=== PATIENT | female | born 1955 | race Caucasian/White ===

== ENCOUNTER 2017-06-12 12:08 | Observation (INO) | payer MEDICARE ==
[2017-06-12] VITALS (11 sets, daily range): BP systolic 138–200; BP diastolic 78–105; PULSE 52–79; RESP 16–20; TEMP 98–99.6; O2SAT 95–98
[~2017-06-12] VITALS: Ht 162.6 cm; Wt 69.5 kg
[~2017-06-12 12:08] MED LIST: ASPI81 PO; CIPR250T52 PO; DUONI NEB; IPRAAER IN; METF500 PO; METH10TA PO; NEBUMIS6 INH; NIFE1TAB86 PO; NIFE60TA58 PO; POTA20TA5 PO
[2017-06-12] MEDS ORDERED: IPRAAER INH (12:58)
[2017-06-12] MEDS ORDERED: ASPI81TA11 PO (12:58)
[2017-06-12] MEDS ORDERED: METF500T PO (12:58)
[2017-06-12] MEDS ORDERED: METH10TA PO (12:58)
[2017-06-12] MEDS ORDERED: ALBU.5I NEB (12:58)
[2017-06-12] MEDS ORDERED: SODIUM CHLORIDE 0.9% FLUSH 10 ML FLUSH IVF PRN (13:00)
[2017-06-12 13:08] LABS: BLOOD, URINE TRACE (NEG); GLUCOSE,URINE NEG (NEG); KETONE, URINE NEG (NEG); NITRITE,URINE POS (NEG)
--- NOTE | 2017-06-12 13:12 | RADRPT ---
EXAM DATE/TIME: 06/12/2017 12:56 [place] COMPARISON: No previous studies available for comparison. INDICATIONS : Short of breath. MEDICAL HISTORY : Chronic obstructive pulmonary disease. SURGICAL HISTORY : None. ENCOUNTER: Initial ACUITY: 2 days PAIN SCORE: 7/10 LOCATION: Bilateral chest FINDINGS: A single view of the chest demonstrates the lungs to be symmetrically aerated without evidence of mas s, infiltrate or effusion. Moderate sized hiatal hernia. The cardiomediastinal contours are unremarka ble. Osseous structures are intact. CONCLUSION: No acute disease. Rasheed Bledsoe MD on June 12, 2017 at 13:07 Board Certified Radiologist. This report was verified electronically.
[2017-06-12 13:14] LABS: METHOD OF COLLECTION CLEAN CATCH; URINE COLOR YELLOW (YELLW/STRAW); WBC, URINE 100-200 /hpf (0-5)
[2017-06-12 13:15] LABS: BACTERIA, URINE MANY /hpf; COMMENT (UR) CULTURE INDICATED; CULTURE IF INDICATED CULTURE INDICATED; SQUAMOUS EPITHELIAL CELL URINE > 8 /hpf (0-5)
--- NOTE | 2017-06-12 13:19 | PD ---
HPI Chief Complaint: GI Complaint Time Seen by Provider: 12:28 Travel History International Travel<30 days: No Contact w/Intl Traveler<30days: No Traveled to known affect area: No History of Present Illness HPI Patient is a 61-year-old female presents emergency department for evaluation of 2 complaints. Patient states she's been having some suprapubic pain as well as some chest tightness. Patient states she has a history of COPD he is a smoker, she states the pain in her chest is been ongoing for the past day and a half, she does not have a primary care physician is known to follow up with. States the pain is not radiating, is associated with some shortness of breath and some mild nausea. Secondary complaint of suprapubic pain which is milder, associated with mild nausea no vomiting. Started about the same time as her chest pain. 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) Musculoskeletal: No Neurologic: Yes (MEMORY ISSUES/BALANCE ISSUES SINCE TIA, ) Psychiatric: No Reproductive: Yes (hx endometriosis) Respiratory: Yes Thyroid Disease: No Past Surgical History Abdominal Surgery: Yes (appendectomy) Appendectomy: Yes Body Medical Devices: TMJ implant Cardiac Surgery: No Ear Surgery: No Endocrine Surgery: No Eye Surgery: Yes (Cataract surgery R eye) Genitourinary Surgery: Yes (Bladder enlargement ) Gynecologic Surgery: Yes (hysterectomy) Hysterectomy: Yes Oral Surgery: Yes (tmj joint replacement) Thoracic Surgery: No Tonsillectomy: Yes (AND ADENOIDS) Other Surgery: Yes (Hemorrhoidectomy, Breast augmentation, Stricturoplasty) Social History Alcohol Use: No Tobacco Use: No (QUIT 10/2016) Substance Use: No Allergies-Medications (Allergen,Severity, Reaction): Coded Allergies: cefaclor (Unverified Allergy, Severe, HIVES, THROAT CLOSES, 06/12/17) prochlorperazine (Unverified Allergy, Severe, THROAT CLOSES, 06/12/17) orphenadrine (Unverified Allergy, Intermediate, PALPITATIONS, 06/12/17) Reported Meds & Prescriptions Reported Meds & Active Scripts Active Nifedipine ER 24 HR (Nifedipine) 60 Mg Tab 60 Mg PO Q12HR Potassium Chloride Microencaps 20 Meq Tab 20 Meq PO DAILY Start on 07/11/16. Reported Albuterol Neb (Albuterol Sulfate) 2.5 Mg/0.5 Ml Neb 2.5 Mg NEB Q4HR NEB PRN Note: The Albuterol Sulfate Inhalation Solution is concentrated and must be diluted. Read complete instructions carefully before using. Methadone (Methadone HCl) 10 Mg Tab 100 Mg PO DAILY Metformin (Metformin HCl) 500 Mg Tab 500 Mg PO DAILY With a meal Combivent Respimat Inh (Ipratropium-Albuterol Inh) 20-100 Long Term/Act Aero 1 Puff INH QID Aspirin EC (Aspirin) 81 Mg Tabdr 81 Mg PO DAILY Review of Systems Except as stated in HPI: all other systems reviewed are Neg Physical Exam Narrative GENERAL: Well-developed, overweight patient in no obvious distress. SKIN: Focused skin assessment warm/dry. HEAD: Atraumatic. Normocephalic. EYES: Pupils equal and round. No scleral icterus. No injection or drainage. ENT: No nasal bleeding or discharge. Mucous membranes pink and moist. NECK: Trachea midline. No JVD. CARDIOVASCULAR: Regular rate and rhythm. No murmur appreciated. RESPIRATORY: No accessory muscle use. Clear to auscultation. Breath sounds equal bilaterally. GASTROINTESTINAL: Abdomen soft, nondistended. Hepatic and splenic margins not palpable. No CVA tenderness, minimal suprapubic tenderness. MUSCULOSKELETAL: No obvious deformities. No clubbing. No cyanosis. No edema. NEUROLOGICAL: Awake and alert. No obvious cranial nerve deficits. Motor grossly within normal limits. Normal speech. PSYCHIATRIC: Appropriate mood and affect; insight and judgment normal. Data Data Last Documented VS Vital Signs Date Time Temp Pulse Resp B/P (MAP) Pulse Ox O2 Delivery O2 Flow Rate FiO2 06/12/17 14:35 52 16 138/78 (98) 95 Room Air 06/12/17 12:24 99.6 Orders Orders Electrocardiogram (06/12/17 12:49) Basic Metabolic Panel (Bmp) (06/12/17 12:49) Ckmb (Isoenzyme) Profile (06/12/17 12:49) Complete Blood Count With Diff (06/12/17 12:49) Troponin I (06/12/17 12:49) Chest, Single Ap (06/12/17 12:49) Ecg Monitoring (06/12/17 12:49) Iv Access Insert/Monitor (06/12/17 12:49) Oximetry (06/12/17 12:49) Oxygen Administration (06/12/17 12:49) Sodium Chloride 0.9% Flush (Ns Flush) (06/12/17 13:00) Urinalysis - C+S If Indicated (06/12/17 12:52) Urine Culture (06/12/17 12:45) Nitroglycerin Sl (Nitrostat Sl) (06/12/17 13:45) Ondansetron Inj (Zofran Inj) (06/12/17 14:30) Ciprofloxacin 400 Mg Premix (Cipro 400 M (06/12/17 14:30) Admit Order (Ed Use Only) (06/12/17 ) Labs Laboratory Tests Test 06/12/17 12:45 06/12/17 13:15 06/12/17 13:22 Urine Collection Type CLEAN CATCH Urine Color YELLOW Urine Turbidity MOD Urine pH 6.0 Urine Specific [place] 1.014 Urine Protein 100 mg/dL Urine Glucose (UA) NEG mg/dL Urine Ketones NEG mg/dL Urine Occult Blood TRACE Urine Nitrite POS Urine Bilirubin NEG Urine Leukocyte Esterase SMALL Urine RBC 10-14 /hpf Urine WBC 100-200 /hpf Urine WBC Clumps MANY Urine Squamous Epithelial Cells > 8 /hpf Urine Bacteria MANY /hpf Microscopic Urinalysis Comment CULTURE INDICATED Urine Collection Time 12:45 White Blood Count 7.0 TH/MM3 Red Blood Count 4.65 MIL/MM3 Hemoglobin 10.3 GM/DL Hematocrit 33.9 % Mean Corpuscular Volume 73.0 FL Mean Corpuscular Hemoglobin 22.2 PG Mean Corpuscular Hemoglobin Concent 30.5 % Red Cell Distribution Width 15.5 % Platelet Count 229 TH/MM3 Mean Platelet Volume 9.3 FL Neutrophils (%) (Auto) 59.8 % Lymphocytes (%) (Auto) 24.5 % Monocytes (%) (Auto) 13.7 % Eosinophils (%) (Auto) 1.4 % Basophils (%) (Auto) 0.6 % Neutrophils # (Auto) 4.2 TH/MM3 Lymphocytes # (Auto) 1.7 TH/MM3 Monocytes # (Auto) 1.0 TH/MM3 Eosinophils # (Auto) 0.1 TH/MM3 Basophils # (Auto) 0.0 TH/MM3 CBC Comment AUTO DIFF Differential Comment AUTO DIFF CONFIRMED Blood Urea Nitrogen 8 MG/DL Creatinine 0.92 MG/DL Random Glucose 91 MG/DL Calcium Level 8.4 MG/DL Sodium Level 136 MEQ/L Potassium Level 3.4 MEQ/L Chloride Level 101 MEQ/L Carbon Dioxide Level 26.2 MEQ/L Anion Gap 9 MEQ/L Estimat Glomerular Filtration Rate 62 ML/MIN Total Creatine Kinase 71 U/L Troponin I LESS THAN 0.02 NG/ML Thyroid Stimulating Hormone 3rd Gen 0.326 uIU/ML MDM Medical Decision Making Medical Screen Exam Complete: Yes Emergency Medical Condition: Yes Differential Diagnosis ACS, AMI, UTI. Narrative Course Patient is a 61-year-old female presents emergency department for evaluation of 2 complaints. Suprapubic pain was explained by urinary tract infection. The patient secondary complaint is chest tightness, she is found to be significantly hypertensive in the emergency department, given nitroglycerin and her pain had subsided as well as her blood pressure. Patient does not have outpatient follow-up, she is a smoker, she has history of diabetes high blood pressure. Discussed with her that her pain is fairly atypical but cannot completely exclude, she has no follow-up and doesn't think she be able to do so and timely fashion. I had recommended that she stay in this chest pain center for consideration of stress test and she is agreeable. Diagnosis Primary Impression: Chest pain Qualified Codes: R07.9 - Chest pain, unspecified Additional Impression: Urinary tract infection Qualified Codes: N30.00 - Acute cystitis without hematuria Admitting Information Admitting Physician Requests: Observation Condition: Stable Wagner Thomas MD Jun 12, 2017 13:19
[2017-06-12 13:27] LABS: AUTOMATED NEUTROPHIL # 4.2 TH/MM3 (1.8-7.7); BASOPHIL % 0.6 % (0.0-2.0); EOSINOPHIL # 0.1 TH/MM3 (0-0.4); EOSINOPHIL % 1.4 % (0.0-4.0); HEMATOCRIT 33.9 % (35.0-46.0); LYMPH % 24.5 % (9.0-44.0); LYMPHOCYTE # 1.7 TH/MM3 (1.0-4.8); MEAN CORPUSCULAR HEMOGLOBIN 22.2 PG (27.0-34.0); MEAN CORPUSCULAR HGB CONC 30.5 % (32.0-36.0); MONO % 13.7 % (0.0-8.0); NEUT % 59.8 % (16.0-70.0); PLATELET COUNT 229 TH/MM3 (150-450); RED BLOOD COUNT 4.65 MIL/MM3 (4.00-5.30); RED CELL DISTRIBUTION WIDTH 15.5 % (11.6-17.2)
[2017-06-12 13:28] LABS: HEMO FLAGS AUTO DIFF
[2017-06-12 13:36] LABS: CHLORIDE 101 MEQ/L (98-107); POTASSIUM 3.4 MEQ/L (3.5-5.1); SODIUM (NA) 136 MEQ/L (136-145)
[2017-06-12 13:39] LABS: ANION GAP 9 MEQ/L (5-15); BICARBONATE 26.2 MEQ/L (21.0-32.0); BLOOD UREA NITROGEN 8 MG/DL (7-18)
[2017-06-12 13:42] LABS: GLOMERULAR FILTRATION RATE 62 ML/MIN (>89)
[2017-06-12] MEDS ORDERED: NITROGLYCERIN 0.4 MG SL 25 TABS/BTL SL ONE (13:45)
[2017-06-12 13:47] LABS: SCAN/DIFF AUTO DIFF CONFIRMED
[2017-06-12 13:57] LABS: CREATINE KINASE 71 U/L (26-192)
[2017-06-12] MEDS ORDERED: ONDANSETRON HCL 4 MG/2 ML VIAL IV PUSH ONE (14:30)
[2017-06-12] MEDS ORDERED: CIPROFLOXACIN 400 MG PREMIX 200 ML IV ONE (14:30)
[2017-06-12] MEDS ORDERED: SODIUM CHLORIDE 0.9% FLUSH 10 ML FLUSH IV FLUSH PRN (15:30)
[2017-06-12] MEDS ORDERED: DEXTROSE 50% IN WATER 50 ML VIAL(D50) IV PUSH PRN (16:45)
[2017-06-12] MEDS ORDERED: GLUCAGON 1 MG/ML VIAL OTHER PRN (16:45)
[2017-06-12] MEDS ORDERED: POTASSIUM CHLORIDE 10 MEQ CONTROLLED RELEASE TAB PO ONE (16:45)
[2017-06-12] MEDS ORDERED: LOSARTAN 50 MG TAB PO ONE (16:45)
[2017-06-12] MEDS ORDERED: RESP: ALBUTEROL CONC 2.5 MG/0.5 ML NEB NEB PRN (16:45)
--- NOTE | 2017-06-12 16:55 | HHI.HP ---
[facility] Primary Care Physician No Primary Care Physician Admission Diagnosis Chest pain Diagnoses: Chief Complaint: Chest pain Travel History International Travel<30 Days: No Contact w/Intl Traveler <30 Da: No Traveled to Known Affected Are: No History of Present Illness This patient is a 61-year-old female with diabetes and hypertension. She comes in with 10 out of 10 substernal chest pain and with elevated blood pressures for a week. Her blood pressure here is 197/97. Patient states she ran out of her medications several months ago. She moved from [place] did not obtain primary care follow-up. She also takes methadone but did find the methadone clinic. She has reflex sympathetic dystrophy. She has come to the emergency room for further evaluation. As her blood pressure improved her cardiac complaint resolved. However blood pressure juan again and she began having severe substernal chest discomfort. Patient says the chest pains 1 over the last 24 hours. Is it not radiating and not associated with diaphoresis or nausea. She also reports increased dyspnea on exertion over the last several weeks with minimal effort. She is not very active but notice getting around the house was more difficult due to increased shortness of breath. She does take nebulizers for her COPD and has been out of those as well. She has had some dysuria but notes no fevers or chills. She is come to the hospital for further evaluation of the above symptoms and has been recommended for further observation Review of Systems Constitutional: DENIES: Diaphoretic episodes, Fatigue, Fever, Weight gain, Weight loss, Chills, Dizziness, Change in appetite, Night Sweats Endocrine: DENIES: Abnorml menstrual pattern, Heat/cold intolerance, Polydipsia , Polyuria, Polyphagia Eyes: DENIES: Blurred vision, Diplopia, Eye inflammation, Eye pain, Vision loss , Photosensitivity, Double Vision Ears, nose, mouth, throat: DENIES: Tinnitus, Hearing loss, Vertigo, Nasal discharge, Oral lesions, Throat pain, Hoarseness, Ear Pain, Running Nose, Epistaxis, Sinus Pain, Toothache, Odynophagia Respiratory: COMPLAINS OF: Shortness of breath, DENIES: Apneas, Cough, Snoring , Wheezing, Hemoptysis, Sputum production Cardiovascular: COMPLAINS OF: Chest pain Gastrointestinal: DENIES: Abdominal pain, Black stools, Bloody stools, Constipation, Diarrhea, Nausea, Vomiting, Difficulty Swallowing, Anorexia Genitourinary: DENIES: Abnormal vaginal bleeding, Dysmenorrhea, Dyspareunia, Sexual dysfunction, Urinary frequency, Urinary incontinence, Urgency, Hematuria , Dysuria, Nocturia, Vaginal discharge Musculoskeletal: DENIES: Joint pain, Muscle aches, Stiffness, Joint Swelling, Back pain, Neck pain Integumentary: DENIES: Abnormal pigmentation, Pruritus, Rash, Nail changes, Breast masses, Breast skin changes, Nipple discharge Immunologic/allergic: DENIES: Eczema, Urticaria Neurologic: DENIES: Abnormal gait, Headache, Localized weakness, Paresthesias, Seizures, Speech Problems, Tremor, Poor Balance Psychiatric: DENIES: Anxiety, Confusion, Mood changes, Depression, Hallucinations, Agitation, Suicidal Ideation, Homicidal Ideation, Delusions Except as stated in HPI: all other systems reviewed are Neg Past Family Social History Past Medical History Diabetes mellitus Hypertension Poor adherence Reflex sympathetic dystrophy on chronic methadone Past Surgical History Total hysterectomy, hemorrhoid surgery TMJ Sinus surgery Breast augmentation Bladder surgery Tonsils and appendectomy Reported Medications Reviewed in the EMR, ran out of her medications several months ago (except methadone) Allergies: Coded Allergies: cefaclor (Unverified Allergy, Severe, HIVES, THROAT CLOSES, 06/12/17) prochlorperazine (Unverified Allergy, Severe, THROAT CLOSES, 06/12/17) orphenadrine (Unverified Allergy, Intermediate, PALPITATIONS, 06/12/17) Active Ordered Medications Reviewed in the EMR Family History Mother from liver cancer at 52, father from a stroke and had diabetes and coronary disease Social History Quit smoking over a year ago, does not drink alcohol lives with her son Physical Exam Vital Signs Vital Signs Date Time Temp Pulse Resp B/P (MAP) Pulse Ox O2 Delivery O2 Flow Rate FiO2 06/12/17 13:52 52 16 186/89 (121) 06/12/17 13:33 52 16 197/97 (130) 97 Room Air 06/12/17 13:05 18 97 Room Air 06/12/17 13:05 97 Room Air 06/12/17 12:44 18 06/12/17 12:25 62 18 174/85 (114) 97 06/12/17 12:24 99.6 71 18 Physical Exam GENERAL: This is a well-nourished, well-developed patient, in no apparent distress. SKIN: No rashes, ecchymoses or lesions. Cool and dry. HEAD: Edentulous, Atraumatic. Normocephalic. No temporal or scalp tenderness. EYES: Pupils equal round and reactive. Extraocular motions intact. No scleral icterus. No injection or drainage. ENT: Nose without bleeding, purulent drainage or septal hematoma. Throat without erythema, tonsillar hypertrophy or exudate. Uvula midline. Airway patent. NECK: Trachea midline. No JVD or lymphadenopathy. Supple, nontender, no meningeal signs. CARDIOVASCULAR: Regular rate and rhythm without murmurs, gallops, or rubs. RESPIRATORY: Clear to auscultation. Breath sounds equal bilaterally. No wheezes , rales, or rhonchi. GASTROINTESTINAL: Abdomen soft, non-tender, nondistended. No hepato-splenomegaly , or palpable masses. No guarding. MUSCULOSKELETAL: Extremities without clubbing, cyanosis, or edema. No joint tenderness, effusion, or edema noted. No calf tenderness. Negative Homans sign bilaterally. NEUROLOGICAL: Awake and alert. Cranial nerves II through XII intact. Motor and sensory grossly within normal limits. Five out of 5 muscle strength in all muscle groups. Normal speech. Laboratory Laboratory Tests Test 06/12/17 12:45 06/12/17 13:15 Urine Collection Type CLEAN CATCH Urine Color YELLOW Urine Turbidity MOD Urine pH 6.0 Urine Specific [place] 1.014 Urine Protein 100 Urine Glucose (UA) NEG Urine Ketones NEG Urine Occult Blood TRACE Urine Nitrite POS Urine Bilirubin NEG Urine Leukocyte Esterase SMALL Urine RBC 10-14 Urine WBC 100-200 Urine WBC Clumps MANY Urine Squamous Epithelial Cells > 8 Urine Bacteria MANY Microscopic Urinalysis Comment CULTURE INDICATED Urine Collection Time 12:45 White Blood Count 7.0 Red Blood Count 4.65 Hemoglobin 10.3 Hematocrit 33.9 Mean Corpuscular Volume 73.0 Mean Corpuscular Hemoglobin 22.2 Mean Corpuscular Hemoglobin Concent 30.5 Red Cell Distribution Width 15.5 Platelet Count 229 Mean Platelet Volume 9.3 Neutrophils (%) (Auto) 59.8 Lymphocytes (%) (Auto) 24.5 Monocytes (%) (Auto) 13.7 Eosinophils (%) (Auto) 1.4 Basophils (%) (Auto) 0.6 Neutrophils # (Auto) 4.2 Lymphocytes # (Auto) 1.7 Monocytes # (Auto) 1.0 Eosinophils # (Auto) 0.1 Basophils # (Auto) 0.0 CBC Comment AUTO DIFF Differential Comment AUTO DIFF CONFIRMED Blood Urea Nitrogen 8 Creatinine 0.92 Random Glucose 91 Calcium Level 8.4 Sodium Level 136 Potassium Level 3.4 Chloride Level 101 Carbon Dioxide Level 26.2 Anion Gap 9 Estimat Glomerular Filtration Rate 62 Total Creatine Kinase 71 Troponin I LESS THAN 0.02 Date/Time Source Procedure Growth Status 06/12/17 12:45 Urine Clean Catch Urine Culture Pending Received Result Diagram: 06/12/17 1315 06/12/17 1315 Imaging Last Impressions Chest X-Ray 06/12/17 1249 Signed Impressions: Service Date/Time: Monday, June 12, 2017 12:56 - CONCLUSION: No acute disease. MD Jennifer Clement VTE Risk Assessment Caprini VTE Risk Assessment: Mod/High Risk (score >= 2) Caprini Risk Assessment Model Point Value = 1 Point Value = 2 Point Value = 3 Point Value = 5 Age 41-60 Minor surgery BMI > 25 kg/m2 Swollen legs Varicose veins or History of unexplained or recurrent spontaneous Oral contraceptives or hormone replacement Sepsis (< 1 month) Serious lung disease, including pneumonia (< 1 month) Abnormal pulmonary function Acute myocardial infarction Congestive heart failure (< 1 month) History of inflammatory bowel disease Medical patient at bed rest Age 61-74 Arthroscopic surgery Major open surgery (> 45 min) Laparoscopic surgery (> 45 min) Malignancy Confined to bed (> 72 hours) Immobilizing plaster cast Central venous access Age >= 75 History of VTE Family history of VTE Factor V Leiden Prothrombin [id number] Lupus anticoagulant Anticardiolipin antibodies Elevated serum homocysteine Heparin-induced thrombocytopenia Other congenital or acquired thrombophilia Stroke (< 1 month) Elective arthroplasty Hip, pelvis, or leg fracture Acute spinal cord injury (< 1 month) Prophylaxis Regimen Total Risk Factor Score Risk Level Prophylaxis Regimen 0-1 Low Early ambulation 2 Moderate Order ONE of the following: *Sequential Compression Device (SCD) *Heparin 5000 units SQ BID 3-4 Higher Order ONE of the following medications: *Heparin 5000 units SQ TID *Enoxaparin/Lovenox 40 mg SQ daily (WT < 150 kg, CrCl > 30 mL/min) *Enoxaparin/Lovenox 30 mg SQ daily (WT < 150 kg, CrCl > 10-29 mL/min) *Enoxaparin/Lovenox 30 mg SQ BID (WT < 150 kg, CrCl > 30 mL/min) AND/OR *Sequential Compression Device (SCD) 5 or more Highest Order ONE of the following medications: *Heparin 5000 units SQ TID (Preferred with Epidurals) *Enoxaparin/Lovenox 40 mg SQ daily (WT < 150 kg, CrCl > 30 mL/min) *Enoxaparin/Lovenox 30 mg SQ daily (WT < 150 kg, CrCl > 10-29 mL/min) *Enoxaparin/Lovenox 30 mg SQ BID (WT < 150 kg, CrCl > 30 mL/min) AND *Sequential Compression Device (SCD) Assessment and Plan Problem List: (1) Chest pain ICD Code: R07.9 - Chest pain, unspecified Status: Acute Plan: Atypical and likely due to elevated blood pressures Renee scan in a.m., patient education (2) Hypertension ICD Code: I10 - Essential (primary) hypertension Status: Acute Plan: Uncontrolled due to nonadherence, we'll continue patient's pain, add ARB , patient education provided (3) Diabetes ICD Code: E11.9 - Type 2 diabetes mellitus without complications Status: Acute Plan: Continue sliding scale insulin and diabetic diet, hold metformin for now (4) RSD (reflex sympathetic dystrophy) ICD Code: G90.50 - Complex regional pain syndrome I, unspecified Plan: Patient does take methadone daily which we will continue (5) Urinary tract infection ICD Code: N39.0 - Urinary tract infection, site not specified Status: Acute Plan: Empiric ciprofloxacin and follow cultures Code Status full code Discussed Condition With ER MD,patient Problem Qualifiers (1) Chest pain: Qualified Codes: R07.9 - Chest pain, unspecified (2) Urinary tract infection: Qualified Codes: N30.00 - Acute cystitis without hematuria Maria Teresa Starkey MD Jun 12, 2017 16:55
[2017-06-12] MEDS: INSULIN ASPART SUPPLEMENTAL SCALE SQ SCH ×2 (17:51→21:00)
[2017-06-12 19:27] LABS: HDL CHOLESTEROL 49.2 MG/DL (40.0-60.0); LDL CHOLESTEROL 34 MG/DL (0-99)
[2017-06-12] MEDS ORDERED: cloNIDine HCL 0.1 MG TAB PO PRN (20:45)
[2017-06-12] MEDS: CIPROFLOXACIN 500 MG TAB PO SCH (21:36)
[2017-06-12] MEDS: SODIUM CHLORIDE 0.9% FLUSH 10 ML FLUSH IV FLUSH SCH (21:36)
[2017-06-12] MEDS: NIFEdipine 60 MG SUSTAINED RELEASE TAB PO SCH (21:36)
[2017-06-12] MEDS: HEPARIN SODIUM - SQ 10,000 UNITS/ML VIAL SQ SCH (21:37)
[2017-06-13 00:02] VITALS: BP 94/52; PULSE 64; RESP 18; TEMP 98.1; O2SAT 97
[2017-06-13 04:53] VITALS: BP 106/60; PULSE 70; RESP 16; TEMP 98.2; O2SAT 96
--- NOTE | 2017-06-13 05:16 | EKG ---
Date Performed: 06/12/2017 Time Performed: 12:58:21 PTAGE: 61 years EKG: SINUS BRADYCARDIA POSSIBLE LEFT ATRIAL ENLARGEMENT PROLONGED QT INTERVAL ABNORMAL ECG PREVIOUS TRACING : 07/09/2016 05.58 DOCTOR: Eligio Solitario Interpretating Date/Time 06/13/2017 05:08:40
[2017-06-13] MEDS: HEPARIN SODIUM - SQ 10,000 UNITS/ML VIAL SQ SCH ×2 (05:35→14:48)
[2017-06-13 08:00] VITALS: BP 80/64; PULSE 63; RESP 16; TEMP 97.8; O2SAT 95
[2017-06-13] MEDS: INSULIN ASPART SUPPLEMENTAL SCALE SQ SCH ×2 (08:00→12:00)
[2017-06-13] MEDS: NIFEdipine 60 MG SUSTAINED RELEASE TAB PO SCH (08:30)
[2017-06-13 08:36] VITALS: PULSE 58
[2017-06-13] MEDS: CIPROFLOXACIN 500 MG TAB PO SCH (08:36)
[2017-06-13] MEDS: SODIUM CHLORIDE 0.9% FLUSH 10 ML FLUSH IV FLUSH SCH (08:36)
[2017-06-13] MEDS ORDERED: SODIUM CHLOR 0.9% 1000 ML INJ 1,000 ML IV SCH (08:45)
[2017-06-13] MEDS ORDERED: ASPIRIN EC 81 MG TABEC PO SCH (09:00)
[2017-06-13] MEDS ORDERED: POTASSIUM CHLORIDE 20 MEQ CONTROLLED RELEASE TAB PO SCH (09:00)
[2017-06-13] MEDS ORDERED: LOSARTAN 50 MG TAB PO SCH (09:00)
[2017-06-13] MEDS ORDERED: METHADONE HCL 10 MG TAB PO SCH (09:00)
[2017-06-13 09:18] LABS: BICARBONATE 28.7 MEQ/L (21.0-32.0); POTASSIUM 4.4 MEQ/L (3.5-5.1)
[2017-06-13] MEDS ORDERED: PNEUMOCOCCAL POLYVALENT INJ 25 MCG/0.5 ML SYR IM ONE (10:00)
[2017-06-13] MEDS ORDERED: INFLUENZA VIRUS VACCINE (QUADRIVALENT) 0.5 ML SYR IM ONE (10:00)
[2017-06-13 11:06] LABS: HEMOGLOBIN A1a 1.4 %; HEMOGLOBIN A1b 1.7 %; HEMOGLOBIN Ao 84.7 %; HEMOGLOBIN LA1C 1.7 %; HEMOGLOBIN P3 3.7 %
--- NOTE | 2017-06-13 11:17 | HHI.PR ---
Subjective Remarks Patient seen and evaluated today in follow-up for atypical chest pain with uncontrolled hypertension. Blood pressure has dropped after medications chest pain is basically resolved. Stress test pending. Patient had some dizziness associated with hypotension and blood pressure was 80 systolic. Plan of care discussed with patient Objective Vitals Vital Signs Date Time Temp Pulse Resp B/P (MAP) Pulse Ox O2 Delivery O2 Flow Rate FiO2 06/13/17 08:00 97.8 63 16 80/64 (69) 95 06/13/17 04:53 98.2 70 16 106/60 (75) 96 06/13/17 00:02 98.1 64 18 94/52 (66) 97 06/12/17 20:25 98.0 79 20 163/98 (119) 97 06/12/17 18:21 170/100 (123) 06/12/17 17:15 98.4 55 20 200/105 (136) 98 06/12/17 17:00 06/12/17 16:40 54 16 198/93 (128) 95 Room Air 06/12/17 15:35 53 16 188/93 (124) 96 Room Air 06/12/17 14:35 52 16 138/78 (98) 95 Room Air 06/12/17 13:52 52 16 186/89 (121) 06/12/17 13:33 52 16 197/97 (130) 97 Room Air 06/12/17 13:05 18 97 Room Air 06/12/17 13:05 97 Room Air 06/12/17 12:44 18 06/12/17 12:25 62 18 174/85 (114) 97 06/12/17 12:24 99.6 71 18 I/O 06/12/17 06/12/17 06/12/17 06/13/17 06/13/17 06/13/17 06:59 14:59 22:59 06:59 14:59 22:59 Intake Total 200 ml Balance 200 ml Intake IV Total 200 ml # Voids 2 # Bowel Movements 0 Result Diagram: 06/12/17 1315 06/13/17 0730 Imaging Last Impressions Chest X-Ray 06/12/17 1249 Signed Impressions: Service Date/Time: Monday, June 12, 2017 12:56 - CONCLUSION: No acute disease. Rasheed Bledsoe MD Objective Remarks GENERAL: This is a well-nourished, well-developed patient, in no apparent distress. CARDIOVASCULAR: Regular rate and rhythm without murmurs, gallops, or rubs. RESPIRATORY: Clear to auscultation. Breath sounds equal bilaterally. No wheezes , rales, or rhonchi. GASTROINTESTINAL: Abdomen soft, non-tender, nondistended. Normal active bowel sounds MUSCULOSKELETAL: Extremities without clubbing, cyanosis, or edema. NEURO: Alert & Oriented x4 to person, place, time, situation. Moves all ext x4 A/P Problem List: (1) Chest pain ICD Code: R07.9 - Chest pain, unspecified Status: Acute Plan: Atypical and likely due to elevated blood pressures Renee scan pending (2) Hypertension ICD Code: I10 - Essential (primary) hypertension Status: Acute Plan: Uncontrolled due to nonadherence, hypotension today after Meds given hold bp meds, IVF follow clinically for Medication Recommendations (3) Diabetes ICD Code: E11.9 - Type 2 diabetes mellitus without complications Status: Acute Plan: Continue sliding scale insulin and diabetic diet, hold metformin for now (4) RSD (reflex sympathetic dystrophy) ICD Code: G90.50 - Complex regional pain syndrome I, unspecified Plan: Patient does take methadone daily which we will continue (5) Urinary tract infection ICD Code: N39.0 - Urinary tract infection, site not specified Status: Acute Plan: Empiric ciprofloxacin and follow cultures (6) HTN (hypertension) ICD Code: I10 - Essential (primary) hypertension Discharge Planning home on po meds when stable Problem Qualifiers (1) Chest pain: Qualified Codes: R07.9 - Chest pain, unspecified (2) Urinary tract infection: Qualified Codes: N30.00 - Acute cystitis without hematuria Maria Teresa Starkey MD Jun 13, 2017 11:17
[2017-06-13 12:05] VITALS: BP 117/82; PULSE 57; RESP 19; TEMP 98; O2SAT 100
[2017-06-13] MEDS ORDERED: REGADENOSON INJ 0.4 MG/5 ML SYR IV ONE (12:09)
--- NOTE | 2017-06-13 13:11 | TR ---
Date Performed: 06/13/2017 Time Performed: 12:21:07 DOCTOR: Jered Ramos DRUG LIST: CLINICAL HISTORY: CHEST PAIN REASON FOR TEST: Chest pain REASON FOR ENDING: OBSERVATION: CONCLUSION: Lexiscan stress test was performed under standard four minute protocol. Radionuclid e was injected one minute prior to ending the test. No electrocardiographic abormalities were present to suggest ischemia. Nuclear imaging and interpretation are pending. COMMENTS:
--- NOTE | 2017-06-13 13:26 | RADRPT ---
EXAM DATE/TIME: 06/13/2017 11:58 [facility] COMPARISON: No previous studies available for comparison. INDICATIONS : Substernal chest pain with dyspnea. Angina. DOSE: 25.4 mCi Tc99m Myoview at stress. 8.5 mCi Tc99m Myoview at rest. 0.4 mg Lexiscan STRESS SYMPTOMS: Dyspnea. EJECTION FRACTION: 68% MEDICAL HISTORY : Hypertension. Diabetes mellitus type 2. Chronic obstructive pulmonary disease. SURGICAL HISTORY : Hysterectomy. Tonsillectomy. Hemorrhoidectomy. Breast augmentation, sinus surgery, bladder surgery an d TMJ. ENCOUNTER: Initial ACUITY: 1 day PAIN SCALE: 10/10 LOCATION: Substernal chest TECHNIQUE: The patient underwent pharmacologic stress with infusion of prescribed dose. Continuous ECG tracing was monitored during stress. Gated SPECT imaging was performed after stress and conventional SPECT i maging was performed at rest. The examination was performed on a SPECT/CT scanner, both attenuation and non-corrected datasets were reviewed. FINDINGS: DISTRIBUTION: The maximum perfused segment at stress is in the posterior wall. PERFUSION STUDY: The pattern of perfusion at stress is within normal limits. GATED STUDY: There is intact wall motion and thickening without hypokinetic or dyskinetic segments. CONCLUSION: Normal examination. RISK CATEGORY: Low (<1% Annual Mortality Rate) Kolton Escalante MD on June 13, 2017 at 13:17 Board Certified Radiologist. This report was verified electronically.
[2017-06-13] MEDS ORDERED: COZA25TA PO (14:05)
--- NOTE | 2017-06-13 14:06 | HHI.DCPOC ---
Discharge Care Plan Diagnosis: (1) HTN (hypertension) (2) RSD (reflex sympathetic dystrophy) (3) Diabetes (4) Chest pain Goals to Promote Your Health * To prevent worsening of your condition and complications * To maintain your health at the optimal level Directions to Meet Your Goals Take your medications as prescribed Follow your dietary instruction Follow activity as directed Keep your appointments as scheduled Take your immunizations and boosters as scheduled If your symptoms worsen call your PCP, if no PCP go to Urgent Care Center or Emergency Room Smoking is Dangerous to Your Health. Avoid second hand smoke Call the 24-hour hour crisis hotline for domestic abuse at Maria Teresa Satrkey MD Jun 13, 2017 14:06
[2017-06-13 15:22] VITALS: PULSE 78
[2017-06-13] MEDS ORDERED: CIPR-9 PO (15:55)
--- NOTE | 2017-06-14 06:03 | EKG ---
Date Performed: 06/13/2017 Time Performed: 14:28:29 PTAGE: 61 years EKG: SINUS BRADYCARDIA POSSIBLE LEFT ATRIAL ENLARGEMENT NONSPECIFIC T-WAVE ABNORMALITY BORDERLIN E ECG PREVIOUS TRACING : 06/12/2017 12.58 DOCTOR: Eligio Solitario Interpretating Date/Time 06/14/2017 05:58:21
== END 2017-06-13 16:50 | disposition home or self-care (01) ==
LOC: PHED 12:08 → PHEDA 15:06 → PH3B 17:15
PROVIDERS: ADMIT Hospitalist; ATTEND Hospitalist
DX: R07.89 Other chest pain (principal); I11.0 Hypertensive heart disease with heart failure; G90.50 Complex regional pain syndrome I, unspecified; N39.0 Urinary tract infection, site not specified; B96.20 Unspecified Escherichia coli [E. coli] as the cause of diseases classified elsewhere; I50.9 Heart failure, unspecified; E11.9 Type 2 diabetes mellitus without complications; R42 Dizziness and giddiness; I95.9 Hypotension, unspecified; Z79.4 Long term (current) use of insulin; Z23 Encounter for immunization
CPT/HCPCS: 71010; 78452; 80048; 80061; 81001; 82550; 82948; 83036; 84443; 84484; 85025; 87077; 87086; 87186; 90732; 93005; 93017; 96361; 96365; 96372; 96375; 99285; A9502; G0008; G0009; G0378; J0744; J1644; J2405; J2785; J7030; Q2038; 90471; 90472; 90686

== ENCOUNTER 2017-07-14 13:12 | Inpatient (IN) | payer MEDICARE ==
[2017-07-14] VITALS (25 sets, daily range): BP systolic 108–211; BP diastolic 57–111; PULSE 63–101; RESP 14–24; TEMP 99–99.5; O2SAT 97–100
[~2017-07-14] VITALS: Ht 165.1 cm; Wt 68.2 kg
[~2017-07-14 13:12] MED LIST changes: +ALBU.5I NEB; -ASPI81 PO; +ASPI81TA23 PO; +CIPR-9 PO; -CIPR250T52 PO; +COZA25TA PO; -DUONI NEB; -IPRAAER IN; +IPRAAER INH; -METF500 PO; +METF500T PO; -NEBUMIS6 INH; -NIFE1TAB86 PO; -NIFE60TA58 PO
[2017-07-14] MEDS ORDERED: PROPOFOL 1000 MG/100 ML INJ 100 ML IV PRN (13:45)
[2017-07-14] MEDS ORDERED: ETOMIDATE 20 MG/10 ML VIAL IV PUSH ONE (13:45)
[2017-07-14] MEDS ORDERED: SODIUM CHLORIDE 0.9% FLUSH 10 ML FLUSH IVF PRN (13:45)
[2017-07-14] MEDS ORDERED: SUCCINYLCHOLINE CHLORIDE 100 MG/5 ML SYRINGE IV PUSH ONE ×2 (13:45)
[2017-07-14] MEDS ORDERED: SODIUM PHOSPHATE INJ 30 MMOL in SODIUM CHLOR 0.9% 250 ML INJ 240 ML IV PRN (14:00)
[2017-07-14] MEDS ORDERED: MAGNESIUM SULFATE INJ 2 GM in SODIUM CHLORIDE 0.9% INJ 96 ML IV PRN (14:00)
[2017-07-14] MEDS ORDERED: DEXTROSE 50% IN WATER 50 ML VIAL(D50) IV PUSH PRN (14:00)
[2017-07-14] MEDS ORDERED: RESP: ALBUTEROL 2.5 MG/IPRATROPIUM 0.5 MG NEB (PRN) INH (14:00)
[2017-07-14] MEDS ORDERED: POTASSIUM CHLOR 40 MEQ PREMIX 100 ML IV PRN ×2 (14:00)
[2017-07-14] MEDS ORDERED: MAGNESIUM SULFATE INJ 4 GM in SODIUM CHLORIDE 0.9% INJ 92 ML IV PRN (14:00)
[2017-07-14] MEDS ORDERED: ONDANSETRON HCL 4 MG/2 ML VIAL IV PUSH PRN (14:00)
[2017-07-14] MEDS ORDERED: MAGNESIUM OXIDE 400 MG TAB PO PRN (14:00)
[2017-07-14] MEDS ORDERED: MISCELLANEOUS NURSING INFORMATION XX SCH (14:00)
[2017-07-14] MEDS ORDERED: POTASSIUM CHLOR 20 MEQ PREMIX 100 ML IV PRN (14:00)
[2017-07-14] MEDS ORDERED: POTASSIUM PHOSPHATE MONOBASIC 500 MG TAB PO/TUBE PRN (14:00)
[2017-07-14] MEDS ORDERED: POTASSIUM PHOSPHATE INJ 30 MMOL in SODIUM CHLOR 0.9% 250 ML INJ 250 ML IV PRN (14:00)
[2017-07-14] MEDS ORDERED: CHLORHEXIDINE GLUCONATE 2 % 1 PACK (2 CLOTHS) TOP PRN (14:00)
[2017-07-14] MEDS ORDERED: fentaNYL DRIP 250 ML IV PRN (14:00)
[2017-07-14] MEDS ORDERED: POTASSIUM PHOSPHATE MONOBASIC 500 MG TAB PO PRN (14:00)
--- NOTE | 2017-07-14 14:04 | PD ---
HPI . Cardiac arrest Chief Complaint: Cardiac Complaint Time Seen by Provider: 13:34 Travel History International Travel<30 days: No Contact w/Intl Traveler<30days: No Traveled to known affect area: No History of Present Illness HPI This patient presents to us via [facility] status post a VF cardiac arrest. She was in bed with her significant other when she had seizure-like activity. He found her to be pulseless and apneic and initiated CPR. 911 was called. [facility] reports that it was probably 5 minutes from the time that they were called until the time they arrived on the scene. She was in a V. fib rhythm on their arrival. The patient was defibrillated 1 with return of spontaneous circulation. The patient was initially transported to the hospital. We attempted to obtain a definitive airway in route without success. This patient was admitted to the chest pain center on June 12. She had a negative nuclear stress test and a negative myocardial perfusion scan. She does have a history of hypertension. PFSH Past Medical History Medical History: Unable to Obtain Hx Anticoagulant Therapy: Yes (81MG ASA) Anemia: Yes (Iron-deficiency anemia ) Anxiety: Yes Depression: No Heart Rhythm Problems: Yes Cancer: No Cardiovascular Problems: Yes High Cholesterol: No Chemotherapy: No Chest Pain: Yes Congestive Heart Failure: Yes COPD: Yes Cerebrovascular Accident: Yes (TIA ) Diabetes: Yes Patient Takes Glucophage: Yes (unknown) Diminished Hearing: No Endocrine: Yes Gastrointestinal Disorders: Yes Genitourinary: Yes Hypertension: Yes Immune Disorder: No Implanted Vascular Access Dvce: Yes Musculoskeletal: Yes (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 ) Neurologic: Yes Psychiatric: No Reproductive: No Respiratory: Yes Radiation Therapy: No Thyroid Disease: No Tetanus Vaccination: Unknown ?: Not Past Surgical History Surgical History: Unable to Obtain Abdominal Surgery: Yes (Appendectomy, ) Appendectomy: Yes Body Medical Devices: TMJ implant Cardiac Surgery: No Ear Surgery: No Endocrine Surgery: No Eye Surgery: Yes (right cataract) Genitourinary Surgery: Yes (enlargment of bladder) Gynecologic Surgery: Yes Hysterectomy: Yes Joint Replacement: Yes (TMJ ) Neurologic Surgery: No Oral Surgery: Yes (TMJ ) Thoracic Surgery: No Tonsillectomy: Yes (AND ADENOIDS) Other Surgery: Yes (Hemorrhoidectomy, Breast augmentation, Stricturoplasty) Social History Alcohol Use: No Tobacco Use: No (QUIT 10/2016) Substance Use: No Allergies-Medications (Allergen,Severity, Reaction): Coded Allergies: cefaclor (Unverified Allergy, Severe, HIVES, THROAT CLOSES, 07/14/17) prochlorperazine (Unverified Allergy, Severe, THROAT CLOSES, 07/14/17) orphenadrine (Unverified Allergy, Intermediate, PALPITATIONS, 07/14/17) Reported Meds & Prescriptions Reported Meds & Active Scripts Active Cipro (Ciprofloxacin HCl) 500 Mg Tab 500 Mg PO BID 12 Days Cozaar (Losartan Potassium) 25 Mg Tab 25 Mg PO DAILY Potassium Chloride Microencaps 20 Meq Tab 20 Meq PO DAILY Start on 07/11/16. Reported Albuterol Neb (Albuterol Sulfate) 2.5 Mg/0.5 Ml Neb 2.5 Mg NEB Q4HR NEB PRN Note: The Albuterol Sulfate Inhalation Solution is concentrated and must be diluted. Read complete instructions carefully before using. Methadone (Methadone HCl) 10 Mg Tab 100 Mg PO DAILY Metformin (Metformin HCl) 500 Mg Tab 500 Mg PO DAILY With a meal Combivent Respimat Inh (Ipratropium-Albuterol Inh) 20-100 Intermediate/Act Aero 1 Puff INH QID Aspirin EC (Aspirin) 81 Mg Tabdr 81 Mg PO DAILY Review of Systems ROS Limitations: Intubated Physical Exam Narrative GENERAL: Good color. SKIN: warm/dry. HEAD: Normocephalic. Atraumatic. EYES: Pupils equal and round. She has bilateral cataracts. No scleral icterus. No injection or drainage. ENT: No nasal bleeding or discharge. Mucous membranes pink and moist. NECK: Trachea midline. Full range of motion without pain.. CARDIOVASCULAR: Sinus tachycardia. Heart sounds were normal. RESPIRATORY: Patient was being bagged. She had rhonchi. GASTROINTESTINAL: Abdomen soft. Bowel sounds present. Nondistended. MUSCULOSKELETAL: No obvious deformities. NEUROLOGICAL: No verbal or eye response. She does have a gag reflex and is localizing to painful stimuli. PSYCHIATRIC: Unable to assess Data Data Last Documented VS Vital Signs Date Time Temp Pulse Resp B/P (MAP) Pulse Ox O2 Delivery O2 Flow Rate FiO2 07/14/17 13:28 83 211/89 (129) 07/14/17 13:12 18 99 Orders Orders Electrocardiogram (07/14/17 13:34) Ckmb (Isoenzyme) Profile (07/14/17 13:34) Complete Blood Count With Diff (07/14/17 13:34) Comprehensive Metabolic Panel (07/14/17 13:34) Magnesium (Mg) (07/14/17 13:34) Prothrombin Time / Inr (Pt) (07/14/17 13:34) Act Partial Throm Time (Ptt) (07/14/17 13:34) Troponin I (07/14/17 13:34) Chest, Single Ap (07/14/17 13:34) Ecg Monitoring (07/14/17 13:34) Iv Access Insert/Monitor (07/14/17 13:34) Oximetry (07/14/17 13:34) Sodium Chloride 0.9% Flush (Ns Flush) (07/14/17 13:45) Ct Brain W/O Iv Contrast(Rout) (07/14/17 13:36) Succinylcholine Inj (Quelicin Inj) (07/14/17 13:45) Succinylcholine Inj (Quelicin Inj) (07/14/17 13:45) Etomidate Inj (Amidate Inj) (07/14/17 13:45) Propofol 1000 Mg/100 Ml Inj (Diprivan 10 (07/14/17 13:45) ^ Infusion (07/14/17 13:37) Neurological Rass Scale Q30MX2,Q2HX4,Q4H (07/14/17 13:37) Lactic Acid (07/14/17 13:38) Blood Culture (07/14/17 13:38) ^ Orogastric Tube (07/14/17 13:42) Urinary Catheter Insert/Apply (07/14/17 13:42) Urinalysis - C+S If Indicated (07/14/17 13:42) Admit Order (Ed Use Only) (07/14/17 ) Prefabricated Houses Trimmer / Telemetry LUCIAN.Q8H (07/14/17 13:48) Vital Signs (Adult) Q4H (07/14/17 13:48) Diet Npo (07/14/17 Lunch) Activity Bed Rest (07/14/17 13:48) Notify Dr: Other (07/14/17 13:48) MDM Medical Decision Making Medical Screen Exam Complete: Yes Emergency Medical Condition: Yes Medical Record Reviewed: Yes (previous chest pain center admission) Differential Diagnosis Differential diagnosis includes primary cardiac arrest, respiratory arrest, head injury, drug intoxication, diabetic coma Narrative Course Patient presents status post a VF cardiac arrest. She was resuscitated with a single defibrillation. To the emergency department, she was placed on monitors and IV access was obtained. The patient was intubated. OG tube and Rogers catheter were placed. Labs were sent. We called to the ICU to inquire about cooling. The filament cutter was consult at and is now here seeing the patient. Critical Care Narrative Aggregate critical care time was 30 minutes. Time to perform other separately billable procedures was not included in the critical care time. My time did not include minutes spent treating any other patients simultaneously or on activities that did not directly contribute to the patient's treatment. The services I provided to this patient were to treat and/or prevent clinically significant deterioration due to cardiac arrest I provided critical care services requiring my management, as noted below: Chart data review, documentation time, medication orders and management, vital sign assessments/reviewing monitor data, ordering and reviewing lab tests, ordering and interpreting/reviewing x-rays and diagnostic studies, care of the patient and discussion of the patient with the admitting physicians Procedures Procedure Narrative INTUBATION: The patient was put in optimal position for the procedure. Rapid sequence intubation was initiated by me using 20 milligrams of etomidate IV and 100 milligrams of succinylcholine IV. The patient was intubated using Glidoscope with a 7.5 cuffed endotracheal tube. Tube placement was confirmed by visualization of the tube and balloon passing through the cords, capnometry and subsequent chest x-ray. Breath sounds were equal and well aerated bilaterally postintubation. No breath sounds over stomach. Patient tolerated procedure well. An initial attempt was made to intubate the patient using a Mac blade and laryngoscope. This was a difficult procedure due to the size of her mouth and tongue. The esophagus was intubated. Therefore we switched to the Glidoscope. Diagnosis Primary Impression: Cardiac arrest Admitting Information Admitting Physician Requests: Admit Condition: Stable Clover Arnold MD Jul 14, 2017 14:04
[2017-07-14 14:08] LABS: AUTOMATED NEUTROPHIL # 10.6 TH/MM3 (1.8-7.7); BASOPHIL # 0.1 TH/MM3 (0-0.2); BASOPHIL % 0.7 % (0.0-2.0); EOSINOPHIL # 0.2 TH/MM3 (0-0.4); EOSINOPHIL % 0.9 % (0.0-4.0); HEMATOCRIT 36.2 % (35.0-46.0); LYMPH % 32.1 % (9.0-44.0); LYMPHOCYTE # 6.3 TH/MM3 (1.0-4.8); MEAN CELL VOLUME 72.9 FL (80.0-100.0); MEAN CORPUSCULAR HEMOGLOBIN 22.7 PG (27.0-34.0); MEAN CORPUSCULAR HGB CONC 31.1 % (32.0-36.0); MONO % 12.1 % (0.0-8.0); NEUT % 54.2 % (16.0-70.0); PLATELET COUNT 255 TH/MM3 (150-450); RED BLOOD COUNT 4.96 MIL/MM3 (4.00-5.30); RED CELL DISTRIBUTION WIDTH 17.6 % (11.6-17.2); WHITE BLOOD COUNT 19.5 TH/MM3 (4.0-11.0)
[2017-07-14 14:11] LABS: HEMO FLAGS AUTO DIFF
[2017-07-14 14:16] LABS: BLOOD, URINE MOD (NEG); COMMENT (UR) CATH-CULT NOT IND; CULTURE IF INDICATED CATH CULTURE NOT IND; GLUCOSE,URINE NEG (NEG); KETONE, URINE NEG (NEG); MUCUS URINE FEW /lpf (OCC); NITRITE,URINE NEG (NEG); URINE COLOR COLORLESS (YELLW/STRAW)
[2017-07-14 14:21] LABS: APTT (PATIENT) 31.3 SEC (24.3-30.1); PROTHROMBIN TIME - PATIENT 10.7 SEC (9.8-11.6)
[2017-07-14 14:26] LABS: ALT (GPT) 60 U/L (10-53)
[2017-07-14 14:29] LABS: ALKALINE PHOSPHATASE 127 U/L (45-117); CREATINE KINASE 155 U/L (26-192); TOTAL BILIRUBIN ADULT 0.3 MG/DL (0.2-1.0)
--- NOTE | 2017-07-14 14:31 | RADRPT ---
EXAM DATE/TIME: 07/14/2017 14:02 [facility] COMPARISON: CHEST SINGLE AP, June 12, 2017, 12:56. INDICATIONS : Unresponsive, full code. MEDICAL HISTORY : None SURGICAL HISTORY : None. ENCOUNTER: Initial ACUITY: 1 day PAIN SCORE: Non-responsive. LOCATION: Bilateral chest FINDINGS: Portable AP view of the chest demonstrates a normal-sized cardiac silhouette. Endotracheal tube dista l tip measures 1.1 cm from the evan and NG tube distal tip extends into the stomach. Lungs are unde rinflated with left lower lobe airspace opacity. No pleural effusion or pneumothorax is identified. B ones and soft tissues demonstrate no acute finding. Bilateral breast implants are present and demonst rate calcified capsules. CONCLUSION: 1. Endotracheal tube distal tip measures 1.1 cm from the evan. Therefore, consider retraction. 2. Underinflation with left lower lobe opacity representing either atelectasis or consolidation. Kolton Rm MD on July 14, 2017 at 14:28 Board Certified Radiologist. This report was verified electronically.
[2017-07-14 14:33] LABS: ANION GAP 10 MEQ/L (5-15); AST (GOT) 95 U/L (15-37); BICARBONATE 25.7 MEQ/L (21.0-32.0); BLOOD UREA NITROGEN 14 MG/DL (7-18); CHLORIDE 99 MEQ/L (98-107); GLOMERULAR FILTRATION RATE 41 ML/MIN (>89); MAGNESIUM 1.8 MG/DL (1.5-2.5); SODIUM (NA) 135 MEQ/L (136-145)
[2017-07-14 14:36] LABS: BLOOD GAS BASE EXCESS 1.7 mmol/L (-2-2); BLOOD GAS CARBOXYHEMOGLOBIN 2.2 % (0-4); BLOOD GAS HCO3 27 mmol/L (22-26); BLOOD GAS O2 HGB SATURATION 96 % (90-100); BLOOD GAS OXYGEN CONTENT 14.6 Vol % (12.0-20.0); BLOOD GAS PCO2 52 mmHg (38-42); BLOOD GAS PO2 188 mmHg (61-120); BLOOD GAS TOTAL HGB 10.5 G/DL (12.0-16.0); TEMP CORR TO 98.6
[2017-07-14 14:37] LABS: CRITICAL VALUE YES; DRAW SITE RT RADIAL; FIO2 100 %; NUMBER OF ARTERIAL PUNCTURES 1; OXYGEN DEVICE VENTILATOR; STAT YES; ULNAR PULSE PRESENT; VENT SETTINGS PRVC/AC
[2017-07-14 14:42] LABS: CKMB 1.6 NG/ML (0.5-3.6)
[2017-07-14 14:43] LABS: BANDS 1 % (0-6); BASOPHILS 1 % (0-2); EOSINOPHILS 1 % (0-4); METAMYELOCYTES 1 % (0-1); MYELOCYTES 2 % (0-0); NEUTROPHIL # MANUAL DIFF 10.1 TH/MM3 (1.8-7.7); POLYS (SEG NEUTROPHILS) 48 % (16-70); WBC DIFF SAMPLE 100
[2017-07-14 14:44] LABS: OVALOCYTES 1+ (NORMAL); PLATELET ESTIMATE SMEAR NORMAL (NORMAL); PLATELET MORPHOLOGY ENLARGED (NORMAL); SCAN/DIFF FINAL DIFF MANUAL
[2017-07-14 14:49] LABS: ALCOHOL LESS THAN 3 MG/DL (0-5)
[2017-07-14 14:57] LABS: ACETAMINOPHEN LESS THAN 2.0 MCG/ML (10.0-30.0)
[2017-07-14] MEDS: PROPOFOL 1000 MG/100 ML INJ 100 ML IV PRN ×2 (15:15→18:30)
[2017-07-14] MEDS: SODIUM CHLOR 0.9% 1000 ML INJ 1,000 ML IV SCH (15:37)
[2017-07-14] MEDS ORDERED: niCARdipine INJ 25 MG in SODIUM CHLOR 0.9% 250 ML INJ 240 ML IV PRN (15:45)
--- NOTE | 2017-07-14 15:45 | HHI.HP ---
HPI Service Critical Care Medicine Primary Care Physician Unknown Admission Diagnosis s/p VF arrest Diagnosis: Chief Complaint: s/p out of hospital v. fib arrest Travel History International Travel<30 Days: No Contact w/Intl Traveler <30 Da: No Traveled to Known Affected Are: No History of Present Illness This is a 61-year-old female with a history of diabetes and hypertension who was recently admitted for rule out chest pain on June 12 with a negative myocardial perfusion scan, repeat presents today after a witnessed V. fib cardiac arrest. Per EMS report, her significant other saw her have shaking like activity followed by unresponsiveness. Bystander CPR. EMS arrived within 5 minutes of 911 phone call. Presenting rhythm was V. fib. Single DC cardioversion with return of spontaneous circulation. Intubated in the field and transferred to emergency room. Normal vitals in the ER. Troponins weakly positive likely secondary to cardioversion. EKG without significant ST-T wave changes. Preliminary echocardiogram report without regional wall motion abnormalities. Patient is briskly purposeful, localizing, questionable early following commands. I've consulted cardiology who will take the patient emergently to the heart catheterization lab to rule out ischemia. Review of Systems ROS Limitations: Clinical Condition, Intubated, Altered Mental Status Past Family Social History Allergies: Coded Allergies: cefaclor (Unverified Allergy, Severe, HIVES, THROAT CLOSES, 07/14/17) prochlorperazine (Unverified Allergy, Severe, THROAT CLOSES, 07/14/17) orphenadrine (Unverified Allergy, Intermediate, PALPITATIONS, 07/14/17) Past Medical History Unobtainable from the patient due to her clinical condition. Per chart review: Iron deficiency anemia Anxiety TIA Diabetes Hypertension RSD left hand (CRPS, unknown type) Past Surgical History unobtainable secondary to clinical condition. per chart review: Appendectomy TMJ implant right cataract surgery bladder enlargement Hysterectomy adenoidectomy hemorrhoidectomy Breast augmentation Reported Medications Cipro (Ciprofloxacin HCl) 500 Mg Tab 500 Mg PO BID 12 Days Cozaar (Losartan Potassium) 25 Mg Tab 25 Mg PO DAILY Potassium Chloride Microencaps 20 Meq Tab 20 Meq PO DAILY Albuterol Neb (Albuterol Sulfate) 2.5 Mg/0.5 Ml Neb 2.5 Mg NEB Q4HR NEB PRN Note: The Albuterol Sulfate Inhalation Solution is concentrated and must be diluted. Read complete instructions carefully before using. Methadone (Methadone HCl) 10 Mg Tab 100 Mg PO DAILY Metformin (Metformin HCl) 500 Mg Tab 500 Mg PO DAILY With a meal Combivent Respimat Inh (Ipratropium-Albuterol Inh) 20-100 Longterm/Act Aero 1 Puff INH QID Aspirin EC (Aspirin) 81 Mg Tabdr 81 Mg PO DAILY Active Ordered Medications See MAR Family History unobtainable secondary to clinical condition. Social History unobtainable secondary to clinical condition. per chart review: prior smoker, quit 10/2016. neg etoh. Physical Exam Vital Signs Vital Signs Date Time Temp Pulse Resp B/P (MAP) Pulse Ox O2 Delivery O2 Flow Rate FiO2 07/14/17 14:54 80 14 135/68 (90) 99 Ventilator 07/14/17 14:45 97 70 07/14/17 14:06 99.0 07/14/17 13:57 85 14 120/57 (78) 100 100 07/14/17 13:56 92 194/99 (130) 07/14/17 13:53 98 07/14/17 13:45 100 100 07/14/17 13:28 83 211/89 (129) 07/14/17 13:12 90 18 171/106 (127) 99 Physical Exam GENERAL: Middle-aged female, lying in bed, intubated, sedated, critically ill, in distress HEENT: Normocephalic. Atraumatic. Pupils equal, round, reactive, conjugate. Mucous membranes are moist NECK: Trachea is midline. There is no JVD. CHEST: Equal chest rise. Clear to auscultation. CARDIOVASCULAR: Normal rate, regular rhythm. Sinus by telemetry. Hypertensive with systolic in the 190s ABDOMEN: Soft, nontender, nondistended. No guarding. MUSCULOSKELETAL: Pulses 2+. No peripheral edema. NEUROLOGICAL: RASS -3. Grimaces to pain. Localizes. Briskly purposeful. Questionable following commands with weak squeeze of the bilateral upper extremities and questionable sticking out tongue to command. Pupils 4 mm, equal , reactive Laboratory Laboratory Tests Test 07/14/17 13:20 07/14/17 13:30 07/14/17 14:14 Lactic Acid Level 4.6 White Blood Count 19.5 Red Blood Count 4.96 Hemoglobin 11.3 Hematocrit 36.2 Mean Corpuscular Volume 72.9 Mean Corpuscular Hemoglobin 22.7 Mean Corpuscular Hemoglobin Concent 31.1 Red Cell Distribution Width 17.6 Platelet Count 255 Mean Platelet Volume 9.8 Neutrophils (%) (Auto) 54.2 Lymphocytes (%) (Auto) 32.1 Monocytes (%) (Auto) 12.1 Eosinophils (%) (Auto) 0.9 Basophils (%) (Auto) 0.7 Neutrophils # (Auto) 10.6 Lymphocytes # (Auto) 6.3 Monocytes # (Auto) 2.4 Eosinophils # (Auto) 0.2 Basophils # (Auto) 0.1 CBC Comment AUTO DIFF Differential Total Cells Counted 100 Neutrophils % (Manual) 48 Band Neutrophils % 1 Lymphocytes % 36 Monocytes % 10 Eosinophils % 1 Basophils % 1 Neutrophils # (Manual) 10.1 Metamyelocytes 1 Myelocytes 2 Differential Comment FINAL DIFF MANUAL Platelet Estimate NORMAL Platelet Morphology Comment ENLARGED Ovalocytes 1+ Prothrombin Time 10.7 Prothromb Time International Ratio 1.0 Activated Partial Thromboplast Time 31.3 Urine Color COLORLESS Urine Turbidity CLEAR Urine pH 7.0 Urine Specific [place] 1.007 Urine Protein 100 Urine Glucose (UA) NEG Urine Ketones NEG Urine Occult Blood MOD Urine Nitrite NEG Urine Bilirubin NEG Urine Urobilinogen LESS THAN 2.0 Urine Leukocyte Esterase NEG Urine RBC 3 Urine WBC 3 Urine Mucus FEW Microscopic Urinalysis Comment CATH-CULT NOT IND Blood Urea Nitrogen 14 Creatinine 1.31 Random Glucose 155 Total Protein 8.5 Albumin 3.4 Calcium Level 8.3 Magnesium Level 1.8 Alkaline Phosphatase 127 Aspartate Amino Transf (AST/SGOT) 95 Alanine Aminotransferase (ALT/SGPT) 60 Total Bilirubin 0.3 Sodium Level 135 Potassium Level 3.0 Chloride Level 99 Carbon Dioxide Level 25.7 Anion Gap 10 Estimat Glomerular Filtration Rate 41 Total Creatine Kinase 155 Creatine Kinase MB 1.6 Troponin I 0.06 Salicylates Level 2.7 Acetaminophen Level LESS THAN 2.0 Ethyl Alcohol Level LESS THAN 3 Blood Gas Puncture Site RT RADIAL Blood Gas Patient Temperature 98.6 Blood Gas HCO3 27 Blood Gas Base Excess 1.7 Blood Gas Oxygen Saturation 96 Arterial Blood pH 7.33 Arterial Blood Partial Pressure CO2 52 Arterial Blood Partial Pressure O2 188 Arterial Blood Oxygen Content 14.6 Arterial Blood Carboxyhemoglobin 2.2 Arterial Blood Methemoglobin 1.0 Blood Gas Hemoglobin 10.5 Oxygen Delivery Device VENTILATOR Blood Gas Ventilator Setting PRVC/AC Blood Gas Inspired Oxygen 100 Date/Time Source Procedure Growth Status 07/14/17 13:50 Blood Peripheral Aerobic Blood Culture Pending Received 07/14/17 13:50 Blood Peripheral Anaerobic Blood Culture Pending Received Result Diagram: 07/14/170 07/14/17 1330 Imaging Last Impressions Chest X-Ray 07/14/17 1334 Signed Impressions: Service Date/Time: Friday, July 14, 2017 14:02 - CONCLUSION: 1. Endotracheal tube distal tip measures 1.1 cm from the evan. Therefore, consider retraction. 2. Underinflation with left lower lobe opacity representing either atelectasis or consolidation. MD Jennifer Hernandez VTE Risk Assessment Jennifer VTE Risk Assessment: Mod/High Risk (score >= 2) Caprini Risk Assessment Model Point Value = 1 Point Value = 2 Point Value = 3 Point Value = 5 Age 41-60 Minor surgery BMI > 25 kg/m2 Swollen legs Varicose veins or History of unexplained or recurrent spontaneous Oral contraceptives or hormone replacement Sepsis (< 1 month) Serious lung disease, including pneumonia (< 1 month) Abnormal pulmonary function Acute myocardial infarction Congestive heart failure (< 1 month) History of inflammatory bowel disease Medical patient at bed rest Age 61-74 Arthroscopic surgery Major open surgery (> 45 min) Laparoscopic surgery (> 45 min) Malignancy Confined to bed (> 72 hours) Immobilizing plaster cast Central venous access Age >= 75 History of VTE Family history of VTE Factor V Leiden Prothrombin [id number] Lupus anticoagulant Anticardiolipin antibodies Elevated serum homocysteine Heparin-induced thrombocytopenia Other congenital or acquired thrombophilia Stroke (< 1 month) Elective arthroplasty Hip, pelvis, or leg fracture Acute spinal cord injury (< 1 month) Prophylaxis Regimen Total Risk Factor Score Risk Level Prophylaxis Regimen 0-1 Low Early ambulation 2 Moderate Order ONE of the following: *Sequential Compression Device (SCD) *Heparin 5000 units SQ BID 3-4 Higher Order ONE of the following medications: *Heparin 5000 units SQ TID *Enoxaparin/Lovenox 40 mg SQ daily (WT < 150 kg, CrCl > 30 mL/min) *Enoxaparin/Lovenox 30 mg SQ daily (WT < 150 kg, CrCl > 10-29 mL/min) *Enoxaparin/Lovenox 30 mg SQ BID (WT < 150 kg, CrCl > 30 mL/min) AND/OR *Sequential Compression Device (SCD) 5 or more Highest Order ONE of the following medications: *Heparin 5000 units SQ TID (Preferred with Epidurals) *Enoxaparin/Lovenox 40 mg SQ daily (WT < 150 kg, CrCl > 30 mL/min) *Enoxaparin/Lovenox 30 mg SQ daily (WT < 150 kg, CrCl > 10-29 mL/min) *Enoxaparin/Lovenox 30 mg SQ BID (WT < 150 kg, CrCl > 30 mL/min) AND *Sequential Compression Device (SCD) Assessment and Plan Assessment and Plan Assessment: 61-year-old female with recent evaluation for possible cardiac ischemia who presents with a single V. fib witnessed arrest. Due to her recovery of neurologic function, she is not a therapeutic hypothermia candidate. I do think this is either ischemia related versus primary electrophysiologic event. Agree with left heart catheter to rule out ischemia. Likely will need AICD implantation before discharge. Remain intubated until full cardiac workup can be completed. She is critically ill s/p Out of Hospital Ventricular Fibrillation Cardiac Arrest Possible ACS - to [facility] - Dr. Matias asked to hold on heparin given she has microcytic anemia, until after [facility] evaluation - ok for ASA - not hypothermia candidate - trend troponins - f/u formal read of TTE. Anoxic-Ischemic Encephalopathy - frequent neuro checks - avoid long-acting sedatives - ? early following commands. - ct head to r/o intracranial pathology Acute Kidney injury - likely secondary to cardiac arrest - trend bmp - mivf - eric with strict i/os Acute hypoxic and hypercarbic respiratory failure - vent bundle, hob at 30 degrees, nebs. - no weaning until after cardiac evaluation - wean fio2 for goal spo2 > 94% until ischemia ruled out. Lactic acidosis - trend. likely secondary to cardiac arrest. SCDs. Pepcid iv anticoagulation per Dr. Roldan once [facility] complete. This patient remains critically ill with one or more organ systems which are or may become a threat to life. I have spent in excess of 41 minutes discontinuously in the care and management of this patient. This time is exclusive of procedures, and includes, but is not limited to, evaluation of the patient, review of the medical record, discussions with family, consultants, nursing staff, or respiratory therapy, and documentation in the medical record. Blaise Meade MD Jul 14, 2017 15:45
[2017-07-14] MEDS: POTASSIUM CHLOR 20 MEQ PREMIX 100 ML IV PRN ×3 (15:47→22:17)
[2017-07-14] MEDS ORDERED: ASPIRIN 600 MG SUPP RECTAL STA (16:55)
[2017-07-14] MEDS ORDERED: ASPIRIN 81 MG CHEW TAB OG-TUBE STA (16:56)
--- NOTE | 2017-07-14 17:19 | MB ---
cc: CLIFFORD NEWBY MD DATE OF CONSULTATION 07/14/17 REASON FOR CONSULTATION Evaluation of V-fib arrest. HISTORY OF PRESENT ILLNESS Luli Akers is a 61-year-old woman who has been in this hospital before. She has cardiac risk factors including hypertension, diabetes, hyperlipidemia and longstanding smoking. This morning, she had some discomfort. It sounded more like it was in the epigastric region according to her son. She then had a witnessed arrest. Her son started CPR, paramedics arrived and she was in V-fib and one shock restored her to spontaneous circulation. The patient has been moving all four extremities when not sedated so has not received any hypothermia because of intact brain function. I am being asked to consult. She was worked up for chest pain recently and had a nuclear stress test June 13 that was normal. She has not undergone a cardiac catheterization. PAST MEDICAL HISTORY 1. Tobacco abuse 2. Diabetes, 3. Hypertension, 4. Hyperlipidemia, 5. 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 Iron deficiency anemia. 7. Past history of drug use PAST SURGICAL HISTORY 1. Appendectomy, 2. Cataract surgery, 3. Hysterectomy, 4. Hemorrhoid surgery, 5. TMJ surgery 6. Breast implants. SOCIAL HISTORY Notable for smoking and a remote history of drug use. FAMILY HISTORY Noncontributory. ALLERGIES CECLOR COMPAZINE ORPHENADRINE PHYSICAL EXAMINATION GENERAL: She is a well-developed, well-nourished female sedated on the ventilator. VITAL SIGNS: Charted. She has just recently started to become hypertensive. Head CT is pending. HEENT: Exam unremarkable. NECK: No JVD, no bruits. CHEST: Clear anteriorly. CARDIAC: S1-S2 regular rate and rhythm. No murmurs, gallops. ABDOMEN: Soft. EXTREMITIES: Intact radial, femoral and pedal pulses. CARDIOLOGY STUDIES EKG shows sinus rhythm. No acute ST-T wave changes. LABORATORY DATA She has a microcytic picture with an MCV of 72.9, hematocrit 36.2, creatinine is 1.31. Lactic acid earlier was elevated at 4.6. Troponin is 0.06. AST, ALT, alkaline phosphatase mildly elevated. Tox screen is currently pending. IMPRESSION Status post acute V-fib arrest most likely ischemic etiology, although could be other factors. RECOMMENDATIONS I think it would be best if we did emergency cardiac catheterization today to define her coronary anatomy and see if she needs revascularization. I have explained this to her son in detail. Informed consent has been obtained for cath, possible intervention. MD KIERAN Salazar/ /4:58 PM /5:13 PM
[2017-07-14] MEDS: INSULIN NovoLIN REGULAR SUPPLEMENTAL SCALE SQ SCH (18:00)
--- NOTE | 2017-07-14 18:06 | RADRPT ---
EXAM DATE/TIME: 07/14/2017 17:42 [place] COMPARISON: CT BRAIN W/O CONTRAST, July 08, 2016, 18:23. INDICATIONS : Altered mental status. RADIATION DOSE: 41.35 CTDIvol (mGy) MEDICAL HISTORY : Cerebrovascular disease. Chronic obstructive pulmonary disease. Cardiovascular diseaseHypertension. Deep venous thrombosis. SURGICAL HISTORY : None. ENCOUNTER: Subsequent ACUITY: 1 week PAIN SCALE: Non-responsive LOCATION: cranial TECHNIQUE: Multiple contiguous axial images were obtained of the head. Using automated exposure control and adj ustment of the mA and/or kV according to patient size, radiation dose was kept as low as reasonably a chievable to obtain optimal diagnostic quality images. DICOM format image data is available electro nically for review and comparison. FINDINGS: CEREBRUM: Ventricles are within normal limits. No evidence of midline shift, mass lesion, hemorrhage or acute infarction. No extra-axial fluid collections are seen. POSTERIOR FOSSA: The cerebellum and brainstem are intact. The 4th ventricle is midline. The cerebellopontine angle i s unremarkable. EXTRACRANIAL: There has been prior sinus surgery. SKULL: The calvaria is intact. No evidence of skull fracture. CONCLUSION: Stable noncontrast head CT. No acute intracranial abnormality is identified. Kolton Rm MD on July 14, 2017 at 18:03 Board Certified Radiologist. This report was verified electronically.
[2017-07-14] MEDS: RESP: ALBUTEROL 2.5 MG/IPRATROPIUM 0.5 MG NEB (SCH) INH ×2 (18:07→22:52)
--- NOTE | 2017-07-14 18:20 | ECHRPT ---
Indication: CONCLUSIONS The left ventricular systolic function is low normal with an estimated ejection fraction in the rang e of 50- 55%. Normal left ventricular size. Possible mild LVH. No obvious wall motion abnormality. The interatrial septum not well visualized. Trace mitral valve regurgitation. No aortic valve regurgitation. There is trace tricuspid valve regurgitation. The estimated pulmonary arterial pressure is 23.2 mmHg. The pulmonary valve is not well visualized. BP: / HR: Rhythm: MEASUREMENTS (Male / Female) Normal Values Technical Quality:Technically difficult study 2D ECHO LV Diastolic Diameter PLAX 2.8 cm 4.2 - 5.9 / 3.9 - 5.3 cm LV Systolic Diameter PLAX 2.2 cm IVS Diastolic Thickness 1.8 cm 0.6 - 1.0 / 0.6 - 0.9 cm LVPW Diastolic Thickness 1.7 cm 0.6 - 1.0 / 0.6 - 0.9 cm LV Relative Wall Thickness 1.3 RV Internal Dim ED PLAX 2.5 cm M-MODE Aortic Root Diameter MM 3.5 cm LA Systolic Diameter MM 2.8 cm LA Ao Ratio MM 0.8 AV Cusp Separation MM 1.9 cm DOPPLER Mitral E Point Velocity 35.5 cm/s Mitral A Point Velocity 57.8 cm/s Mitral E to A Ratio 0.6 LV E' Lateral Velocity 5.0 cm/s Mitral E to LV E' Lateral Ratio 7.1 LV E' Septal Velocity 3.5 cm/s Mitral E to LV E' Septal Ratio 10.1 TR Peak Velocity 182.0 cm/s TR Peak Gradient 13.2 mmHg Right Atrial Pressure 10.0 mmHg Pulmonary Artery Systolic Pressu 23.2 mmHg Right Ventricular Systolic Press 23.2 mmHg FINDINGS LEFT VENTRICLE The left ventricular systolic function is low normal with an estimated ejection fraction in the rang e of 50- 55%. Normal left ventricular size. Possible mild LVH. No obvious wall motion abnormality. RIGHT VENTRICLE Normal right ventricular size and systolic function. LEFT ATRIUM The left atrial size is normal. RIGHT ATRIUM The right atrial size is normal. ATRIAL SEPTUM The interatrial septum not well visualized. AORTA The aortic root and proximal ascending aorta are normal in size on limited imaging. MITRAL VALVE Trace mitral valve regurgitation. Structurally normal mitral valve. AORTIC VALVE Trileaflet aortic valve. No aortic valve regurgitation. TRICUSPID VALVE There is trace tricuspid valve regurgitation. Structurally normal tricuspid valve. The estimated pulmonary arterial pressure is 23.2 mmHg. PULMONARY VALVE The pulmonary valve is not well visualized. PERICARDIUM No pericardial effusion. Jamar Matias MD (Electronically Signed) Final Date:14 July 2017 18:19
--- NOTE | 2017-07-14 19:27 | CATHPROC ---
[facility] HIS Report Study Information Study Number Admission Scheduled Start Study Start [id number] Jul 14 2017 1:49PM 07/14/2017 Jul 14 2017 6:34PM [place] Service Cardiac Catheterization Admit Source Facility Department Emergency department [facility] - [employer] Physician and Clinical Staff Initial Jamar Monge Belt Fixer George Garvin,[place] Belt Fixer Oliva Carroll,NEWCOMER HOSTESS TECH2 Recorder Adelina Ahmadi,RT(R) (BS) Scrub Calli MimsRT(R) Procedures Performed Procedure Location (Site) Vessel Name Coronary Angiograms LCA Left Coronary Coronary Angiograms RCA Right Coronary L Heart Cath Equipment Time Temple Meat Cutter Description Size Mfg Part Number Used/Scraped TRANSDUCER, TRUWAVE [id number] 18:35 SOTO MCCARTHY * Used W/STOCKCOCK *[id number] *[id number] *[id number] PIGTAIL ANG. 145 INFINITI [id number] CATHETER *[id number] 19:17 DAIG/ST. REGINALDO MEDICAL ANGIOSEAL, FR6 VIP FR 6 Used *[id number] 18:35 MEDLINE INDUSTRIES PACK, CCL CUSTOM * Used *[id number] 18:35 [employer]Crowd PACER PEN, SKIN DUAL W/ RULER * Used *[id number] 18:35 [employer] MEDICAL SHEATH, FR6.5 PRELUDE 11CM FR 6.5 038ACT Used *[id number] 18:35 [employer] MEDICAL WIRE, 3MMJ .035 180CM 180CM Used *[id number] 18:35 NAMIC MANIFOLD, 4 PORT * Used *[id number] 18:35 NYCOMED OMNIPAQUE, 350 MG, 100ML 100ML [id number] Used [id number] 18:35 [employer] MEDICAL BLANKET,WARM AIR CCL * Used *[id number] Equipment Model, Serial, Lot Number and Expiration Data Description Model Number Serial Number Lot Number Expiration Date ANGIOSEAL, FR6 VIP [id number] 04-06-2018 History: Current Medications Medication Dosage/Unit Route Frequency Last Date/Time Taken COZAAR History: Allergies Allergy Reaction prochlorperazine THROAT CLOSES orphenadrine PALPITATIONS cefaclor HIVES, THROAT CLOSES History: Risk Factors Family History of Hypertension Dyslipidemia Previous OK Previous Heart Failure Premature CAD Yes No No No No Prior Valve Prior PCI Prior CABG Surgery No No No Cerebrovascular Peripheral Artery Chronic Lung On Dialysis Diabetes Diabetes Therapy Disease Disease Disease No Yes No No Yes Oral History: Stress Tests Stress or Imaging Studies Performed Yes Standard Exercise Stress Test No Stress Echo No Stress Test SPECT Stress Test SPECT Result Stress Test SPECT Ischemia Risk/Extent Yes Positive Low Stress Test CMR No Cardiac CTA Coronary Calcium Score No No Medication Medication Total Dose (Bolus/Oral) Medication Total Dosage/Unit ap 50 mg/hr 1% XYLOCAINE 20 mL FENTANYL 100 mg/hr POTASSIUM CHLORIDE 10 meq/hr PROPOFOL 50 mg/kg/min Medications (Bolus/Oral) Medication Time Given Dosage/Unit Administered By Reason ap 07/14/2017 6:46:26 PM 50 mg/hr Patient arrived on 0 g cardine given by Jamar Matias via Peripheral IV. PROPOFOL 07/14/2017 6:46:30 PM 50 mg/kg/min Patient arrived on 50 mg/kg/min PROPOFOL in Right Groin via Peripheral IV. Pump/Drip Flow = 0 ml/hr u sing [Solution Name]. FENTANYL 07/14/2017 6:52:41 PM 100 mg/hr Patient arrived on 100 mg/hr FENTANYL in Right Hand via Peripheral IV. Pump/Drip Flow = 0 ml/hr using [Solution Name]. POTASSIUM CHLORIDE 07/14/2017 6:52:42 PM 10 meq/hr Patient arrived on 10 meq/hr POTASSIUM CHLORIDE in Right Hand via Peripheral IV. Pump/Drip Flow = 0 m l/hr using [Solution Name]. 1% XYLOCAINE 07/14/2017 7:00:41 PM 20 mL Jamar Matias 20 mL 1% XYLOCAINE given in lab by Jamar Matias in Right Groin via Subcutaneous. Medication (Drip) Medication Time Given Dosage/Unit Concentration/Unit Diluent (ml) Solutio n IV Solutions 07/14/2017 6:52:42 PM 0 mL (IV) 1000 NaCl .9 Patient arrived on IV Solutions in Right Antecubital via Peripheral IV. Pump/Drip Flow = 20 ml/hr usi ng NaCl .9. Initial Case Assessment Cardiovascular HR Rhythm NIBP 76 reg 136/72 Edema Present Skin color Skin None Normal Dry Cool Circulatory - Right Pulses Dorsalis Pedis Femoral 2 2 Scale (0,1,2,3,4,d) Circulatory - Left Pulses Dorsalis Pedis Femoral 2 2 Scale (0,1,2,3,4,d) Circulatory - Lower Extremities Color Lower Right Color Lower Left Normal Normal Neurological State Comment: Sedated on propofol and on vent Respiration - General Respiration Rate SpO2 (%) (B/min) 15 100 Respiration - Ventilator Settings TV (ml) IMV (L) FIO2 (%) PEEP (cm/H2O) PS (cm/H2O) 550 16 60 5 0 Chronological Log Time Study Chronological Log 18:38:23 Patient arrived via Bed. 18:38:35 Patient Name, D.O.B, / Armband Verified By R.N. 18:45:48 Verbal Stimulation=0 Physical Stimulation=0 Airway=2 Respiration=2 TOTAL=4. (0=absent, 1=li mited, 2=present) 18:45:58 Presedation assessment performed by [employer] RN. 18:46:04 Patient has been NPO for More than 6Hrs. Vitals capture started with the following parameters, Patient=Adult, Interval=5 min, Initial Pr wdcjha=286 mmHg, 18:46:11 Deflation Rate=5 mmHg, Cuff placed on Left Arm 18:46:15 Patient Warmer Placed on the Table. 18:46:20 Disposable Defibrillator Pads Placed On Patient. 18:46:26 A # 20 IV was noted in the Hand (right). Grade = 0 18:46:26 Patient arrived on 0 g cardine given by Jamar Matias via Peripheral IV. 18:46:28 Gema Prominences Protected 18:46:29 A # 20 IV was noted in the Hand (left). Grade = 0 Patient arrived on 50 mg/kg/min PROPOFOL in Right Groin via Peripheral IV. Pump/Drip Flow = 0 m l/hr using [Solution 18:46:30 Name]. 18:46:30 History and physical on the chart or being dictated. Assessment: Initial Case, HR=76 BPM, Rhythm=reg, ONGT=060/72 mmhg, Edema=None, Color=Normal, Sk in = Dry, Cool Right Pulses: Leobardo Ped=2, Femoral=2 Left Pulses: Leobardo Ped=2, Femoral=2 18:46:31 Lower Right Extremities: Color=Normal Lower Left Extremities: Color=Normal Neurological: Comment=Sedated on propofol and on vent Respiration: Resp=15 B/min, OcW1=234 %, UO=617 mL, IMV=16 L, FIO2=60 %, PEEP=5 cm/H2O, PS=0 cm/ H2O 18:46:33 Table restraints applied according to hospital policy 18:46:50 ONHO=303/78 mmhg, UzE1=140.0 %, Sehila=4, Monet=5 18:48:59 Bilateral groins prepped with 2% chlorhexidine, and draped after a 3 minute waiting time. 18:51:47 HR=75 bpm, BDLL=246/72 mmhg, BdT6=417.0 %, Resp=15 B/min, Sheila=4, Monet=5 Patient arrived on 100 mg/hr FENTANYL in Right Hand via Peripheral IV. Pump/Drip Flow = 0 ml/hr using [Solution 18:52:41 Name]. Patient arrived on 10 meq/hr POTASSIUM CHLORIDE in Right Hand via Peripheral IV. Pump/Drip Flow = 0 ml/hr using 18:52:42 [Solution Name]. 18:52:42 Patient arrived on IV Solutions in Right Antecubital via Peripheral IV. Pump/Drip Flow = 20 ml/hr using NaCl .9. 18:54:31 Pressure channel 1 zeroed. 18:56:48 HR=73 bpm, QWTC=135/73 mmhg, PaD3=668.0 %, Resp=15 B/min 18:59:11 Reference ECG taken Time Out. Correct patient, correct procedure, correct physician, power injector not loaded with contrast with surgical 19:00:25 team present. Time Out Concurred by MD and individual staff in procedure. 19:00:39 Case Start 19:00:41 20 mL 1% XYLOCAINE given in lab by Jamar Matias in Right Groin via Subcutaneous. 19:01:45 HR=71 bpm, VTZP=885/71 mmhg, OtM9=125.0 %, Resp=16 B/min, Sheila=4, Monet=5 19:03:03 Access site was Right Femoral Artery. 19:03:14 A SHEATH, FR6.5 PRELUDE 11CM FR 6.5 was advanced into the Fem Art (right) using the Percuta neous technique. A JL 4.0 INFINITI CATHETER FR 6 was advanced over a wire. OMNIPAQUE, 350 MG, 100ML 100ML was us ed for 19:03:52 injections. 19:06:21 Pressure channel 1 zeroed. 19:06:44 HR=73 bpm, MQAD=690/72 mmhg, Resp=15 B/min, Sheila=4, Monet=5 Recorded Pressure: Ao, HR=73, Condition=Condition 1 19:06:49 (Aorta) Ao 104/61/79 19:07:12 The LCA was injected and visualized at various angles. OMNIPAQUE, 350 MG, 100ML 100ML used . 19:09:30 Catheter was removed A 3DRC INFINITI CATHETER FR 6 was advanced over a wire. OMNIPAQUE, 350 MG, 100ML 100ML was used for 19:09:31 injections. 19:11:08 The RCA was injected and visualized at various angles. OMNIPAQUE, 350 MG, 100ML 100ML used . 19:11:47 HR=72 bpm, HFLA=421/69 mmhg, TnB0=820.0 %, Resp=15 B/min, Sheila=4, Monet=5 19:13:06 Catheter was removed 19:16:36 An injection in the Fem Art (right) was made through the SHEATH, FR6.5 PRELUDE 11CM FR 6.5. 19:16:48 HR=71 bpm, MEOH=965/73 mmhg, Resp=15 B/min, Sheila=4, Monet=5 19:18:28 ANGIOSEAL, FR6 VIP FR 6 placement in the Fem Art (right) 19:20:05 Case End 19:20:16 Catheter(s) removed without difficulty 19:20:25 No case complications noted. 19:21:47 HR=71 bpm, CBUC=568/72 mmhg, NxZ6=116.0 %, Resp=15 B/min, Sheila=4, Monet=5 19:22:07 Called [facility] – [place]. 19:22:40 Cine recording checked. 19:22:42 Bedside Report will be given. 19:22:50 A Left Heart Cath was performed. 19:26:46 SYGI=746/75 mmhg, OoL9=603.0 %, Resp=17 B/min, Sheila=4, Monet=5 19:27:04 Vitals capture stopped. 19:31:13 Patient moved to stretcher End Study - Contrast Media Used In Study Contrast Total Opened (mL) Total Used (mL) Total Wasted (mL) Omnipaque 80 80 0 End Study - Radiation Exposure Fluoro Time (minutes) 2.3 End Study - Sheaths Sheaths Pulled By Sheath Hold Time (min) Jamar Matias End Study - Patient Disposition Complications Transferred To Interventional Outcome No Critical Care Bed No attempt made
[2017-07-14] MEDS ORDERED: SODIUM CHLOR 0.9% 1000 ML INJ 1,000 ML IV SCH (19:28)
[2017-07-14] MEDS ORDERED: BACITRACIN OINT 0.9 GM PKT TOP ONE (20:00)
--- NOTE | 2017-07-14 20:29 | MA ---
cc: CLIFFORD NEWBY M.D. DATE 07/14/17 PREOPERATIVE DIAGNOSIS Unexplained VF arrest. PROCEDURE PERFORMED 1. Coronary angiography. 2. Right femoral angiography with Angio-Seal placement. BRIEF HISTORY Luli Akers is a 61-year-old woman who came with an unexplained V-fib arrest. DESCRIPTION OF PROCEDURE The patient was brought to the cardiac lab specialist under emergency conditions. She was sedated with propofol on arrival, using 1% lidocaine for local anesthesia a 6.5-Japanese sheath was inserted in the right femoral artery. Coronary angiography was then performed using a left 4 Remberto for the left coronary artery and a 3DRC for the right coronary artery. An LV gram was not performed due to the elevated creatinine. Angiography was then obtained of the right femoral artery via the sheath followed by uncomplicated Angio-Seal closure. There were no complications. FINDINGS 1. Hemodynamics: The Aortic pressure is 104/61 with mean of 79. 2. Coronary angiography: Left main coronary artery has about 5% distal narrowing but no significant stenosis. It trifurcates into the LAD, ramus intermediate branch and circumflex artery. The LAD is a somewhat small caliber artery. There is about a 40% focal stenosis after the last diagonal branch in the mid LAD but otherwise the LAD has no obstructive disease. The circumflex and ramus intermediate branch showed no obstructive disease. The right coronary artery is a very large dominant vessel and appears normal. CONCLUSION 1. Only very mild coronary artery disease, insufficient to explain her V-fib arrest. RECOMMENDATIONS She will need to have an AICD prior to discharge from the hospital. Clifford Newby MD VEW/PAWAN /7:32 PM /8:16 PM
[2017-07-14] MEDS: FAMOTIDINE 20 MG/2 ML VIAL IV PUSH SCH (22:13)
[2017-07-15] VITALS (22 sets, daily range): BP systolic 129–193; BP diastolic 60–115; PULSE 62–104; RESP 17–37; TEMP 98.5–100.4; O2SAT 90–100
[2017-07-15] MEDS: POTASSIUM CHLOR 20 MEQ PREMIX 100 ML IV PRN (00:11)
[2017-07-15] MEDS: PROPOFOL 1000 MG/100 ML INJ 100 ML IV PRN ×3 (00:12→08:01)
[2017-07-15] MEDS: CHLORHEXIDINE GLUCONATE 2 % 1 PACK (2 CLOTHS) TOP SCH (00:13)
[2017-07-15] MEDS: CHLORHEXIDINE 0.12% (ORAL KIT) 15 ML CUP MT SCH ×3 (00:13→19:47)
[2017-07-15] MEDS: SODIUM CHLOR 0.9% 1000 ML INJ 1,000 ML IV SCH (01:48)
[2017-07-15 02:50] LABS: HEMATOCRIT 33.7 % (35.0-46.0); MEAN CELL VOLUME 71.6 FL (80.0-100.0); MEAN CORPUSCULAR HEMOGLOBIN 21.4 PG (27.0-34.0); MEAN CORPUSCULAR HGB CONC 29.9 % (32.0-36.0); PLATELET COUNT 202 TH/MM3 (150-450); RED CELL DISTRIBUTION WIDTH 17.3 % (11.6-17.2); REVIEW FLAG FINAL; WHITE BLOOD COUNT 11.9 TH/MM3 (4.0-11.0)
[2017-07-15 03:27] LABS: BICARBONATE 25.4 MEQ/L (21.0-32.0); POTASSIUM 3.6 MEQ/L (3.5-5.1)
[2017-07-15] MEDS: RESP: ALBUTEROL 2.5 MG/IPRATROPIUM 0.5 MG NEB (SCH) INH ×4 (03:40→20:47)
[2017-07-15] MEDS: INSULIN NovoLIN REGULAR SUPPLEMENTAL SCALE SQ SCH ×4 (05:38→18:00)
[2017-07-15] MEDS ORDERED: IOHEXOL 350 MG/ML 100 ML BTL (for Cath Lab) OTHER ONE (07:20)
[2017-07-15] MEDS: FAMOTIDINE 20 MG/2 ML VIAL IV PUSH SCH (08:01)
[2017-07-15] MEDS ORDERED: LABETALOL HCL 100 MG/20 ML VIAL IV PUSH PRN (09:30)
--- NOTE | 2017-07-15 10:01 | EKG ---
Date Performed: 07/14/2017 Time Performed: 13:19:22 PTAGE: 61 years EKG: Sinus rhythm POSSIBLE LEFT ATRIAL ENLARGEMENT BORDERLINE ECG INTERPRETATION BASED ON A DEFAULT AGE OF 38 YEARS NO PREVIOUS TRACING DOCTOR: Cristopher Ross Interpretating Date/Time 07/15/2017 09:59:36
--- NOTE | 2017-07-15 10:34 | HHI.CCPN ---
Subjective Remarks/Hospital Course This is a 61-year-old female with a history of diabetes and hypertension who was recently admitted for rule out chest pain on June 12 with a negative myocardial perfusion scan, repeat presents today after a witnessed V. fib cardiac arrest. Per EMS report, her significant other saw her have shaking like activity followed by unresponsiveness. Bystander CPR. EMS arrived within 5 minutes of 911 phone call. Presenting rhythm was V. fib. Single DC cardioversion with return of spontaneous circulation. Intubated in the field and transferred to emergency room. Normal vitals in the ER. Troponins weakly positive likely secondary to cardioversion. EKG without significant ST-T wave changes. Preliminary echocardiogram report without regional wall motion abnormalities. Patient is briskly purposeful, localizing, questionable early following commands. I've consulted cardiology who will take the patient emergently to the heart catheterization lab to rule out ischemia. SUBJ 07/15: Cardiac catheterization yesterday showed only minimal CAD. No further episodes of arrhythmias reported. EP consulted by Dr. Matias. Following commands will start weaning trials with possible extubation. It was not that patient was taking methadone 110 mg daily -methadone can prolong QT and cause V. tach Objective Vital Signs Date Time Temp Pulse Resp B/P (MAP) Pulse Ox O2 Delivery O2 Flow Rate FiO2 07/15/17 08:43 100 40 07/15/17 08:36 Nasal Cannula 07/15/17 06:00 73 07/15/17 04:00 99.0 17 129/60 (83) 07/14/17 13:40 3 Intake and Output 07/15/17 07/15/17 07/16/17 08:00 16:00 00:00 Intake Total 1270 ml Output Total 950 ml Balance 320 ml Result Diagram: 07/15/17 0223 07/15/17 0223 Other Results Laboratory Tests Test 07/14/17 14:14 Blood Gas Puncture Site RT RADIAL Blood Gas Patient Temperature 98.6 Blood Gas HCO3 27 mmol/L (22-26) Blood Gas Base Excess 1.7 mmol/L (-2-2) Blood Gas Oxygen Saturation 96 % (90-100) Arterial Blood pH 7.33 (7.380-7.420) Arterial Blood Partial Pressure CO2 52 mmHg (38-42) Arterial Blood Partial Pressure O2 188 mmHg (61-120) Arterial Blood Oxygen Content 14.6 Vol % (12.0-20.0) Arterial Blood Carboxyhemoglobin 2.2 % (0-4) Arterial Blood Methemoglobin 1.0 % (0-2) Blood Gas Hemoglobin 10.5 G/DL (12.0-16.0) Oxygen Delivery Device VENTILATOR Blood Gas Ventilator Setting PRVC/AC Blood Gas Inspired Oxygen 100 % Imaging Last Impressions Chest X-Ray 07/14/17 1334 Signed Impressions: Service Date/Time: Friday, July 14, 2017 14:02 - CONCLUSION: 1. Endotracheal tube distal tip measures 1.1 cm from the evan. Therefore, consider retraction. 2. Underinflation with left lower lobe opacity representing either atelectasis or consolidation. Kolton Rm MD Objective Remarks GENERAL: Middle-aged female, lying in bed, intubated, sedated, HEENT: Normocephalic. Atraumatic. Pupils equal, round, reactive, conjugate. Mucous membranes are moist NECK: Trachea is midline. There is no JVD. CHEST: Equal chest rise. Clear to auscultation. CARDIOVASCULAR: Normal rate, regular rhythm. Sinus by telemetry. Hypertensive with systolic in 180s-190s ABDOMEN: Soft, nontender, nondistended. No guarding. MUSCULOSKELETAL: Pulses 2+. No peripheral edema. NEUROLOGICAL: Intubated off sedation, opens eyes follows simple commands. No focal deficits A/P Assessment and Plan Assessment: 61-year-old female with recent evaluation for possible cardiac ischemia who presents with a single V. fib witnessed arrest. Due to her recovery of neurologic function, she is not a therapeutic hypothermia candidate. I do think this is either ischemia related versus primary electrophysiologic event. Agree with left heart catheter to rule out ischemia. Likely will need AICD implantation before discharge. Remain intubated until full cardiac workup can be completed. She is critically ill s/p Out of Hospital Ventricular Fibrillation Cardiac Arrest - Only mild CAD on [facility]. EP consulted. - Patient was on Methadone 110 mg daily at home, methadone can prolong QT and cause ventricular arrhythmia. Will d/w EP - Dr. Matias asked to hold on heparin given she has microcytic anemia, until after [facility] evaluation, will start Lovenox 40 mg qd - Continue ASA - No indication for hypothermia. Neuro exam patient is following commands - trend troponins - Echo Nl EF NO WMA. Possible mild LVH Encephalopathy - frequent neuro checks. avoid long-acting sedatives - Following commands today will wean to extubate - ct head to r/o intracranial pathology Acute Kidney injury - likely secondary to cardiac arrest - trend bmp - mivf - eric with strict i/os Acute hypoxic and hypercarbic respiratory failure - vent bundle, hob at 30 degrees, nebs. -Tolerating SBT eval plan to wean to extubate - wean fio2 for goal spo2 > 90% Lactic acidosis - trend. likely secondary to cardiac arrest. SCDs. Pepcid iv Start Lovenox 40 mg daily Level 3 Dickson Hi MD Jul 15, 2017 10:34
[2017-07-15] MEDS: ASPIRIN 81 MG CHEW TAB CHEW SCH (11:00)
[2017-07-15] MEDS: MAGNESIUM SULFATE 1 GM PREMIX 100 ML IV SCH ×2 (11:00→12:00)
[2017-07-15] MEDS: FAMOTIDINE 20 MG TAB PO SCH ×2 (11:00→21:39)
[2017-07-15] MEDS: D5-NS + KCL 40 MEQ INJ 1,000 ML IV SCH ×2 (11:00→23:30)
--- NOTE | 2017-07-15 11:21 | PD.CARD.PN ---
Subjective Subjective Remarks throat sore. chest sore worse with breathing (s/p intubation and CPR) Objective Medications Current Medications Medications (Trade) Dose Ordered Sig/Logan Route Start Time Stop Time Status Last Admin (NS Flush) 2 ml UNSCH PRN IVF 07/14/17 13:45 (Peridex 0.12% Liq) 15 ml BID@08,20 MT 07/14/17 20:00 07/15/17 08:01 (Mag-Ox) 800 mg UNSCH PRN PO 07/14/17 14:00 Magnesium Sulfate 4 gm/Sodium Chloride 100 ml @ 50 mls/hr UNSCH PRN IV 07/14/17 14:00 Magnesium Sulfate 2 gm/Sodium Chloride 100 ml @ 50 mls/hr UNSCH PRN IV 07/14/17 14:00 Potassium Chloride 100 ml @ 50 mls/hr Q2H PRN IV 07/14/17 14:00 07/15/17 00:11 Potassium Chloride 100 ml @ 50 mls/hr Q2H PRN IV 07/14/17 14:00 Potassium Chloride 100 ml @ 50 mls/hr Q2H PRN IV 07/14/17 14:00 Potassium Chloride 100 ml @ 25 mls/hr UNSCH PRN IV 07/14/17 14:00 (K-Phos) 2,000 mg Q4H PRN PO 07/14/17 14:00 (K-Phos) 2,000 mg UNSCH PRN PO/TUBE 07/14/17 14:00 Potassium Phosphate 30 mmol/ Sodium Chloride 260 ml @ 42 mls/hr UNSCH PRN IV 07/14/17 14:00 Sodium Phosphate 30 mmol/Sodium Chloride 250 ml @ 42 mls/hr UNSCH PRN IV 07/14/17 14:00 (D50w (Vial) Inj) 25 ml UNSCH PRN IV PUSH 07/14/17 14:00 (NovoLIN R SUPPLEMENTAL SCALE) 1 Q6HR SQ 07/14/17 18:00 (Duoneb Neb) 1 ampule Q6HR NEB INH 07/14/17 16:00 07/15/17 08:43 (Duoneb Neb) 1 ampule Q2HR NEB PRN INH 07/14/17 14:00 (Zofran Inj) 4 mg Q6H PRN IV PUSH 07/14/17 14:00 Miscellaneous Information 1 Q361D XX 07/14/17 14:00 (Chlorhexidine 2% Cloth) 3 pack Taper DAILY@04 TOP 07/15/17 04:00 07/11/18 03:59 07/15/17 00:13 (Chlorhexidine 2% Cloth) 3 pack UNSCH PRN TOP 07/14/17 14:00 Nicardipine HCl 25 mg/Sodium Chloride 250 ml @ 50 mls/hr TITRATE PRN IV 07/14/17 15:45 07/14/17 16:07 (Coreg) 6.25 mg Q12HR PO 07/15/17 10:00 (Trandate Inj) 10 mg Q6H PRN IV PUSH 07/15/17 09:30 07/15/17 10:43 (Percocet 7.5-325 Mg) 1 tab Q6H PRN PO 07/15/17 11:00 UNV (Pepcid) 20 mg BID PO 07/15/17 11:00 UNV (Aspirin Chew) 81 mg DAILY CHEW 07/15/17 11:00 UNV (Lovenox Inj) 30 mg Q24H SQ 07/15/17 11:00 UNV Magnesium Sulfate/ Dextrose 100 ml @ 100 mls/hr Q1H IV 07/15/17 11:00 07/15/17 12:59 UNV Potassium Chloride/Dextrose/ Sod Cl 1,000 ml @ 84 mls/hr [id number] IV 07/15/17 11:00 UNV Vital Signs / I&O Vital Signs Date Time Temp Pulse Resp B/P (MAP) Pulse Ox O2 Delivery O2 Flow Rate FiO2 07/15/17 08:43 100 40 07/15/17 08:36 Nasal Cannula 40 07/15/17 06:00 73 07/15/17 04:00 73 07/15/17 04:00 100 40 07/15/17 04:00 40 07/15/17 04:00 99.0 73 17 129/60 (83) 100 07/15/17 02:15 99.0 75 19 144/70 (94) 100 07/15/17 02:00 77 07/15/17 02:00 40 07/15/17 01:15 99.1 81 17 141/66 (91) 100 07/15/17 00:32 100 40 07/15/17 00:00 90 07/15/17 00:00 99.3 90 33 193/115 (141) 90 07/14/17 23:15 99.9 71 18 146/77 (100) 100 07/14/17 23:00 72 07/14/17 22:51 100 50 07/14/17 22:15 99.3 63 17 133/76 (95) 100 07/14/17 22:00 63 07/14/17 21:45 99.3 63 16 120/72 (88) 100 07/14/17 21:15 99.1 63 16 117/67 (84) 100 07/14/17 20:45 99.1 63 17 109/62 (78) 100 07/14/17 20:15 99.0 67 17 108/62 (77) 100 07/14/17 20:00 69 07/14/17 20:00 99.0 69 17 122/62 (82) 100 07/14/17 20:00 69 17 122/62 (82) 100 07/14/17 19:45 99.2 72 18 135/72 (93) 100 07/14/17 18:30 100 100 07/14/17 18:00 74 07/14/17 17:30 100 100 07/14/17 16:07 71 178/98 07/14/17 16:00 99.5 101 24 197/111 (139) 100 07/14/17 14:54 80 14 135/68 (90) 99 Ventilator 07/14/17 14:45 97 70 07/14/17 14:06 99.0 07/14/17 13:57 85 14 120/57 (78) 100 100 07/14/17 13:56 92 194/99 (130) 07/14/17 13:53 98 07/14/17 13:45 100 100 07/14/17 13:40 99 Nasal Cannula 3 07/14/17 13:28 83 211/89 (129) 07/14/17 13:12 90 18 171/106 (127) 99 I/O 07/14/17 07/14/17 07/14/17 07/15/17 07/15/17 07/15/17 07:00 15:00 23:00 07:00 15:00 23:00 Intake Total 1170 ml 100 ml Output Total 425 ml 950 ml Balance -425 ml 220 ml 100 ml Intake IV Total 1170 ml 100 ml Output Urine Total 425 ml 950 ml Stool Total 0 ml # Bowel Movements 1 Physical Exam Alert Chest few rhonchi and wheezes CV S1S2 RRR right groin OK Magnesium and K+ a little low (see supplement orders) Laboratory Laboratory Tests Test 07/14/17 13:20 07/14/17 13:30 07/14/17 14:14 07/14/17 15:45 Lactic Acid Level 4.6 mmol/L White Blood Count 19.5 TH/MM3 Red Blood Count 4.96 MIL/MM3 Hemoglobin 11.3 GM/DL Hematocrit 36.2 % Mean Corpuscular Volume 72.9 FL Mean Corpuscular Hemoglobin 22.7 PG Mean Corpuscular Hemoglobin Concent 31.1 % Red Cell Distribution Width 17.6 % Platelet Count 255 TH/MM3 Mean Platelet Volume 9.8 FL Neutrophils (%) (Auto) 54.2 % Lymphocytes (%) (Auto) 32.1 % Monocytes (%) (Auto) 12.1 % Eosinophils (%) (Auto) 0.9 % Basophils (%) (Auto) 0.7 % Neutrophils # (Auto) 10.6 TH/MM3 Lymphocytes # (Auto) 6.3 TH/MM3 Monocytes # (Auto) 2.4 TH/MM3 Eosinophils # (Auto) 0.2 TH/MM3 Basophils # (Auto) 0.1 TH/MM3 CBC Comment AUTO DIFF Differential Total Cells Counted 100 Neutrophils % (Manual) 48 % Band Neutrophils % 1 % Lymphocytes % 36 % Monocytes % 10 % Eosinophils % 1 % Basophils % 1 % Neutrophils # (Manual) 10.1 TH/MM3 Metamyelocytes 1 % Myelocytes 2 % Differential Comment FINAL DIFF MANUAL Platelet Estimate NORMAL Platelet Morphology Comment ENLARGED Ovalocytes 1+ Prothrombin Time 10.7 SEC Prothromb Time International Ratio 1.0 RATIO Activated Partial Thromboplast Time 31.3 SEC Urine Color COLORLESS Urine Turbidity CLEAR Urine pH 7.0 Urine Specific [place] 1.007 Urine Protein 100 mg/dL Urine Glucose (UA) NEG mg/dL Urine Ketones NEG mg/dL Urine Occult Blood MOD Urine Nitrite NEG Urine Bilirubin NEG Urine Urobilinogen LESS THAN 2.0 MG/DL Urine Leukocyte Esterase NEG Urine RBC 3 /hpf Urine WBC 3 /hpf Urine Mucus FEW /lpf Microscopic Urinalysis Comment CATH-CULT NOT IND Blood Urea Nitrogen 14 MG/DL Creatinine 1.31 MG/DL Random Glucose 155 MG/DL Total Protein 8.5 GM/DL Albumin 3.4 GM/DL Calcium Level 8.3 MG/DL Magnesium Level 1.8 MG/DL Alkaline Phosphatase 127 U/L Aspartate Amino Transf (AST/SGOT) 95 U/L Alanine Aminotransferase (ALT/SGPT) 60 U/L Total Bilirubin 0.3 MG/DL Sodium Level 135 MEQ/L Potassium Level 3.0 MEQ/L Chloride Level 99 MEQ/L Carbon Dioxide Level 25.7 MEQ/L Anion Gap 10 MEQ/L Estimat Glomerular Filtration Rate 41 ML/MIN Total Creatine Kinase 155 U/L Creatine Kinase MB 1.6 NG/ML Troponin I 0.06 NG/ML Salicylates Level 2.7 MG/DL Urine Opiates Screen NEG Acetaminophen Level LESS THAN 2.0 MCG/ML Urine Barbiturates Screen NEG Urine Amphetamines Screen NEG Urine Benzodiazepines Screen NEG Urine Cocaine Screen NEG Urine Cannabinoids Screen NEG Ethyl Alcohol Level LESS THAN 3 MG/DL Blood Gas Puncture Site RT RADIAL Blood Gas Patient Temperature 98.6 Blood Gas HCO3 27 mmol/L Blood Gas Base Excess 1.7 mmol/L Blood Gas Oxygen Saturation 96 % Arterial Blood pH 7.33 Arterial Blood Partial Pressure CO2 52 mmHg Arterial Blood Partial Pressure O2 188 mmHg Arterial Blood Oxygen Content 14.6 Vol % Arterial Blood Carboxyhemoglobin 2.2 % Arterial Blood Methemoglobin 1.0 % Blood Gas Hemoglobin 10.5 G/DL Oxygen Delivery Device VENTILATOR Blood Gas Ventilator Setting PRVC/AC Blood Gas Inspired Oxygen 100 % Nasal Screen MRSA (PCR) MRSA NOT DETECTED Test 07/14/17 16:42 07/14/17 20:50 07/15/17 02:23 07/15/17 07:05 Urine Opiates Screen NEG Urine Barbiturates Screen NEG Urine Amphetamines Screen NEG Urine Benzodiazepines Screen NEG Urine Cocaine Screen NEG Urine Cannabinoids Screen NEG Troponin I 0.98 NG/ML 0.72 NG/ML White Blood Count 11.9 TH/MM3 Red Blood Count 4.70 MIL/MM3 Hemoglobin 10.1 GM/DL Hematocrit 33.7 % Mean Corpuscular Volume 71.6 FL Mean Corpuscular Hemoglobin 21.4 PG Mean Corpuscular Hemoglobin Concent 29.9 % Red Cell Distribution Width 17.3 % Platelet Count 202 TH/MM3 Mean Platelet Volume 9.0 FL Blood Urea Nitrogen 12 MG/DL Creatinine 1.13 MG/DL Random Glucose 105 MG/DL Calcium Level 8.0 MG/DL Sodium Level 141 MEQ/L Potassium Level 3.6 MEQ/L Chloride Level 107 MEQ/L Carbon Dioxide Level 25.4 MEQ/L Anion Gap 9 MEQ/L Estimat Glomerular Filtration Rate 49 ML/MIN Magnesium Level 1.6 MG/DL Imaging Last [address] 07/14/17 1336 Signed Impressions: Service Date/Time: Friday, July 14, 2017 17:42 - CONCLUSION: Stable noncontrast head CT. No acute intracranial abnormality is identified. Kolton Rm MD Chest X-Ray 07/14/17 1334 Signed Impressions: Service Date/Time: Friday, July 14, 2017 14:02 - CONCLUSION: 1. Endotracheal tube distal tip measures 1.1 cm from the evan. Therefore, consider retraction. 2. Underinflation with left lower lobe opacity representing either atelectasis or consolidation. Kolton Rm MD Assessment and Plan Problem List: (1) Tobacco abuse ICD Codes: Z72.0 - Tobacco use (2) Coronary artery disease ICD Codes: I25.10 - Atherosclerotic heart disease of [place] coronary artery without angina pectoris Plan: medical therapy (3) Methadone dependence ICD Codes: F11.20 - Opioid dependence, uncomplicated (4) Ventricular fibrillation ICD Codes: I49.01 - Ventricular fibrillation Plan: Dr. Thompson consulted (5) Chronic obstructive pulmonary disease ICD Codes: J44.9 - Chronic obstructive pulmonary disease, unspecified Status: Acute Jamar Matias MD Jul 15, 2017 11:21
[2017-07-15] MEDS: CARVEDILOL 6.25 MG TAB PO SCH ×2 (11:26→21:39)
[2017-07-15] MEDS ORDERED: POTASSIUM CHLORIDE 20 MEQ CONTROLLED RELEASE TAB PO ONE (11:30)
[2017-07-15] MEDS ORDERED: MAGNESIUM SULFATE 1 GM PREMIX 100 ML IV SCH (11:30)
[2017-07-15] MEDS: ENOXAPARIN SODIUM 30 MG/0.3 ML SYRINGE SQ SCH (13:00)
[2017-07-15] MEDS: oxyCODONE/ACETAMINOPHEN 7.5 MG/325 MG TAB PO PRN ×2 (15:18→21:40)
[2017-07-15] MEDS: LOSARTAN 25 MG TAB PO SCH (17:19)
[2017-07-15] MEDS ORDERED: CHLORHEXIDINE GLUCONATE 2 % 1 PACK (2 CLOTHS) TOP SCH (19:00)
[2017-07-15] MEDS ORDERED: MUPIROCIN 2% OINT 1 APPLIC/GM SYR NASAL SCH (19:00)
[2017-07-15] MEDS ORDERED: POVIDONE IODINE 5% (ANTISEPSIS KIT) 4 APPLICATIONS EACH NARE SCH (19:00)
--- NOTE | 2017-07-15 20:51 | MB ---
cc: DHARMESH THOMPSON M.D. DATE OF CONSULTATION 07/15/17 ELECTROPHYSIOLOGY CONSULT HISTORY OF PRESENT ILLNESS Mrs. Akers is a 61-year-old female with history of diabetes mellitus, high blood pressure, hyperlipidemia, history of drug abuse. She has a previous history of smoking also. She had a V-fib arrest. She was shocked back into sinus rhythm. She was sedated. She was put on mechanical ventilation. She has a cardiac catheterization that indicated no occlusion. I was consulted for evaluation for defibrillator implantation. The chart was reviewed. he patient was evaluated. ALLERGIES ___, COMPAZINE, ORPHENADRINE. SOCIAL HISTORY The patient smoked and used drugs. The patient was also on methadone. FAMILY HISTORY Noncontributory to her current medical condition. MEDICATIONS 1. Currently She is on magnesium. 2. She is on nicardipine. 3. Coreg 6.25 milligrams a day. 4. Aspirin 81 milligrams a day. 5. Famotidine. 6. Hydralazine p.r.n. 7. Insulin. 8. Losartan 25 milligrams a day. 9. Potassium. REVIEW OF SYSTEMS Currently she refers feeling tired but no chest pain, no chest discomfort. No fever. PHYSICAL EXAMINATION GENERAL: Alert, fully oriented. VITAL SIGNS: Her blood pressure is 147/71, pulse 81, respiratory rate 18. LUNGS: Ventilated. CARDIOVASCULAR: S1-S2, no gallop. No murmur. ABDOMEN: Soft. No mass. No bruits. EXTREMITIES: No edema. CARDIOLOGY STUDIES Electrocardiogram on hospitalization indicates sinus rhythm. No active ST and T-wave changes. LABORATORY DATA Hemoglobin is 10.1, white blood cell 11.9, potassium is 3.6, creatinine 1.13. Troponin 0.98. INR is 1.0. ASSESSMENT AND RECOMMENDATIONS Mrs. Akers increase in troponin is most likely due to the ventricular fibrillation. Then the defibrillatory shock. It is clearing progressively, currently is down from 0.98 to around 0.37. Left heart catheterization showed no occlusion. There is a possibility that the V-fib may be due to the long QT interval induced by methadone. Also, it may be from other reason. In both cases the patient going to be using methadone or drug in the future anyway. The best approach at this point is defibrillator insertion for sudden secondary prevention. The risks, the nature and the benefit of the procedure are clearly stated to her. The risks include pneumothorax, cardiac perforation, stroke and even . She understood and agreed to proceed. I will schedule her for tomorrow. Also, I do realize there is no echocardiogram in the system, I am going to order a 2-D echo for the morning. Dharmesh Thompson MD HS/EO /7:03 PM /8:41 PM
[2017-07-16] VITALS (17 sets, daily range): BP systolic 145–197; BP diastolic 67–89; PULSE 50–72; RESP 20–35; TEMP 98–100.8; O2SAT 100
[2017-07-16] MEDS: CHLORHEXIDINE GLUCONATE 2 % 1 PACK (2 CLOTHS) TOP SCH ×2 (04:00→22:03)
[2017-07-16] MEDS: RESP: ALBUTEROL 2.5 MG/IPRATROPIUM 0.5 MG NEB (SCH) INH ×4 (04:00→22:00)
[2017-07-16] MEDS: hydrALAZINE HCL 20 MG/ML VIAL IV PUSH PRN ×2 (04:48→10:11)
[2017-07-16 05:51] LABS: AUTOMATED NEUTROPHIL # 7.1 TH/MM3 (1.8-7.7); BASOPHIL # 0.1 TH/MM3 (0-0.2); BASOPHIL % 0.5 % (0.0-2.0); EOSINOPHIL # 0.1 TH/MM3 (0-0.4); EOSINOPHIL % 1.3 % (0.0-4.0); HEMATOCRIT 31.7 % (35.0-46.0); HEMO FLAGS DIFF FINAL; LYMPH % 19.3 % (9.0-44.0); LYMPHOCYTE # 2.2 TH/MM3 (1.0-4.8); MEAN CELL VOLUME 72.5 FL (80.0-100.0); MEAN CORPUSCULAR HGB CONC 30.3 % (32.0-36.0); MONO % 15.1 % (0.0-8.0); NEUT % 63.8 % (16.0-70.0); PLATELET COUNT 171 TH/MM3 (150-450); RED BLOOD COUNT 4.37 MIL/MM3 (4.00-5.30); RED CELL DISTRIBUTION WIDTH 17.6 % (11.6-17.2); WHITE BLOOD COUNT 11.1 TH/MM3 (4.0-11.0)
[2017-07-16] MEDS: INSULIN NovoLIN REGULAR SUPPLEMENTAL SCALE SQ SCH ×4 (06:00→18:00)
--- NOTE | 2017-07-16 06:09 | RADRPT ---
EXAM DATE/TIME: 07/16/2017 04:15 [facility] COMPARISON: CHEST SINGLE AP, July 14, 2017, 14:02. INDICATIONS : Shortness of breath, possible pulmonary disease. MEDICAL HISTORY : None. SURGICAL HISTORY : None. ENCOUNTER: Subsequent ACUITY: 2 days PAIN SCORE: Non-responsive. LOCATION: Bilateral chest FINDINGS: The cardiac silhouette is enlarged in transverse diameter. There is atelectasis in the left base and right midlung. There is resolving vascular congestion. CONCLUSION: 1. Cardiomegaly. Resolving vascular congestion 2. Bilateral atelectasis Felipe Hodge MD on July 16, 2017 at 6:05 Board Certified Radiologist. This report was verified electronically.
[2017-07-16 06:30] LABS: ALKALINE PHOSPHATASE 88 U/L (45-117); ALT (GPT) 51 U/L (10-53); ANION GAP 9 MEQ/L (5-15); AST (GOT) 101 U/L (15-37); BICARBONATE 21.3 MEQ/L (21.0-32.0); BLOOD UREA NITROGEN 12 MG/DL (7-18); CHLORIDE 109 MEQ/L (98-107); GLOMERULAR FILTRATION RATE 53 ML/MIN (>89); POTASSIUM 4.7 MEQ/L (3.5-5.1); SODIUM (NA) 139 MEQ/L (136-145); TOTAL BILIRUBIN ADULT 0.4 MG/DL (0.2-1.0)
[2017-07-16] MEDS: MORPHINE SULFATE 2 MG/ML INJ IV PUSH PRN ×2 (06:35→11:38)
[2017-07-16] MEDS: CHLORHEXIDINE 0.12% (ORAL KIT) 15 ML CUP MT SCH ×2 (08:00→20:00)
[2017-07-16] MEDS: LOSARTAN 25 MG TAB PO SCH (08:23)
[2017-07-16] MEDS: FAMOTIDINE 20 MG TAB PO SCH ×2 (08:23→20:16)
[2017-07-16] MEDS: CARVEDILOL 6.25 MG TAB PO SCH ×2 (08:23→20:16)
[2017-07-16] MEDS: ASPIRIN 81 MG CHEW TAB CHEW SCH (08:23)
[2017-07-16] MEDS: oxyCODONE/ACETAMINOPHEN 7.5 MG/325 MG TAB PO PRN (08:31)
--- NOTE | 2017-07-16 09:09 | HHI.CCPN ---
Subjective Remarks/Hospital Course This is a 61-year-old female with a history of diabetes and hypertension who was recently admitted for rule out chest pain on June 12 with a negative myocardial perfusion scan, repeat presents today after a witnessed V. fib cardiac arrest. Per EMS report, her significant other saw her have shaking like activity followed by unresponsiveness. Bystander CPR. EMS arrived within 5 minutes of 911 phone call. Presenting rhythm was V. fib. Single DC cardioversion with return of spontaneous circulation. Intubated in the field and transferred to emergency room. Normal vitals in the ER. Troponins weakly positive likely secondary to cardioversion. EKG without significant ST-T wave changes. Preliminary echocardiogram report without regional wall motion abnormalities. Patient is briskly purposeful, localizing, questionable early following commands. I've consulted cardiology who will take the patient emergently to the heart catheterization lab to rule out ischemia. SUBJ 07/15: Cardiac catheterization yesterday showed only minimal CAD. No further episodes of arrhythmias reported. EP consulted by Dr. Matias. Following commands will start weaning trials with possible extubation. It was not that patient was taking methadone 110 mg daily -methadone can prolong QT and cause V. tach 07/16: Appreciate evaluation by Dr. Thompson. AICD today. He agrees possibly methadone induced ventricular arrhythmia, however other reasons and possible and due to life-threatening V. fib arrest, AICD will be placed today. Yesterday had an episode of chest pain and bradycardia responded to morphine. On exam it appears more chest wall pain. EKG does show QT prolongation Objective Vital Signs Date Time Temp Pulse Resp B/P (MAP) Pulse Ox O2 Delivery O2 Flow Rate FiO2 07/16/17 06:50 18 07/16/17 06:00 72 07/16/17 04:00 98.0 197/82 (120) 100 07/15/17 20:48 Nasal Cannula 2.00 07/15/17 08:43 40 Intake and Output 07/16/17 07/16/17 07/17/17 08:00 16:00 00:00 Intake Total 480 ml Output Total 825 ml Balance -345 ml Result Diagram: 07/16/17 0534 07/16/17 0534 Imaging Last Impressions Chest X-Ray 07/14/17 1334 Signed Impressions: Service Date/Time: Friday, July 14, 2017 14:02 - CONCLUSION: 1. Endotracheal tube distal tip measures 1.1 cm from the evan. Therefore, consider retraction. 2. Underinflation with left lower lobe opacity representing either atelectasis or consolidation. Kolton Rm MD Objective Remarks GENERAL: Middle-aged female, lying in bed,alert awake oriented HEENT: Normocephalic. Atraumatic. Pupils equal, round, reactive, conjugate. Mucous membranes are moist NECK: Trachea is midline. There is no JVD. CHEST: Equal chest rise. Clear to auscultation. CARDIOVASCULAR: Normal rate, regular rhythm. Sinus by telemetry. Hypertensive. EKG shows prolonged QT ABDOMEN: Soft, nontender, nondistended. No guarding. MUSCULOSKELETAL: Pulses 2+. No peripheral edema. NEUROLOGICAL: Alert awake and oriented no focal deficits A/P Assessment and Plan Assessment: 61-year-old female with recent evaluation for possible cardiac ischemia who presents with a single V. fib witnessed arrest. Due to her recovery of neurologic function, she is not a therapeutic hypothermia candidate. I do think this is either ischemia related versus primary electrophysiologic event. Agree with left heart catheter to rule out ischemia. Likely will need AICD implantation before discharge. Remain intubated until full cardiac workup can be completed. She is critically ill s/p Out of Hospital Ventricular Fibrillation Cardiac Arrest Prolonged Qt Elevated troponin - Only mild CAD on [facility]. EP Dr. Machado. AICD today with pacing at higher HR to shorten QT - Patient was on Methadone 110 mg daily at home, methadone can prolong QT and cause ventricular arrhythmia. Irrespective needs AICD due to V. fib arrest - Dr. Matias asked to hold on heparin given she has microcytic anemia, until after [facility] evaluation, will start Lovenox 40 mg qd - Continue ASA - No indication for hypothermia. Neuro exam patient is following commands - trend troponins - Echo Nl EF NO WMA. Possible mild LVH Encephalopathy-resolved - frequent neuro checks. avoid long-acting sedatives - ct head to r/o intracranial pathology Acute Kidney injury - likely secondary to cardiac arrest - trend bmp - mivf - DC jeaneth Acute hypoxic and hypercarbic respiratory failure - Extubated 07/17/17, tolerating well. - Fio2 for goal spo2 > 90% Lactic acidosis - Trend. likely secondary to cardiac arrest. - SCDs. - Pepcid iv - Lovenox 40 mg daily, resume after procedure Level 2 Transfer to [facility] after AICD placement. Consult [facility] to assume care in am Dickson Hi MD Jul 16, 2017 09:09
[2017-07-16 09:34] LABS: RETIC % 1.5 % (0.4-3.0); REVIEW FLAG FINAL
[2017-07-16 10:20] LABS: FERRITIN 9 NG/ML (8-252)
--- NOTE | 2017-07-16 10:26 | PD.CONS ---
HPI History of Present Illness This is a 61 year old female patient who was brought to the emergency room on for ventricular fibrillation arrest. She was found having seizure activity in bed by her significant other and he then noted her to be pulseless and called for EVAC. She has chronic regional pain syndrome and takes Methadone 100mg po daily. She was evaluated by cardiology and Dr. Thompson, who feels that her vfib arrest could possibly be secondary to long QT interval induced by methadone and it was recommended that she have an AICD placed to prevent future episodes of vfib and sudden . She is scheduled to have this placed today. GI was consulted for microcytic anemia. She has an H/H of 9.6/31.7, MCV 72.5, MCHC 30.3. Iron and ferritin are pending. The patient reports that she has a history of iron deficiency anemia. She denies any obvious blood loss. She last had an EGD with dilatation for an esophageal stricture 2 years ago. She had a colonoscopy 3 years ago in [place] and reports that she did not have any polyps at that time, but did have polyps on her colonoscopy prior to that. She reports daily heartburn and takes either pepcid, prilosec (OTC), or baking soda wash on a daily basis. She reports that she had a UTI with frequency, suprapubic tenderness, and nausea/vomiting about 3 weeks ago. She was seen and given a course of Cipro- which the patient reports seemed to aggravate her vomiting and therefore she stopped at "10 days. " Most of her suprapubic tenderness has subsided, but she still has some mild discomfort more on the left side. She has chronic constipation, which is controlled with colace. She also reports intermittent substernal chest pain/ squeezing related to exertion, but also at rest for the past few weeks. She does not take any NSAIDS. She does not drink ETOH. (Lisa Mayers) PFSH Past Medical History NATHAN GERD Anxiety TIA DM HTN Chronic regional pain syndrome Past Surgical History Appendectomy TMJ surgery Right cataract surgery Bladder surgery Hysterectomy Tonsillectomy, Adenoidectomy Hemorrhoidectomy EGD with Dilatation Colonoscopy (Lisa Mayers) Coded Allergies: cefaclor (Unverified Allergy, Severe, HIVES, THROAT CLOSES, 07/14/17) prochlorperazine (Unverified Allergy, Severe, THROAT CLOSES, 07/14/17) orphenadrine (Unverified Allergy, Intermediate, PALPITATIONS, 07/14/17) Medications Allergies Coded Allergies Type Severity Reaction Last Updated Verified cefaclor Allergy Severe HIVES, THROAT CLOSES 07/14/17 No prochlorperazine Allergy Severe THROAT CLOSES 07/14/17 No orphenadrine Allergy Intermediate PALPITATIONS 07/14/17 No Active Scripts Medications Dose Route/Sig Max Daily Dose Days Date Category Dose Instructions Cipro (Ciprofloxacin HCl) 500 Mg Tab 500 Mg PO BID 12 06/13/17 Rx Cozaar (Losartan Potassium) 25 Mg Tab 25 Mg PO DAILY 06/13/17 Rx Albuterol Neb (Albuterol Sulfate) 2.5 Mg/0.5 Ml Neb 2.5 Mg NEB Q4HR NEB PRN 06/12/17 Reported Note: The Albuterol Sulfate Inhalation Solution is concentrated and must be diluted. Read complete instructions carefully before using. Methadone (Methadone HCl) 10 Mg Tab 100 Mg PO DAILY 06/12/17 Reported Metformin (Metformin HCl) 500 Mg Tab 500 Mg PO DAILY 06/12/17 Reported With a meal Combivent Respimat Inh (Ipratropium-Albuterol Inh) 20-100 Senior Living/Act Aero 1 Puff INH QID 06/12/17 Reported Aspirin EC (Aspirin) 81 Mg Tabdr 81 Mg PO DAILY 06/12/17 Reported Potassium Chloride Microencaps 20 Meq Tab 20 Meq PO DAILY 07/10/16 Rx Start on 07/11/16. Family History Mother had liver cancer Father had DM, CVA Social History Quit smoking in October 2016. No etoh No illicit drug use (Lisa Mayers) Review of Systems Constitutional: COMPLAINS OF: Fatigue Respiratory: COMPLAINS OF: Shortness of breath Cardiovascular: COMPLAINS OF: Chest pain Gastrointestinal: COMPLAINS OF: Abdominal pain, Constipation, Nausea, Vomiting , Heartburn, DENIES: Black stools, Bloody stools, Diarrhea Genitourinary: COMPLAINS OF: Urinary frequency Musculoskeletal: COMPLAINS OF: Joint pain Neurologic: COMPLAINS OF: Headache Psychiatric: DENIES: Confusion (Lisa Mayers) GI Exam Vitals I&O Vital Signs Date Time Temp Pulse Resp B/P (MAP) Pulse Ox O2 Delivery O2 Flow Rate FiO2 07/16/17 09:25 100 Nasal Cannula 2.00 07/16/17 09:00 67 32 179/81 (113) 100 07/16/17 08:00 98.0 64 23 176/80 (112) 100 07/16/17 06:50 18 07/16/17 06:00 72 07/16/17 04:00 60 07/16/17 04:00 98.0 60 30 197/82 (120) 100 07/16/17 02:00 59 07/16/17 00:00 61 07/16/17 00:00 98.5 61 35 172/77 (108) 100 07/15/17 22:40 16 07/15/17 22:00 77 07/15/17 20:48 99 Nasal Cannula 2.00 07/15/17 20:00 98.7 62 34 174/80 (111) 07/15/17 20:00 62 07/15/17 18:00 75 07/15/17 16:00 75 07/15/17 16:00 100.4 75 27 172/76 (108) 100 07/15/17 15:00 72 27 173/113 (133) 07/15/17 15:00 68 07/15/17 14:00 62 07/15/17 14:00 62 27 156/83 (107) 07/15/17 13:00 70 32 140/65 (90) 07/15/17 13:00 64 07/15/17 12:00 81 07/15/17 12:00 99.4 78 21 147/71 (96) 100 07/15/17 11:00 86 19 186/96 (126) 100 07/15/17 11:00 80 07/15/17 10:00 95 07/15/17 10:00 103 21 180/84 (116) I/O 07/15/17 07/15/17 07/15/17 07/16/17 07/16/17 07/16/17 07:00 15:00 23:00 07:00 15:00 23:00 Intake Total 1170 ml 540 ml 960 ml 480 ml Output Total 950 ml 350 ml 825 ml Balance 220 ml 540 ml 610 ml -345 ml Intake Oral 960 ml 480 ml IV Total 1170 ml 540 ml Output Urine Total 950 ml 350 ml 825 ml Stool Total 0 ml 0 ml Imaging Last Impressions Chest X-Ray 07/16/17 0600 Signed Impressions: Service Date/Time: July 04:15 - CONCLUSION: 1. Cardiomegaly. Resolving vascular congestion 2. Bilateral atelectasis Felipe Hodge MD Head CT 07/14/17 1336 Signed Impressions: Service Date/Time: Friday, July 14, 2017 17:42 - CONCLUSION: Stable noncontrast head CT. No acute intracranial abnormality is identified. Kolton Rm MD Laboratory Test 07/15/17 10:51 07/16/17 05:34 Troponin I 0.37 NG/ML 0.19 NG/ML White Blood Count 11.1 TH/MM3 Red Blood Count 4.37 MIL/MM3 Hemoglobin 9.6 GM/DL Hematocrit 31.7 % Mean Corpuscular Volume 72.5 FL Mean Corpuscular Hemoglobin 22.0 PG Mean Corpuscular Hemoglobin Concent 30.3 % Red Cell Distribution Width 17.6 % Platelet Count 171 TH/MM3 Mean Platelet Volume 10.1 FL Neutrophils (%) (Auto) 63.8 % Lymphocytes (%) (Auto) 19.3 % Monocytes (%) (Auto) 15.1 % Eosinophils (%) (Auto) 1.3 % Basophils (%) (Auto) 0.5 % Neutrophils # (Auto) 7.1 TH/MM3 Lymphocytes # (Auto) 2.2 TH/MM3 Monocytes # (Auto) 1.7 TH/MM3 Eosinophils # (Auto) 0.1 TH/MM3 Basophils # (Auto) 0.1 TH/MM3 CBC Comment DIFF FINAL Differential Comment Reticulocyte Count 1.5 % Absolute Reticulocyte Count 66.2 MIL/L Blood Urea Nitrogen 12 MG/DL Creatinine 1.05 MG/DL Random Glucose 110 MG/DL Total Protein 7.2 GM/DL Albumin 3.0 GM/DL Calcium Level 8.6 MG/DL Magnesium Level 2.0 MG/DL Alkaline Phosphatase 88 U/L Aspartate Amino Transf (AST/SGOT) 101 U/L Alanine Aminotransferase (ALT/SGPT) 51 U/L Total Bilirubin 0.4 MG/DL Sodium Level 139 MEQ/L Potassium Level 4.7 MEQ/L Chloride Level 109 MEQ/L Carbon Dioxide Level 21.3 MEQ/L Anion Gap 9 MEQ/L Estimat Glomerular Filtration Rate 53 ML/MIN Lipase 117 U/L Date/Time Source Procedure Growth Status 07/14/17 13:50 Blood Peripheral Aerobic Blood Culture - Preliminary NO GROWTH IN 1 DAY Resulted 07/14/17 13:50 Blood Peripheral Anaerobic Blood Culture - Preliminary NO GROWTH IN 1 DAY Resulted 07/14/17 15:45 Sputum Endotracheal Gram Stain - Final Resulted 07/14/17 15:45 Sputum Endotracheal Sputum Culture - Preliminary HEAVY GROWTH NORMAL RESPIRATORY TYRESE Resulted Physical Examination HEENT: Normocephalic; atraumatic; no jaundice CHEST: CTA CARDIAC: RRR ABDOMEN: Soft, nondistended, nontender; no hepatosplenomegaly; bowel sounds are present in all four quadrants. EXTREMITIES: No clubbing, cyanosis, or edema. SKIN: Normal; no rash; no jaundice. GATEMAN: No focal deficits; alert and oriented times three. (Lisa Mayers) Assessment and Plan Plan ASSESSMENT: - Microcytic, hypochromic anemia. H/H of 9.6/31.7, MCV 72.5, MCHC 30.3. Iron and ferritin are pending. The patient reports that she has a history of iron deficiency anemia. She denies any obvious blood loss. She last had an EGD with dilatation for an esophageal stricture 2 years ago. She had a colonoscopy 3 years ago in [place] and reports that she did not have any polyps at that time, but did have polyps on her colonoscopy prior to that. - GERD, daily symptoms. Taking Pepcid, Prilosec, Baking soda wash daily at home. Pepcid. - Vfib arrest. S/P Cardiology and EP marisela, who feels that her vfib arrest could possibly be secondary to long QT interval induced by methadone and it was recommended that she have an AICD placed to prevent future episodes of vfib and sudden . She is scheduled to have this placed today. - BASIA. Improved. - Chronic regional pain syndrome on Methadone 100mg po daily at home right wrist. - Hx TIA, HTN, DM, Anxiety per attending. PLAN: - NPO for procedure - Going for AICD placement today - Cont. Pepcid - Await ferritin, iron - Monitor HH - Hemoccult stool - EGD/Colonoscopy once cleared by cardiology - Supportive care - Further recommendations to follow based on results of above - Pt seen and examined by Dr. Gimenez and myself and this note is written on his behalf (Lisa Mayers) Physician Comments Seen and examined, plan as above, will follow up with you. Cardiac work up in progress. Further recommendations to follow. Thank you for the consult. (Kassy Gimenez MD) Lisa Mayers Jul 16, 2017 10:26 Kassy Gimenez MD Jul 16, 2017 10:55
[2017-07-16] MEDS: D5-NS + KCL 40 MEQ INJ 1,000 ML IV SCH ×2 (10:50→22:45)
[2017-07-16] MEDS: ENOXAPARIN SODIUM 30 MG/0.3 ML SYRINGE SQ SCH (12:51)
[2017-07-16] MEDS ORDERED: FAMOTIDINE 20 MG/2 ML VIAL ONE (13:18)
[2017-07-16] MEDS ORDERED: LIDOCAINE HCL 2% 50 ML VIAL ONE (13:41)
[2017-07-16] MEDS ORDERED: VANCOMYCIN 500 MG VIAL ONE (13:41)
[2017-07-16] MEDS ORDERED: VANCOMYCIN HCL 1000 MG VIAL ONE (13:41)
[2017-07-16] MEDS ORDERED: SODIUM CHLOR 0.9% 250 ML INJ 250 ML ONE (13:42)
[2017-07-16] MEDS ORDERED: ceFAZolin INJ 1,000 MG VIAL ONE (13:42)
--- NOTE | 2017-07-16 13:59 | EKG ---
Date Performed: 07/16/2017 Time Performed: 05:15:18 PTAGE: 61 years EKG: Sinus arrhythmia Prolonged QT interval Rightward axis Borderline ECG No significant change from prior electrocardiogram. DOCTOR: Jonathan Cleaning Interpretating Date/Time 07/16/2017 13:58:14
--- NOTE | 2017-07-16 15:02 | PD.CARD ---
SINGLE CHAMBER DEFIB IMPLANT PROCEDURE DATE: Jul 16, 2017 Prevention: Secondary Single Chamber Defib Implant PROCEDURE: Single chamber defibrillator implantation and device testing. INDICATIONS: Ms. Akers is a 61 -year-old female with an episode of ventricular fibrillation, sudden episode , normal ejection fraction who undergo defibrillator implantation for sudden secondary prevention. The risks, the nature and the benefit of the procedure are clearly stated to her . Risks include pneumothorax, cardiac perforation, stroke and even . She understood and agreed to proceed. PROCEDURE: After written, informed consent was obtained, the patient was brought to the EP Lab where she was prepped and draped in the sterile fashion. Conscious sedation was initiated and maintained throughout the procedure by anesthesiologist. Once sedation was verified, the left infraclavicular area was anesthetized with 2% Xylocaine. Using modified Seldinger technique, the left subclavian vein was cannulated on one occasion and one guide wire was advanced. Then, using #11 blade scalpel, a 3-cm incision was made two fingerbreadths below left clavicle. This incision was then taken down to the deep fascial layer using Bovie cautery and blunt dissection. Into the inferomedial direction, a device pocket was dissected, then the wire was dissected into the pocket. A 2-0 Vicryl suture was placed around the wires to prevent bleeding. At this point, over the wire, the 9- Montenegrin dilator and introducer was advanced. As dilator and wire were removed, an active fixation right ventricular pacing, sensing and defibrillatory lead was advanced. After adequate pacing and sensing thresholds were obtained, the lead was secured in the pocket with #2 Ethibond suture. At that point, the pocket was copiously irrigated with antibiotic solution. The leads were connected to the generator and placed into the pocket. I did proceed with NIPS. Initial induction consisted of T-wave shock which induced ventricular fibrillation which was adequately detected and treated by the ICD generator, delivering a 20-joule defibrillatory shock converting the patient back into sinus rhythm. Shocking impedance was 61 ohms, charge time 4.1 seconds. At that point NIPS was complete. I did proceed with wound closure. The deep fascial layer was approximated with 2-0 Vicryl suture in a continuous fashion. The subcutaneous layer was approximated with 2-0 Vicryl suture in a continuous fashion. The subcuticular layer was approximated with 2-0 Vicryl suture in a continuous fashion. Dermabond adhesive was applied to the wound, followed by a sterile pressure dressing. There was no complication. The patient tolerated procedure. Blood loss minimal. 1. Implanted Hardware: The implanted defibrillator generator is a Medtronic, model number FAHW3A3, serial number [id number]. The right ventricular pacing, sensing and defibrillatory lead is a Medtronic model number 6935M-62, serial number [id number]. 2. Thresholds: The right ventricular pacing threshold in the bipolar mode was 1.0volts at 0.4 milliseconds, lead impedance 722 ohms and R-wave at 5.3 mV. The right ventricular defibrillatory threshold less than 20 joules shocking, impedance 63 ohms, charge time 4.1 seconds. 3. Settings: The device set in VVI 40 defibrillatory portion for two zones, one zone for ventricular tachycardia between 180 and 250 beats per minute. Initial therapy consists of one burst of ATP, one ramp, 81%, 10 pulse, 10 millisecond decremental, followed by 20, then 25 and all subsequent shocks at 35 joules defibrillatory shock, the second zone for ventricular fibrillation above 250 beats per minute, first therapy at 25 and all subsequent shocks at 35 joules defibrillatory shock. CONCLUSIONS: Successful defibrillator implantation and device testing. COMMENT AND RECOMMENDATIONS: The patient will be transferred to the telemetry unit, will be observed and when stable can be discharged home. Jena Thompson MD Jul 16, 2017 15:02
--- NOTE | 2017-07-16 15:14 | CATHPROC ---
OneName HIS Report Study Information Study Number Scheduled Start Study Start [id number] 07/16/2017 Jul 16 2017 10:44AM Referring Institution Admit Source Facility Department 1 Other [facility] String Winding Machine Operator Physician and Clinical Staff Initial Jena Barorn Wool Mixer Lina Ashley,RN Other Anesthesia, INTERPRETER Recorder Lina Ashley,RN Recorder Edgar Menendez,RT(R) Scrub Ivanna Alejandre,HEALTH UNIT CLERK Procedures Performed Procedure Lead Insertion Equipment Time Home Coordinator Description Size Mfg Part Number Used/Scraped DERMABOND, ADHESIVE SKIN [id number] 14:21 CORDIS/PACER * Used GLUE MINI *[id number] 14:21 MEDLINE INDUSTRIES SUTURE, STRIP PLUS 1/2" * Used *[id number] 14:21 MEDLINE PACER GAUTHIER, LIMB * 2530 *[id number] Used [id number] 14:21 MEDLINE PACER PACK, PACER CUSTOM * Used *[id number] 14:21 [place] PACER SAFE SHEATH, FR9, 13CM FR 9 [id number] Used 14:29 Needle Sponge Count 2 2 Used 14:34 Needle Sponge Count 2 22 Used 14:47 Needle Sponge Count 2 2 Used 14:34 Needle Sponge Count 20 200 Used SUTURE, 0 ETHIBOND [CT1] (CX21D), 8pk SUTURE, 2-0 VICRYL [CT1] ([id number]) SUTURE, 2-0 VICRYL [CT1] ([id number]) [id number] 14:21 [employer],WARM AIR CCL * Used *[id number] [facility] PAD, ELECTROSURGICAL 14:21 * [id number] *[id number] Used SURGICAL GROUNDING ORANGE 14:43 VITATRON MEDTRONIC DEFIBRILLATOR, VISIA AF MRI VR [id number] Used LEAD, SPRINT QUATTRO SECURE [id number] 14:36 VITATRON MEDTRONIC 62CM Used S 62CM *[id number] 14:21 [employer] SONU. / * Used *53726 Equipment Model, Serial, Lot Number and Expiration Data Description Model Number Serial Number Lot Number Expiration Date DEFIBRILLATOR, VISIA AF MRI VR [id number] 12-19-2018 LEAD, SPRINT QUATTRO SECURE S 6935M [id number] 09-26-2018 62CM History: Allergies Allergy Reaction prochlorperazine THROAT CLOSES orphenadrine PALPITATIONS cefaclor HIVES, THROAT CLOSES History: Risk Factors Hypertension Dyslipidemia Yes Yes Cerebrovascular Diabetes Disease Labs Hgb (g/dl) Hct (%) RBC (MIL/MM3) WBC (l/cumm) Platelets (thousands) 11.60-17.00 35.00-51.00 4.00-5.90 4.00-11.00 150.00-450.00 9.0 31 4.3 11 171 Glucose (mg/dl) BUN (mg/dl) Creatinine (mg/dl) BUN:Creatinine (1:x) 74.00-106.00 7.00-18.00 0.50-1.30 10.00-20.00 110 12 1.0 12 Na (meq/l) K (meq/l) 136.00-145.00 3.50-5.10 139 4.7 INR (PTT:PT) 0.90-1.10 1 Medication Medication Total Dose (Bolus/Oral) Medication Total Dosage/Unit 2% XYLOCAINE 50 mL Medications (Bolus/Oral) Medication Time Given Dosage/Unit Administered By Reason 2% XYLOCAINE 07/16/2017 2:29:39 PM 50 mL Jena Valdes 50 mL 2% XYLOCAINE given in lab by Jena Valdes in Left Arm via Subcutaneous. Ordered by Johnathan Valdes. left upper chest Medication (Drip) Medication Time Given Dosage/Unit Concentration/Unit Diluent (ml) Solution ANCEF 07/16/2017 1:56:25 PM 2 g 2 g ANCEF given in lab by PRETTY Daniel in Left Hand via Peripheral IV. Ordered by Jena Valdes. IV Solutions 07/16/2017 1:48:53 PM 0 mL (IV) 500 NaCl .9 IV Solutions given in lab by Lina Ashley RN in Right Hand via Peripheral IV. Pump/Drip Flow = 2 0 ml/hr using NaCl .9. Ordered by Jena Valdes. IV Solutions 07/16/2017 1:49:32 PM 0 mL (IV) 500 NaCl .9 IV Solutions given in lab by Lina Ashley RN in Left Hand via Peripheral IV. Pump/Drip Flow = 20 ml/hr using NaCl .9. Ordered by Jena Valdes. VANCOMYCIN DRIP 07/16/2017 1:56:49 PM 1 g 1 g VANCOMYCIN DRIP given in lab by Anesthesia, INTERPRETER in Left Hand via Peripheral IV. Ordered by Jena Valdes. Initial Case Assessment Cardiovascular HR NIBP 64 175/79 Neurological State Oriented to time-place- Alert Moves all extremities person Comment: patient in discomfort due to cpr prior days Respiration - General Respiration Rate SpO2 (%) O2 (lpm) (B/min) 20 100 2 Final Case Assessment Cardiovascular HR Rhythm NIBP 66 sr 104/50 Neurological State Drowsy Respiration - General Respiration Rate SpO2 (%) O2 (lpm) (B/min) 16 97 10 Chronological Log Time Study Chronological Log 13:37:14 Patient arrived via Bed. 13:37:19 Patient Name, D.O.B, / Armband Verified By R.N. 13:37:22 Consent signed by the physician and the patient and verified by the String Winding Machine Operator staff. 13:37:24 Pre-op and post- op instructions given; patient acknowledges understanding of instructions. 13:37:31 Anesthesia at bedside. Assumes care of patient. Belem Riojas 13:38:27 Verbal Stimulation=2 Physical Stimulation=2 Airway=2 Respiration=2 TOTAL=8. (0=absent, 1=li mited, 2=present) 13:39:34 Patient has been NPO for More than 6Hrs. 13:39:35 Skin Breakdown-no per patient 13:39:36 Patient Warmer Placed on the Table. 13:39:37 Disposable Defibrillator Pads Placed On Patient. 13:39:37 Gema Prominences Protected 13:39:39 A # 20 IV was noted in the Hand (right). Grade = 0 Assessment: Initial Case, HR=64 BPM, QHMN=656/79 mmhg 13:39:40 Neurological: State=Alert, Ox3, BELCHER, Comment=patient in discomfort due to cpr prior days Respiration: Resp=20 B/min, FzH2=654 %, O2=2 lpm 13:39:40 A # 20 IV was noted in the Antecubital (right). Grade = 0 13:39:41 History and physical on the chart or being dictated. 13:40:10 A # 20 IV was noted in the Hand (left). Grade = 0 13:40:30 all vital signs will be recorded during procedure by anesthsia on flow sheet 13:40:50 Disposable Defibrillator Pads Placed On Patient. 13:45:00 Left Upper Chest Prepped Times Two. 3 min dry time IV Solutions given in lab by Lina Ashley RN in Right Hand via Peripheral IV. Pump/Drip Fl ow = 20 ml/hr using 13:48:53 NaCl .9. Ordered by Jena Valdes. IV Solutions given in lab by Lina Ashley RN in Left Hand via Peripheral IV. Pump/Drip Jani w = 20 ml/hr using NaCl 13:49:32 .9. Ordered by Jena Valdes. 13:56:25 2 g ANCEF given in lab by Anesthesia, INTERPRETER in Left Hand via Peripheral IV. Ordered by Jena Valdes. 13:56:49 1 g VANCOMYCIN DRIP given in lab by Anesthesia, INTERPRETER in Left Hand via Peripheral IV. Ordere d by Jena Valdes. 14:02:52 MD notified ready in 2 min 14:03:50 MD responded 14:10:22 right ac iv is infiltrated per blueprint developer(belem riojas) 14:12:01 potassium drip d/c per blueprint developer 14:15:07 patient arrived with a eric catheter inserted First Sponge And Instrument Count Done by Ivanna Alejandre RCIS. 14:15:22 Hypo's: 2, Sponges: 20, Bovie/scratch: 2 Sutures: 10, Blades: 1, Instruments: 21, Syveck Patches: ~SYVECK PATCH~ and margart m 14:22:26 Bovie ground pad applied to:right hip 14:22:59 2% CHLORHEXIDINE GLUCONATE WASH AND NASAL SWIPE DONE PRIOR TO PROCEDURE. 14:23:15 Reference ECG taken 14:23:35 MD arrived. Time Out. Correct patient, procedure, procedure equipment, site and side verified with physicia n present. Time 14:28:44 concurred by MD, individual staff and INTERPRETER. Time Out #2 - Consents verified, patient in correct position, all results are labled and displa yed, safety precautions 14:28:56 taken, antibiotics administered. Time out concurred by MD, individual staff and INTERPRETER in procedu 14:29:00 Case Start 50 mL 2% XYLOCAINE given in lab by Jena Valdes in Left Arm via Subcutaneous. Ordered by Jena Valdes. left 14:29:39 upper chest 14:32:20 Vascular access was obtained in the Subclav. Vein (Lft. 14:32:27 Wire inserted 14:32:30 Surgical Incision Made. left upper chest per dr valdes 14:32:45 A pocket was created at the L Upper Chest. 14:35:12 A SAFE SHEATH, FR9, 13CM FR 9 was advanced into the Subclav. Vein (Lft using the ~TECHNIQUE ~ technique. 14:35:43 A LEAD, SPRINT QUATTRO SECURE S 62CM 62CM was inserted and positioned in the RV. 14:38:23 Lead placement verified under fluoroscopy 14:38:26 The RV lead impedance and threshold being tested. 14:39:47 The RV lead was sutured to the fascia. 14:41:36 Pocket flushed with antibiotic solution 14:42:26 A DEFIBRILLATOR, VISIA AF MRI VR VVEVVIR was connected and placed in the pocket. Second Sponge And Instrument Count Done by Ivanna Alejandre RCIS. 14:46:06 Hypo's: 2, Sponges: 20, Bovie/scratch: 2 Sutures: ~SUTURE~, Blades: 1, Instruments: ~INSTRU~, Syveck Patches: ~SYVECK PATCH~ and Eleonora Camara 14:47:03 The pocket was closed. 14:47:06 Implant Procedure was performed. 14:47:15 A ICD Implant . (Single) 14:47:46 A 2 Joul sync DFT was performed. 14:48:23 The DFT was Success at 20 Joules, 61 Ohms lead impedance and 4 ms charge time. The Final Sponge And Instrument Count Done by Lina Ashley RN. 14:49:44 Hypo's: 2, Sponges: 20, Bovie/scratch: 2 Sutures: 10, Blades: 1, Instruments: 21, Syveck Patches: ~SYVECK PATCH~ and ivanna linares 14:50:44 Case End 14:53:05 Steri-strips and a sterile dressing applied to site. 14:55:54 A sling was placed on the affected arm. Assessment: Final Case, HR=66 BPM, Rhythm=sr, ETVV=108/50 mmhg 14:56:12 Neurological: State=Drowsy Respiration: Resp=16 B/min, SpO2=97 %, O2=10 lpm 14:58:00 No case complications noted. 14:58:07 Implantable Device card placed in patient's chart. 14:58:11 Defibrillator and ground pads removed. Skin intact. 15:00:32 edgar went to retrieve bed for patient 15:14:50 Bedside Report will be given. 15:15:58 Patient moved to stretcher End Study - Maximum Contrast Load Max Contrast Load (mL) 395.0 End Study - Patient Disposition Complications Not selected
[2017-07-16] MEDS ORDERED: ONDANSETRON HCL 4 MG/2 ML VIAL IV PUSH PRN (15:15)
--- NOTE | 2017-07-16 16:55 | RADRPT ---
EXAM DATE/TIME: 07/16/2017 16:31 [facility] COMPARISON: CHEST SINGLE AP, July 16, 2017, 4:15. INDICATIONS : Pneumothorax, post procedure. MEDICAL HISTORY : Hypertension. Diabetes mellitus type II. Breast implants. SURGICAL HISTORY : Pacemaker. ENCOUNTER: Initial ACUITY: 1 day PAIN SCORE: 0/10 LOCATION: Bilateral chest FINDINGS: Pacemaker device is noted with control pack over the left chest. There is no evidence of pneumothorax or other complication post placement. Minimal streaky bilateral parenchymal opacity may be scarring or atelectasis. Cardiomediastinal contours are stable and satisfactory. CONCLUSION: No evidence of pneumothorax following pacer oKlton Escalante MD on July 16, 2017 at 16:53 Board Certified Radiologist. This report was verified electronically.
[2017-07-16] MEDS: ceFAZolin 2 GM PREMIX 50 ML IV SCH (20:16)
[2017-07-17] VITALS (24 sets, daily range): BP systolic 101–203; BP diastolic 71–97; PULSE 60–82; RESP 18–20; TEMP 97.3–99.6; O2SAT 91–100
[2017-07-17] MEDS: RESP: ALBUTEROL 2.5 MG/IPRATROPIUM 0.5 MG NEB (SCH) INH ×4 (03:29→21:11)
[2017-07-17] MEDS: oxyCODONE/ACETAMINOPHEN 7.5 MG/325 MG TAB PO PRN ×4 (04:28→21:39)
[2017-07-17] MEDS: D5-NS + KCL 40 MEQ INJ 1,000 ML IV SCH (04:32)
[2017-07-17] MEDS: ceFAZolin 2 GM PREMIX 50 ML IV SCH ×2 (05:20→14:00)
[2017-07-17 05:38] LABS: HEMATOCRIT 28.2 % (35.0-46.0); MEAN CELL VOLUME 71.9 FL (80.0-100.0); MEAN CORPUSCULAR HEMOGLOBIN 22.2 PG (27.0-34.0); MEAN CORPUSCULAR HGB CONC 30.8 % (32.0-36.0); PLATELET COUNT 156 TH/MM3 (150-450); RED BLOOD COUNT 3.93 MIL/MM3 (4.00-5.30); RED CELL DISTRIBUTION WIDTH 17.4 % (11.6-17.2); REVIEW FLAG FINAL; WHITE BLOOD COUNT 10.8 TH/MM3 (4.0-11.0)
[2017-07-17] MEDS: INSULIN NovoLIN REGULAR SUPPLEMENTAL SCALE SQ SCH ×4 (06:00→17:40)
[2017-07-17 06:04] LABS: BICARBONATE 20.9 MEQ/L (21.0-32.0); POTASSIUM 4.8 MEQ/L (3.5-5.1)
[2017-07-17] MEDS: CHLORHEXIDINE 0.12% (ORAL KIT) 15 ML CUP MT SCH ×2 (08:00→20:00)
[2017-07-17] MEDS: LOSARTAN 25 MG TAB PO SCH (10:13)
[2017-07-17] MEDS: FAMOTIDINE 20 MG TAB PO SCH ×2 (10:13→21:39)
[2017-07-17] MEDS: CARVEDILOL 6.25 MG TAB PO SCH ×2 (10:13→21:39)
[2017-07-17] MEDS: ASPIRIN 81 MG CHEW TAB CHEW SCH (10:14)
--- NOTE | 2017-07-17 11:01 | HHI.GIFU ---
Subjective Remarks Pt resting comfortably in bed. Reports good appetite, had a banana and milk this morning. Denies nausea, vomiting, abdominal pain. (Cherelle Mendoza) Objective Vitals I&O Vital Signs Date Time Temp Pulse Resp B/P (MAP) Pulse Ox O2 Delivery O2 Flow Rate FiO2 07/17/17 09:27 100 Nasal Cannula 2.00 07/17/17 07:00 97.3 63 18 101/82 (88) 99 07/17/17 05:22 148/84 (105) 07/17/17 05:00 72 07/17/17 04:00 72 07/17/17 04:00 99.4 72 20 191/93 (125) 99 07/17/17 03:30 99 Nasal Cannula 2.00 07/17/17 00:00 99.6 64 20 152/78 (102) 99 07/17/17 00:00 64 07/16/17 23:00 67 07/16/17 22:00 66 07/16/17 20:00 68 07/16/17 20:00 99.5 68 20 163/89 (113) 100 07/16/17 13:00 70 24 179/75 (109) 100 07/16/17 13:00 60 07/16/17 12:00 99.1 52 24 167/74 (105) 100 07/16/17 12:00 66 07/16/17 11:00 56 07/16/17 11:00 62 26 145/67 (93) I/O 07/16/17 07/16/17 07/16/17 07/17/17 07/17/17 07/17/17 07:00 15:00 23:00 07:00 15:00 23:00 Intake Total 480 ml 50 ml 50 ml Output Total 825 ml 1000 ml 0 ml Balance -345 ml -950 ml 50 ml Intake Oral 480 ml 50 ml 50 ml Output Urine Total 825 ml 1000 ml Stool Total 0 ml 0 ml Laboratory Laboratory Tests Test 07/17/17 05:18 White Blood Count 10.8 Red Blood Count 3.93 Hemoglobin 8.7 Hematocrit 28.2 Mean Corpuscular Volume 71.9 Mean Corpuscular Hemoglobin 22.2 Mean Corpuscular Hemoglobin Concent 30.8 Red Cell Distribution Width 17.4 Platelet Count 156 Mean Platelet Volume 10.4 Blood Urea Nitrogen 9 Creatinine 0.96 Random Glucose 116 Calcium Level 8.0 Sodium Level 138 Potassium Level 4.8 Chloride Level 108 Carbon Dioxide Level 20.9 Anion Gap 9 Estimat Glomerular Filtration Rate 59 Date/Time Source Procedure Growth Status 07/14/17 13:50 Blood Peripheral Aerobic Blood Culture - Preliminary Strep Anginosus/Milleri Resulted 07/14/17 13:50 Blood Peripheral Anaerobic Blood Culture - Preliminary NO GROWTH IN 2 DAYS Resulted 07/14/17 15:45 Sputum Endotracheal Gram Stain - Final Resulted 07/14/17 15:45 Sputum Culture - Preliminary S. Aureus Mrsa Resulted Imaging Last Impressions Chest X-Ray 07/16/17 0600 Signed Impressions: Service Date/Time: July 04:15 - CONCLUSION: 1. Cardiomegaly. Resolving vascular congestion 2. Bilateral atelectasis Felipe Hodge MD Head CT 07/14/17 1336 Signed Impressions: Service Date/Time: Friday, July 14, 2017 17:42 - CONCLUSION: Stable noncontrast head CT. No acute intracranial abnormality is identified. Kolton Rm MD Physical Exam HEENT: Normocephalic; atraumatic; no jaundice. CHEST: RR even/unlabored . CARDIAC: RRR ABDOMEN: Soft, nondistended, nontender, bowel sounds active x 4 EXTREMITIES: No edema SKIN: Normal; no jaundice. CHILD NUTRITION ASSISTANT: No focal deficits (Cherelle Mendoza) Assessment and Plan Plan ASSESSMENT: - Microcytic, hypochromic anemia. H/H of 8.7/28.2, MCV 71.9, MCHC 30.8. Iron 44 ferritin 9. The patient reports that she has a history of iron deficiency anemia. She denies any obvious blood loss. She last had an EGD with dilatation for an esophageal stricture 2 years ago. She had a colonoscopy 3 years ago in [place] and reports that she did not have any polyps at that time, but did have polyps on her colonoscopy prior to that. - GERD, daily symptoms. Taking Pepcid, Prilosec, Baking soda wash daily at home. Pepcid. - Vfib arrest. S/P Cardiology and EP marisela, who feels that her vfib arrest could possibly be secondary to long QT interval induced by methadone- pt had AICD placed yesterday- reports mild pain to the site - BASIA. Improved. - Chronic regional pain syndrome on Methadone 100mg po daily at home right wrist. - Hx TIA, HTN, DM, Anxiety per attending. 07/17/17 - Drop in H/H s/p AICD placement yesterday. Currently H/H 8.7/28.2 from yesterday (07/16/17) 9.6/31.7. Will continue to monitor. Awaiting cardiac clearance to schedule pt for EGD/colonoscopy - Pt placed on heart healthy diet by cardiology. She reports good appetite. Denies NV/abdominal pain. PLAN: - Diet as tolerated - Cont. Pepcid BID - Monitor HH - Hemoccult stool - EGD/Colonoscopy once cleared by cardiology - Supportive care - Further recommendations to follow based on results of above - Pt seen and examined by Dr. Gimenez and myself and this note is written on his behalf (Cherelle Mendoza) Physician Comments Agree with the plan as above, will follow up with you periodically. Further recommendations to follow. (Kassy Gimenez MD) Cherelle Mendoza Jul 17, 2017 11:01 Kassy Gimenez MD Jul 17, 2017 13:10
--- NOTE | 2017-07-17 11:34 | HHI.PR ---
Subjective Remarks Follow-up ventricular fibrillation arrest/microcytic hypochromic anemia/ methadone dependence 07/17/17-patient seen and examined, complains of soreness to insertion site of AICD. currently afebrile Objective Vitals Vital Signs Date Time Temp Pulse Resp B/P (MAP) Pulse Ox O2 Delivery O2 Flow Rate FiO2 07/17/17 09:27 100 Nasal Cannula 2.00 07/17/17 07:00 97.3 63 18 101/82 (88) 99 07/17/17 05:22 148/84 (105) 07/17/17 05:00 72 07/17/17 04:00 72 07/17/17 04:00 99.4 72 20 191/93 (125) 99 07/17/17 03:30 99 Nasal Cannula 2.00 07/17/17 00:00 99.6 64 20 152/78 (102) 99 07/17/17 00:00 64 07/16/17 23:00 67 07/16/17 22:00 66 07/16/17 20:00 68 07/16/17 20:00 99.5 68 20 163/89 (113) 100 07/16/17 13:00 70 24 179/75 (109) 100 07/16/17 13:00 60 07/16/17 12:00 99.1 52 24 167/74 (105) 100 07/16/17 12:00 66 I/O 07/16/17 07/16/17 07/16/17 07/17/17 07/17/17 07/17/17 07:00 15:00 23:00 07:00 15:00 23:00 Intake Total 480 ml 50 ml 50 ml Output Total 825 ml 1000 ml 0 ml Balance -345 ml -950 ml 50 ml Intake Oral 480 ml 50 ml 50 ml Output Urine Total 825 ml 1000 ml Stool Total 0 ml 0 ml Result Diagram: 07/17/1718 07/17/17 0518 Imaging Last Impressions Chest X-Ray 07/16/17 0600 Signed Impressions: Service Date/Time: July 04:15 - CONCLUSION: 1. Cardiomegaly. Resolving vascular congestion 2. Bilateral atelectasis Felipe Hodge MD Head CT 07/14/17 1336 Signed Impressions: Service Date/Time: Friday, July 14, 2017 17:42 - CONCLUSION: Stable noncontrast head CT. No acute intracranial abnormality is identified. Kolton Rm MD Objective Remarks GENERAL: NAD SKIN: Warm and dry. HEAD: Normocephalic. EYES: No scleral icterus. No injection or drainage. NECK: Supple, trachea midline. No JVD or lymphadenopathy. CARDIOVASCULAR: Regular rate and rhythm without murmurs, gallops, or rubs. Dressing over insertion site of AICD RESPIRATORY: Breath sounds equal bilaterally. No accessory muscle use. GASTROINTESTINAL: Abdomen soft, non-tender, nondistended. MUSCULOSKELETAL: No cyanosis, or edema. BACK: Nontender without obvious deformity. No CVA tenderness. Procedures AICD implantation 07/16/17 A/P Problem List: (1) Microcytic hypochromic anemia ICD Code: D50.9 - Iron deficiency anemia, unspecified (2) Ventricular fibrillation ICD Code: I49.01 - Ventricular fibrillation (3) Methadone dependence ICD Code: F11.20 - Opioid dependence, uncomplicated Assessment and Plan 61-year-old female with Ventricular fibrillation arrest Prolonged QT likely secondary to methadone use Status post evaluation from cardiology and EP Started post left heart catheterization with finding of mild CAD Status post AICD placement 07/16/17 Continue with Lovenox, aspirin, beta saeid Microcytic hypochromic anemia Appreciate input from a stroke urology pending clearance from cardiology for possible EGD/colonoscopy Continue H&H monitoring Hypertension Currently on Coreg 6.25 mg by mouth twice a day, Cozaar Encephalopathy-resolved Acute Kidney injury - likely secondary to cardiac arrest -Now resolved with IV fluid hydration Acute hypoxic and hypercarbic respiratory failure - Extubated 07/17/17, tolerating well. - Fio2 for goal spo2 > 90% Lactic acidosis - Trend. likely secondary to cardiac arrest. - SCDs. - Pepcid iv - Lovenox 30 mg daily Rasheed Sam MD Jul 17, 2017 11:34
[2017-07-17] MEDS: ENOXAPARIN SODIUM 30 MG/0.3 ML SYRINGE SQ SCH (13:00)
[2017-07-17] MEDS: MORPHINE SULFATE 2 MG/ML INJ IV PUSH PRN ×3 (14:23→23:02)
[2017-07-17] MEDS: hydrALAZINE HCL 20 MG/ML VIAL IV PUSH PRN (17:42)
--- NOTE | 2017-07-17 17:45 | HHI.PR ---
Subjective Remarks Some pain Objective Vital Signs Date Time Temp Pulse Resp B/P (MAP) Pulse Ox O2 Delivery O2 Flow Rate FiO2 07/17/17 15:10 91 Nasal Cannula 2.00 07/17/17 09:27 100 Nasal Cannula 2.00 07/17/17 07:00 97.3 63 18 101/82 (88) 99 07/17/17 05:22 148/84 (105) 07/17/17 05:00 72 07/17/17 04:00 72 07/17/17 04:00 99.4 72 20 191/93 (125) 99 07/17/17 03:30 99 Nasal Cannula 2.00 07/17/17 00:00 99.6 64 20 152/78 (102) 99 07/17/17 00:00 64 07/16/17 23:00 67 07/16/17 22:00 66 07/16/17 20:00 68 07/16/17 20:00 99.5 68 20 163/89 (113) 100 I/O 07/16/17 07/16/17 07/16/17 07/17/17 07/17/17 07/17/17 07:00 15:00 23:00 07:00 15:00 23:00 Intake Total 480 ml 50 ml 50 ml Output Total 825 ml 1000 ml 0 ml Balance -345 ml -950 ml 50 ml Intake Oral 480 ml 50 ml 50 ml Output Urine Total 825 ml 1000 ml Stool Total 0 ml 0 ml Result Diagram: 07/17/17 0518 07/17/17 0518 Imaging Alert, fully oriented Lungs: ventilated Heart: S1, S2 regular, no gallop Abdomen: soft, no mass Ext: no edema Left infraclavicular area with clean surgical wound Last Impressions Chest X-Ray 07/16/17 0600 Signed Impressions: Service Date/Time: July 04:15 - CONCLUSION: 1. Cardiomegaly. Resolving vascular congestion 2. Bilateral atelectasis Felipe Hodge MD Head CT 07/14/17 1336 Signed Impressions: Service Date/Time: Friday, July 14, 2017 17:42 - CONCLUSION: Stable noncontrast head CT. No acute intracranial abnormality is identified. Kolton Rm MD Current Medications Medications (Trade) Dose Ordered Sig/Logan Route Start Time Stop Time Status Last Admin (NS Flush) 2 ml UNSCH PRN IVF 07/14/17 13:45 (Peridex 0.12% Liq) 15 ml BID@08,20 MT 07/14/17 20:00 07/17/17 08:00 (Mag-Ox) 800 mg UNSCH PRN PO 07/14/17 14:00 Magnesium Sulfate 4 gm/Sodium Chloride 100 ml @ 50 mls/hr UNSCH PRN IV 07/14/17 14:00 Magnesium Sulfate 2 gm/Sodium Chloride 100 ml @ 50 mls/hr UNSCH PRN IV 07/14/17 14:00 07/15/17 11:27 Potassium Chloride 100 ml @ 50 mls/hr Q2H PRN IV 07/14/17 14:00 07/15/17 00:11 Potassium Chloride 100 ml @ 50 mls/hr Q2H PRN IV 07/14/17 14:00 Potassium Chloride 100 ml @ 50 mls/hr Q2H PRN IV 07/14/17 14:00 Potassium Chloride 100 ml @ 25 mls/hr UNSCH PRN IV 07/14/17 14:00 (K-Phos) 2,000 mg Q4H PRN PO 07/14/17 14:00 (K-Phos) 2,000 mg UNSCH PRN PO/TUBE 07/14/17 14:00 Potassium Phosphate 30 mmol/ Sodium Chloride 260 ml @ 42 mls/hr UNSCH PRN IV 07/14/17 14:00 Sodium Phosphate 30 mmol/Sodium Chloride 250 ml @ 42 mls/hr UNSCH PRN IV 07/14/17 14:00 (D50w (Vial) Inj) 25 ml UNSCH PRN IV PUSH 07/14/17 14:00 (NovoLIN R SUPPLEMENTAL SCALE) 1 Q6HR SQ 07/14/17 18:00 07/15/17 12:00 (Duoneb Neb) 1 ampule Q6HR NEB INH 07/14/17 16:00 07/17/17 15:10 (Duoneb Neb) 1 ampule Q2HR NEB PRN INH 07/14/17 14:00 Miscellaneous Information 1 Q361D XX 07/14/17 14:00 (Chlorhexidine 2% Cloth) 3 pack Taper DAILY@04 TOP 07/15/17 04:00 07/11/18 03:59 07/16/17 04:00 (Chlorhexidine 2% Cloth) 3 pack UNSCH PRN TOP 07/14/17 14:00 Nicardipine HCl 25 mg/Sodium Chloride 250 ml @ 50 mls/hr TITRATE PRN IV 07/14/17 15:45 07/14/17 16:07 (Coreg) 6.25 mg Q12HR PO 07/15/17 10:00 07/17/17 10:13 (Trandate Inj) 10 mg Q6H PRN IV PUSH 07/15/17 09:30 07/15/17 10:43 (Percocet 7.5-325 Mg) 1 tab Q6H PRN PO 07/15/17 11:00 07/17/17 15:52 (Pepcid) 20 mg BID PO 07/15/17 11:00 07/17/17 10:13 (Aspirin Chew) 81 mg DAILY CHEW 07/15/17 11:00 07/17/17 10:14 (Lovenox Inj) 30 mg Q24H SQ 07/15/17 13:00 07/17/17 13:00 (Cozaar) 25 mg DAILY PO 07/15/17 16:00 07/17/17 10:13 (Apresoline Inj) 20 mg Q4H PRN IV PUSH 07/15/17 16:00 07/16/17 10:11 (Betadine 5% Antisepsis Kit) 1 applic HEEL COVERER EACH NARE 07/15/17 19:00 07/19/17 18:59 (Bactroban Nasal 2% Oint) 1 applic HEEL COVERER NASAL 07/15/17 19:00 07/19/17 18:59 (Chlorhexidine 2% Cloth) 3 pack HEEL COVERER TOP 07/15/17 19:00 07/19/17 18:59 07/16/17 09:08 (Morphine Inj) 2 mg Q3H PRN IV PUSH 07/16/17 05:30 07/17/17 14:23 (Zofran Inj) 4 mg Q4H PRN IV PUSH 07/16/17 15:15 Assessment and Plan Problem List: (1) Cardiac defibrillator in situ ICD Codes: Z95.810 - Presence of automatic (implantable) cardiac defibrillator Plan: Device well functioning Clean surgical wound No contraindication for panendoscopy Can be DH when ok with the managing team I will be available on a PRN basis. (2) Cardiac arrest ICD Codes: I46.9 - Cardiac arrest, cause unspecified Status: Acute Plan: N new episode of ventricular arrhythmia reported Jena Thompson MD Jul 17, 2017 17:45
[2017-07-18] VITALS (30 sets, daily range): BP systolic 120–182; BP diastolic 77–112; PULSE 58–86; RESP 18–26; TEMP 97.6–99.1; O2SAT 95–98
[2017-07-18] MEDS: MORPHINE SULFATE 2 MG/ML INJ IV PUSH PRN ×6 (02:40→21:55)
[2017-07-18] MEDS: RESP: ALBUTEROL 2.5 MG/IPRATROPIUM 0.5 MG NEB (SCH) INH ×2 (03:40→10:39)
[2017-07-18] MEDS: CHLORHEXIDINE GLUCONATE 2 % 1 PACK (2 CLOTHS) TOP SCH (04:00)
[2017-07-18 05:03] LABS: HEMATOCRIT 28.3 % (35.0-46.0); MEAN CELL VOLUME 71.1 FL (80.0-100.0); MEAN CORPUSCULAR HEMOGLOBIN 22.3 PG (27.0-34.0); MEAN CORPUSCULAR HGB CONC 31.4 % (32.0-36.0); PLATELET COUNT 141 TH/MM3 (150-450); RED BLOOD COUNT 3.98 MIL/MM3 (4.00-5.30); RED CELL DISTRIBUTION WIDTH 17.5 % (11.6-17.2); REVIEW FLAG FINAL
[2017-07-18 05:17] LABS: BICARBONATE 23.6 MEQ/L (21.0-32.0); POTASSIUM 3.8 MEQ/L (3.5-5.1)
[2017-07-18] MEDS: INSULIN NovoLIN REGULAR SUPPLEMENTAL SCALE SQ SCH ×4 (05:59→18:00)
[2017-07-18] MEDS: CHLORHEXIDINE 0.12% (ORAL KIT) 15 ML CUP MT SCH ×2 (08:00→20:00)
[2017-07-18] MEDS: LOSARTAN 25 MG TAB PO SCH (09:37)
[2017-07-18] MEDS: ASPIRIN 81 MG CHEW TAB CHEW SCH (09:37)
[2017-07-18] MEDS: CARVEDILOL 6.25 MG TAB PO SCH ×2 (09:37→21:56)
[2017-07-18] MEDS: FAMOTIDINE 20 MG TAB PO SCH ×2 (09:37→21:56)
--- NOTE | 2017-07-18 09:41 | HHI.GIFU ---
Subjective Remarks Followup for anemia. Patient is awake, lying in bed in no apparent distress. Reports epigastric abdominal pain. Tolerating diet. Reports dark stool this morning. (Lindsey Kelly) Objective Vitals I&O Vital Signs Date Time Temp Pulse Resp B/P (MAP) Pulse Ox O2 Delivery O2 Flow Rate FiO2 07/18/17 06:00 64 07/18/17 05:00 76 07/18/17 04:00 58 07/18/17 04:00 98.3 70 26 120/80 (93) 97 07/18/17 03:43 97 Nasal Cannula 2.00 07/18/17 03:00 58 07/18/17 02:00 60 07/18/17 01:00 60 07/18/17 00:00 62 07/18/17 00:00 98.9 77 26 156/90 (112) 98 07/17/17 23:00 66 07/17/17 22:00 72 07/17/17 21:00 78 07/17/17 20:00 98.9 81 203/97 (132) 97 07/17/17 20:00 72 07/17/17 19:00 80 07/17/17 18:00 68 07/17/17 17:00 82 07/17/17 16:00 98.4 65 18 94 07/17/17 16:00 66 07/17/17 15:10 91 Nasal Cannula 2.00 07/17/17 15:00 60 07/17/17 14:00 60 07/17/17 13:00 66 07/17/17 12:00 73 07/17/17 12:00 98.3 61 18 142/71 (94) 97 07/17/17 11:00 60 07/17/17 10:00 68 I/O 07/17/17 07/17/17 07/17/17 07/18/17 07/18/17 07/18/17 07:00 15:00 23:00 07:00 15:00 23:00 Intake Total 240 ml Output Total 400 ml Balance -400 ml 240 ml Intake Oral 240 ml Output Urine Total 400 ml # Voids 3 3 Laboratory Laboratory Tests Test 07/18/17 04:20 White Blood Count 8.0 Red Blood Count 3.98 Hemoglobin 8.9 Hematocrit 28.3 Mean Corpuscular Volume 71.1 Mean Corpuscular Hemoglobin 22.3 Mean Corpuscular Hemoglobin Concent 31.4 Red Cell Distribution Width 17.5 Platelet Count 141 Mean Platelet Volume 10.2 Blood Urea Nitrogen 15 Creatinine 0.85 Random Glucose 104 Calcium Level 8.3 Sodium Level 137 Potassium Level 3.8 Chloride Level 105 Carbon Dioxide Level 23.6 Anion Gap 8 Estimat Glomerular Filtration Rate 68 Date/Time Source Procedure Growth Status 07/14/17 13:50 Blood Peripheral Aerobic Blood Culture - Preliminary Strep Anginosus/Milleri Resulted 07/14/17 13:50 Blood Peripheral Anaerobic Blood Culture - Preliminary NO GROWTH IN 3 DAYS Resulted 07/14/17 15:45 Sputum Endotracheal Gram Stain - Final Resulted 07/14/17 15:45 Sputum Culture - Preliminary S. Aureus Mrsa Resulted Imaging Last Impressions Chest X-Ray 07/16/17 0600 Signed Impressions: Service Date/Time: July 04:15 - CONCLUSION: 1. Cardiomegaly. Resolving vascular congestion 2. Bilateral atelectasis Felipe Hodge MD Head CT 07/14/17 1336 Signed Impressions: Service Date/Time: Friday, July 14, 2017 17:42 - CONCLUSION: Stable noncontrast head CT. No acute intracranial abnormality is identified. Kolton Rm MD Physical Exam HEENT: Normocephalic; atraumatic; no jaundice. CHEST: CTA CARDIAC: RRR ABDOMEN: Soft, nondistended, nontender, bowel sounds active x 4 EXTREMITIES: No edema SKIN: Normal; no jaundice. VAMP CREASER: Awake, alert and oriented x 3. (Lindsey Kelly) Assessment and Plan Plan ASSESSMENT: - Microcytic, hypochromic anemia. H/H of 8.7/28.2, MCV 71.9, MCHC 30.8. Iron 44 ferritin 9. The patient reports that she has a history of iron deficiency anemia. She denies any obvious blood loss. She last had an EGD with dilatation for an esophageal stricture 2 years ago. She had a colonoscopy 3 years ago in [place] and reports that she did not have any polyps at that time, but did have polyps on her colonoscopy prior to that. - GERD, daily symptoms. Taking Pepcid, Prilosec, Baking soda wash daily at home. Pepcid. - Vfib arrest. S/P Cardiology and EP marisela, who feels that her vfib arrest could possibly be secondary to long QT interval induced by methadone- pt had AICD placed- reports mild pain to the site - BASIA. Improved. - Chronic regional pain syndrome on Methadone 100mg po daily at home right wrist. - Hx TIA, HTN, DM, Anxiety per attending. 07/17/17 - Drop in H/H s/p AICD placement yesterday. Currently H/H 8.7/28.2 from yesterday (07/16/17) 9.6/31.7. Will continue to monitor. Awaiting cardiac clearance to schedule pt for EGD/colonoscopy - Pt placed on heart healthy diet by cardiology. She reports good appetite. Denies NV/abdominal pain. 07/18/17--Reports epigastric pain. Tolerating diet. Reports dark stools this morning. HH 8.9/28.3. Hemoccult stool labs have not been obtained. Cardiac has cleared her for EGD/Colonoscopy. PLAN: - EGD/Colonoscopy on Thursday - Obtain consents - Clear liquid diet on Thursday - NPO after MN on Thursday night - Bowel prep Thursday - Continue Pepcid BID - Monitor HH, transfuse if needed - Obtain Hemoccult stool - Supportive care - Further recommendations to follow based on results of above Patient seen and examined by Dr. Gimenez and myself and this note is written on his behalf (Lindsey Kelly) Physician Comments Seen and examined, plan as above. Cardiology cleared her for EGD/Colonoscopy. Will start bowel prep tomorrow for Thursday. Further recommendations to follow. (Kassy Gimenez MD) Lindsey Kelly Jul 18, 2017 09:41 Kassy Gimenez MD Jul 18, 2017 11:06
--- NOTE | 2017-07-18 11:27 | HHI.PR ---
Subjective Remarks Follow-up ventricular fibrillation arrest/microcytic hypochromic anemia/ methadone dependence 07/17/17-patient seen and examined, complains of soreness to insertion site of AICD. currently afebrile 07/18/17-patient seen and examined, reports improvement of soreness to AICD site. Denies any chest pain. Denies any blood in her stool. Objective Vitals Vital Signs Date Time Temp Pulse Resp B/P (MAP) Pulse Ox O2 Delivery O2 Flow Rate FiO2 07/18/17 10:45 95 Nasal Cannula 2.00 07/18/17 09:26 97.6 73 20 170/93 (118) 96 07/18/17 06:00 64 07/18/17 05:00 76 07/18/17 04:00 58 07/18/17 04:00 98.3 70 26 120/80 (93) 97 07/18/17 03:43 97 Nasal Cannula 2.00 07/18/17 03:00 58 07/18/17 02:00 60 07/18/17 01:00 60 07/18/17 00:00 62 07/18/17 00:00 98.9 77 26 156/90 (112) 98 07/17/17 23:00 66 07/17/17 22:00 72 07/17/17 21:00 78 07/17/17 20:00 98.9 81 203/97 (132) 97 07/17/17 20:00 72 07/17/17 19:00 80 07/17/17 18:00 68 07/17/17 17:00 82 07/17/17 16:00 98.4 65 18 94 07/17/17 16:00 66 07/17/17 15:10 91 Nasal Cannula 2.00 07/17/17 15:00 60 07/17/17 14:00 60 07/17/17 13:00 66 07/17/17 12:00 73 07/17/17 12:00 98.3 61 18 142/71 (94) 97 I/O 07/17/17 07/17/17 07/17/17 07/18/17 07/18/17 07/18/17 07:00 15:00 23:00 07:00 15:00 23:00 Intake Total 240 ml Output Total 400 ml Balance -400 ml 240 ml Intake Oral 240 ml Output Urine Total 400 ml # Voids 3 3 Result Diagram: 07/18/17 04207/18/17 0420 Objective Remarks GENERAL: NAD SKIN: Warm and dry. HEAD: Normocephalic. EYES: No scleral icterus. No injection or drainage. NECK: Supple, trachea midline. No JVD or lymphadenopathy. CARDIOVASCULAR: Regular rate and rhythm without murmurs, gallops, or rubs. Dressing over insertion site of AICD RESPIRATORY: Breath sounds equal bilaterally. No accessory muscle use. GASTROINTESTINAL: Abdomen soft, non-tender, nondistended. MUSCULOSKELETAL: No cyanosis, or edema. BACK: Nontender without obvious deformity. No CVA tenderness. Procedures AICD implantation 07/16/17 A/P Problem List: (1) Ventricular fibrillation ICD Code: I49.01 - Ventricular fibrillation (2) Microcytic hypochromic anemia ICD Code: D50.9 - Iron deficiency anemia, unspecified (3) Methadone dependence ICD Code: F11.20 - Opioid dependence, uncomplicated Assessment and Plan 61-year-old female with Ventricular fibrillation arrest Prolonged QT likely secondary to methadone use Status post evaluation from cardiology and EP Started post left heart catheterization with finding of mild CAD Status post AICD placement 07/16/17 Continue with Lovenox, aspirin, beta saeid Microcytic hypochromic anemia Appreciate input from gastroenterology, and plan for EGD/colonoscopy 07/20/17 Continue H&H monitoring Hypertension Currently on Coreg 6.25 mg by mouth twice a day, Cozaar Encephalopathy-resolved Acute Kidney injury - likely secondary to cardiac arrest -Now resolved with IV fluid hydration Acute hypoxic and hypercarbic respiratory failure - Extubated 07/17/17, tolerating well. - Fio2 for goal spo2 > 90% Lactic acidosis - Trend. likely secondary to cardiac arrest. - SCDs. - Pepcid iv - Lovenox 30 mg daily, will hold on Thursday PT consult to treat and sabineal Rasheed Sam MD Jul 18, 2017 11:27
[2017-07-18] MEDS: ENOXAPARIN SODIUM 30 MG/0.3 ML SYRINGE SQ SCH (12:41)
[2017-07-18] MEDS: oxyCODONE/ACETAMINOPHEN 7.5 MG/325 MG TAB PO PRN ×2 (15:29→22:19)
[2017-07-19] VITALS (28 sets, daily range): BP systolic 123–159; BP diastolic 83–97; PULSE 54–80; RESP 16–18; TEMP 98.5–98.8; O2SAT 94–99
[2017-07-19] MEDS: MORPHINE SULFATE 2 MG/ML INJ IV PUSH PRN ×7 (02:11→23:09)
[2017-07-19] MEDS: CHLORHEXIDINE GLUCONATE 2 % 1 PACK (2 CLOTHS) TOP SCH (04:00)
[2017-07-19] MEDS: oxyCODONE/ACETAMINOPHEN 7.5 MG/325 MG TAB PO PRN ×3 (04:31→21:09)
[2017-07-19] MEDS: INSULIN NovoLIN REGULAR SUPPLEMENTAL SCALE SQ SCH ×5 (06:00→23:14)
[2017-07-19 07:51] LABS: HEMATOCRIT 29.1 % (35.0-46.0); MEAN CELL VOLUME 71.5 FL (80.0-100.0); MEAN CORPUSCULAR HEMOGLOBIN 22.2 PG (27.0-34.0); MEAN CORPUSCULAR HGB CONC 31.1 % (32.0-36.0); PLATELET COUNT 144 TH/MM3 (150-450); RED BLOOD COUNT 4.08 MIL/MM3 (4.00-5.30); RED CELL DISTRIBUTION WIDTH 17.6 % (11.6-17.2); REVIEW FLAG FINAL; WHITE BLOOD COUNT 7.8 TH/MM3 (4.0-11.0)
[2017-07-19 08:15] LABS: BICARBONATE 23.8 MEQ/L (21.0-32.0); POTASSIUM 4.1 MEQ/L (3.5-5.1)
[2017-07-19] MEDS: CHLORHEXIDINE 0.12% (ORAL KIT) 15 ML CUP MT SCH ×2 (08:43→20:00)
[2017-07-19] MEDS: CARVEDILOL 6.25 MG TAB PO SCH ×2 (09:34→21:09)
[2017-07-19] MEDS: FAMOTIDINE 20 MG TAB PO SCH ×2 (09:34→21:09)
[2017-07-19] MEDS: ASPIRIN 81 MG CHEW TAB CHEW SCH (09:34)
[2017-07-19] MEDS: LOSARTAN 25 MG TAB PO SCH (09:34)
--- NOTE | 2017-07-19 11:16 | HHI.PR ---
Subjective Remarks Follow-up ventricular fibrillation arrest/microcytic hypochromic anemia/ methadone dependence 07/17/17-patient seen and examined, complains of soreness to insertion site of AICD. currently afebrile 07/18/17-patient seen and examined, reports improvement of soreness to AICD site. Denies any chest pain. Denies any blood in her stool. 07/19/17-patient seen and examined, stable and currently on clear liquid in anticipation of panendoscopy tomorrow Objective Vitals Vital Signs Date Time Temp Pulse Resp B/P (MAP) Pulse Ox O2 Delivery O2 Flow Rate FiO2 07/19/17 10:00 64 07/19/17 09:00 68 07/19/17 08:00 58 07/19/17 07:43 98.7 64 18 159/85 (109) 99 07/19/17 07:00 54 07/19/17 06:00 60 07/19/17 05:00 54 07/19/17 04:00 72 07/19/17 03:00 58 07/19/17 03:00 98.5 70 18 145/88 (107) 97 07/19/17 02:00 66 07/19/17 01:00 62 07/19/17 00:00 70 07/18/17 23:00 98.6 73 20 137/77 (97) 98 07/18/17 23:00 58 07/18/17 22:00 86 07/18/17 21:38 96 Nasal Cannula 2.00 07/18/17 21:00 76 07/18/17 20:00 58 07/18/17 19:00 65 07/18/17 19:00 98.1 85 182/112 (135) 97 07/18/17 18:03 67 07/18/17 17:01 72 07/18/17 16:00 64 07/18/17 15:21 98.5 67 18 138/89 (105) 98 07/18/17 15:00 66 07/18/17 14:00 62 07/18/17 13:00 68 07/18/17 12:00 62 07/18/17 11:40 99.1 64 20 136/78 (97) 98 I/O 07/18/17 07/18/17 07/18/17 07/19/17 07/19/17 07/19/17 07:00 15:00 23:00 07:00 15:00 23:00 Intake Total 240 ml 970 ml 720 ml Output Total 200 ml Balance 240 ml 770 ml 720 ml Intake Oral 240 ml 970 ml 720 ml Output Urine Total 200 ml # Voids 3 2 3 # Bowel Movements 1 1 Result Diagram: 07/19/1740 07/19/17 0640 Objective Remarks GENERAL: NAD SKIN: Warm and dry. HEAD: Normocephalic. EYES: No scleral icterus. No injection or drainage. NECK: Supple, trachea midline. No JVD or lymphadenopathy. CARDIOVASCULAR: Regular rate and rhythm without murmurs, gallops, or rubs. Dressing over insertion site of AICD RESPIRATORY: Breath sounds equal bilaterally. No accessory muscle use. GASTROINTESTINAL: Abdomen soft, non-tender, nondistended. MUSCULOSKELETAL: No cyanosis, or edema. BACK: Nontender without obvious deformity. No CVA tenderness. Procedures AICD implantation 07/16/17 A/P Problem List: (1) Ventricular fibrillation ICD Code: I49.01 - Ventricular fibrillation (2) Microcytic hypochromic anemia ICD Code: D50.9 - Iron deficiency anemia, unspecified (3) Methadone dependence ICD Code: F11.20 - Opioid dependence, uncomplicated Assessment and Plan 61-year-old female with Ventricular fibrillation arrest Prolonged QT likely secondary to methadone use Status post evaluation from cardiology and EP Started post left heart catheterization with finding of mild CAD Status post AICD placement 07/16/17 Continue with aspirin, beta saeid. Hold Lovenox tonight Microcytic hypochromic anemia Appreciate input from gastroenterology, and plan for EGD/colonoscopy tomorrow 07/20/17 Continue H&H monitoring Hypertension Currently on Coreg 6.25 mg by mouth twice a day, Cozaar Encephalopathy-resolved Acute Kidney injury - likely secondary to cardiac arrest -Now resolved with IV fluid hydration Acute hypoxic and hypercarbic respiratory failure-resolved - Extubated 07/17/17, - Fio2 for goal spo2 > 90% Lactic acidosis - Trend. likely secondary to cardiac arrest. - SCDs. - Pepcid iv - Lovenox 30 mg daily, will hold on today Thursday PT consult to treat and Rasheed Hanson MD Jul 19, 2017 11:16
[2017-07-19] MEDS ORDERED: PEG (High)/E-LYTE SOLN 4000 ML BTL PO ONE (16:00)
[2017-07-20] VITALS (15 sets, daily range): BP systolic 140–155; BP diastolic 81–86; PULSE 52–66; RESP 18–20; TEMP 97.9–98.3; O2SAT 99–100
[2017-07-20] MEDS: CHLORHEXIDINE GLUCONATE 2 % 1 PACK (2 CLOTHS) TOP SCH (04:00)
[2017-07-20] MEDS: MORPHINE SULFATE 2 MG/ML INJ IV PUSH PRN ×2 (04:11→08:16)
[2017-07-20] MEDS ORDERED: POVIDONE IODINE 5% (ANTISEPSIS KIT) 4 APPLICATIONS EACH NARE PRN (04:45)
[2017-07-20] MEDS ORDERED: INSULIN HUMAN REGULAR 1,000 UNITS/10 ML VIAL SQ PRN (04:45)
[2017-07-20] MEDS ORDERED: METOPROLOL TARTRATE 25 MG TAB PO PRN (04:45)
[2017-07-20] MEDS ORDERED: CHLORHEXIDINE GLUCONATE 2 % 1 PACK (2 CLOTHS) TOPICAL PRN (04:45)
[2017-07-20] MEDS ORDERED: SODIUM CHLORID 0.9% 500 ML IV PRN (04:45)
[2017-07-20] MEDS ORDERED: LACTATED RINGER'S 1000 ML IV PRN (04:45)
[2017-07-20] MEDS: CARVEDILOL 6.25 MG TAB PO SCH (06:07)
[2017-07-20] MEDS: INSULIN NovoLIN REGULAR SUPPLEMENTAL SCALE SQ SCH (06:10)
[2017-07-20 06:38] LABS: HEMATOCRIT 26.5 % (35.0-46.0); MEAN CORPUSCULAR HEMOGLOBIN 22.4 PG (27.0-34.0); MEAN CORPUSCULAR HGB CONC 31.6 % (32.0-36.0); PLATELET COUNT 136 TH/MM3 (150-450); RED BLOOD COUNT 3.74 MIL/MM3 (4.00-5.30); RED CELL DISTRIBUTION WIDTH 17.6 % (11.6-17.2); REVIEW FLAG FINAL; WHITE BLOOD COUNT 7.3 TH/MM3 (4.0-11.0)
[2017-07-20 07:02] LABS: BICARBONATE 25.7 MEQ/L (21.0-32.0); POTASSIUM 3.7 MEQ/L (3.5-5.1)
[2017-07-20] MEDS: CHLORHEXIDINE 0.12% (ORAL KIT) 15 ML CUP MT SCH (08:00)
[2017-07-20] MEDS: ASPIRIN 81 MG CHEW TAB CHEW SCH (08:16)
[2017-07-20] MEDS: LOSARTAN 25 MG TAB PO SCH (08:16)
[2017-07-20] MEDS: FAMOTIDINE 20 MG TAB PO SCH (08:16)
[2017-07-20] MEDS ORDERED: LIDOCAINE HCL 1% PF 5 ML AMPULE OTHER ONE (12:00)
[2017-07-20] MEDS ORDERED: PROPOFOL 200 MG/20 ML AMP IV ONE (12:00)
[2017-07-20] MEDS ORDERED: PHENYLEPH/NS 1000 MCG/10 ML SYR IV ONE (12:00)
[2017-07-20] MEDS ORDERED: PANTOPRAZOLE SOD 40 MG DELAYED RELEASE TAB PO SCH (12:30)
--- NOTE | 2017-07-20 12:35 | PD.PROCEDR ---
GI Procedure REFERRING PHYSICIAN Dr. Boudreaux PROCEDURE PERFORMED EGD with biopsy followed by colonoscopy with snare polypectomy INDICATION FOR PROCEDURE Anemia, reflux PROCEDURE: The procedure, risks and benefits were discussed with Ms. Akers and informed consent was obtained. Anesthesia sedated her with Diprivan. She was placed in the left lateral decubitus position. EGD: The Pentax videoscope was introduced through the oropharynx and advanced to the second portion of the duodenum under direct visualization. Retroflexion was performed in the stomach. FINDINGS: The esophagus this appeared to be unremarkable and within normal limits The stomach there was a fairly large hiatal hernia with gastric mucosal erythema and superficial erosions at the level of the constricting diaphragm there was also patchy erythema in the antrum this was biopsied there was no noted active bleeding from the stomach The duodenum was normal but this was biopsied for further evaluation Colonoscopy: The Pentax videoscope was introduced through the rectum and advanced to cecum where the ileocecal valve and appendiceal orifice were identified. Retroflexion was performed in the rectum. Colonic prep was fair FINDINGS: Colonic withdrawal time greater than 6 minutes as the scope was slowly withdrawn colonic mucosa was carefully inspected the patient was noted to have 4 small sessile polyps 2 in the ascending and 2 in the descending colon all were excised using cold snare technique otherwise colonic examination was unremarkable and within normal limits so as retroflexion in rectal examination ESTIMATED BLOOD LOSS: None SPECIMENS REMOVED: Gastric and duodenal biopsies in addition to colonic biopsies COMPLICATIONS: None IMPRESSION: Hiatal hernia Erosive gastritis Colon polyps PLAN: Await biopsies Recommend PPI Recommend colonoscopy in 5 years Advance diet as tolerated Follow-up with GI post discharge Okay for discharge from a GI standpoint Del Casanova MD Jul 20, 2017 12:35
[2017-07-20] MEDS ORDERED: DO NOT ADM ANY ANTICOAGULANT DRUGS PRN (13:00)
--- NOTE | 2017-07-20 13:26 | HHI.PR ---
Subjective Remarks Follow-up ventricular fibrillation arrest/microcytic hypochromic anemia/ methadone dependence 07/17/17-patient seen and examined, complains of soreness to insertion site of AICD. currently afebrile 07/18/17-patient seen and examined, reports improvement of soreness to AICD site. Denies any chest pain. Denies any blood in her stool. 07/19/17-patient seen and examined, stable and currently on clear liquid in anticipation of panendoscopy tomorrow 07/20/17-patient seen and examined, NO chest pain or shortness of breath; s/p Panendoscopy today Objective Vitals Vital Signs Date Time Temp Pulse Resp B/P (MAP) Pulse Ox O2 Delivery O2 Flow Rate FiO2 07/20/17 11:00 97.9 60 18 140/82 (101) 99 07/20/17 11:00 57 07/20/17 10:50 62 20 143/85 (104) 100 07/20/17 10:00 57 07/20/17 09:00 59 07/20/17 08:01 58 07/20/17 07:00 57 07/20/17 07:00 97.9 57 18 155/81 (105) 99 07/20/17 06:00 64 07/20/17 05:00 62 07/20/17 04:00 66 07/20/17 03:00 60 07/20/17 03:00 98.3 65 141/86 (104) 100 07/20/17 02:00 56 07/20/17 01:00 52 07/20/17 00:00 60 07/19/17 23:00 98.7 69 16 157/91 (113) 99 07/19/17 23:00 70 07/19/17 22:00 58 07/19/17 21:00 64 07/19/17 20:00 72 07/19/17 19:00 98.7 70 18 158/97 (117) 97 07/19/17 19:00 71 07/19/17 18:00 80 07/19/17 17:00 66 07/19/17 16:00 58 07/19/17 15:21 98.8 71 18 146/93 (110) 94 07/19/17 15:14 60 07/19/17 15:00 62 07/19/17 14:00 60 I/O 07/19/17 07/19/17 07/19/17 07/20/17 07/20/17 07/20/17 07:00 15:00 23:00 07:00 15:00 23:00 Intake Total 720 ml 2390 ml 1920 ml 300 ml Output Total 1050 ml Balance 720 ml 1340 ml 1920 ml 300 ml Intake Oral 720 ml 2390 ml 1920 ml Other 300 ml Output Urine Total 1050 ml # Voids 3 5 # Bowel Movements 1 0 5 Result Diagram: 07/20/1751607/20/17516 Objective Remarks GENERAL: NAD SKIN: Warm and dry. HEAD: Normocephalic. EYES: No scleral icterus. No injection or drainage. NECK: Supple, trachea midline. No JVD or lymphadenopathy. CARDIOVASCULAR: Regular rate and rhythm without murmurs, gallops, or rubs. Dressing over insertion site of AICD RESPIRATORY: Breath sounds equal bilaterally. No accessory muscle use. GASTROINTESTINAL: Abdomen soft, non-tender, nondistended. MUSCULOSKELETAL: No cyanosis, or edema. BACK: Nontender without obvious deformity. No CVA tenderness. Procedures AICD implantation 07/16/17 A/P Problem List: (1) Ventricular fibrillation ICD Code: I49.01 - Ventricular fibrillation (2) Microcytic hypochromic anemia ICD Code: D50.9 - Iron deficiency anemia, unspecified (3) Methadone dependence ICD Code: F11.20 - Opioid dependence, uncomplicated Assessment and Plan 61-year-old female with Ventricular fibrillation arrest Prolonged QT likely secondary to methadone use Status post evaluation from cardiology and EP Started post left heart catheterization with finding of mild CAD Status post AICD placement 07/16/17 Continue with aspirin, beta saeid. Microcytic hypochromic anemia Appreciate input from gastroenterology, and s/p EGD/colonoscopy today 07/20/17 With finding of Hiatal hernia, Erosive gastritis, Colon polyps Recommended PPI, colonoscopy in 5 years Hypertension Currently on Coreg 6.25 mg by mouth twice a day, Cozaar Encephalopathy-resolved Acute Kidney injury - likely secondary to cardiac arrest -Now resolved with IV fluid hydration Acute hypoxic and hypercarbic respiratory failure-resolved - Extubated 07/17/17, - Fio2 for goal spo2 > 90% Lactic acidosis - Trend. likely secondary to cardiac arrest. - SCDs. - Pepcid iv - Lovenox 30 mg daily, w PT consult to treat and eval Rasheed Sam MD Jul 20, 2017 13:26
[2017-07-20] MEDS ORDERED: PROT40TA PO (13:32)
[2017-07-20] MEDS ORDERED: CARV6.25 PO (13:32)
[2017-07-20] MEDS ORDERED: OXYC1TAB35 PO (13:32)
--- NOTE | 2017-07-20 13:34 | HHI.FF ---
Face to Face Verification Diagnosis: (1) Microcytic hypochromic anemia (2) Ventricular fibrillation (3) Cardiac arrest (4) Cardiac defibrillator in situ Physical Therapy Order: Evaluate and Treat Home Health Nursing Order: Signs/symptoms of disease process I have seen patient Luli Akers on 07/20/17. My clinical findings support the need for the requested home health care services because: Patient has SOB I certify that my clinical findings support that this patient is homebound because: Poor cardiac reserve Rasheed Sam MD Jul 20, 2017 13:34
--- NOTE | 2017-07-20 13:39 | HHI.DS ---
Discharge Summary Admission Date Jul 14, 2017 at 13:49 Discharge Date: Jul 20, 2017 Admitting Diagnosis s/p VF arrest (1) Ventricular fibrillation ICD Code: I49.01 - Ventricular fibrillation (2) Microcytic hypochromic anemia ICD Code: D50.9 - Iron deficiency anemia, unspecified (3) Methadone dependence ICD Code: F11.20 - Opioid dependence, uncomplicated Procedures AICD implantation 07/16/17 Brief History - From Admission This is a 61-year-old female with a history of diabetes and hypertension who was recently admitted for rule out chest pain on June 12 with a negative myocardial perfusion scan, repeat presents today after a witnessed V. fib cardiac arrest. Per EMS report, her significant other saw her have shaking like activity followed by unresponsiveness. Bystander CPR. EMS arrived within 5 minutes of 911 phone call. Presenting rhythm was V. fib. Single DC cardioversion with return of spontaneous circulation. Intubated in the field and transferred to emergency room. Normal vitals in the ER. Troponins weakly positive likely secondary to cardioversion. EKG without significant ST-T wave changes. Preliminary echocardiogram report without regional wall motion abnormalities. Patient is briskly purposeful, localizing, questionable early following commands. I've consulted cardiology who will take the patient emergently to the heart catheterization lab to rule out ischemia. CBC/BMP: 07/20/17 0517 07/20/17 0517 Significant Findings Laboratory Tests Test 07/18/17 04:20 07/19/17 06:40 07/20/17 05:17 Red Blood Count 3.98 MIL/MM3 (4.00-5.30) 3.74 MIL/MM3 (4.00-5.30) Hemoglobin 8.9 GM/DL (11.6-15.3) 9.1 GM/DL (11.6-15.3) 8.4 GM/DL (11.6-15.3) Hematocrit 28.3 % (35.0-46.0) 29.1 % (35.0-46.0) 26.5 % (35.0-46.0) Mean Corpuscular Volume 71.1 FL (80.0-100.0) 71.5 FL (80.0-100.0) 71.0 FL (80.0-100.0) Mean Corpuscular Hemoglobin 22.3 PG (27.0-34.0) 22.2 PG (27.0-34.0) 22.4 PG (27.0-34.0) Mean Corpuscular Hemoglobin Concent 31.4 % (32.0-36.0) 31.1 % (32.0-36.0) 31.6 % (32.0-36.0) Red Cell Distribution Width 17.5 % (11.6-17.2) 17.6 % (11.6-17.2) 17.6 % (11.6-17.2) Platelet Count 141 TH/MM3 (150-450) 144 TH/MM3 (150-450) 136 TH/MM3 (150-450) Calcium Level 8.3 MG/DL (8.5-10.1) 8.4 MG/DL (8.5-10.1) Estimat Glomerular Filtration Rate 68 ML/MIN (>89) 69 ML/MIN (>89) 68 ML/MIN (>89) Blood Urea Nitrogen 26 MG/DL (7-18) Imaging Last Impressions Chest X-Ray 07/16/17 0600 Signed Impressions: Service Date/Time: July 04:15 - CONCLUSION: 1. Cardiomegaly. Resolving vascular congestion 2. Bilateral atelectasis Felipe Hodge MD Head CT 07/14/17 1336 Signed Impressions: Service Date/Time: Friday, July 14, 2017 17:42 - CONCLUSION: Stable noncontrast head CT. No acute intracranial abnormality is identified. Kolton Rm MD PE at Discharge GENERAL: NAD SKIN: Warm and dry. HEAD: Normocephalic. EYES: No scleral icterus. No injection or drainage. NECK: Supple, trachea midline. No JVD or lymphadenopathy. CARDIOVASCULAR: Regular rate and rhythm without murmurs, gallops, or rubs. Dressing over insertion site of AICD RESPIRATORY: Breath sounds equal bilaterally. No accessory muscle use. GASTROINTESTINAL: Abdomen soft, non-tender, nondistended. MUSCULOSKELETAL: No cyanosis, or edema. BACK: Nontender without obvious deformity. No CVA tenderness. Hospital Course Patient was admitted secondary to ventricular fibrillation arrest for which she was initially under the care of critical care medicine with consultation to cardiology. Patient was initially intubated and extubated on 07/17/17. Left heart catheterization was performed with finding of mild CAD. Electrophysiology was consulted and patient underwent AICD placement on . She was treated with aspirin, beta saeid. Secondary to finding of microcytic hypochromic anemia gastroenterology was consulted and patient underwent panendoscopy on 07/20/17. She was started on Coreg and continue home medication including Cozaar. Acute renal failure improved with IV fluid hydration. Methadone was discontinued secondary to prolonged QT which was likely the cause of patient ventricular fibrillation arrest, and patient was started on by mouth narcotics. She's been advised to follow-up at the pain clinic. DVT and GI prophylaxis were provided. Prior to discharge, patient's condition improved and vital remained stable. Pt Condition on Discharge: Stable Discharge Disposition: Disch w/ Home Health Serv Discharge Time: > 30 minutes Discharge Instructions DIET: Follow Instructions for: Diabetic Diet Activities you can perform: Regular-No Restrictions Follow up Referrals: Cardiology Gastroenterology PCP Follow-up - 1 Week New Medications: Pantoprazole (Protonix) 40 Mg Tab 40 MG PO DAILY for Reflux, #30 TAB 0 Refills Carvedilol (Coreg) 6.25 Mg Tab 6.25 MG PO Q12HR for Blood Pressure Management, #60 TAB 11 Refills Oxycodone HCl/Acetaminophen (Oxycodon-Acetaminophen 7.5-325) 7.5 Mg-325 Mg Tablet 1 TAB PO Q6H PRN for pain 5-10, #30 TAB Continued Medications: Albuterol Neb (Albuterol Neb) 2.5 Mg/0.5 Ml Neb 2.5 MG NEB Q4HR NEB PRN for SHORTNESS OF BREATH, EA Note: The Albuterol Sulfate Inhalation Solution is concentrated and must be diluted. Read complete instructions carefully before using. Aspirin DR (Aspirin EC) 81 Mg Tabdr 81 MG PO DAILY, TAB 0 Refills Ipratropium-Albuterol Inh (Combivent Respimat Inh) 20-100 Custodial/Act Aero 1 PUFF INH QID for Asthma Management, #1 INHALER 0 Refills Losartan (Cozaar) 25 Mg Tab 25 MG PO DAILY for Blood Pressure Management, #30 TAB 11 Refills (This prescription has been renewed) Metformin (Metformin) 500 Mg Tab 500 MG PO DAILY for Blood Sugar Management, #30 TAB 11 Refills (This prescription has been renewed) With a meal Discontinued Medications: Ciprofloxacin (Cipro) 500 Mg Tab 500 MG PO BID for Infection for 12 Days, #24 TAB 0 Refills Methadone (Methadone) 10 Mg Tab 100 MG PO DAILY, TAB 0 Refills Potassium Chloride Microencaps (Potassium Chloride Microencaps) 20 Meq Tab 20 MEQ PO DAILY for Electrolyte Replacement, #30 TAB Start on 07/11/16. Rasheed Sam MD Jul 20, 2017 13:39
[2017-07-20] MEDS ORDERED: COZA25TA PO (13:55)
[2017-07-20] MEDS ORDERED: METF500T PO (13:55)
[2017-07-20] MEDS ORDERED: BLOOD GLUCOSE T1 TES (15:03)
[2017-07-20] MEDS ORDERED: INSU-118 (15:03)
[2017-07-20] MEDS ORDERED: BLOOD GLUCOSE M1 KIT (15:03)
[2017-07-20] MEDS ORDERED: NOVORP2 SQ (15:04)
[2017-07-20] MEDS ORDERED: BLOOD PRESSURE1 M20 (15:05)
== END 2017-07-20 17:11 | disposition home health service (06) | DRG 224 ==
LOC: NEPE 13:12 → NEDA 13:49 → HIME 15:05 → HCIS 07-16 15:24
PROVIDERS: ADMIT Internal Medicine Critical Care Medicine; ATTEND Hospitalist
PROC: 4A023N7 Measurement of Cardiac Sampling and Pressure, Left Heart, Percutaneous Approach (ICD-10-PCS; 2017-07-14)
PROC: B2111ZZ Fluoroscopy of Multiple Coronary Arteries using Low Osmolar Contrast (ICD-10-PCS; 2017-07-14)
PROC: 0BH18EZ Insertion of Endotracheal Airway into Trachea, Via Natural or Artificial Opening Endoscopic (ICD-10-PCS; 2017-07-14)
PROC: 5A1935Z Respiratory Ventilation, Less than 24 Consecutive Hours (ICD-10-PCS; 2017-07-14)
PROC: 02HK3KZ Insertion of Defibrillator Lead into Right Ventricle, Percutaneous Approach (ICD-10-PCS; 2017-07-16)
PROC: 0JH608Z Insertion of Defibrillator Generator into Chest Subcutaneous Tissue and Fascia, Open Approach (ICD-10-PCS; principal; 2017-07-16 14:00)
PROC: 0DB68ZX Excision of Stomach, Via Natural or Artificial Opening Endoscopic, Diagnostic (ICD-10-PCS; 2017-07-20)
PROC: 0DB98ZX Excision of Duodenum, Via Natural or Artificial Opening Endoscopic, Diagnostic (ICD-10-PCS; 2017-07-20)
PROC: 0DBK8ZX Excision of Ascending Colon, Via Natural or Artificial Opening Endoscopic, Diagnostic (ICD-10-PCS; 2017-07-20)
PROC: 0DBM8ZX Excision of Descending Colon, Via Natural or Artificial Opening Endoscopic, Diagnostic (ICD-10-PCS; 2017-07-20)
DX: I49.01 Ventricular fibrillation (principal); J96.01 Acute respiratory failure with hypoxia; G93.40 Encephalopathy, unspecified; J96.02 Acute respiratory failure with hypercapnia; N17.9 Acute kidney failure, unspecified; E87.2 Acidosis; F11.20 Opioid dependence, uncomplicated; G90.512 Complex regional pain syndrome I of left upper limb; E78.5 Hyperlipidemia, unspecified; E11.9 Type 2 diabetes mellitus without complications; I25.10 Atherosclerotic heart disease of native coronary artery without angina pectoris; I46.2 Cardiac arrest due to underlying cardiac condition; D50.9 Iron deficiency anemia, unspecified; I45.81 Long QT syndrome; K21.9 Gastro-esophageal reflux disease without esophagitis; K59.09 Other constipation; T40.3X5A Adverse effect of methadone, initial encounter; I10 Essential (primary) hypertension; K29.60 Other gastritis without bleeding; K44.9 Diaphragmatic hernia without obstruction or gangrene; K63.5 Polyp of colon; J44.9 Chronic obstructive pulmonary disease, unspecified; Z86.73 Personal history of transient ischemic attack (TIA), and cerebral infarction without residual deficits; Z87.891 Personal history of nicotine dependence; Z79.84 Long term (current) use of oral hypoglycemic drugs; Z88.1 Allergy status to other antibiotic agents; Z88.8 Allergy status to other drugs, medicaments and biological substances
CPT/HCPCS: 33249; 36600; 70450; 71010; 76937; 80048; 80053; 80307; 81001; 82550; 82552; 82728; 82805; 82948; 83540; 83605; 83690; 83735; 84484; 85007; 85025; 85027; 85044; 85610; 85730; 86403; 87040; 87070; 87147; 87186; 87205; 87641; 88305; 88312; 93005; 93306; 93454; 93641; 94002; 94003; 94640; 94664; C1722; C1760; C1769; C1777; C1893; G0269; J0330; J0360; J0690; J1650; J2270; J2370; J3010; J3370; J3475; J3480; J7030; J7050; Q9967

== ENCOUNTER 2017-10-16 08:04 | Emergency (ER) | payer MEDICARE ==
[~2017-10-16] VITALS: Ht 160 cm; Wt 72.1 kg
[~2017-10-16 08:04] MED LIST changes: +BLOOD GLUCOSE M1 KIT; +BLOOD GLUCOSE T1 TES; +BLOOD PRESSURE1 M20; +CARV6.25 PO; -CIPR-9 PO; +INSU-118; -METH10TA PO; +NOVORP2 SQ; +OXYC1TAB35 PO; -POTA20TA5 PO; +PROT40TA PO
[2017-10-16 08:09] VITALS: BP 144/76; PULSE 89; RESP 16; TEMP 98.6; O2SAT 98
[2017-10-16 08:26] LABS: BILIRUBIN, URINE NEG (NEG); BLOOD, URINE NEG (NEG); GLUCOSE,URINE NEG (NEG); KETONE, URINE NEG (NEG); NITRITE,URINE POS (NEG); PH, URINE 8.5 (5.0-8.5); URINE LEUKOCYTE ESTERASE MOD (NEG)
[2017-10-16 08:33] LABS: BACTERIA, URINE MANY /hpf; RBC, URINE 0-3 /hpf (0-3); SQUAMOUS EPITHELIAL CELL URINE 0-5 /hpf (0-5)
[2017-10-16] MEDS ORDERED: LISI-515 PO (08:35)
[2017-10-16] MEDS ORDERED: METH40TA PO (08:35)
[2017-10-16] MEDS ORDERED: AMLO10TA2 PO (09:05)
[2017-10-16] MEDS ORDERED: SODIUM CHLORIDE 0.9% FLUSH 10 ML FLUSH IVF PRN (09:15)
[2017-10-16 09:26] VITALS: O2SAT 98
[2017-10-16 09:45] LABS: HEMATOCRIT 27.9 % (35.0-46.0); HEMOGLOBIN 8.3 GM/DL (11.6-15.3); MEAN CELL VOLUME 66.5 FL (80.0-100.0); MEAN CORPUSCULAR HEMOGLOBIN 19.7 PG (27.0-34.0); MEAN PLATELET VOLUME 9.4 FL (7.0-11.0); PLATELET COUNT 282 TH/MM3 (150-450); RED CELL DISTRIBUTION WIDTH 16.5 % (11.6-17.2); WHITE BLOOD COUNT 8.6 TH/MM3 (4.0-11.0)
--- NOTE | 2017-10-16 09:45 | RADRPT ---
EXAM DATE/TIME: 10/16/2017 09:11 [facility] COMPARISON: CHEST SINGLE AP, July 16, 2017, 16:31. INDICATIONS : Short of breath MEDICAL HISTORY : Chronic obstructive pulmonary disease. SURGICAL HISTORY : Defibrillator, Breast implants ENCOUNTER: Initial ACUITY: 1 day PAIN SCORE: 0/10 LOCATION: Bilateral chest FINDINGS: The heart is stable. Small hiatal hernia is noted. Left subclavian single lead pacemaker has its tip in the right ventricle. No pneumothorax is noted. The pulmonary vascular pattern is normal. Lungs are clear. CONCLUSION: 1. No acute cardiopulmonary disease. 2. Hiatal hernia. Wagner Deluca MD on October 16, 2017 at 9:42 Board Certified Radiologist. This report was verified electronically.
[2017-10-16 09:58] LABS: MEAN CORPUSCULAR HGB CONC 29.6 % (32.0-36.0)
[2017-10-16 10:11] LABS: CHLORIDE 100 MEQ/L (98-107); SODIUM (NA) 137 MEQ/L (136-145)
[2017-10-16 10:17] LABS: CALCIUM 8.4 MG/DL (8.5-10.1)
[2017-10-16 10:18] LABS: ALBUMIN 3.3 GM/DL (3.4-5.0); BICARBONATE 28.2 MEQ/L (21.0-32.0); BLOOD UREA NITROGEN 11 MG/DL (7-18); GLUCOSE,RANDOM 127 MG/DL (74-106); MAGNESIUM 1.9 MG/DL (1.5-2.5)
[2017-10-16 10:20] LABS: ALT (GPT) 42 U/L (10-53); AST (GOT) 60 U/L (15-37)
[2017-10-16 10:21] LABS: CREATININE 0.99 MG/DL (0.50-1.00); GLOMERULAR FILTRATION RATE 56 ML/MIN (>89)
[2017-10-16 10:22] LABS: TOTAL BILIRUBIN ADULT 0.3 MG/DL (0.2-1.0); TOTAL PROTEIN 7.5 GM/DL (6.4-8.2)
[2017-10-16 10:23] LABS: ALKALINE PHOSPHATASE 82 U/L (45-117)
[2017-10-16 10:26] LABS: TROPONIN I LESS THAN 0.02 NG/ML (0.02-0.05)
[2017-10-16 10:38] LABS: BANDS 3 % (0-6); BASOPHILS 3 % (0-2); LYMPHOCYTES 20 % (9-44); METAMYELOCYTES 1 % (0-1); MONOCYTES 7 % (0-8); NEUTROPHIL # MANUAL DIFF 5.9 TH/MM3 (1.8-7.7); POLYS (SEG NEUTROPHILS) 65 % (16-70)
[2017-10-16] MEDS ORDERED: BACT800T5 PO (10:40)
--- NOTE | 2017-10-16 10:40 | PD ---
HPI Chief Complaint: Dizziness Time Seen by Provider: 08:51 Travel History International Travel<30 days: No Contact w/Intl Traveler<30days: No Traveled to known affect area: No History of Present Illness HPI Patient 62-year-old female presents emergency department very nonspecific complaints of dizziness nausea without vomiting and suprapubic fullness. The suprapubic fullness is her chief complaint. Denies any chest pain or shortness of breath. She is known to me from previous ER visit and has complex medical history of having stress test done in June and then a sudden VF cardiac arrest in July of last year. Patient states she has been following up with her help desk specialist but has not had a follow-up with her primary care physician or urologist sometime. She states that she has a history of abnormal anatomy but cannot clarify further of her renal system. She states she is prone to repeat urinary tract infections and thinks that she has one. States symptoms for the past few days, context above, associated sinus symptoms as above, gradually worsening. PFSH Past Medical History Hx Anticoagulant Therapy: Yes (81MG ASA) Anemia: Yes (Iron-deficiency anemia ) Arthritis: No Asthma: No Autoimmune Disease: No Anxiety: No Depression: No Heart Rhythm Problems: Yes (Bradycardia) Cancer: No Cardiovascular Problems: Yes (htn on meds) High Cholesterol: No Chemotherapy: No Chest Pain: Yes Congestive Heart Failure: No COPD: Yes Cerebrovascular Accident: Yes (hx of tia) Coronary Artery Disease: Yes Diabetes: Yes (type 2) Patient Takes Glucophage: Yes Diminished Hearing: No Endocrine: Yes Gastrointestinal Disorders: Yes GERD: Yes Genitourinary: No Headaches: Yes Hiatal Hernia: No Hypertension: Yes Immune Disorder: No Implanted Vascular Access Dvce: Yes Kidney Stones: No Musculoskeletal: No Neurologic: No Psychiatric: No Reproductive: No Respiratory: Yes (copd) Migraines: No Radiation Therapy: No Renal Failure: No Seizures: No Sickle Cell Disease: No Sleep Apnea: No Thyroid Disease: No Ulcer: No ?: Not Past Surgical History Abdominal Surgery: Yes AICD: No Appendectomy: Yes Arteriovenous Shunt: No Body Medical Devices: TMJ implant Cardiac Surgery: No Ear Surgery: No Endocrine Surgery: No Eye Surgery: No Genitourinary Surgery: No Gynecologic Surgery: Yes Hysterectomy: Yes Insulin Pump: No Joint Replacement: No Neurologic Surgery: No Oral Surgery: Yes Pacemaker: No Thoracic Surgery: No Tonsillectomy: Yes (AND ADENOIDS) Other Surgery: Yes (Hemorrhoidectomy, Breast augmentation, Stricturoplasty) Social History Alcohol Use: No Tobacco Use: No (QUIT 10/2016) Substance Use: Yes (Pain medication) Allergies-Medications (Allergen,Severity, Reaction): Coded Allergies: cefaclor (Unverified Allergy, Severe, HIVES, THROAT CLOSES, 10/16/17) prochlorperazine (Unverified Allergy, Severe, THROAT CLOSES, 10/16/17) ciprofloxacin (Verified Allergy, Intermediate, nausea/vomiting, 10/16/17) orphenadrine (Unverified Allergy, Intermediate, PALPITATIONS, 10/16/17) Reported Meds & Prescriptions Reported Meds & Active Scripts Active Bactrim DS (Sulfamethoxazole-Trimethoprim) 800-160 Mg Tab 1 Tab PO BID Blood Pressure Kit/Arm Cuff 1 Mis Mis Ea .ROUTE DIRECTED Novolin R Inj (Insulin Human Regular) 1,000 Unit/10 Ml Vial 1 Unit SQ Q6HR [facility] Insulin Syringes/ 31G X 5/16" 0.5 ml 31 Gauge X 5/16" Mis Box .ROUTE DIRECTED Blood Glucose Test Strips Strips Strip Ea .ROUTE DIRECTED Blood Glucose Monitoring W/Device (Device) 1 Kit Kit Kit .ROUTE DIRECTED Metformin (Metformin HCl) 500 Mg Tab 500 Mg PO DAILY With a meal Protonix (Pantoprazole Sodium) 40 Mg Tab 40 Mg PO DAILY Reported Amlodipine (Amlodipine Besylate) 10 Mg Tab 10 Mg PO DAILY Methadone (Methadone HCl) 40 Mg Tab 40 Mg PO DAILY Lisinopril 20 Mg Tab 20 Mg PO BID Albuterol Neb (Albuterol Sulfate) 2.5 Mg/0.5 Ml Neb 2.5 Mg NEB Q4HR NEB PRN Note: The Albuterol Sulfate Inhalation Solution is concentrated and must be diluted. Read complete instructions carefully before using. Combivent Respimat Inh (Ipratropium-Albuterol Inh) 20-100 [place]/Act Aero 1 Puff INH QID Aspirin EC (Aspirin) 81 Mg Tabdr 81 Mg PO DAILY Review of Systems Except as stated in HPI: all other systems reviewed are Neg Physical Exam Narrative GENERAL: Well-developed well-nourished, quite pleasant in no obvious distress SKIN: Focused skin assessment warm/dry. HEAD: Atraumatic. Normocephalic. EYES: Pupils equal and round. No scleral icterus. No injection or drainage. ENT: No nasal bleeding or discharge. Mucous membranes pink and moist. NECK: Trachea midline. No JVD. CARDIOVASCULAR: Regular rate and rhythm. No murmur appreciated. RESPIRATORY: No accessory muscle use. Clear to auscultation. Breath sounds equal bilaterally. GASTROINTESTINAL: Abdomen soft, non-tender, nondistended. Hepatic and splenic margins not palpable. MUSCULOSKELETAL: No obvious deformities. No clubbing. No cyanosis. No edema. NEUROLOGICAL: Awake and alert. No obvious cranial nerve deficits. Motor grossly within normal limits. Normal speech. PSYCHIATRIC: Appropriate mood and affect; insight and judgment normal. Data Data Last Documented VS Vital Signs Date Time Temp Pulse Resp B/P (MAP) Pulse Ox O2 Delivery O2 Flow Rate FiO2 10/16/17 10:56 61 16 123/63 (83) 10/16/17 09:26 98 10/16/17 09:26 Room Air 10/16/17 08:09 98.6 Orders Orders Urinalysis - C+S If Indicated (10/16/17 08:18) Urine Culture (10/16/17 08:20) Electrocardiogram (10/16/17 09:03) Complete Blood Count With Diff (10/16/17 09:03) Comprehensive Metabolic Panel (10/16/17 09:03) Magnesium (Mg) (10/16/17 09:03) Troponin I (10/16/17 09:03) Lipase (10/16/17 09:03) Chest, Single Ap (10/16/17 09:03) Ecg Monitoring (10/16/17 09:03) Iv Access Insert/Monitor (10/16/17 09:03) Oximetry (10/16/17 09:03) Oxygen Administration (10/16/17 09:03) Sodium Chloride 0.9% Flush (Ns Flush) (10/16/17 09:15) Ed Discharge Order (10/16/17 10:40) Labs Laboratory Tests Test 10/16/17 08:20 10/16/17 09:26 Urine Collection Type CLEAN CATCH Urine Color YELLOW Urine Turbidity MOD Urine pH 8.5 Urine Specific [place] 1.015 Urine Protein 30 mg/dL Urine Glucose (UA) NEG mg/dL Urine Ketones NEG mg/dL Urine Occult Blood NEG Urine Nitrite POS Urine Bilirubin NEG Urine Leukocyte Esterase MOD Urine RBC 0-3 /hpf Urine WBC 50-99 /hpf Urine Squamous Epithelial Cells 0-5 /hpf Urine Bacteria MANY /hpf Microscopic Urinalysis Comment CULTURE INDICATED White Blood Count 8.6 TH/MM3 Red Blood Count 4.20 MIL/MM3 Hemoglobin 8.3 GM/DL Hematocrit 27.9 % Mean Corpuscular Volume 66.5 FL Mean Corpuscular Hemoglobin 19.7 PG Mean Corpuscular Hemoglobin Concent 29.6 % Red Cell Distribution Width 16.5 % Platelet Count 282 TH/MM3 Mean Platelet Volume 9.4 FL CBC Comment AUTO DIFF Differential Total Cells Counted 100 Neutrophils % (Manual) 65 % Band Neutrophils % 3 % Lymphocytes % 20 % Monocytes % 7 % Eosinophils % 1 % Basophils % 3 % Neutrophils # (Manual) 5.9 TH/MM3 Metamyelocytes 1 % Differential Comment FINAL DIFF MANUAL Platelet Estimate NORMAL Platelet Morphology Comment ENLARGED Blood Urea Nitrogen 11 MG/DL Creatinine 0.99 MG/DL Random Glucose 127 MG/DL Total Protein 7.5 GM/DL Albumin 3.3 GM/DL Calcium Level 8.4 MG/DL Magnesium Level 1.9 MG/DL Alkaline Phosphatase 82 U/L Aspartate Amino Transf (AST/SGOT) 60 U/L Alanine Aminotransferase (ALT/SGPT) 42 U/L Total Bilirubin 0.3 MG/DL Sodium Level 137 MEQ/L Potassium Level 3.6 MEQ/L Chloride Level 100 MEQ/L Carbon Dioxide Level 28.2 MEQ/L Anion Gap 9 MEQ/L Estimat Glomerular Filtration Rate 56 ML/MIN Troponin I LESS THAN 0.02 NG/ML Lipase 115 U/L MDM Medical Decision Making Medical Screen Exam Complete: Yes Emergency Medical Condition: Yes Differential Diagnosis Urinary tract infection, urinary retention likely, ACS unlikely. Narrative Course Patient room to the emergency department, chief complaint is of possible urinary tract infection. Her UA does show evidence of urinary tract infection, the remainder of her workup including EKG basic labs and a chest x-ray are reassuring. Patient despite a negative stress test did have a VF arrest has been casted since then which showed no blockages. She has a defibrillator in place which should offer her some protection. At this time there is no indication for further workup or inpatient management and she appears well, discussed that she needs to call her primary care provider again to set up an appointment and discuss follow-up with urology. She is stable for discharge Diagnosis Primary Impression: Pelvic pain in female Additional Impression: Urinary tract infection Referrals: Josué Valerio MD [facility] Sulfamethoxazole-Trimethoprim (Bactrim DS) 800-160 Mg Tab 1 TAB PO BID for Infection, #14 TAB 0 Refills Prov: Wagner Thomas MD 10/16/17 Disposition: 01 DISCHARGE HOME Condition: Stable Wagner Thomas MD Oct 16, 2017 10:40
[2017-10-16 10:56] VITALS: BP 123/63
[2017-10-16 11:05] LABS: URINE COLOR YELLOW (YELLW/STRAW)
--- NOTE | 2017-10-16 14:57 | EKG ---
Date Performed: 10/16/2017 Time Performed: 09:10:25 PTAGE: 62 years EKG: SINUS BRADYCARDIA NONSPECIFIC T-WAVE ABNORMALITY Since previous tracing, no significant julia nge noted BORDERLINE ECG PREVIOUS TRACING : 07/16/2017 05.15 DOCTOR: Della Leiva Interpretating Date/Time 10/16/2017 14:54:58
== END 2017-10-16 11:05 | disposition home or self-care (01) ==
LOC: PHED 08:04
DX: R10.2 Pelvic and perineal pain (principal); N39.0 Urinary tract infection, site not specified; B96.20 Unspecified Escherichia coli [E. coli] as the cause of diseases classified elsewhere; R94.31 Abnormal electrocardiogram [ECG] [EKG]; Z16.29 Resistance to other single specified antibiotic
CPT/HCPCS: 71045; 80053; 81001; 83690; 83735; 84484; 85007; 85027; 87077; 87086; 87186; 93005; 99285

== ENCOUNTER 2018-02-23 15:47 | Emergency (ER) | payer MEDICARE ==
[~2018-02-23] VITALS: Ht 160 cm; Wt 65.4 kg
[~2018-02-23 15:47] MED LIST changes: +AMLO10TA2 PO; +BACT800T5 PO; -CARV6.25 PO; -COZA25TA PO; +LISI-515 PO; +METH40TA PO; -OXYC1TAB35 PO
[2018-02-23 15:51] VITALS: BP 126/63; PULSE 92; RESP 18; TEMP 98.7; O2SAT 98
--- NOTE | 2018-02-23 16:12 | PD ---
HPI Chief Complaint: Cold / Flu Symptoms Time Seen by Provider: 16:04 Travel History International Travel<30 days: No Contact w/Intl Traveler<30days: No Traveled to known affect area: No History of Present Illness HPI This is a 62-year-old female who has a history of COPD, heart disease, diabetes and hypertension who presents to the emergency department with shortness of breath it has been going on for 4 days, constant, severe associated with a productive cough with yellow sputum associated with a fever of 100. Patient also has had intermittent vomiting and has had some dysuria. PFSH Past Medical History Hx Anticoagulant Therapy: Yes (81MG ASA) Anemia: Yes (Iron-deficiency anemia ) Arthritis: No Asthma: No Autoimmune Disease: No Anxiety: No Depression: No Heart Rhythm Problems: Yes (Bradycardia) Cancer: No Cardiovascular Problems: Yes (AICD) High Cholesterol: No Chemotherapy: No Chest Pain: Yes Congestive Heart Failure: No COPD: Yes Cerebrovascular Accident: Yes Coronary Artery Disease: Yes Diabetes: Yes (type 2) Diminished Hearing: No Endocrine: Yes Gastrointestinal Disorders: Yes GERD: Yes Genitourinary: No Headaches: Yes Hiatal Hernia: No Hypertension: Yes Immune Disorder: No Implanted Vascular Access Dvce: Yes Kidney Stones: No Musculoskeletal: No Neurologic: No Psychiatric: No Reproductive: No Respiratory: Yes (COPD) Migraines: No Radiation Therapy: No Renal Failure: No Seizures: No Sickle Cell Disease: No Sleep Apnea: No Thyroid Disease: No Ulcer: No ?: Not Past Surgical History Abdominal Surgery: Yes (LAPOROSCOPY) AICD: No Appendectomy: Yes Arteriovenous Shunt: No Body Medical Devices: TMJ implant Cardiac Surgery: No Ear Surgery: No Endocrine Surgery: No Eye Surgery: No Genitourinary Surgery: No Gynecologic Surgery: Yes Hysterectomy: Yes Insulin Pump: No Joint Replacement: No Neurologic Surgery: No Oral Surgery: Yes Pacemaker: No Thoracic Surgery: No Tonsillectomy: Yes (AND ADENOIDS) Other Surgery: Yes (Hemorrhoidectomy, Breast augmentation, Stricturoplasty) Social History Alcohol Use: No Tobacco Use: No (QUIT 10/2016) Substance Use: Yes (Pain medication) Allergies-Medications (Allergen,Severity, Reaction): Coded Allergies: cefaclor (Unverified Allergy, Severe, HIVES, THROAT CLOSES, 02/23/18) prochlorperazine (Unverified Allergy, Severe, THROAT CLOSES, 02/23/18) ciprofloxacin (Verified Allergy, Intermediate, nausea/vomiting, 02/23/18) orphenadrine (Unverified Allergy, Intermediate, PALPITATIONS, 02/23/18) Reported Meds & Prescriptions Reported Meds & Active Scripts Active Metformin (Metformin HCl) 500 Mg Tab 500 Mg PO DAILY With a meal Protonix (Pantoprazole Sodium) 40 Mg Tab 40 Mg PO DAILY Reported Amlodipine (Amlodipine Besylate) 10 Mg Tab 10 Mg PO DAILY Methadone (Methadone HCl) 40 Mg Tab 40 Mg PO DAILY Lisinopril 20 Mg Tab 20 Mg PO BID Albuterol Neb (Albuterol Sulfate) 2.5 Mg/0.5 Ml Neb 2.5 Mg NEB Q4HR NEB PRN Note: The Albuterol Sulfate Inhalation Solution is concentrated and must be diluted. Read complete instructions carefully before using. Combivent Respimat Inh (Ipratropium-Albuterol Inh) 20-100 Nursing Home/Act Aero 1 Puff INH QID Aspirin EC (Aspirin) 81 Mg Tabdr 81 Mg PO DAILY Review of Systems Except as stated in HPI: all other systems reviewed are Neg Physical Exam Narrative GENERAL:Well appearing, no acute distress SKIN: Focused skin assessment warm and dry. HEAD: Atraumatic. Normocephalic. EYES: Pupils equal and round. No injection or drainage. ENT: Nasal congestion present. Moist mucous membranes NECK: Trachea midline. CARDIOVASCULAR: Regular rate and rhythm. No murmur appreciated. RESPIRATORY: Diffuse wheezing bilaterally with no increased work of breathing GASTROINTESTINAL: Abdomen soft, non-tender, nondistended. MUSCULOSKELETAL: No obvious deformities. NEUROLOGICAL: Awake and alert. No obvious cranial nerve deficits. Moving all extremities. PSYCHIATRIC: Appropriate mood and affect; insight and judgment normal. Data Data Last Documented VS Vital Signs Date Time Temp Pulse Resp B/P (MAP) Pulse Ox O2 Delivery O2 Flow Rate FiO2 02/23/18 15:51 98.7 92 18 126/63 (84) 98 Orders Orders Chest, Pa & Lat (02/23/18 ) Prednisone (Deltasone) (02/23/18 16:15) Albuterol-Ipratropium Neb (Duoneb Neb) (02/23/18 16:15) Urinalysis - C+S If Indicated (02/23/18 17:08) Labs Laboratory Tests Test 02/23/18 17:30 Urine Collection Type VOIDED Urine Color YELLOW Urine Turbidity CLEAR Urine pH 6.0 Urine Specific [place] 1.020 Urine Protein NEG mg/dL Urine Glucose (UA) NEG mg/dL Urine Ketones NEG mg/dL Urine Occult Blood NEG Urine Nitrite NEG Urine Bilirubin NEG Urine Urobilinogen 0.2 MG/DL Urine Leukocyte Esterase NEG Urine RBC 0-3 /hpf Urine WBC 0-2 /hpf Urine Squamous Epithelial Cells 0-5 /hpf Urine Bacteria OCC /hpf Microscopic Urinalysis Comment CULT NOT INDICATED Urine Collection Time [facility] Medical Decision Making Medical Screen Exam Complete: Yes Emergency Medical Condition: Yes Interpretation(s) Afebrile, mild tachycardia Urinalysis is negative for infection Chest x-ray is reassuring Differential Diagnosis Acute bronchitis, viral syndrome, pneumonia, urinary tract infection Narrative Course This is a 62-year-old female who has extensive medical history who presents to the emergency department with increasing wheezing and productive cough for the past several days. I suspect she has bronchitis. She is significantly improved after serial bronchodilator treatments and prednisone. Urinalysis is negative for infection and chest x-ray demonstrates no pneumonia. I think patient can be discharged home on prednisone and antibiotic therapy in the setting of bronchitis. Patient reports she cannot afford antibiotics so I prescribed her Bactrim which will give her moderate coverage and is free at [place]. Diagnosis Primary Impression: Bronchitis Patient Instructions: General Instructions Additional Instructions: If you develop severe shortness of breath, chest pain, or difficulty breathing return to the emergency department. Use albuterol every 4 hours for the next 2 days. Then use as needed for wheezing. Complete your course of steroids. Complete your course of antibiotics. Follow up with your primary care physician in 2-3 days if your symptoms have not improved. Med/Other Pt SpecificInfo: Prescription(s) given Scripts Sulfamethoxazole-Trimethoprim (Bactrim DS) 800-160 Mg Tab 1 TAB PO BID for Infection for 5 Days, TAB 0 Refills Prov: Geno Healy MD 02/23/18 Prednisone (Prednisone) 20 Mg Tab 40 MG PO DAILY, #10 TAB 0 Refills Take 40 mg (2 tablets) daily for 5 days Prov: Geno Healy MD 02/23/18 Disposition: 01 DISCHARGE HOME Condition: Stable Geno Healy MD Feb 23, 2018 16:12
[2018-02-23] MEDS ORDERED: predniSONE 50 MG TAB PO ONE (16:15)
[2018-02-23] MEDS: RESP: ALBUTEROL 2.5 MG/IPRATROPIUM 0.5 MG NEB (SCH) INH ×3 (16:21→16:24)
--- NOTE | 2018-02-23 16:30 | RADRPT ---
EXAM DATE: 02/23/2018 4:26 PM EDT AGE/SEX: 62 years / Female INDICATIONS: Shortness of breath, cough, congestion, and chest pain. CLINICAL DATA: This is the patient's initial encounter. Patient reports that signs and symptoms have been present for 3 days and indicates a pain score of 3/10. MEDICAL/SURGICAL HISTORY: . Chronic obstructive pulmonary disease. . Defibrillator. Breast imp lants. COMPARISON: [facility]PO, CHEST SINGLE AP, 10/16/2017. . FINDINGS: PA and lateral views of the chest demonstrate the lungs to be symmetrically aerated without evidence of mass, infiltrate or effusion. There is stable chronic interstitial changes bilaterally. The cardio mediastinal contours are unremarkable and stable. There is a pacemaker overlying the left chest.. Oss eous structures are intact. There is a small to moderate hiatal hernia. No significant changes compar ed to the prior exam. CONCLUSION: No acute intrathoracic disease. Stable examination. Electronically signed by: Rey Oneil MD 02/23/2018 4:28 PM EDT
[2018-02-23 17:43] LABS: BILIRUBIN, URINE NEG (NEG); BLOOD, URINE NEG (NEG); GLUCOSE,URINE NEG (NEG); KETONE, URINE NEG (NEG); NITRITE,URINE NEG (NEG); URINE COLOR YELLOW (YELLW/STRAW); URINE LEUKOCYTE ESTERASE NEG (NEG)
[2018-02-23 18:07] LABS: BACTERIA, URINE OCC /hpf; RBC, URINE 0-3 /hpf (0-3); SQUAMOUS EPITHELIAL CELL URINE 0-5 /hpf (0-5); WBC, URINE 0-2 /hpf (0-5)
[2018-02-23] MEDS ORDERED: BACT800T5 PO (18:27)
[2018-02-23] MEDS ORDERED: PRED20 PO (18:27)
[2018-02-23] MEDS ORDERED: ALBUTEROL SULFATE 90 MCG/ACT HFA 8 GM INHALER INH ONE (18:30)
[2018-02-23 19:30] VITALS: BP 114/64
== END 2018-02-23 19:39 | disposition home or self-care (01) ==
LOC: PHEFT 15:47
DX: J40 Bronchitis, not specified as acute or chronic (principal); J44.9 Chronic obstructive pulmonary disease, unspecified; I25.10 Atherosclerotic heart disease of native coronary artery without angina pectoris; E11.9 Type 2 diabetes mellitus without complications; I10 Essential (primary) hypertension; Z86.73 Personal history of transient ischemic attack (TIA), and cerebral infarction without residual deficits; Z95.810 Presence of automatic (implantable) cardiac defibrillator; Z79.891 Long term (current) use of opiate analgesic; Z79.84 Long term (current) use of oral hypoglycemic drugs
CPT/HCPCS: 71046; 81001; 94640; 94664; 99284; J7512

== ENCOUNTER 2018-03-07 22:12 | Inpatient (IN) ==
[2018-03-08] MEDS ORDERED: Sod Chloride 0.9% Inj 1,000 ML IV.SIG ONE (00:42)
--- NOTE | 2018-03-08 00:51 | ED ---
HPI General Chief Complaint: Respiratory Symptoms Stated Complaint: C/O/Fever/SOB/Nausea x 1 day Time Seen by Provider: 03/08/18 00:36 Source: patient Mode of arrival: ambulatory Limitations: no limitations History of Present Illness HPI Narrative: 62-year-old female complains of coughing congestion general malaise and weakness fever nausea vomiting diarrhea. Patient states that she started having coughing congestion fever about 2 weeks ago. Patient was seen in emergency room and chest x-ray was negative acute pathology. Patient was given DuoNeb treatment and prednisone and discharged home with prescription for Bactrim DS and prednisone and continue with albuterol treatment at home. Patient has history of COPD, hypertension, diabetes, AICD placement. Patient states that the symptoms are persisting worse since then. Patient started having intermittent fever since then also. Patient has been taking Tylenol for the fever. Patient complained of right upper back pain. Patient states the pain is worse with movement and deep inspiration. Patient has history of iron deficiency in the past and patient was getting iron infusion in the past however not recently. Patient states that she noticed black tarry stool recently. Patient states that she vomited black material this morning also. Patient denies abdominal pain. MD Complaint: fever Onset (ago): day(s) Duration: constant Severity: moderate Severity scale (1-10): 7 Exacerbating factors: nothing Description of mucous: yellow Able to tolerate fluids by mouth: Yes Associated symptoms: fever, nausea, vomiting and diarrhea Treatments prior to arrival: acetaminophen Related Data Home Medications Medication Instructions Recorded Confirmed albuterol sulfate [Ventolin HFA] 2 puff INHALATION Q4-6H PRN 03/07/18 03/07/18 amlodipine 10 mg PO DAILY 03/07/18 03/07/18 lisinopril 20 mg PO DAILY 03/07/18 03/07/18 metformin 500 mg PO BID 03/07/18 03/07/18 methadone 50 mg PO DAILY 03/07/18 03/07/18 Allergies Allergy/AdvReac Type Severity Reaction Status Date / Time cefaclor Allergy Severe HIVES, Verified 03/07/18 23:16 THROAT CLOSES prochlorperazine Allergy Severe THROAT Verified 03/07/18 23:16 CLOSES ciprofloxacin Allergy Intermediate nausea/vomi Verified 03/07/18 23:16 ting orphenadrine Allergy Intermediate PALPITATION Verified 03/07/18 23:16 S Review of Systems Except as stated in HPI: all other systems reviewed are negative Exam Narrative Exam Narrative: GENERAL: Well-nourished, well-developed patient. SKIN: Focused skin assessment warm/dry. HEAD: Normocephalic. EYES: No scleral icterus. No injection or drainage. NECK: Supple, trachea midline. No JVD or lymphadenopathy. CARDIOVASCULAR: Regular rate and rhythm without murmurs, gallops, or rubs. RESPIRATORY: Breath sounds equal bilaterally. No accessory muscle use. Mild diffuse rhonchi bilaterally. GASTROINTESTINAL: Abdomen soft, non-tender, nondistended. Rectal exam Hemoccult positive. MUSCULOSKELETAL: No cyanosis, or edema. BACK: Nontender without obvious deformity. No CVA tenderness. Course Initial Documented Vital Signs Temperature 99.7 F H 03/07/18 22:15 Pulse Rate 95 H 03/07/18 22:15 Respiratory Rate 22 03/07/18 22:15 Blood Pressure 100/50 L 03/07/18 22:15 Pulse Oximetry 99 03/07/18 22:15 Last Documented Vital Signs Temperature 98.3 F 03/08/18 16:03 Pulse Rate 56 L 03/08/18 15:45 Respiratory Rate 18 03/08/18 15:45 Blood Pressure 102/60 03/08/18 16:03 Pulse Oximetry 97 03/08/18 16:03 Medical Decision Making MDM Narrative Medical decision making narrative: 62-year-old female with persistent productive cough fever nausea vomiting diarrhea and chest wall pain. Differential Diagnosis Differential Diagnosis: Differential diagnosis including URI, bronchitis, pneumonia, acute exacerbation COPD, PE, pneumothorax. Lab Data Result diagrams: 03/08/18 00:52 03/08/18 00:52 Lab Results 03/08/18 03/08/18 03/08/18 Range/Units 00:52 00:52 02:45 CBC w Diff Slide review pending WBC 12.7 H (4.0-11.0) th/mm3 RBC 3.47 L (4.00-5.30) mil/mm3 Hgb 6.6 L* (11.6-15.3) gm/dL Hct 22.0 L (35.0-46.0) % MCV 63.3 L (80.0-100.0) fL MCH 19.1 L (27.0-34.0) pg MCHC 30.2 L (32.0-36.0) % RDW 16.5 (11.6-17.2) % Plt Count 198 (150-450) th/mm3 MPV 9.1 (7.0-11.0) fL Neut % (Auto) 63.7 (16.0-70.0) % Lymph % (Auto) 21.7 (9.0-44.0) % [place] % (Auto) 11.9 H (0.0-8.0) % Eos % (Auto) 1.1 (0.0-4.0) % Baso % (Auto) 1.6 (0.0-2.0) % Neut # (Auto) 8.1 H (1.8-7.7) th/mm3 Lymph # (Auto) 2.8 (1.0-4.8) th/mm3 [place] # (Auto) 1.5 H (0.0-0.9) th/mm3 Eos # (Auto) 0.1 (0.0-0.4) th/mm3 Baso # (Auto) 0.2 (0.0-0.2) th/mm3 WBC Differential . Diff Scan Auto diff confirmed Platelet Estimate Normal (Normal) Platelet Morphology Normal (Normal) Tear Drop Cells 1+ H (None) Ovalocytes 2+ H (None) Sodium 133 L (136-145) meq/L Potassium 5.1 (3.5-5.1) meq/L Chloride 100 (98-107) meq/L Carbon Dioxide 24.5 (21.0-32.0) meq/L Anion Gap 9 (5-15) meq/L BUN 41 H (7-18) mg/dL Creatinine 2.40 H (0.50-1.00) mg/dL Estimated GFR 20 L (>89) mL/min POC Glucose (68-110) mg/dl Random Glucose 100 (74-106) mg/dL Calcium 8.2 L (8.5-10.1) mg/dL Iron (50-170) mcg/dL TIBC (250-450) mcg/dL % Saturation (20-50) % Ferritin 3 L (8-252) ng/mL Total Bilirubin 0.1 L (0.2-1.0) mg/dL AST 47 H (15-37) U/L ALT 37 (10-53) U/L Alkaline Phosphatase 81 (45-117) U/L Total Protein 7.3 (6.4-8.2) g/dL Albumin 3.3 L (3.4-5.0) g/dL Urine Color (Yellw/Straw) Urine Clarity (Clear) Urine pH (5.0-8.5) Ur Specific [place] (1.002-1.035) Urine Protein (Neg-Trace) mg/dL Urine Glucose (UA) (Negative) mg/dL Urine Ketones (Negative) mg/dL Urine Occult Blood (Negative) Urine Nitrate (Negative) Urine Bilirubin (Negative) Urine Urobilinogen (Less than 2) mg/dL Ur Leukocyte Esterase (Negative) Urine RBC (0-3) /hpf Urine WBC (0-5) /hpf Ur Squamous Epith Cells (0-5) /hpf Urine Bacteria (None) /hpf Micro UA Comment Urine Culture Comments Blood Type Blood Type Confirm Blood Type Recheck Antibody Screen MTS Gel Crossmatch 03/08/18 03/08/18 03/08/18 Range/Units 02:45 02:45 02:52 CBC w Diff WBC (4.0-11.0) th/mm3 RBC (4.00-5.30) mil/mm3 Hgb (11.6-15.3) gm/dL Hct (35.0-46.0) % MCV (80.0-100.0) fL MCH (27.0-34.0) pg MCHC (32.0-36.0) % RDW (11.6-17.2) % Plt Count (150-450) th/mm3 MPV (7.0-11.0) fL Neut % (Auto) (16.0-70.0) % Lymph % (Auto) (9.0-44.0) % [place] % (Auto) (0.0-8.0) % Eos % (Auto) (0.0-4.0) % Baso % (Auto) (0.0-2.0) % Neut # (Auto) (1.8-7.7) th/mm3 Lymph # (Auto) (1.0-4.8) th/mm3 [place] # (Auto) (0.0-0.9) th/mm3 Eos # (Auto) (0.0-0.4) th/mm3 Baso # (Auto) (0.0-0.2) th/mm3 WBC Differential Diff Scan Platelet Estimate (Normal) Platelet Morphology (Normal) Tear Drop Cells (None) Ovalocytes (None) Sodium (136-145) meq/L Potassium (3.5-5.1) meq/L Chloride (98-107) meq/L Carbon Dioxide (21.0-32.0) meq/L Anion Gap (5-15) meq/L BUN (7-18) mg/dL Creatinine (0.50-1.00) mg/dL Estimated GFR (>89) mL/min POC Glucose (68-110) mg/dl Random Glucose (74-106) mg/dL Calcium (8.5-10.1) mg/dL Iron 10 L (50-170) mcg/dL TIBC 535 H (250-450) mcg/dL % Saturation 1.9 L (20-50) % Ferritin (8-252) ng/mL Total Bilirubin (0.2-1.0) mg/dL AST (15-37) U/L ALT (10-53) U/L Alkaline Phosphatase (45-117) U/L Total Protein (6.4-8.2) g/dL Albumin (3.4-5.0) g/dL Urine Color Yellow (Yellw/Straw) Urine Clarity Cloudy H (Clear) Urine pH 6.0 (5.0-8.5) Ur Specific [place] 1.020 (1.002-1.035) Urine Protein Negative (Neg-Trace) mg/dL Urine Glucose (UA) Negative (Negative) mg/dL Urine Ketones Negative (Negative) mg/dL Urine Occult Blood Trace (Negative) Urine Nitrate Negative (Negative) Urine Bilirubin Negative (Negative) Urine Urobilinogen 0.2 (Less than 2) mg/dL Ur Leukocyte Esterase Moderate H (Negative) Urine RBC 4-15 H (0-3) /hpf Urine WBC 51-189 H (0-5) /hpf Ur Squamous Epith Cells 0-5 (0-5) /hpf Urine Bacteria Many H (None) /hpf Micro UA Comment Culture indicated Urine Culture Comments Culture indicated Blood Type O Positive Blood Type Confirm Blood Type Recheck Not needed Antibody Screen Negative MTS Gel Crossmatch See Detail 03/08/18 03/08/18 03/08/18 Range/Units 03:00 08:00 12:05 CBC w Diff WBC (4.0-11.0) th/mm3 RBC (4.00-5.30) mil/mm3 Hgb (11.6-15.3) gm/dL Hct (35.0-46.0) % MCV (80.0-100.0) fL MCH (27.0-34.0) pg MCHC (32.0-36.0) % RDW (11.6-17.2) % Plt Count (150-450) th/mm3 MPV (7.0-11.0) fL Neut % (Auto) (16.0-70.0) % Lymph % (Auto) (9.0-44.0) % [place] % (Auto) (0.0-8.0) % Eos % (Auto) (0.0-4.0) % Baso % (Auto) (0.0-2.0) % Neut # (Auto) (1.8-7.7) th/mm3 Lymph # (Auto) (1.0-4.8) th/mm3 [place] # (Auto) (0.0-0.9) th/mm3 Eos # (Auto) (0.0-0.4) th/mm3 Baso # (Auto) (0.0-0.2) th/mm3 WBC Differential Diff Scan Platelet Estimate (Normal) Platelet Morphology (Normal) Tear Drop Cells (None) Ovalocytes (None) Sodium (136-145) meq/L Potassium (3.5-5.1) meq/L Chloride (98-107) meq/L Carbon Dioxide (21.0-32.0) meq/L Anion Gap (5-15) meq/L BUN (7-18) mg/dL Creatinine (0.50-1.00) mg/dL Estimated GFR (>89) mL/min POC Glucose 112 H 127 H (68-110) mg/dl Random Glucose (74-106) mg/dL Calcium (8.5-10.1) mg/dL Iron (50-170) mcg/dL TIBC (250-450) mcg/dL % Saturation (20-50) % Ferritin (8-252) ng/mL Total Bilirubin (0.2-1.0) mg/dL AST (15-37) U/L ALT (10-53) U/L Alkaline Phosphatase (45-117) U/L Total Protein (6.4-8.2) g/dL Albumin (3.4-5.0) g/dL Urine Color (Yellw/Straw) Urine Clarity (Clear) Urine pH (5.0-8.5) Ur Specific [place] (1.002-1.035) Urine Protein (Neg-Trace) mg/dL Urine Glucose (UA) (Negative) mg/dL Urine Ketones (Negative) mg/dL Urine Occult Blood (Negative) Urine Nitrate (Negative) Urine Bilirubin (Negative) Urine Urobilinogen (Less than 2) mg/dL Ur Leukocyte Esterase (Negative) Urine RBC (0-3) /hpf Urine WBC (0-5) /hpf Ur Squamous Epith Cells (0-5) /hpf Urine Bacteria (None) /hpf Micro UA Comment Urine Culture Comments Blood Type Blood Type Confirm O Positive Blood Type Recheck Antibody Screen MTS Gel Crossmatch Imaging Data Radiologist's impression: ITS Impressions Chest X-Ray 03/08/18 00:42 CONCLUSION: No acute findings. Discharge Plan Discharge Disposition Patient Disposition: 30 Still Patient Discharge Details Discharge Problem: Acute GI bleeding, Anemia, History of COPD Physicians Team ED Provider: Steven Medel Primary Care Provider: Primary Care Savanna Patino Attending Provider: Maria Teresa Starkey Discharge Interventions Interventions: ED Discharge Assessment Last Done: 03/08/18 04:26 Vital Signs Last Done: 03/08/18 01:01 Status ED Status: Left Department Discharge Information Discharge Date/Time: 03/08/18 04:28
[2018-03-08 01:13] LABS: Baso # (Auto) 0.2 th/mm3 (0.0-0.2); Baso % (Auto) 1.6 % (0.0-2.0); Eos # (Auto) 0.1 th/mm3 (0.0-0.4); Eos % (Auto) 1.1 % (0.0-4.0); Lymph # (Auto) 2.8 th/mm3 (1.0-4.8); Lymph % (Auto) 21.7 % (9.0-44.0); Mean Corpuscular Hemoglobin 19.1 pg (27.0-34.0); Mean Corpuscular Volume 63.3 fL (80.0-100.0); Mean Platelet Volume 9.1 fL (7.0-11.0); Mono # (Auto) 1.5 th/mm3 (0.0-0.9); Mono % (Auto) 11.9 % (0.0-8.0); Neut # (Auto) 8.1 th/mm3 (1.8-7.7); Neut % (Auto) 63.7 % (16.0-70.0); Platelet Count 198 th/mm3 (150-450); Red Blood Count 3.47 mil/mm3 (4.00-5.30); Red Cell Distribution Width 16.5 % (11.6-17.2); White Blood Count 12.7 th/mm3 (4.0-11.0)
[2018-03-08 01:15] LABS: Mean Corpuscular HGB Conc 30.2 % (32.0-36.0)
[2018-03-08 01:16] LABS: Hemoglobin 6.6 gm/dL (11.6-15.3)
[2018-03-08 01:23] LABS: Chloride 100 meq/L (98-107); Potassium 5.1 meq/L (3.5-5.1); Sodium 133 meq/L (136-145)
[2018-03-08 01:25] LABS: Calcium 8.2 mg/dL (8.5-10.1)
[2018-03-08 01:26] LABS: Albumin 3.3 g/dL (3.4-5.0); Anion Gap 9 meq/L (5-15); Blood Urea Nitrogen 41 mg/dL (7-18); Carbon Dioxide 24.5 meq/L (21.0-32.0); Glucose,Random 100 mg/dL (74-106)
--- NOTE | 2018-03-08 01:28 | XR ---
EXAM DATE: 03/08/2018 1:12 AM EDT AGE/SEX: 62 years / Female INDICATIONS: Cough and congestion for 2 weeks. CLINICAL DATA: This is the patient's initial encounter. Patient reports that signs and symptoms have been present for 2 weeks and indicates a pain score of 0/10. MEDICAL/SURGICAL HISTORY: Chronic obstructive pulmonary disease. Hypertension. Pacemaker. COMPARISON: [facility]PO, CHEST PA & LAT, 02/23/2018. [facility], CHEST SINGLE AP, 10/16/2017. . FINDINGS: A single AP view of the chest demonstrates the lungs to be symmetrically aerated without evidence of mass, infiltrate or effusion. Cardiac pacer obscures the left lower lateral lung. The cardiomediasti nal contours are unremarkable. Stable hiatus hernia. Osseous structures are intact. CONCLUSION: No acute findings. Electronically signed by: Levy Flores MD 03/08/2018 1:27 AM EDT
[2018-03-08 01:29] LABS: Alanine Aminotransferase 37 U/L (10-53); Aspartate Aminotransferase 47 U/L (15-37); Glomerular Filtration Rate 20 mL/min (>89)
[2018-03-08 01:31] LABS: Total Protein 7.3 g/dL (6.4-8.2)
[2018-03-08 01:32] LABS: Alkaline Phosphatase 81 U/L (45-117)
[2018-03-08 01:35] LABS: Ovalocytes 2+; Platelet Estimate Normal (Normal); Platelet Morphology Normal (Normal); Tear Drop Cells 1+
[2018-03-08] MEDS ORDERED: Dextrose 50% in Water 50 ML Vial IV.PUSH PRN ×2 (02:06→09:00)
[2018-03-08] MEDS ORDERED: Pantoprazole Inj 80 MG in Sodium Chlor 0.9% Inj 35 ML IV.SIG ONE (02:07)
[2018-03-08] MEDS ORDERED: Bisacodyl 10 MG Supp RECTAL PRN (02:09)
[2018-03-08] MEDS ORDERED: Temazepam 15 MG Capsule PO PRN (02:09)
[2018-03-08] MEDS ORDERED: Sod Chloride 0.9% Inj 1,000 ML IV.CONT SCH (02:15)
[2018-03-08] MEDS ORDERED: Sodium Chlor 0.9% Inj 250 ML IV.SIG SCH (03:00)
[2018-03-08 03:01] LABS: Bilirubin,Urine Negative (Negative); Clarity,Urine Cloudy (Clear); Color,Urine Yellow (Yellw/Straw); Glucose,Urine (UA) Negative (Negative); Leukocyte Esterase,Urine Moderate (Negative); Nitrite,Urine Negative (Negative); Urobilinogen,Urine 0.2 mg/dL (Less than 2)
[2018-03-08 03:07] LABS: Squamous Epithelial Cell,Urine 0-5 /hpf (0-5); WBC,Urine 51-189 /hpf (0-5)
[2018-03-08 03:08] LABS: Bacteria,Urine Many /hpf
[2018-03-08] MEDS: Pantoprazole Inj 80 MG in Sodium Chlor 0.9% Inj 100 ML IV.CONT SCH ×2 (03:56→12:28)
[2018-03-08 04:53] LABS: % Iron Saturation 1.9 % (20-50)
[2018-03-08] MEDS ORDERED: Insulin NovoLOG Aspart Correctional Sugar Inj SQ SCH (08:00)
--- NOTE | 2018-03-08 08:07 | P.HP ---
History of Present Illness Primary Care Physician: No Primary Care Physician Chief Complaint: Generalized malaise, weakness, nausea and vomiting, subjective fever History of Present Illness: This is a 62-year-old female patient with a known medical history of hypertension, diabetes who presented to the ED with complaints of generalized malaise, generalized weakness, fever, nausea, vomiting and diarrhea. Patient states that her symptoms started roughly 2 weeks ago. She was seen in the emergency room, neck formed which was negative for any acute pathology, patient was given a breathing treatment as well as prednisone and discharged home with prescription for Bactrim as well as albuterol treatment. Patient states that her symptoms continued to worsen, with intermittent fevers up to 101.1 at home. Patient states she was taking Tylenol for the fever. She does also admit to having a bowel movement yesterday which was black in color. She denies any bright red blood in her stool. She does state that she is to get iron infusions years ago although has not been getting them for many years now. She has not been taking any iron supplementation. She does admit to a history of malabsorption syndrome. Her last colonoscopy was reportedly 2 years ago which was negative. As well as an EGD that was done 4 years ago with findings of ulcers. Patient did previously follow with Dr. Carter, seen last year, she reports that he wanted her to have a swallow capsule study done for bleeding although she did not have this performed due to lack of financial resources. Patient states she does have a history of esophageal dilation this was done 2 years ago back in [place], [place]. Patient presented to the hospital with a hemoglobin of 6.6. She also has a creatinine of 2.4. Patient denies any history of chronic kidney disease. Denies any dysuria or abdominal pain. Does follow with Dr. Patterson, cardiology for management of her hypertension and AICD. - Diagnosis (1) Upper GI bleed (2) Dehydration (3) Sepsis - Inpatient Certification If this patient has been admitted as an Inpatient: I certify that the inpatient services were ordered in accordance with Medicare regulations governing the order. This includes certification that hospital inpatient services are reasonable and necessary and in the case of services not specified as inpatient-only under 42 CFR 419.22(n), that they are appropriately provided as inpatient services in accordance to with the 2-midnight benchmark under 43 CFR 412.3(e) Estimated Total Length of Stay (Days): 2 Plans for Post Hospital Care: Not yet determined Review of Systems All other systems reviewed negative except as stated in HPI [facility] - History History Provided By: Patient - Medical History Medical History: Medical History (Last Updated 03/08/18 @ 12:23 by Gia Leach) COPD (chronic obstructive pulmonary disease) Diabetes mellitus History of hysterectomy Hypertension TMJ (dislocation of temporomandibular joint) - Surgical History Surgical History: Surgical History (Last Updated 03/08/18 @ 12:24 by Gia Leach) AICD (automatic cardioverter/defibrillator) present History of appendectomy History of breast augmentation History of hemorrhoidectomy History of nasal septoplasty History of rhinoplasty Hx of exploratory laparotomy Hx of tonsillectomy - Family History Family History: Family History (Last Updated 03/08/18 @ 12:24 by Gia Leach) Other Family history non-contributory - Tobacco History Second Hand Smoke Exposure: No Tobacco Use In Past 30 Days: No Smoking Status: Former smoker Tobacco Type: Cigarettes - Alcohol History How Often Do You Have a Drink Containing Alcohol: Never - Substance Use History Substance History: Past History - Travel History Recent Travel in the [place] Within the Last 8 Weeks: No Recent Travel Out of the Country Within the Last 8 Weeks: No - Immunization History Tetanus Immunization: Unsure Hx Influenza Vaccine This Season: No Medications and Allergies Active Medications: Active Medications Al Hydroxide/Mg Hydroxide (Milk Of Arpita Banda) 30 ml PO Q12H PRN PRN Reason: Mild Constipation Albuterol (Duoneb Neb (Prn)) 1 ampul NEB Q4HR NEB PRN PRN Reason: SOB/WHEEZING Bisacodyl (Dulcolax Supp) 10 mg RECTAL DAILY PRN PRN Reason: SEVERE CONSITIPATION Dextrose (D50w Vial) 50 ml IV.PUSH UNSCH PRN PRN Reason: PER HYPOGLYCEMIA PROTOCOL Glucagon (Glucagon Inj) 1 mg OTHER PRN PRN PRN Reason: for Hypoglycemia Protocol Sodium Chloride (Ns Inj) 250 mls @ 15 mls/hr IV.SIG ONCE MARIUM Stop: 03/08/18 19:39 Sodium Chloride (Ns Inj) 1,000 mls @ 100 mls/hr IV.CONT .Q10H MARIUM Last Admin: 03/08/18 03:56 Dose: 100 mls/hr Pantoprazole Sodium 80 mg/ (Sodium Chloride) 100 mls @ 10 mls/hr IV.CONT CONT MARIUM Last Admin: 03/08/18 03:56 Dose: 10 mls/hr Insulin Aspart (Novolog Insulin Suppl Scale Inj) 0 unit SQ ACHS MARIUM; Protocol Lactulose (Lactulose Liq) 30 ml PO DAILY PRN PRN Reason: SEVERE CONSITIPATION Metoclopramide HCl (Reglan Inj) 5 mg IV.PUSH Q6HR PRN; Protocol PRN Reason: NAUSEA OR VOMITING Morphine Sulfate (Morphine Inj) 2 mg IV.PUSH Q4H PRN PRN Reason: PAIN 6-10 Non-Formulary Medication (Methadone [Methadone]) 50 mg PO DAILY [facility] Senna/Docusate Sodium (Susi-Colace) 1 tab PO BID [facility] Sennosides (Senokot) 17.2 mg PO Q12H PRN PRN Reason: Moderate Constipation Temazepam (Restoril) 15 mg PO HS PRN PRN Reason: INSOMNIA Allergies Allergy/AdvReac Type Severity Reaction Status Date / Time cefaclor Allergy Severe HIVES, Verified 03/07/18 23:16 THROAT CLOSES prochlorperazine Allergy Severe THROAT Verified 03/07/18 23:16 CLOSES ciprofloxacin Allergy Intermediate nausea/vomi Verified 03/07/18 23:16 ting orphenadrine Allergy Intermediate PALPITATION Verified 03/07/18 23:16 S Home Medications Medication Instructions Recorded Confirmed Type albuterol sulfate [Ventolin HFA] 2 puff INHALATION Q4-6H PRN 03/07/18 03/07/18 History amlodipine 10 mg PO DAILY 03/07/18 03/07/18 History lisinopril 20 mg PO DAILY 03/07/18 03/07/18 History metformin 500 mg PO BID 03/07/18 03/07/18 History methadone 50 mg PO DAILY 03/07/18 03/07/18 History Exam Vital signs: Vital Signs 03/07/18 22:15 03/07/18 22:19 03/08/18 01:01 Temperature 99.7 F H 98.9 F Pulse Rate 95 H 76 70 Respiratory Rate 22 16 16 Blood Pressure 100/50 L 95/49 L 93/56 L Pulse Oximetry 99 98 96 03/08/18 02:09 03/08/18 03:38 03/08/18 04:00 Temperature 98.2 F Pulse Rate 78 71 67 Respiratory Rate 16 16 16 Blood Pressure 95/52 L 96/48 L 97/53 L Pulse Oximetry 98 96 94 L Intake & Output 03/07/18 03/08/18 03/08/18 18:59 06:59 18:59 Intake Total 1035 / 1035 Output Total 500 / 500 Balance 535 / 535 Weight 68.4 kg Intake: IV 1035 / 1035 Protonix Inj 80 MG In NS Inj 35 35 / 35 ML @ 420 mls/hr IV.SIG BOLUS ONE Rx#:[id number] NS Inj 1,000 ML @ Wide Open IV. 1000 / 1000 SIG BOLUS ONE Rx#:[id number] Output: Urine 500 / 500 Narrative: GENERAL: Well-developed, well-nourished patient in NAD. SKIN: Warm and dry. No rash. HEAD: Normocephalic. Atraumatic. EYES: Pupils equal and round. No scleral icterus. No injection or drainage. ENT: No nasal bleeding or discharge. Mucous membranes pink and moist. NECK: Supple. Trachea midline. CARDIOVASCULAR: Regular rate and rhythm. S1, S2 noted. No murmur appreciated. RESPIRATORY: No accessory muscle use. Clear to auscultation. Breath sounds equal bilaterally. GASTROINTESTINAL: Abdomen soft, non-tender, nondistended. Normoactive bowel sounds x4. MUSCULOSKELETAL: No obvious deformities. Extremities without clubbing, cyanosis , or edema. NEUROLOGICAL: Awake and alert. No obvious cranial nerve deficits. Motor grossly within normal limits. 5/5 muscle strength in bilateral upper and lower extremities. Normal speech. PSYCHIATRIC: Appropriate mood and affect; insight and judgment normal. Results - Labs CBC & Chem 7: 03/09/18 05:27 03/09/18 05:27 Labs: Laboratory Results - last 24 hr 03/08/18 03/08/18 03/08/18 00:52 00:52 02:45 CBC w Diff Slide review pending WBC 12.7 H RBC 3.47 L Hgb 6.6 L* Hct 22.0 L MCV 63.3 L MCH 19.1 L MCHC 30.2 L RDW 16.5 Plt Count 198 MPV 9.1 Neut % (Auto) 63.7 Lymph % (Auto) 21.7 Finney % (Auto) 11.9 H Eos % (Auto) 1.1 Baso % (Auto) 1.6 Neut # (Auto) 8.1 H Lymph # (Auto) 2.8 Finney # (Auto) 1.5 H Eos # (Auto) 0.1 Baso # (Auto) 0.2 WBC Differential . Diff Scan Auto diff confirmed Platelet Estimate Normal Platelet Morphology Normal Tear Drop Cells 1+ H Ovalocytes 2+ H Sodium 133 L Potassium 5.1 Chloride 100 Carbon Dioxide 24.5 Anion Gap 9 BUN 41 H Creatinine 2.40 H Estimated GFR 20 L POC Glucose Random Glucose 100 Calcium 8.2 L Iron TIBC % Saturation Ferritin 3 L Total Bilirubin 0.1 L AST 47 H ALT 37 Alkaline Phosphatase 81 Total Protein 7.3 Albumin 3.3 L Urine Color Urine Clarity Urine pH Ur Specific Julian Urine Protein Urine Glucose (UA) Urine Ketones Urine Occult Blood Urine Nitrate Urine Bilirubin Urine Urobilinogen Ur Leukocyte Esterase Urine RBC Urine WBC Ur Squamous Epith Cells Urine Bacteria Micro UA Comment Urine Culture Comments Blood Type Blood Type Confirm Blood Type Recheck Antibody Screen MTS Gel Crossmatch 03/08/18 03/08/18 03/08/18 02:45 02:45 02:52 CBC w Diff WBC RBC Hgb Hct MCV MCH MCHC RDW Plt Count MPV Neut % (Auto) Lymph % (Auto) Finney % (Auto) Eos % (Auto) Baso % (Auto) Neut # (Auto) Lymph # (Auto) Finney # (Auto) Eos # (Auto) Baso # (Auto) WBC Differential Diff Scan Platelet Estimate Platelet Morphology Tear Drop Cells Ovalocytes Sodium Potassium Chloride Carbon Dioxide Anion Gap BUN Creatinine Estimated GFR POC Glucose Random Glucose Calcium Iron 10 L TIBC 535 H % Saturation 1.9 L Ferritin Total Bilirubin AST ALT Alkaline Phosphatase Total Protein Albumin Urine Color Yellow Urine Clarity Cloudy H Urine pH 6.0 Ur Specific Julian 1.020 Urine Protein Negative Urine Glucose (UA) Negative Urine Ketones Negative Urine Occult Blood Trace Urine Nitrate Negative Urine Bilirubin Negative Urine Urobilinogen 0.2 Ur Leukocyte Esterase Moderate H Urine RBC 4-15 H Urine WBC 51-189 H Ur Squamous Epith Cells 0-5 Urine Bacteria Many H Micro UA Comment Culture indicated Urine Culture Comments Culture indicated Blood Type O Positive Blood Type Confirm Blood Type Recheck Not needed Antibody Screen Negative MTS Gel Crossmatch See Detail 03/08/18 03/08/18 03:00 08:00 CBC w Diff WBC RBC Hgb Hct MCV MCH MCHC RDW Plt Count MPV Neut % (Auto) Lymph % (Auto) Finney % (Auto) Eos % (Auto) Baso % (Auto) Neut # (Auto) Lymph # (Auto) Finney # (Auto) Eos # (Auto) Baso # (Auto) WBC Differential Diff Scan Platelet Estimate Platelet Morphology Tear Drop Cells Ovalocytes Sodium Potassium Chloride Carbon Dioxide Anion Gap BUN Creatinine Estimated GFR POC Glucose 112 H Random Glucose Calcium Iron TIBC % Saturation Ferritin Total Bilirubin AST ALT Alkaline Phosphatase Total Protein Albumin Urine Color Urine Clarity Urine pH Ur Specific Julian Urine Protein Urine Glucose (UA) Urine Ketones Urine Occult Blood Urine Nitrate Urine Bilirubin Urine Urobilinogen Ur Leukocyte Esterase Urine RBC Urine WBC Ur Squamous Epith Cells Urine Bacteria Micro UA Comment Urine Culture Comments Blood Type Blood Type Confirm O Positive Blood Type Recheck Antibody Screen MTS Gel Crossmatch - Imaging Impressions Chest X-Ray 03/08/18 00:42 CONCLUSION: No acute findings. Caprini VTE Risk Assessment Caprini VTE Risk Assessment: Moderate/High Risk (score >= 2) VTE Pharmacological Exception Reason: Active bleeding Caprini Risk Assessment Model: Point Value = 1 Point Value = 2 Point Value = 3 Point Value = 5 Age 41-60 Minor surgery BMI > 25 kg/m2 Swollen legs Varicose veins or History of unexplained or recurrent spontaneous Oral contraceptives or hormone replacement Sepsis (< 1 month) Serious lung disease, including pneumonia (< 1 month) Abnormal pulmonary function Acute myocardial infarction Congestive heart failure (< 1 month) History of inflammatory bowel disease Medical patient at bed rest Age 61-74 Arthroscopic surgery Major open surgery (> 45 min) Laparoscopic surgery (> 45 min) Malignancy Confined to bed (> 72 hours) Immobilizing plaster cast Central venous access Age >= 75 History of VTE Family history of VTE Factor V Leiden Prothrombin [id number] Lupus anticoagulant Anticardiolipin antibodies Elevated serum homocysteine Heparin-induced thrombocytopenia Other congenital or acquired thrombophilia Stroke (< 1 month) Elective arthroplasty Hip, pelvis, or leg fracture Acute spinal cord injury (< 1 month) Prophylaxis Regimen: Total Risk Factor Score Risk Level Prophylaxis Regimen 0-1 Low Early ambulation 2 Moderate Order ONE of the following: *Sequential Compression Device (SCD) *Heparin 5000 units SQ BID 3-4 Higher Order ONE of the following medications: *Heparin 5000 units SQ TID *Enoxaparin/Lovenox 40 mg SQ daily (WT < 150 kg, CrCl > 30 mL/min) *Enoxaparin/Lovenox 30 mg SQ daily (WT < 150 kg, CrCl > 10-29 mL/min) *Enoxaparin/Lovenox 30 mg SQ BID (WT < 150 kg, CrCl > 30 mL/min) AND/OR *Sequential Compression Device (SCD) 5 or more Highest Order ONE of the following medications: *Heparin 5000 units SQ TID (Preferred with Epidurals) *Enoxaparin/Lovenox 40 mg SQ daily (WT < 150 kg, CrCl > 30 mL/min) *Enoxaparin/Lovenox 30 mg SQ daily (WT < 150 kg, CrCl > 10-29 mL/min) *Enoxaparin/Lovenox 30 mg SQ BID (WT < 150 kg, CrCl > 30 mL/min) AND *Sequential Compression Device (SCD) Assessment and Plan - Assessment (1) Upper GI bleed Code(s): K92.2 - Gastrointestinal hemorrhage, unspecified Status: Acute (2) Dehydration Code(s): E86.0 - Dehydration Status: Acute (3) Sepsis Code(s): A41.9 - Sepsis, unspecified organism Status: Acute - Plan This is a 62-year-old female patient with a known medical history of hypertension, diabetes who presented to the ED with complaints of generalized malaise, generalized weakness, fever, nausea, vomiting and diarrhea. Severe Sepsis - Meets criteria with tachycardia, leukocytosis WBC 12.7, and suspected source urinary tract, with BASIA - Abnormal UA, showing moderate amount of leukocyte esterase, WBCs and bacteria. Await urine culture. Will add blood cultures. Influenza negative. CXR negative. - Creatinine 2.4/GFR 20 on presentation. Denies any history of kidney disease. Continue IVF. Monitor BMP. - Patient is allergic to Cefaclor, Cipro and has recently taken Bactrim for URI. Will start on IV Azactam. - Monitor for infection. Afebrile at this time. - Mild hypotension. Was given 1 LNS bolus in ED. Will add bolus and continue IVF. - Supportive care. Upper GI bleed Microcytic, hypochromic anemia suspect secondary to active bleed History of iron deficiency anemia - Hemoglobin 6.6/Hematocrit 22 on presentation. - Started on Protonix gtt. Continue. - 2 units PRBC ordered. Monitor H&H. - Anemia studies ordered. - GI consulted, input and recommendations pending. Follow. - Monitor for any active bleeding. Type 2 diabetes mellitus, chronic: ACCU check ACHS, sliding scale, cover as needed. Follow trends. Hypertension, chronic: Hold home BP meds for now. Mildly hypotensive. DVT Prophylaxis: SCDs. Hold chemical prophylaxis for active bleed.
[2018-03-08] MEDS ORDERED: METHADONE 50 MG PO SCH (09:00)
[2018-03-08] MEDS: Morphine Inj 4 MG/ML Vial IV.PUSH PRN ×2 (09:27→18:16)
[2018-03-08] MEDS: Senna/Docusate Sodium 8.6/50 MG Tablet PO SCH ×2 (10:04→21:06)
[2018-03-08] MEDS ORDERED: Acetaminophen 325 MG Tablet PO ONE (10:45)
[2018-03-08] MEDS: Methadone 10 MG Tablet PO SCH (10:57)
[2018-03-08] MEDS ORDERED: amLODIPine 10 MG Tablet PO SCH (11:45)
[2018-03-08] MEDS: Insulin NovoLOG Aspart Correctional Sugar Inj SQ SCH ×3 (12:00→21:26)
--- NOTE | 2018-03-08 18:11 | P.CONGI ---
History of Present Illness Consult date: 03/08/18 Chief complaint: C/O/Fever/SOB/Nausea x 1 day History of Present Illness: Patient is a 62-year-old female who was admitted to the hospital with symptoms of progressively worsening epigastric pain associated with nausea vomiting. She also described having coffee-ground emesis. She denied any history of melena or hematochezia. She reports symptoms of heartburn and dysphagia mainly to solids off and on for several months. There is no history of chronic constipation diarrhea jaundice ascites edema anorexia or weight loss. Review of Systems Gastrointestinal: Reports abdominal pain, Reports coffee ground vomit, Reports difficulty swallowing, Reports heartburn, Reports nausea, Reports vomiting, Denies belching, Denies black, tarry stools, Denies bloating, Denies bright, red blood in stools, Denies change in bowel habits, Denies constant urge to pass stool, Denies change in stools, Denies constipation, Denies cramping, Denies excessive passing of gas, Denies feeling full early, Denies incontinent of stools, Denies loose stools, Denies pain with swallowing, Denies vomiting blood, Denies other PMFSH - History History Provided By: Patient - Medical History Medical History: Medical History (Last Updated 03/08/18 @ 18:09 by Gume Casillas MD) COPD (chronic obstructive pulmonary disease) Colon adenomas Diabetes mellitus History of hysterectomy Hypertension TMJ (dislocation of temporomandibular joint) - Surgical History Surgical History: Surgical History (Last Updated 03/08/18 @ 12:24 by Gia Leach) AICD (automatic cardioverter/defibrillator) present History of appendectomy History of breast augmentation History of hemorrhoidectomy History of nasal septoplasty History of rhinoplasty Hx of exploratory laparotomy Hx of tonsillectomy - Family History Family History: Family History (Last Updated 03/08/18 @ 12:24 by Gia Leach) Other Family history non-contributory - Tobacco History Second Hand Smoke Exposure: No Tobacco Use In Past 30 Days: No Smoking Status: Former smoker Tobacco Type: Cigarettes - Alcohol History How Often Do You Have a Drink Containing Alcohol: Never - Substance Use History Substance History: Past History - Travel History Recent Travel in the [place] Within the Last 8 Weeks: No Recent Travel Out of the Country Within the Last 8 Weeks: No - Immunization History Tetanus Immunization: Unsure Hx Influenza Vaccine This Season: No Medications and Allergies Active Medications: Active Medications Al Hydroxide/Mg Hydroxide (Milk Of Magnesia Liq) 30 ml PO Q12H PRN PRN Reason: Mild Constipation Albuterol (Duoneb Neb (Prn)) 1 ampul NEB Q4HR NEB PRN PRN Reason: SOB/WHEEZING Albuterol (Ventolin Hfa Inh) 2 puff INH Q4H PRN PRN Reason: RISPERATORY DISTRESS Bisacodyl (Dulcolax Supp) 10 mg RECTAL DAILY PRN PRN Reason: SEVERE CONSITIPATION Dextrose (D50w Vial) 50 ml IV.PUSH UNSCH PRN PRN Reason: PER HYPOGLYCEMIA PROTOCOL Dextrose (D50w Vial) 50 ml IV.PUSH UNSCH PRN PRN Reason: PER HYPOGLYCEMIA PROTOCOL Glucagon (Glucagon Inj) 1 mg OTHER PRN PRN PRN Reason: for Hypoglycemia Protocol Glucagon (Glucagon Inj) 1 mg OTHER PRN PRN PRN Reason: for Hypoglycemia Protocol Sodium Chloride (Ns Inj) 250 mls @ 15 mls/hr IV.SIG ONCE [facility] Stop: 03/08/18 19:39 Last Admin: 03/08/18 11:02 Dose: 15 mls/hr Sodium Chloride (Ns Inj) 1,000 mls @ 100 mls/hr IV.CONT .Q10H [facility] Last Admin: 03/08/18 03:56 Dose: 100 mls/hr Pantoprazole Sodium 80 mg/ (Sodium Chloride) 100 mls @ 10 mls/hr IV.CONT CONT [facility] Last Admin: 03/08/18 12:28 Dose: 10 mls/hr Aztreonam 1,000 mg/ Sodium (Chloride) 100 mls @ 200 mls/hr IV.SIG Q8H [facility] Sodium Chloride (Ns Inj) 1,000 mls @ 100 mls/hr IV.CONT .Q10H [facility] Insulin Aspart (Novolog Insulin Suppl Scale Inj) 0 unit SQ ACHS [facility]; Protocol Last Admin: 03/08/18 12:00 Dose: Not Given Lactulose (Lactulose Liq) 30 ml PO DAILY PRN PRN Reason: SEVERE CONSITIPATION Methadone HCl (Dolophine) 50 mg PO DAILY [facility] Last Admin: 03/08/18 10:57 Dose: 50 mg Metoclopramide HCl (Reglan Inj) 5 mg IV.PUSH Q6HR PRN; Protocol PRN Reason: NAUSEA OR VOMITING Morphine Sulfate (Morphine Inj) 2 mg IV.PUSH Q4H PRN PRN Reason: PAIN 6-10 Last Admin: 03/08/18 09:27 Dose: 2 mg Senna/Docusate Sodium (Susi-Colace) 1 tab PO BID [facility] Last Admin: 03/08/18 10:04 Dose: Not Given Sennosides (Senokot) 17.2 mg PO Q12H PRN PRN Reason: Moderate Constipation Last Admin: 03/08/18 09:20 Dose: 17.2 mg Temazepam (Restoril) 15 mg PO HS PRN PRN Reason: INSOMNIA Allergies Allergy/AdvReac Type Severity Reaction Status Date / Time cefaclor Allergy Severe HIVES, Verified 03/07/18 23:16 THROAT CLOSES prochlorperazine Allergy Severe THROAT Verified 03/07/18 23:16 CLOSES ciprofloxacin Allergy Intermediate nausea/vomi Verified 03/07/18 23:16 ting orphenadrine Allergy Intermediate PALPITATION Verified 03/07/18 23:16 S Home Medications Medication Instructions Recorded Confirmed Type albuterol sulfate [Ventolin HFA] 2 puff INHALATION Q4-6H PRN 03/07/18 03/07/18 History amlodipine 10 mg PO DAILY 03/07/18 03/07/18 History lisinopril 20 mg PO DAILY 03/07/18 03/07/18 History metformin 500 mg PO BID 03/07/18 03/07/18 History methadone 50 mg PO DAILY 03/07/18 03/07/18 History Exam Vital signs: Vital Signs 03/07/18 22:15 03/07/18 22:19 03/08/18 01:01 Temperature 99.7 F H 98.9 F Pulse Rate 95 H 76 70 Respiratory Rate 22 16 16 Blood Pressure 100/50 L 95/49 L 93/56 L Pulse Oximetry 99 98 96 03/08/18 02:09 03/08/18 03:38 03/08/18 04:00 Temperature 98.2 F Pulse Rate 78 71 67 Respiratory Rate 16 16 16 Blood Pressure 95/52 L 96/48 L 97/53 L Pulse Oximetry 98 96 94 L 03/08/18 08:00 03/08/18 09:29 03/08/18 11:00 Temperature 99.5 F 99.4 F Pulse Rate 59 L 68 Respiratory Rate 18 18 18 Blood Pressure 99/58 L 97/48 L Pulse Oximetry 96 93 L 03/08/18 11:17 03/08/18 11:27 03/08/18 11:32 Temperature 98.7 F 98 F Pulse Rate 56 L Respiratory Rate 18 18 18 Blood Pressure 100/65 121/56 L Pulse Oximetry 96 96 03/08/18 11:52 03/08/18 12:00 03/08/18 12:52 Temperature 98.6 F 98.6 F 98.7 F Pulse Rate 63 63 65 Respiratory Rate 18 18 Blood Pressure 115/56 L 115/56 L 102/53 L Pulse Oximetry 96 96 96 03/08/18 14:48 03/08/18 15:03 03/08/18 15:45 Temperature 98.7 F 98.0 F 98.0 F Pulse Rate 56 L Respiratory Rate 18 18 18 Blood Pressure 112/54 L 107/57 L 107/57 L Pulse Oximetry 96 95 95 03/08/18 16:03 Temperature 98.3 F Pulse Rate Respiratory Rate Blood Pressure 102/60 Pulse Oximetry 97 Intake & Output 03/07/18 03/08/18 03/08/18 18:59 06:59 18:59 Intake Total 1035 / 1035 500 / 500 Output Total 500 / 500 300 / 300 Balance 535 / 535 200 / 200 Weight 68.4 kg Intake: IV 1035 / 1035 100 / 100 Protonix Inj 80 MG In NS Inj 100 / 100 100 ML @ 10 mls/hr IV.CONT CONT [facility]IUM Rx#:[id number] Protonix Inj 80 MG In NS Inj 35 35 / 35 ML @ 420 mls/hr IV.SIG BOLUS ONE Rx#:[id number] NS Inj 1,000 ML @ Wide Open IV. 1000 / 1000 SIG BOLUS ONE Rx#:[id number] Other 0 / 0 Rbc As-3 Leukoreduced Unit 0 / 0 [id number] Intake (Blood Product) Amt 400 / 400 Rbc As-3 Leukoreduced Unit 400 / 400 [id number] Rbc As-3 Leukoreduced Unit 0 / 0 [id number] Output: Urine 500 / 500 300 / 300 - Constitutional no acute distress - Routine HEENT Exam Head: Present: normocephalic, atraumatic Eye: Present: EOMI, PERRL ENT: Present: mucous membranes moist - Routine Respiratory Exam Present: CTA bilaterally - Routine Cardiovascular Exam Present: RRR, S1, S2 - Routine Abdominal Exam Present: tenderness (Mild tenderness in the epigastrium, no guarding or rigidity. No masses palpable no ascites bowel sounds are normal) Results - Labs CBC & Chem 7: 03/08/18 00:52 03/08/18 00:52 Labs: Laboratory Results - last 24 hr 03/08/18 03/08/18 03/08/18 00:52 00:52 02:45 CBC w Diff Slide review pending WBC 12.7 H RBC 3.47 L Hgb 6.6 L* Hct 22.0 L MCV 63.3 L MCH 19.1 L MCHC 30.2 L RDW 16.5 Plt Count 198 MPV 9.1 Neut % (Auto) 63.7 Lymph % (Auto) 21.7 [place] % (Auto) 11.9 H Eos % (Auto) 1.1 Baso % (Auto) 1.6 Neut # (Auto) 8.1 H Lymph # (Auto) 2.8 [place] # (Auto) 1.5 H Eos # (Auto) 0.1 Baso # (Auto) 0.2 WBC Differential . Diff Scan Auto diff confirmed Platelet Estimate Normal Platelet Morphology Normal Tear Drop Cells 1+ H Ovalocytes 2+ H Sodium 133 L Potassium 5.1 Chloride 100 Carbon Dioxide 24.5 Anion Gap 9 BUN 41 H Creatinine 2.40 H Estimated GFR 20 L POC Glucose Random Glucose 100 Calcium 8.2 L Iron TIBC % Saturation Ferritin 3 L Total Bilirubin 0.1 L AST 47 H ALT 37 Alkaline Phosphatase 81 Total Protein 7.3 Albumin 3.3 L Urine Color Urine Clarity Urine pH Ur Specific [place] Urine Protein Urine Glucose (UA) Urine Ketones Urine Occult Blood Urine Nitrate Urine Bilirubin Urine Urobilinogen Ur Leukocyte Esterase Urine RBC Urine WBC Ur Squamous Epith Cells Urine Bacteria Micro UA Comment Urine Culture Comments Blood Type Blood Type Confirm Blood Type Recheck Antibody Screen MTS Gel Crossmatch 03/08/18 03/08/18 03/08/18 02:45 02:45 02:52 CBC w Diff WBC RBC Hgb Hct MCV MCH MCHC RDW Plt Count MPV Neut % (Auto) Lymph % (Auto) [place] % (Auto) Eos % (Auto) Baso % (Auto) Neut # (Auto) Lymph # (Auto) [place] # (Auto) Eos # (Auto) Baso # (Auto) WBC Differential Diff Scan Platelet Estimate Platelet Morphology Tear Drop Cells Ovalocytes Sodium Potassium Chloride Carbon Dioxide Anion Gap BUN Creatinine Estimated GFR POC Glucose Random Glucose Calcium Iron 10 L TIBC 535 H % Saturation 1.9 L Ferritin Total Bilirubin AST ALT Alkaline Phosphatase Total Protein Albumin Urine Color Yellow Urine Clarity Cloudy H Urine pH 6.0 Ur Specific [place] 1.020 Urine Protein Negative Urine Glucose (UA) Negative Urine Ketones Negative Urine Occult Blood Trace Urine Nitrate Negative Urine Bilirubin Negative Urine Urobilinogen 0.2 Ur Leukocyte Esterase Moderate H Urine RBC 4-15 H Urine WBC 51-189 H Ur Squamous Epith Cells 0-5 Urine Bacteria Many H Micro UA Comment Culture indicated Urine Culture Comments Culture indicated Blood Type O Positive Blood Type Confirm Blood Type Recheck Not needed Antibody Screen Negative MTS Gel Crossmatch See Detail 03/08/18 03/08/18 03/08/18 03:00 08:00 12:05 CBC w Diff WBC RBC Hgb Hct MCV MCH MCHC RDW Plt Count MPV Neut % (Auto) Lymph % (Auto) [place] % (Auto) Eos % (Auto) Baso % (Auto) Neut # (Auto) Lymph # (Auto) [place] # (Auto) Eos # (Auto) Baso # (Auto) WBC Differential Diff Scan Platelet Estimate Platelet Morphology Tear Drop Cells Ovalocytes Sodium Potassium Chloride Carbon Dioxide Anion Gap BUN Creatinine Estimated GFR POC Glucose 112 H 127 H Random Glucose Calcium Iron TIBC % Saturation Ferritin Total Bilirubin AST ALT Alkaline Phosphatase Total Protein Albumin Urine Color Urine Clarity Urine pH Ur Specific [place] Urine Protein Urine Glucose (UA) Urine Ketones Urine Occult Blood Urine Nitrate Urine Bilirubin Urine Urobilinogen Ur Leukocyte Esterase Urine RBC Urine WBC Ur Squamous Epith Cells Urine Bacteria Micro UA Comment Urine Culture Comments Blood Type Blood Type Confirm O Positive Blood Type Recheck Antibody Screen MTS Gel Crossmatch 03/08/18 17:01 CBC w Diff WBC RBC Hgb Hct MCV MCH MCHC RDW Plt Count MPV Neut % (Auto) Lymph % (Auto) [place] % (Auto) Eos % (Auto) Baso % (Auto) Neut # (Auto) Lymph # (Auto) [place] # (Auto) Eos # (Auto) Baso # (Auto) WBC Differential Diff Scan Platelet Estimate Platelet Morphology Tear Drop Cells Ovalocytes Sodium Potassium Chloride Carbon Dioxide Anion Gap BUN Creatinine Estimated GFR POC Glucose 92 Random Glucose Calcium Iron TIBC % Saturation Ferritin Total Bilirubin AST ALT Alkaline Phosphatase Total Protein Albumin Urine Color Urine Clarity Urine pH Ur Specific [place] Urine Protein Urine Glucose (UA) Urine Ketones Urine Occult Blood Urine Nitrate Urine Bilirubin Urine Urobilinogen Ur Leukocyte Esterase Urine RBC Urine WBC Ur Squamous Epith Cells Urine Bacteria Micro UA Comment Urine Culture Comments Blood Type Blood Type Confirm Blood Type Recheck Antibody Screen MTS Gel Crossmatch - Imaging Impressions Chest X-Ray 03/08/18 00:42 CONCLUSION: No acute findings. Assessment and Plan (1) Colon polyp, hyperplastic Status: Acute Code(s): K63.5 - Polyp of colon (2) Colon polyp Status: Acute Code(s): K63.5 - Polyp of colon (3) Urinary tract infection Status: Acute Code(s): N39.0 - Urinary tract infection, site not specified (4) Upper GI bleed Status: Acute Code(s): K92.2 - Gastrointestinal hemorrhage, unspecified (5) Sepsis Status: Acute Code(s): A41.9 - Sepsis, unspecified organism (6) Acute GI bleeding Status: Acute Code(s): K92.2 - Gastrointestinal hemorrhage, unspecified (7) Anemia Status: Acute Code(s): D64.9 - Anemia, unspecified - Plan 1. IV Protonix 40 mg twice daily 2. Labs-serum lipase, CBC, ferritin, folic acid, B12 3. ultrasound of the gallbladder and pancreas 4. EGD and colonoscopy for further evaluation of GI bleeding and anemia (2) Colon polyp Qualifiers: Colon polyp type: adenomatous (7) Anemia Qualifiers: Anemia type: iron deficiency Iron deficiency anemia type: chronic blood loss Qualified Code(s): D50.0 - Iron deficiency anemia secondary to blood loss ( chronic)
[2018-03-08 19:47] LABS: Baso # (Auto) 0.2 th/mm3 (0.0-0.2); Baso % (Auto) 2.3 % (0.0-2.0); Eos # (Auto) 0.1 th/mm3 (0.0-0.4); Eos % (Auto) 0.8 % (0.0-4.0); Hematocrit 30.2 % (35.0-46.0); Hemoglobin 9.2 gm/dL (11.6-15.3); Lymph # (Auto) 2.5 th/mm3 (1.0-4.8); Mean Corpuscular Hemoglobin 21.3 pg (27.0-34.0); Mean Corpuscular Volume 70.1 fL (80.0-100.0); Mean Platelet Volume 9.6 fL (7.0-11.0); Mono # (Auto) 1.7 th/mm3 (0.0-0.9); Mono % (Auto) 18.2 % (0.0-8.0); Neut # (Auto) 4.9 th/mm3 (1.8-7.7); Neut % (Auto) 52.7 % (16.0-70.0); Platelet Count 234 th/mm3 (150-450); Red Blood Count 4.31 mil/mm3 (4.00-5.30); Red Cell Distribution Width 20.2 % (11.6-17.2); White Blood Count 9.4 th/mm3 (4.0-11.0)
[2018-03-08 19:48] LABS: Mean Corpuscular HGB Conc 30.4 % (32.0-36.0)
[2018-03-08] MEDS ORDERED: PEG 3350/E-Lyte Soln 4000 ML Bottle PO ONE (20:00)
[2018-03-08] MEDS: Sod Chloride 0.9% Inj 1,000 ML IV.CONT SCH ×2 (21:49→21:50)
[2018-03-09 01:24] LABS: Folate 14.9 ng/mL (3.1-17.5)
[2018-03-09] MEDS: Pantoprazole Inj 80 MG in Sodium Chlor 0.9% Inj 100 ML IV.CONT SCH ×4 (02:09→23:52)
[2018-03-09 05:43] LABS: Baso # (Auto) 0.1 th/mm3 (0.0-0.2); Baso % (Auto) 1.8 % (0.0-2.0); Eos # (Auto) 0.1 th/mm3 (0.0-0.4); Eos % (Auto) 1.1 % (0.0-4.0); Hematocrit 28.8 % (35.0-46.0); Hemoglobin 8.3 gm/dL (11.6-15.3); Lymph # (Auto) 2.1 th/mm3 (1.0-4.8); Lymph % (Auto) 25.1 % (9.0-44.0); Mean Corpuscular Hemoglobin 20.4 pg (27.0-34.0); Mean Corpuscular Volume 70.5 fL (80.0-100.0); Mean Platelet Volume 9.3 fL (7.0-11.0); Mono # (Auto) 1.6 th/mm3 (0.0-0.9); Mono % (Auto) 19.1 % (0.0-8.0); Neut # (Auto) 4.4 th/mm3 (1.8-7.7); Neut % (Auto) 52.9 % (16.0-70.0); Platelet Count 199 th/mm3 (150-450); Red Blood Count 4.09 mil/mm3 (4.00-5.30); Red Cell Distribution Width 20.5 % (11.6-17.2); White Blood Count 8.3 th/mm3 (4.0-11.0)
[2018-03-09 05:44] LABS: Mean Corpuscular HGB Conc 28.9 % (32.0-36.0)
[2018-03-09 06:00] LABS: Ovalocytes 1+; Tear Drop Cells 1+
[2018-03-09 06:01] LABS: Platelet Estimate Normal (Normal); Platelet Morphology Normal (Normal)
[2018-03-09 06:04] LABS: Alanine Aminotransferase 27 U/L (10-53); Albumin 2.8 g/dL (3.4-5.0); Alkaline Phosphatase 53 U/L (45-117); Anion Gap 7 meq/L (5-15); Aspartate Aminotransferase 30 U/L (15-37); Blood Urea Nitrogen 22 mg/dL (7-18); Carbon Dioxide 23.5 meq/L (21.0-32.0); Chloride 111 meq/L (98-107); Glomerular Filtration Rate 41 mL/min (>89); Glucose,Random 82 mg/dL (74-106); Potassium 4.8 meq/L (3.5-5.1); Sodium 141 meq/L (136-145); Total Protein 6.3 g/dL (6.4-8.2)
[2018-03-09] MEDS: Insulin NovoLOG Aspart Correctional Sugar Inj SQ SCH ×3 (07:46→17:02)
--- NOTE | 2018-03-09 08:59 | US ---
EXAM DATE: 03/09/2018 8:47 AM EDT AGE/SEX: 62 years / Female INDICATIONS: Abdominal pain. CLINICAL DATA: This is the patient's initial encounter. Patient reports that signs and symptoms have been present for 1 month and indicates a pain score of 4/10. MEDICAL/SURGICAL HISTORY: Chronic obstructive pulmonary disease. Hypertension. Diabetes. TMJ . Appendectomy. Tonsillectomy. Hemorrhoidectomy. Internal defibrillator. Hysterectomy. Breast aug mentation. Rhinoplasty. Laparotomy. COMPARISON: No prior exams available for comparison. MEASUREMENTS: Liver:__ 14.2 cm. Common Bile Duct:___ 10mm. Right Kidney:___9.2 x 4.5 x 4.3 cm. Left Kidney:___9.4 x 4.6 x 5.0 cm. Spleen:___9.5 cm. FINDINGS: Liver: Increased echotexture without focal lesion or ductal dilation. Portal Vein: Hepatopedal flow seen in portal vein. Common Duct: Distended. No intraluminal mass or stone visualized. Gallbladder: Demonstrates no wall thickening or pericholecystic fluid. Single mobile stone. Pancreas: The visualized portions are within normal limits Right Kidney: Normal echotexture and cortical thickness. No mass or hydronephrosis. Left Kidney: Normal echotexture and cortical thickness. No mass or hydronephrosis. Ascites: None Pleural Effusion: None Spleen: No focal lesion. Aorta: Non aneurysmal. IVC: Within normal limits Other: None. CONCLUSION: 1. Cholelithiasis without definitive sonographic evidence for acute cholecystitis. 2. Common bile duct is distended measuring up to 10 mm. No definite stone or intraluminal abnormalit y in the visualized portions of the common bile duct. MRCP examination may be performed for further e valuation as clinically warranted. Electronically signed by: Tez Daley MD 03/09/2018 8:58 AM EDT
[2018-03-09] MEDS: Sod Chloride 0.9% Inj 1,000 ML IV.CONT SCH ×2 (09:07→20:12)
[2018-03-09] MEDS: Methadone 10 MG Tablet PO SCH (09:12)
[2018-03-09] MEDS: Senna/Docusate Sodium 8.6/50 MG Tablet PO SCH (11:08)
--- NOTE | 2018-03-09 13:40 | P.PN ---
Subjective Interval history: Patient seen and examined today for follow-up on abdominal pain, anemia. Patient states that she still experiencing some right upper quadrant abdominal pain. Patient is waiting endoscopy to be performed today. Vital signs are stable, patient remains afebrile Physical Exam Vital signs: Vital Signs 03/08/18 14:48 03/08/18 15:03 03/08/18 15:45 Temperature 98.7 F 98.0 F 98.0 F Pulse Rate 55 L 56 L Respiratory Rate 18 18 18 Blood Pressure 112/54 L 107/57 L 107/57 L Pulse Oximetry 96 95 95 03/08/18 16:03 03/08/18 18:00 03/08/18 18:18 Temperature 98.3 F 98.4 F Pulse Rate 57 L 53 L Respiratory Rate 18 18 Blood Pressure 102/60 112/56 L Pulse Oximetry 97 97 03/08/18 20:00 03/09/18 00:00 03/09/18 08:00 Temperature 99.5 F 98.6 F 99.1 F Pulse Rate 56 L 60 56 L Respiratory Rate 20 18 17 Blood Pressure 117/57 L 121/57 L 109/53 L Pulse Oximetry 96 96 03/09/18 09:42 Temperature Pulse Rate Respiratory Rate 18 Blood Pressure Pulse Oximetry Intake & Output 03/08/18 03/09/18 03/09/18 18:59 06:59 18:59 Intake Total 900 / 900 780 / 780 0 / 0 Output Total 300 / 300 Balance 600 / 600 780 / 780 0 / 0 Weight 68 kg Intake: IV 100 / 100 300 / 300 0 / 0 Protonix Inj 80 MG In NS Inj 100 / 100 100 / 100 100 ML @ 10 mls/hr IV.CONT CONT MARIUM Rx#:[id number] NS Inj 1,000 ML @ 100 mls/hr IV 0 / 0 .CONT .Q10H MARIUM Rx#:[id number] Azactam Inj 1,000 MG In NS Inj 200 / 200 100 ML @ 200 mls/hr IV.SIG Q8H MARIUM Rx#:[id number] Oral 0 / 0 480 / 480 Other 0 / 0 Rbc As-3 Leukoreduced Unit 0 / 0 [id number] Rbc As-3 Leukoreduced Unit 0 / 0 [id number] Intake (Blood Product) Amt 800 / 800 Rbc As-3 Leukoreduced Unit 400 / 400 [id number] Rbc As-3 Leukoreduced Unit 400 / 400 [id number] Output: Urine 300 / 300 Other: # Voids 2 5 # Bowel Movements 0 5 Narrative: GENERAL: Well-developed, well-nourished, in no acute distress. alert and orientated HEENT: Head is normocephalic without any lesions or masses noted. Facial features are symmetric. Eyes: Extraocular muscles are intact. Conjunctivae were clear. NECK: Supple without any masses. Trachea midline no deviation. No JVD, CARDIAC: Regular rhythm, regular rate. S1/S2 are heard. No murmurs gallops or rubs. LUNGS: Clear to auscultation bilaterally. No wheeze, rhonchi or rales. No use of accessory muscles on inspiration or expiration. ABDOMEN: Soft, right upper quadrant tenderness on palpation. Nondistended. Bowel sounds heard in all 4 quadrants. No organomegaly or masses. Negative rebound, negative guarding EXTREMITIES: No edema, pulses are equal bilaterally. No cyanosis or clubbing NEUROLOGY: Mood and affect appear appropriate. Cranial nerves II through XII grossly intact. Moving all extremities, speech is clear Results - Labs CBC & Chem 7: 03/09/18 05:27 03/09/18 05:27 Laboratory Results - last 24 hr 03/08/18 03/08/18 03/08/18 02:45 02:52 17:01 CBC w Diff WBC RBC Hgb Hct MCV MCH MCHC RDW Plt Count MPV Neut % (Auto) Lymph % (Auto) [place] % (Auto) Eos % (Auto) Baso % (Auto) Neut # (Auto) Lymph # (Auto) [place] # (Auto) Eos # (Auto) Baso # (Auto) WBC Differential Diff Scan Platelet Estimate Platelet Morphology Tear Drop Cells Ovalocytes Keratocytes Sodium Potassium Chloride Carbon Dioxide Anion Gap BUN Creatinine Estimated GFR POC Glucose 92 Random Glucose Lactic Acid Calcium Total Bilirubin AST ALT Alkaline Phosphatase Total Protein Albumin Lipase Vitamin B12 Folate Urine Color Yellow Urine Clarity Cloudy H Urine pH 6.0 Ur Specific [place] 1.020 Urine Protein Negative Urine Glucose (UA) Negative Urine Ketones Negative Urine Occult Blood Trace Urine Nitrate Negative Urine Bilirubin Negative Urine Urobilinogen 0.2 Ur Leukocyte Esterase Moderate H Urine RBC 4-15 H Urine WBC 51-189 H Ur Squamous Epith Cells 0-5 Urine Bacteria Many H Micro UA Comment Culture indicated Urine Culture Comments Culture indicated Blood Type O Positive Blood Type Recheck Not needed Antibody Screen Negative MTS Gel Crossmatch See Detail 03/08/18 03/08/18 03/08/18 19:30 19:30 19:30 CBC w Diff Slide review pending WBC 9.4 RBC 4.31 Hgb 9.2 L D Hct 30.2 L MCV 70.1 L D MCH 21.3 L MCHC 30.4 L RDW 20.2 H D Plt Count 234 MPV 9.6 Neut % (Auto) 52.7 Lymph % (Auto) 26.0 [place] % (Auto) 18.2 H Eos % (Auto) 0.8 Baso % (Auto) 2.3 H Neut # (Auto) 4.9 Lymph # (Auto) 2.5 [place] # (Auto) 1.7 H Eos # (Auto) 0.1 Baso # (Auto) 0.2 WBC Differential . Diff Scan Auto diff confirmed Platelet Estimate Platelet Morphology Tear Drop Cells Ovalocytes Keratocytes Sodium Potassium Chloride Carbon Dioxide Anion Gap BUN Creatinine Estimated GFR POC Glucose Random Glucose Lactic Acid 1.0 Calcium Total Bilirubin AST ALT Alkaline Phosphatase Total Protein Albumin Lipase 163 Vitamin B12 938 Folate 14.9 Urine Color Urine Clarity Urine pH Ur Specific [place] Urine Protein Urine Glucose (UA) Urine Ketones Urine Occult Blood Urine Nitrate Urine Bilirubin Urine Urobilinogen Ur Leukocyte Esterase Urine RBC Urine WBC Ur Squamous Epith Cells Urine Bacteria Micro UA Comment Urine Culture Comments Blood Type Blood Type Recheck Antibody Screen MTS Gel Crossmatch 03/08/18 03/09/18 03/09/18 21:09 05:27 05:27 CBC w Diff Slide review pending WBC 8.3 RBC 4.09 Hgb 8.3 L Hct 28.8 L MCV 70.5 L MCH 20.4 L MCHC 28.9 L RDW 20.5 H Plt Count 199 MPV 9.3 Neut % (Auto) 52.9 Lymph % (Auto) 25.1 [place] % (Auto) 19.1 H Eos % (Auto) 1.1 Baso % (Auto) 1.8 Neut # (Auto) 4.4 Lymph # (Auto) 2.1 [place] # (Auto) 1.6 H Eos # (Auto) 0.1 Baso # (Auto) 0.1 WBC Differential . Diff Scan Auto diff confirmed Platelet Estimate Normal Platelet Morphology Normal Tear Drop Cells 1+ H Ovalocytes 1+ H Keratocytes Occ H Sodium 141 Potassium 4.8 Chloride 111 H D Carbon Dioxide 23.5 Anion Gap 7 BUN 22 H Creatinine 1.30 H Estimated GFR 41 L POC Glucose 88 Random Glucose 82 Lactic Acid Calcium 8.0 L Total Bilirubin 0.6 AST 30 ALT 27 Alkaline Phosphatase 53 Total Protein 6.3 L D Albumin 2.8 L Lipase Vitamin B12 Folate Urine Color Urine Clarity Urine pH Ur Specific [place] Urine Protein Urine Glucose (UA) Urine Ketones Urine Occult Blood Urine Nitrate Urine Bilirubin Urine Urobilinogen Ur Leukocyte Esterase Urine RBC Urine WBC Ur Squamous Epith Cells Urine Bacteria Micro UA Comment Urine Culture Comments Blood Type Blood Type Recheck Antibody Screen MTS Gel Crossmatch 03/09/18 03/09/18 07:43 11:34 CBC w Diff WBC RBC Hgb Hct MCV MCH MCHC RDW Plt Count MPV Neut % (Auto) Lymph % (Auto) [place] % (Auto) Eos % (Auto) Baso % (Auto) Neut # (Auto) Lymph # (Auto) [place] # (Auto) Eos # (Auto) Baso # (Auto) WBC Differential Diff Scan Platelet Estimate Platelet Morphology Tear Drop Cells Ovalocytes Keratocytes Sodium Potassium Chloride Carbon Dioxide Anion Gap BUN Creatinine Estimated GFR POC Glucose 94 97 Random Glucose Lactic Acid Calcium Total Bilirubin AST ALT Alkaline Phosphatase Total Protein Albumin Lipase Vitamin B12 Folate Urine Color Urine Clarity Urine pH Ur Specific [place] Urine Protein Urine Glucose (UA) Urine Ketones Urine Occult Blood Urine Nitrate Urine Bilirubin Urine Urobilinogen Ur Leukocyte Esterase Urine RBC Urine WBC Ur Squamous Epith Cells Urine Bacteria Micro UA Comment Urine Culture Comments Blood Type Blood Type Recheck Antibody Screen MTS Gel Crossmatch Microbiology 03/08/18 02:52 Clean Catch Urine Urine Culture - Preliminary gram negative rods 03/08/18 19:37 Blood - Peripheral Aerobic Blood Culture - Preliminary No growth in 1 day 03/08/18 19:37 Blood - Peripheral Anaerobic Blood Culture - Preliminary No growth in 1 day 03/08/18 19:37 Blood - Peripheral Aerobic Blood Culture - Preliminary No growth in 1 day 03/08/18 19:37 Blood - Peripheral Anaerobic Blood Culture - Preliminary No growth in 1 day - Imaging Impressions Abdomen Ultrasound 03/09/18 00:00 CONCLUSION: 1. Cholelithiasis without definitive sonographic evidence for acute cholecystitis. 2. Common bile duct is distended measuring up to 10 mm. No definite stone or intraluminal abnormality in the visualized portions of the common bile duct. MRCP examination may be performed for further evaluation as clinically warranted. Assessment and Plan - Assessment (1) Upper GI bleed Code(s): K92.2 - Gastrointestinal hemorrhage, unspecified Status: Acute (2) Dehydration Code(s): E86.0 - Dehydration Status: Acute (3) Sepsis Code(s): A41.9 - Sepsis, unspecified organism Status: Acute - Plan Severe Sepsis, resolved -Patient met criteria on admission with leukocytosis, tachycardia, urinary tract infection, acute kidney injury -Patient started on Azactam due to allergy to fluoroquinolones and cephalosporins -Blood cultures negative for 1 day -Influenza testing was negative -Urine culture with gram-negative rods, await final report for appropriate antibiotics Abdominal pain -Unknown etiology at this time -Ultrasound of the abdomen does show cholelithiasis without definitive sonographic evidence of acute cholecystitis. Common bile duct is distended measuring up to 10 mm no definite stone or intraluminal abnormality is visualized in the common bile duct. MRCP examination may be performed for further evaluation. -Obtain MRCP -Laboratory studies do not indicate any obstructive process at this time Acute anemia complicated by possible upper GI bleed, heme positive stool, and chronic microcytic anemia -Status post 2 units packed red blood cell transfusion -Protonix IV -Anemia studies indicating iron deficiency, patient may be put on replacement therapy p.o. versus IV -Gastroenterology has been consulted for further recommendations, plans for endoscopy today Acute renal failure superimposed on chronic kidney disease stage III -Continue IV fluids -Monitor renal function -Avoid nephrotoxins Type 2 diabetes mellitus, chronic: -Accu-Cheks with sliding scale insulin -We will need to resume diabetic diet Hypertension, chronic: -Continue to hold patient's home medications due to low blood pressure Chronic pain -Patient continue on home methadone DVT prevention -Sequential compression devices -Avoid chemical prophylaxis secondary to possible GI bleed Discharge Planning: Discharge planning 2448 hrs. depending on patient's response to treatment, pending cultures
--- NOTE | 2018-03-09 18:20 | P.PNGI ---
Subjective Interval history: Patient resting comfortably in the bed. Denies any active symptoms. No history of hematemesis or melena hematochezia in the last 24 hours. She also has no abdominal pain nausea or vomiting. She was scheduled for EGD and colonoscopy today. It could not be done because of scheduling issue.. Physical Exam Vital signs: Vital Signs 03/08/18 18:18 03/08/18 20:00 03/09/18 00:00 Temperature 99.5 F 98.6 F Pulse Rate 56 L 60 Respiratory Rate 18 20 18 Blood Pressure 117/57 L 121/57 L Pulse Oximetry 96 03/09/18 08:00 03/09/18 09:42 03/09/18 12:00 Temperature 99.1 F 98.4 F Pulse Rate 56 L 61 Respiratory Rate 17 18 18 Blood Pressure 109/53 L 119/59 L Pulse Oximetry 96 92 L 03/09/18 16:00 Temperature 98.5 F Pulse Rate 79 Respiratory Rate 17 Blood Pressure 145/61 H Pulse Oximetry 93 L Intake & Output 03/08/18 03/09/18 03/09/18 18:59 06:59 18:59 Intake Total 900 / 900 780 / 780 0 / 0 Output Total 300 / 300 Balance 600 / 600 780 / 780 0 / 0 Weight 68 kg Intake: IV 100 / 100 300 / 300 0 / 0 Protonix Inj 80 MG In NS Inj 100 / 100 100 / 100 100 ML @ 10 mls/hr IV.CONT CONT MARIUM Rx#:[id number] NS Inj 1,000 ML @ 100 mls/hr IV 0 / 0 .CONT .Q10H MARIUM Rx#:[id number] Azactam Inj 1,000 MG In NS Inj 200 / 200 100 ML @ 200 mls/hr IV.SIG Q8H MARIUM Rx#:[id number] Oral 0 / 0 480 / 480 Other 0 / 0 Rbc As-3 Leukoreduced Unit 0 / 0 [id number] Rbc As-3 Leukoreduced Unit 0 / 0 [id number] Intake (Blood Product) Amt 800 / 800 Rbc As-3 Leukoreduced Unit 400 / 400 [id number] Rbc As-3 Leukoreduced Unit 400 / 400 [id number] Output: Urine 300 / 300 Other: # Voids 2 5 # Bowel Movements 0 5 - Routine Cardiovascular Exam Present: murmur - Routine Abdominal Exam Present: soft, tenderness Results - Labs CBC & Chem 7: 03/09/18 05:27 03/09/18 05:27 Laboratory Results - last 24 hr 03/08/18 03/08/18 03/08/18 02:45 02:52 19:30 CBC w Diff WBC RBC Hgb Hct MCV MCH MCHC RDW Plt Count MPV Neut % (Auto) Lymph % (Auto) [place] % (Auto) Eos % (Auto) Baso % (Auto) Neut # (Auto) Lymph # (Auto) [place] # (Auto) Eos # (Auto) Baso # (Auto) WBC Differential Diff Scan Platelet Estimate Platelet Morphology Tear Drop Cells Ovalocytes Keratocytes Sodium Potassium Chloride Carbon Dioxide Anion Gap BUN Creatinine Estimated GFR POC Glucose Random Glucose Lactic Acid 1.0 Calcium Total Bilirubin AST ALT Alkaline Phosphatase Total Protein Albumin Lipase Vitamin B12 Folate Urine Color Yellow Urine Clarity Cloudy H Urine pH 6.0 Ur Specific [place] 1.020 Urine Protein Negative Urine Glucose (UA) Negative Urine Ketones Negative Urine Occult Blood Trace Urine Nitrate Negative Urine Bilirubin Negative Urine Urobilinogen 0.2 Ur Leukocyte Esterase Moderate H Urine RBC 4-15 H Urine WBC 51-189 H Ur Squamous Epith Cells 0-5 Urine Bacteria Many H Micro UA Comment Culture indicated Urine Culture Comments Culture indicated MTS Gel Crossmatch See Detail 03/08/18 03/08/18 03/08/18 19:30 19:30 21:09 CBC w Diff Slide review pending WBC 9.4 RBC 4.31 Hgb 9.2 L D Hct 30.2 L MCV 70.1 L D MCH 21.3 L MCHC 30.4 L RDW 20.2 H D Plt Count 234 MPV 9.6 Neut % (Auto) 52.7 Lymph % (Auto) 26.0 [place] % (Auto) 18.2 H Eos % (Auto) 0.8 Baso % (Auto) 2.3 H Neut # (Auto) 4.9 Lymph # (Auto) 2.5 [place] # (Auto) 1.7 H Eos # (Auto) 0.1 Baso # (Auto) 0.2 WBC Differential . Diff Scan Auto diff confirmed Platelet Estimate Platelet Morphology Tear Drop Cells Ovalocytes Keratocytes Sodium Potassium Chloride Carbon Dioxide Anion Gap BUN Creatinine Estimated GFR POC Glucose 88 Random Glucose Lactic Acid Calcium Total Bilirubin AST ALT Alkaline Phosphatase Total Protein Albumin Lipase 163 Vitamin B12 938 Folate 14.9 Urine Color Urine Clarity Urine pH Ur Specific [place] Urine Protein Urine Glucose (UA) Urine Ketones Urine Occult Blood Urine Nitrate Urine Bilirubin Urine Urobilinogen Ur Leukocyte Esterase Urine RBC Urine WBC Ur Squamous Epith Cells Urine Bacteria Micro UA Comment Urine Culture Comments MTS Gel Crossmatch 03/09/18 03/09/18 03/09/18 05:27 05:27 07:43 CBC w Diff Slide review pending WBC 8.3 RBC 4.09 Hgb 8.3 L Hct 28.8 L MCV 70.5 L MCH 20.4 L MCHC 28.9 L RDW 20.5 H Plt Count 199 MPV 9.3 Neut % (Auto) 52.9 Lymph % (Auto) 25.1 [place] % (Auto) 19.1 H Eos % (Auto) 1.1 Baso % (Auto) 1.8 Neut # (Auto) 4.4 Lymph # (Auto) 2.1 [place] # (Auto) 1.6 H Eos # (Auto) 0.1 Baso # (Auto) 0.1 WBC Differential . Diff Scan Auto diff confirmed Platelet Estimate Normal Platelet Morphology Normal Tear Drop Cells 1+ H Ovalocytes 1+ H Keratocytes Occ H Sodium 141 Potassium 4.8 Chloride 111 H D Carbon Dioxide 23.5 Anion Gap 7 BUN 22 H Creatinine 1.30 H Estimated GFR 41 L POC Glucose 94 Random Glucose 82 Lactic Acid Calcium 8.0 L Total Bilirubin 0.6 AST 30 ALT 27 Alkaline Phosphatase 53 Total Protein 6.3 L D Albumin 2.8 L Lipase Vitamin B12 Folate Urine Color Urine Clarity Urine pH Ur Specific [place] Urine Protein Urine Glucose (UA) Urine Ketones Urine Occult Blood Urine Nitrate Urine Bilirubin Urine Urobilinogen Ur Leukocyte Esterase Urine RBC Urine WBC Ur Squamous Epith Cells Urine Bacteria Micro UA Comment Urine Culture Comments [facility] Gel Crossmatch 03/09/18 03/09/18 11:34 16:50 CBC w Diff WBC RBC Hgb Hct MCV MCH MCHC RDW Plt Count MPV Neut % (Auto) Lymph % (Auto) [place] % (Auto) Eos % (Auto) Baso % (Auto) Neut # (Auto) Lymph # (Auto) [place] # (Auto) Eos # (Auto) Baso # (Auto) WBC Differential Diff Scan Platelet Estimate Platelet Morphology Tear Drop Cells Ovalocytes Keratocytes Sodium Potassium Chloride Carbon Dioxide Anion Gap BUN Creatinine Estimated GFR POC Glucose 97 83 Random Glucose Lactic Acid Calcium Total Bilirubin AST ALT Alkaline Phosphatase Total Protein Albumin Lipase Vitamin B12 Folate Urine Color Urine Clarity Urine pH Ur Specific [place] Urine Protein Urine Glucose (UA) Urine Ketones Urine Occult Blood Urine Nitrate Urine Bilirubin Urine Urobilinogen Ur Leukocyte Esterase Urine RBC Urine WBC Ur Squamous Epith Cells Urine Bacteria Micro UA Comment Urine Culture Comments MTS Gel Crossmatch Microbiology 03/08/18 02:52 Clean Catch Urine Urine Culture - Preliminary gram negative rods 03/08/18 19:37 Blood - Peripheral Aerobic Blood Culture - Preliminary No growth in 1 day 03/08/18 19:37 Blood - Peripheral Anaerobic Blood Culture - Preliminary No growth in 1 day 03/08/18 19:37 Blood - Peripheral Aerobic Blood Culture - Preliminary No growth in 1 day 03/08/18 19:37 Blood - Peripheral Anaerobic Blood Culture - Preliminary No growth in 1 day - Imaging Impressions Abdomen Ultrasound 03/09/18 00:00 CONCLUSION: 1. Cholelithiasis without definitive sonographic evidence for acute cholecystitis. 2. Common bile duct is distended measuring up to 10 mm. No definite stone or intraluminal abnormality in the visualized portions of the common bile duct. MRCP examination may be performed for further evaluation as clinically warranted. Assessment and Plan (1) Colon polyp, hyperplastic Status: Acute Code(s): K63.5 - Polyp of colon (2) Colon polyp Status: Acute Code(s): K63.5 - Polyp of colon (3) Urinary tract infection Status: Acute Code(s): N39.0 - Urinary tract infection, site not specified (4) Upper GI bleed Status: Acute Code(s): K92.2 - Gastrointestinal hemorrhage, unspecified (5) Sepsis Status: Acute Code(s): A41.9 - Sepsis, unspecified organism (6) Acute GI bleeding Status: Acute Code(s): K92.2 - Gastrointestinal hemorrhage, unspecified (7) Anemia Status: Acute Code(s): D64.9 - Anemia, unspecified - Plan 1. Continue supportive treatment 2. Continue IV Protonix 3. Monitor hemoglobin levels twice a day 4. Attempt would be made to do EGD and colonoscopy in the a.m. by . Patient to continue on p.o. liquids until midnight and n.p.o. after that (2) Colon polyp Qualifiers: Colon polyp type: adenomatous (7) Anemia Qualifiers: Anemia type: iron deficiency Iron deficiency anemia type: chronic blood loss Qualified Code(s): D50.0 - Iron deficiency anemia secondary to blood loss ( chronic)
[2018-03-10] MEDS: Insulin NovoLOG Aspart Correctional Sugar Inj SQ SCH ×4 (04:04→17:00)
[2018-03-10] MEDS: Senna/Docusate Sodium 8.6/50 MG Tablet PO SCH ×2 (04:04→11:53)
[2018-03-10 07:07] LABS: Baso % (Auto) 0.3 % (0.0-2.0); Eos # (Auto) 0.1 th/mm3 (0.0-0.4); Eos % (Auto) 1.9 % (0.0-4.0); Hematocrit 27.9 % (35.0-46.0); Hemoglobin 8.8 gm/dL (11.6-15.3); Lymph # (Auto) 1.5 th/mm3 (1.0-4.8); Lymph % (Auto) 23.1 % (9.0-44.0); Mean Corpuscular HGB Conc 31.5 % (32.0-36.0); Mean Corpuscular Hemoglobin 21.8 pg (27.0-34.0); Mean Corpuscular Volume 69.1 fL (80.0-100.0); Mean Platelet Volume 9.3 fL (7.0-11.0); Mono # (Auto) 1.1 th/mm3 (0.0-0.9); Mono % (Auto) 17.8 % (0.0-8.0); Neut # (Auto) 3.7 th/mm3 (1.8-7.7); Neut % (Auto) 56.9 % (16.0-70.0); Platelet Count 198 th/mm3 (150-450); Red Blood Count 4.03 mil/mm3 (4.00-5.30); Red Cell Distribution Width 21.4 % (11.6-17.2); White Blood Count 6.4 th/mm3 (4.0-11.0)
[2018-03-10 07:12] LABS: Potassium 4.6 meq/L (3.5-5.1)
[2018-03-10 07:15] LABS: Calcium 8.1 mg/dL (8.5-10.1)
[2018-03-10 07:16] LABS: Carbon Dioxide 21.9 meq/L (21.0-32.0)
[2018-03-10 07:49] LABS: Ovalocytes 1+; Target Cells 1+
[2018-03-10] MEDS ORDERED: Chlorhexidine Gluconate 2% 1 Pack (2 Cloths) TOPICAL SCH (09:15)
[2018-03-10] MEDS ORDERED: Metoprolol Tartrate 25 MG Tablet PO SCH (09:15)
--- NOTE | 2018-03-10 09:41 | GIPROC ---
[facility] [address] [facility], [address] EGD WITH DILATION PROCEDURE REPORT EXAM DATE: 03/10/2018 PATIENT NAME: Luli Akers MR#: [id number] BIRTHDATE: 1955 ATTENDING: Johana Barahona MD ORDER #: [id number] ECONOMIC DEVELOPMENT SPECIALIST: Wolf Prather STATUS: inpatient INDICATIONS: The patient is a 62 yr old female here for an EGD with dilation due to dysphagia anemia PROCEDURE PERFORMED: EGD w/ biopsy EGD w/ dilation of esophagus via guidewire MEDICATIONS: None and Per Anesthesia. TOPICAL ANESTHETIC: none CONSENT: The patient understands the risks and benefits of the procedure and understands that these risks include, but are not limited to: sedation, allergic reaction, infection, perforation and/or bleeding. Alternative means of evaluation and treatment include, among others: physical exam, x-rays, and/or surgical intervention. The patient elects to proceed with this endoscopic procedure. medical equipment was checked for proper function. Hand hygiene and appropriate measures for infection prevention was taken. After the risks, benefits and alternatives of the procedure were thoroughly explained, Informed consent was verified, confirmed and timeout was successfully executed by the treatment team. The patient was anesthetized with topical anesthesia and the EC-[id number] (Pedi C) endoscope was introduced through the mouth and advanced to the second portion of the duodenum. The instrument was slowly withdrawn as the mucosa was fully examined. Duodenum normal-biopsy gastritis antrum-biopsy Schatzki's ring-biopsy. Dilation was performed at gastroesophageal junction. DILATOR: SIZE(S): RESISTANCE: HEME: APPEARANCE: Dilator: Savary over guidewire Size(s): 14,15 COMMENT: Retroflexed views revealed a hiatal hernia ADVERSE EVENTS: There were no complications. IMPRESSIONS: 1. Duodenum normal-biopsy gastritis antrum-biopsy Schatzki's ring-biopsy 2. Retroflexed views revealed a hiatal hernia RECOMMENDATIONS: 1. Await biopsy results. Biopsy results will not be ready for 7-10 days. If you don't hear from us in two weeks, call our office for biopsy results. 2. Admit to hospital 3. Continue PPI 4. Avoid NSAIDS REPEAT EXAM: Return 1 year EGD Johana Barahona MD eSigned: Johana Barahona MD 03/10/2018 9:41 AM cc: PATIENT NAME: Delphine Luli Reardon MR#: [id number]
--- NOTE | 2018-03-10 09:43 | GIPROC ---
[facility] [address] [place] [address], [id number] COLONOSCOPY PROCEDURE REPORT EXAM DATE: 03/10/2018 PATIENT NAME: Luli Akers MR #: [id number] BIRTHDATE: 1955 ENDOSCOPIST: Johana Barahona MD ORDER #: [id number] PNEUMATIC TUBE REPAIRER: Wolf Prather STATUS: inpatient INDICATIONS: The patient is a 62 yr old female here for a colonoscopy due to anemia PROCEDURE PERFORMED: Colonoscopy, diagnostic MEDICATIONS: None and Per Anesthesia. PREP QUALITY: fair PREP TYPE:Other: ESTIMATED BLOOD LOSS: None CONSENT: The patient understands the risks and benefits of the procedure and understands that these risks include, but are not limited to: sedation, allergic reaction, infection, perforation and/or bleeding. Alternative means of evaluation and treatment include, among others: physical exam, x-rays, and/or surgical intervention. The patient elects to proceed with this endoscopic procedure. medical equipment was checked for proper function. Hand hygiene and appropriate measures for infection prevention was taken. After the risks, benefits and alternatives of the procedure were thoroughly explained, Informed consent was verified, confirmed and timeout was successfully executed by the treatment team. A digital exam revealed external hemorrhoids The Pentax EC-[id number] endoscope was introduced through the anus and advanced to the cecum, which was identified by both the appendix and ileocecal valve. The instrument was then slowly withdrawn as the colon was fully examined. COLON FINDINGS: The colonic mucosa appeared normal. Retroflexed views revealed internal hemorrhoids and Retroflexed views revealed small internal hemorrhoids The scope was then completely withdrawn from the patient and the procedure terminated. PROCEDURE WITHDRAWAL TIME:6minutes ADVERSE EVENTS: There were no complications. IMPRESSIONS: 1. The colonic mucosa appeared normal 2. Retroflexed views revealed internal hemorrhoids 3. Retroflexed views revealed small internal hemorrhoids 4. Revealed external hemorrhoids RECOMMENDATIONS: 1. Benefiber 2 tsp daily 2. Probiotics from any C or health food store 3. Yearly rectal exams RECALL: Return 1 year Colonoscopy Johana Barahona MD eSigned: Johana Barahona MD 03/10/2018 9:42 AM cc:
[2018-03-10] MEDS ORDERED: Sodium Chlor 0.9% Inj 500 ML IV.SIG SCH (10:00)
[2018-03-10] MEDS ORDERED: Diatrizoate Meglum/Diatrizoate Sod Liq 9 ML UDC PO SCH (10:30)
[2018-03-10] MEDS ORDERED: Sincalide Inj 5 MCG Vial IV.PUSH ONE (10:59)
[2018-03-10] MEDS: Methadone 10 MG Tablet PO SCH (11:53)
[2018-03-10] MEDS: Sod Chloride 0.9% Inj 1,000 ML IV.CONT SCH (11:57)
--- NOTE | 2018-03-10 12:49 | NM ---
EXAM DATE: 03/10/2018 11:53 AM EDT AGE/SEX: 62 years / Female INDICATIONS: Abdominal pain with nausea, vomiting, fever and weakness for three days. CLINICAL DATA: This is the patient's initial encounter. Patient reports that signs and symptoms have been present for 3 days and indicates a pain score of 6/10. MEDICAL/SURGICAL HISTORY: Diabetes mellitus type II. Hypertension. Chronic obstructive pulmon enriqueta disease. Hysterectomy. Appendectomy. Tonsillectomy. Pacemaker and breast augmentation. COMPARISON: No prior exams available for comparison. DOSE: 4.1 mCi Tc-99m mebrofenin i.v. Medication: 1.4 mcg Cholecystokinin IV No symptomatic response Cholecystokinin was administered by slow infusion over 8 minutes beginning at 60 minutes. TECHNIQUE: Following the intravenous administration of radiotracer, dynamic sequential images were pe rformed with continuous acquisition. Time-activity curves were generated. FINDINGS: Hepatic Kinetics: There is prompt uptake of radiotracer in the liver. No focal defects are seen. Ther e is normal rate of washout from the hepatic parenchyma. Biliary Clearance: Activity is first seen in the extrahepatic biliary system at 15 minutes. There is normal excretion into the small bowel. Gallbladder: Activity is first seen in the gallbladder at 30 minutes. Post-CCK: After CCK administration, there is emptying of the gallbladder with a 60% ejection fraction . Common bile duct kinetics are normal and there is no evidence of biliary obstruction. No symptomat ic response after cholecystokinin infusion. Biliary-Enteric Reflux: None observed. CONCLUSION: 1. Normal uptake in the gallbladder. Electronically signed by: Rasheed Bledsoe MD 03/10/2018 12:47 PM EDT
[2018-03-10] MEDS ORDERED: Ferrous Sulfate 325 MG Tablet PO SCH (13:00)
[2018-03-10] MEDS: Nitrofurantoin Monohydrate-Macrocrystal 100 MG Capsule PO SCH ×2 (13:10→18:30)
--- NOTE | 2018-03-10 17:04 | P.DS ---
Date of admission: 03/08/18 02:12 Primary care physician: No Primary Care Physician Attending physician on discharge: Carlos Real Brief History from admission: This is a 62-year-old female patient with a known medical history of hypertension, diabetes who presented to the ED with complaints of generalized malaise, generalized weakness, fever, nausea, vomiting and diarrhea. Patient states that her symptoms started roughly 2 weeks ago. She was seen in the emergency room, neck formed which was negative for any acute pathology, patient was given a breathing treatment as well as prednisone and discharged home with prescription for Bactrim as well as albuterol treatment. Patient states that her symptoms continued to worsen, with intermittent fevers up to 101.1 at home. Patient states she was taking Tylenol for the fever. She does also admit to having a bowel movement yesterday which was black in color. She denies any bright red blood in her stool. She does state that she is to get iron infusions years ago although has not been getting them for many years now. She has not been taking any iron supplementation. She does admit to a history of malabsorption syndrome. Her last colonoscopy was reportedly 2 years ago which was negative. As well as an EGD that was done 4 years ago with findings of ulcers. Patient did previously follow with Dr. Carter, seen last year, she reports that he wanted her to have a swallow capsule study done for bleeding although she did not have this performed due to lack of financial resources. Patient states she does have a history of esophageal dilation this was done 2 years ago back in [place], [place]. Patient presented to the hospital with a hemoglobin of 6.6. She also has a creatinine of 2.4. Patient denies any history of chronic kidney disease. Denies any dysuria or abdominal pain. Does follow with Dr. Patterson, cardiology for management of her hypertension and AICD. DS: Diagnosis - Discharge Diagnosis (1) Upper GI bleed Status: Acute (2) Dehydration Status: Acute (3) Sepsis Status: Acute DS: Medications - Discharge Medications Prescriptions: ferrous sulfate [FeroSul] 325 mg PO BID 30 Days #60 tab nitrofurantoin monohyd/m-cryst 100 mg PO BIDPC 7 Days cap ondansetron 4 mg PO Q6H PRN #14 tab PRN Reason: Nausea pantoprazole 40 mg PO DAILY 30 Days #30 tab DS: Summary Hospital Course: 62-year-old female who originally presented the hospital because of general malaise, weakness, fever, nausea, vomiting, diarrhea. Patient states that her symptoms started 2 weeks prior to coming to the emergency department. Patient had workup done and found to have acute iron deficient anemia. Patient states that in the past she used to have iron infusions due to possible GI malabsorption. Patient's hemoglobin 6.6 upon presentation and she was given 2 units of packed red blood cells with significant improvement of her hemoglobin to 9.2. Hemoglobin was trended during her stay in the hospital which remained stable. ER physician did do a rectal examination and Hemoccult was positive. GI was consulted because of heme positive stool and acute anemia. Patient did undergo endoscopy which did not indicate any acute abnormality or any active bleeding. Patient did have significant abdominal pain with nausea, vomiting, diarrhea. Ultrasound was done of the abdomen which did show dilated common bile duct and recommended MRCP, however patient unable to have MRCP performed and a HIDA scan was done which was completely normal. GI also ordered a CT scan of the abdomen which was unremarkable as well. Patient did not require any further pain control except for her home pain medications. Patient was found to have urinary tract infection with Klebsiella pneumonia. She initially was started on exact hand due to allergies to cephalosporins and fluoroquinolones. Sensitivities were reviewed and urine tract infection is sensitive to Macrobid. We will continue that for another 7 days. Patient clinically stable this time, pain is controlled. GI indicated patient is clinically stable for discharge. We will plan discharge accordingly. - Time Spent with Patient Total time spent providing and/or coordinating discharge services: - Quality: VTE Deep Vein Thrombosis/Pulmonary Embolism Present on Admission: No Exam Vital signs: Vital Signs 03/09/18 19:50 03/09/18 20:00 03/10/18 00:00 Temperature 96.8 F L 98.1 F Pulse Rate 56 L 66 58 L Respiratory Rate 18 20 20 Blood Pressure 135/64 115/59 L Pulse Oximetry 97 97 03/10/18 04:00 03/10/18 08:05 03/10/18 08:08 Temperature 98.6 F Pulse Rate 55 L 50 L Respiratory Rate 20 16 Blood Pressure 132/61 Pulse Oximetry 96 95 95 03/10/18 08:15 03/10/18 08:39 03/10/18 09:04 Temperature 98.2 F 98.1 F 97.8 F Pulse Rate 61 66 79 Respiratory Rate 18 20 Blood Pressure 119/89 132/60 98/46 L Pulse Oximetry 95 99 03/10/18 09:09 03/10/18 09:14 03/10/18 09:35 Temperature Pulse Rate 77 62 Respiratory Rate 16 16 Blood Pressure 103/48 L 100/46 L 120/66 Pulse Oximetry 96 03/10/18 12:43 Temperature 97.2 F L Pulse Rate 66 Respiratory Rate 19 Blood Pressure 151/69 H Pulse Oximetry 98 Intake & Output 03/09/18 03/10/18 03/10/18 18:59 06:59 18:59 Intake Total 400 / 400 1200 / 1200 2800 / 2800 Balance 400 / 400 1200 / 1200 2800 / 2800 Weight 68 kg Intake: IV 100 / 100 1200 / 1200 2800 / 2800 Protonix Inj 80 MG In NS Inj 100 / 100 100 ML @ 10 mls/hr IV.CONT Q10H [facility] Rx#:[id number] NS Inj 1,000 ML @ 100 mls/hr IV 0 / 0 1000 / 1000 1000 / 1000 .CONT .Q10H [facility] Rx#:[id number] Azactam Inj 1,000 MG In NS Inj 100 / 100 100 / 100 200 / 200 100 ML @ 200 mls/hr IV.SIG Q8H [facility] Rx#:[id number] LR 1000 mL Inj 1,000 ML @ 30 250 / 250 mls/hr IV.SIG .Q24H [facility] Rx#: [id number] Oral 300 / 300 0 / 0 Other: # Voids 4 Date of Last Bowel Movement 03/08/18 # Bowel Movements 1 Narrative: GENERAL: Well-developed, well-nourished, in no acute distress. alert and orientated HEENT: Head is normocephalic without any lesions or masses noted. Facial features are symmetric. Eyes: Extraocular muscles are intact. Conjunctivae were clear. NECK: Supple without any masses. Trachea midline no deviation. No JVD, CARDIAC: Regular rhythm, regular rate. S1/S2 are heard. No murmurs gallops or rubs. LUNGS: Clear to auscultation bilaterally. No wheeze, rhonchi or rales. No use of accessory muscles on inspiration or expiration. ABDOMEN: Soft, nontender. Nondistended. Bowel sounds heard in all 4 quadrants. No organomegaly or masses. Negative rebound, negative guarding EXTREMITIES: No edema, pulses are equal bilaterally. No cyanosis or clubbing NEUROLOGY: Mood and affect appear appropriate. Cranial nerves II through XII grossly intact. Moving all extremities, speech is clear Results Procedures completed during hospitalization: EGD 1. Duodenum normal-biopsy gastritis antrum-biopsy Schatzki's ring-biopsy 2. Retroflexed views revealed a hiatal hernia RECOMMENDATIONS: 1. Await biopsy results. Biopsy results will not be ready for 7-10 days. If you don't hear from us in two weeks, call our office for biopsy results. 2. Admit to hospital 3. Continue PPI 4. Avoid NSAIDS REPEAT EXAM: Return 1 year EGD COLONOSCOPY 1. The colonic mucosa appeared normal 2. Retroflexed views revealed internal hemorrhoids 3. Retroflexed views revealed small internal hemorrhoids 4. Revealed external hemorrhoids RECOMMENDATIONS: 1. Benefiber 2 tsp daily 2. Probiotics from any C or health food store 3. Yearly rectal exams RECALL: Return 1 year Colonoscopy Labs on day of discharge: Labs from last 24 hours 03/10/18 03/10/18 03/10/18 12:04 06:35 06:35 CBC w Diff Slide review pending WBC 6.4 RBC 4.03 Hgb 8.8 L Hct 27.9 L MCV 69.1 L MCH 21.8 L MCHC 31.5 L RDW 21.4 H Plt Count 198 MPV 9.3 Neut % (Auto) 56.9 Lymph % (Auto) 23.1 [place] % (Auto) 17.8 H Eos % (Auto) 1.9 Baso % (Auto) 0.3 Neut # (Auto) 3.7 Lymph # (Auto) 1.5 [place] # (Auto) 1.1 H Eos # (Auto) 0.1 Baso # (Auto) 0.0 WBC Differential . Diff Scan Auto diff confirmed Target Cells 1+ H Ovalocytes 1+ H Keratocytes Occ H Sodium 145 Potassium 4.6 Chloride 114 H Carbon Dioxide 21.9 Anion Gap 9 BUN 12 Creatinine 1.00 Estimated GFR 56 L POC Glucose 101 Random Glucose 78 Calcium 8.1 L 03/09/18 23:43 CBC w Diff WBC RBC Hgb Hct MCV MCH MCHC RDW Plt Count MPV Neut % (Auto) Lymph % (Auto) [place] % (Auto) Eos % (Auto) Baso % (Auto) Neut # (Auto) Lymph # (Auto) [place] # (Auto) Eos # (Auto) Baso # (Auto) WBC Differential Diff Scan Target Cells Ovalocytes Keratocytes Sodium Potassium Chloride Carbon Dioxide Anion Gap BUN Creatinine Estimated GFR POC Glucose 85 Random Glucose Calcium Preliminary micro results at discharge 03/08/18 19:37 Aerobic Blood Culture - Preliminary Blood - Peripheral No growth in 2 days Anaerobic Blood Culture - Preliminary No growth in 2 days 03/08/18 19:37 Aerobic Blood Culture - Preliminary Blood - Peripheral No growth in 2 days Anaerobic Blood Culture - Preliminary No growth in 2 days - Impressions ITS Impressions Chest X-Ray 03/08/18 00:42 CONCLUSION: No acute findings. Abdomen Ultrasound 03/09/18 00:00 CONCLUSION: 1. Cholelithiasis without definitive sonographic evidence for acute cholecystitis. 2. Common bile duct is distended measuring up to 10 mm. No definite stone or intraluminal abnormality in the visualized portions of the common bile duct. MRCP examination may be performed for further evaluation as clinically warranted. Abdomen/Pelvis CT 03/10/18 00:00 CONCLUSION: 1. No acute findings within the abdomen and pelvis. 2. Trace pleural effusions. Moderate-sized hiatal hernia. Pacer lead in right ventricle. Probable breast implant ruptures. Mild fatty liver. Bile Acid Absorption NM 03/10/18 00:00 CONCLUSION: 1. Normal uptake in the gallbladder. Discharge Plan - Discharge Disposition Patient Disposition: 01 Discharge Home - Discharge Condition Condition: Stable - Discharge Order Discharge Orders: Discharge Order (Routine); Ordered 03/10/18 Ordered By: Arturo Solis - Discharge Details Anticipated Discharge Date: 03/10/18 - Physicians Team Primary Care Provider: Primary Care Savanna Patino Attending Provider: Carlos Real Other Providers: Gume Casillas MD
--- NOTE | 2018-03-11 07:27 | ECG ---
Date Performed: 03/09/2018 Time Performed: 08:58:17 PTAGE: 62 years EKG: SINUS BRADYCARDIA BORDERLINE RIGHT AXIS DEVIATION LOW QRS VOLTAGE IN PRECORDIAL LEADS KERLINE BARNES ECG Compared to PREVIOUS TRACING AXIS HAS SHIFTED MORE RIGHTWARD PREVIOUS TRACIN10/16/2017 09.10 DOCTOR: Jamar Matias Interpretating Date/Time 03/11/2018 07:26:23
== END 2018-03-10 18:51 | disposition home or self-care (01) ==
LOC: PHED 22:12 → PHEDA 03-08 02:12 → PH3 03-08 04:15
PROVIDERS: ADMIT Internal Medicine; ATTEND Internal Medicine
PROC: COLONOS (2018-03-10 08:00)

== ENCOUNTER 2018-08-31 21:22 | Inpatient (IN) ==
--- NOTE | 2018-08-31 23:30 | ED ---
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 --thinks shocked 3 times) Onset (ago): hour(s) Duration of episode: 1 -: second(s) Description of event: Denies tonic-clonic movements, post-event confusion, focal shaking, incontinence, stopped breathing and CPR performed Prodromal symptoms: Reports none and AICD discharge; Denies headache, vision changes, lightheaded, chest pain, palpitations, heart racing, shortness of breath, diaphoresis, nausea/vomiting and vertigo Witnessed: yes - by bystander Context: Reports at rest Injuries sustained associated with event: Reports none Current symptoms: Reports back to baseline History: Reports AICD; Denies seizure disorder, previous syncopal episode, seizure disorder, history of CAD, pacemaker and family history of sudden Treatments prior to arrival: Reports none Related Data Home Medications Medication Instructions Recorded Confirmed albuterol sulfate [Ventolin HFA] 2 puff INHALATION Q4-6H PRN 03/07/18 08/31/18 amlodipine 10 mg PO DAILY 03/07/18 08/31/18 lisinopril 20 mg PO DAILY 03/07/18 08/31/18 metformin 500 mg PO DAILY 03/07/18 08/31/18 methadone 50 mg PO DAILY 03/07/18 08/31/18 Allergies Allergy/AdvReac Type Severity Reaction Status Date / Time cefaclor Allergy Severe HIVES, Verified 08/31/18 22:00 THROAT CLOSES prochlorperazine Allergy Severe THROAT Verified 08/31/18 22:00 CLOSES ciprofloxacin Allergy Intermediate nausea/vomi Verified 08/31/18 22:00 ting orphenadrine Allergy Intermediate PALPITATION Verified 08/31/18 22:00 S Review of Systems ROS: all other systems reviewed are negative [facility] Medical History Medical History COPD (chronic obstructive pulmonary disease) (Acute) Colon adenomas (Acute) Diabetes mellitus (Acute) History of hysterectomy (Acute) Hypertension (Acute) TMJ (dislocation of temporomandibular joint) (Acute) Surgical History Surgical History AICD (automatic cardioverter/defibrillator) present (Acute) History of appendectomy (Acute) History of breast augmentation (Acute) History of hemorrhoidectomy (Acute) History of nasal septoplasty (Acute) History of rhinoplasty (Acute) Hx of exploratory laparotomy (Acute) Hx of tonsillectomy (Acute) Family History Family History Other Family history non-contributory Social History Social History Substance History: No History of Abuse Second Hand Smoke Exposure: Yes Smoking Status: Current every day smoker Tobacco Type: Cigarettes How Often Do You Have a Drink Containing Alcohol: Never Recent Travel in [facility] within the Last 8 Weeks: No Recent Out of Country Travel within the Last 8 Weeks: No Immunization History Tetanus Immunization: <5 Years Exam Narrative Exam Narrative: GENERAL: Well-nourished, well-developed patient. No acute distress no respiratory distress GCS 15 SKIN: Focused skin assessment warm/dry. HEAD: Normocephalic. EYES: No scleral icterus. No injection or drainage. NECK: Supple, trachea midline. No JVD or lymphadenopathy. CARDIOVASCULAR: Regular rate and rhythm without murmurs, gallops, or rubs. RESPIRATORY: Breath sounds equal bilaterally. No accessory muscle use. GASTROINTESTINAL: Abdomen soft, non-tender, nondistended. MUSCULOSKELETAL: No cyanosis, or edema. BACK: Nontender without obvious deformity. No CVA tenderness. Course Initial Documented Vital Signs Temperature 99.0 F 08/31/18 21:27 Pulse Rate 114 H 08/31/18 21:27 Respiratory Rate 18 08/31/18 21:27 Blood Pressure 133/60 08/31/18 21:27 Pulse Oximetry 100 08/31/18 21:27 Last Documented Vital Signs Temperature 99.0 F 08/31/18 21:27 Pulse Rate 84 08/31/18 22:06 Respiratory Rate 16 08/31/18 22:06 Blood Pressure 115/54 L 08/31/18 22:06 Pulse Oximetry 100 08/31/18 22:06 Medical Decision Making MDM Narrative Medical decision making narrative: 63-year-old female with history of ventricular fibrillation with cardiac arrest 07/14/17 there is resuscitated identified to have minimal coronary vessel disease and underwent EP studies with ventricular tachycardia VEvelyn harris had a single lead [employer] AICD placed by Dr. Thompson. Patient states today that she thinks that she might have been defibrillated 3 times prior to arrival to the emergency department patient states that she was in the car on her way to the grocery and then suddenly felt a sharp stab to her chest saw a bright light think she had seconds of unconsciousness came right back and then it happened subsequently 2 times patient states that she does not think she ever stop breathing did not collapse was sitting in a car when these episodes occurred and her friend brought her to the emergency room. Denies any history of seizure activity. No alcohol use. Patient continues to smoke cigarettes. Takes no blood thinning agents. Placed on tax adjuster with continuous pulse oximetry IV access obtained specimens collected and sent for resulting EKG ordered and [employer] investment representative called to come to the emergency room to interrogate the patient' s defibrillator tonight. [employer] investment representative has come to the emergency room interrogated patient's AICD the patient has a low sensing lead that the device is double counting the T wave causing the the device to over since and because defibrillations. Talent Advisor is unable to adjust the device due to the sensing lead and the low R waves. Call was placed to Dr. Thompson and discussed with Dr. Smith on his behalf. Patient will be transferred to [facility] for adjustment of the defibrillator leads. Patient discussed with medicine service physician Dr. Gomez who is accepted patient for admission to [facility] Medical Screen Exam Complete: Yes Emergency Medical Condition: Yes Differential Diagnosis Differential Diagnosis: Arrhythmia, device malfunction, ACS, pneumothorax, electrolyte disturbance Medical Records Medical records reviewed: Yes I reviewed the patient's medical records. Imaging Data Radiologist's impression: Chest X-Ray 09/01/18 00:00 CONCLUSION: 1. Cardiomegaly with mild pulmonary vascular congestion. ECG Data EKG Prior to Arrival: No Attestation: I personally reviewed and interpreted this ECG as follows: (EKG sinus rhythm bradycardia rate [address] elevation injury pattern or ectopy noted artifact is present at baseline) Discharge Plan Discharge Disposition Patient Disposition: ED Admit(ED Internal Use Only) Discharge Condition Condition: Stable Discharge Order Discharge Orders: ED Use Only Admit Order (Routine); Ordered 09/01/18 Ordered By: Ana María Tate Discharge Details Diagnosis: Disorder of defibrillator function Physicians Team ED Provider: Ana María Tate Primary Care Provider: Primary Care Savanna Patino Attending Provider: Felicia Gomez Status ED Status: Admitted Patient
[2018-08-31] MEDS ORDERED: Sodium Chlor 0.9% Inj 500 ML IV.SIG SCH (23:45)
--- NOTE | 2018-09-01 00:20 | XR ---
EXAM DATE: 09/01/2018 12:10 AM EST AGE/SEX: 63 years / Female INDICATIONS: Chest pain, defibrillator keeps going off. CLINICAL DATA: This is the patient's initial encounter. Patient reports that signs and symptoms have been present for 1 day and indicates a pain score of 4/10. MEDICAL/SURGICAL HISTORY: . Chronic obstructive pulmonary disease. Hypertension.. . Pacemaker. COMPARISON: [facility], CHEST 1V SINGLE AP, 03/08/2018. . FINDINGS: Stable single lead AICD device in place. Cardiac silhouette is enlarged with indistinct central pulmo nary vascularity and perihilar interstitial prominence. Remainder of the exam is unchanged. CONCLUSION: 1. Cardiomegaly with mild pulmonary vascular congestion. Electronically signed by: Tez Daley MD Board Certified Radiologist 09/01/2018 12:19 AM E
[2018-09-01 00:48] LABS: Baso # (Auto) 0.4 th/mm3 (0.0-0.2); Baso % (Auto) 3.9 % (0.0-2.0); Eos % (Auto) 0.3 % (0.0-4.0); Hematocrit 25.4 % (35.0-46.0); Hemoglobin 7.6 gm/dL (11.6-15.3); Lymph # (Auto) 1.5 th/mm3 (1.0-4.8); Lymph % (Auto) 15.6 % (9.0-44.0); Mean Corpuscular Hemoglobin 19.5 pg (27.0-34.0); Mean Corpuscular Volume 65.4 fL (80.0-100.0); Mean Platelet Volume 10.9 fL (7.0-11.0); Mono # (Auto) 1.2 th/mm3 (0.0-0.9); Mono % (Auto) 13.3 % (0.0-8.0); Neut # (Auto) 6.2 th/mm3 (1.8-7.7); Neut % (Auto) 66.9 % (16.0-70.0); Platelet Count 219 th/mm3 (150-450); Red Blood Count 3.88 mil/mm3 (4.00-5.30); Red Cell Distribution Width 15.9 % (11.6-17.2); White Blood Count 9.3 th/mm3 (4.0-11.0)
[2018-09-01 00:55] LABS: Mean Corpuscular HGB Conc 29.8 % (32.0-36.0)
[2018-09-01 00:56] LABS: Chloride 105 meq/L (98-107); Potassium 4.3 meq/L (3.5-5.1); Sodium 139 meq/L (136-145)
[2018-09-01 01:00] LABS: Albumin 3.3 g/dL (3.4-5.0); Anion Gap 5 meq/L (5-15); Blood Urea Nitrogen 19 mg/dL (7-18); Calcium 8.1 mg/dL (8.5-10.1); Carbon Dioxide 28.8 meq/L (21.0-32.0); Glucose,Random 95 mg/dL (74-106); Magnesium 2.1 mg/dL (1.5-2.5)
[2018-09-01] MEDS ORDERED: Bisacodyl 10 MG Supp RECTAL PRN (01:01)
[2018-09-01] MEDS ORDERED: Acetaminophen 325 MG Tablet PO PRN ×2 (01:01→09:58)
[2018-09-01 01:03] LABS: Alanine Aminotransferase 32 U/L (10-53); Aspartate Aminotransferase 35 U/L (15-37); Glomerular Filtration Rate 45 mL/min (>89)
[2018-09-01 01:05] LABS: Activated Partial Thrombo Time 29.9 sec (23.4-31.7); Prothrombin Time 9.9 sec (9.8-11.6); Total Protein 7.3 g/dL (6.4-8.2)
[2018-09-01 01:06] LABS: Alkaline Phosphatase 82 U/L (45-117)
[2018-09-01 01:08] LABS: Troponin I 0.12 ng/mL (0.02-0.05)
[2018-09-01 01:13] LABS: Creatine Kinase 82 U/L (26-192)
[2018-09-01] MEDS ORDERED: Sod Chloride 0.9% Inj 1,000 ML IV.CONT SCH (01:15)
[2018-09-01 01:18] LABS: Ovalocytes 1+; Platelet Estimate Normal (Normal); Platelet Morphology Normal (Normal); Tear Drop Cells 1+
--- NOTE | 2018-09-01 04:48 | P.HPIM ---
History of Present Illness Primary Care Physician: No Primary Care Physician Ms. Akers is a pleasant 63-year-old female with a history of COPD, hypertension, type 2 diabetes mellitus, and chronic pain who presented to the emergency room and [place] after her AICD fired 3 times during a short trip to the grocery store today. The patient's AICD was placed due to ventricular fibrillation arrest in July [address] Thompson. The pacemaker was interrogated in [place] and found to have a low sensing lead causing the device to double count the T waves causing defibrillations. The patient was transferred to [facility] to undergo AICD lead replacement by Dr. Thompson under the medical management of the hospitalist service. The patient is seen in her hospital room. She reports she has been feeling well and has not had any chest pain or shortness of breath and the past couple of weeks. She states that today she was going to the store to get a Coca-[employer] when her symptoms began. She reports feeling mildly achy at this time from the multiple times that her AICD fired erroneously overnight. Symptoms have been relieved with time and diminished frequency of device misfires. Inpatient Certification Inpatient Certification: I certify that the inpatient services were ordered in accordance with Medicare regulations governing the order. This includes certification that hospital inpatient services are reasonable and necessary and in the case of services not specified as inpatient-only under 42 CFR 419.22(n), that they are appropriately provided as inpatient services in accordance to with the 2-midnight benchmark under 43 CFR 412.3(e) Estimated Total Length of Stay (Days): 3 Plans for Post Hospital Care: Home Review of Systems Review of Systems: all other systems reviewed are negative [facility] Medical History Medical History COPD (chronic obstructive pulmonary disease) (Acute) Colon adenomas (Acute) Diabetes mellitus (Acute) History of hysterectomy (Acute) Hypertension (Acute) TMJ (dislocation of temporomandibular joint) (Acute) Surgical History Surgical History AICD (automatic cardioverter/defibrillator) present (Acute) History of appendectomy (Acute) History of breast augmentation (Acute) History of hemorrhoidectomy (Acute) History of nasal septoplasty (Acute) History of rhinoplasty (Acute) Hx of exploratory laparotomy (Acute) Hx of tonsillectomy (Acute) Social History Social History Substance History: No History of Abuse Second Hand Smoke Exposure: No Smoking Status: Current every day smoker Tobacco Type: Cigarettes How Often Do You Have a Drink Containing Alcohol: Never Recent Travel in [facility] within the Last 8 Weeks: No Recent Out of Country Travel within the Last 8 Weeks: No Immunization History Tetanus Immunization: <5 Years Medications and Allergies Allergies Allergy/AdvReac Type Severity Reaction Status Date / Time cefaclor Allergy Severe HIVES, Verified 08/31/18 22:00 THROAT CLOSES prochlorperazine Allergy Severe THROAT Verified 08/31/18 22:00 CLOSES ciprofloxacin Allergy Intermediate nausea/vomi Verified 08/31/18 22:00 ting orphenadrine Allergy Intermediate PALPITATION Verified 08/31/18 22:00 S Home Medications Medication Instructions Recorded Confirmed Type albuterol sulfate [Ventolin HFA] 2 puff INHALATION Q4-6H PRN 03/07/18 08/31/18 History amlodipine 10 mg PO DAILY 03/07/18 08/31/18 History lisinopril 20 mg PO DAILY 03/07/18 08/31/18 History metformin 500 mg PO DAILY 03/07/18 08/31/18 History methadone 50 mg PO DAILY 03/07/18 08/31/18 History Active Medications: Active Medications Acetaminophen (Tylenol) 650 mg PO Q4H PRN PRN Reason: Temp > 100.4 Hydrocodone Bitart/Acetaminophen ([place] 5/325) 1 tab PO Q4H PRN PRN Reason: Acute Pain Amlodipine Besylate (Norvasc) 10 mg PO DAILY [facility] Bisacodyl (Dulcolax Supp) 10 mg RECTAL DAILY PRN PRN Reason: SEVERE CONSITIPATION Sodium Chloride (Ns Inj) 1,000 mls @ 100 mls/hr IV.CONT .Q10H [facility] Last Infusion: 09/01/18 02:46 Dose: 100 mls/hr Lisinopril (Prinivil) 20 mg PO DAILY [facility] Lorazepam (Ativan) 0.5 mg PO Q6H PRN PRN Reason: ANXIETY Sennosides (Senokot) 17.2 mg PO Q12H PRN PRN Reason: Moderate Constipation Sodium Chloride (Ns Flush) 2 ml IV.FLUSH BID [facility] Sodium Chloride (Ns Flush) 2 ml IV.FLUSH PRN PRN PRN Reason: FLUSH AFTER USING IV ACCESS Physical Exam Vital signs: Last Vital Signs Temp 98.4 F 09/01/18 04:00 Pulse 55 L 09/01/18 04:00 Resp 18 09/01/18 04:00 BP 144/65 H 09/01/18 04:00 Pulse Ox 97 09/01/18 04:00 Intake & Output 08/29/18 08/30/18 08/31/18 09/01/18 06:59 06:59 06:59 06:59 Intake Total 414 / 414 Balance 414 / 414 Weight 63.4 kg GENERAL: This is a pleasant older female patient, in no apparent distress. SKIN: No rashes, ecchymoses or lesions. Cool and dry. HEAD: Atraumatic. Normocephalic. EYES: No scleral icterus. No injection or drainage. ENT: Nose without bleeding, purulent drainage. NECK: Trachea midline. No JVD. CARDIOVASCULAR: Bradycardic rate and rhythm without murmurs, gallops, or rubs. RESPIRATORY: Clear to auscultation. Breath sounds equal bilaterally. No wheezes , rales, or rhonchi. GASTROINTESTINAL: Abdomen soft, non-tender, nondistended. No guarding. MUSCULOSKELETAL: Extremities without clubbing, cyanosis, or edema. No calf tenderness. NEUROLOGICAL: Awake and alert. Motor and sensory grossly within normal limits. Normal speech. PSYCHIATRIC: patient cooperative and pleasant. . Results Labs CBC & Chem 7: 09/01/18 00:17 09/01/18 00:17 Imaging Impressions Chest X-Ray 09/01/18 00:00 CONCLUSION: 1. Cardiomegaly with mild pulmonary vascular congestion. Caprini VTE Risk Assessment Caprini VTE Risk Assessment: Moderate/High Risk (score >= 2) Caprini Risk Assessment Model: Point Value = 1 Point Value = 2 Point Value = 3 Point Value = 5 Age 41-60 Minor surgery BMI > 25 kg/m2 Swollen legs Varicose veins or History of unexplained or recurrent spontaneous Oral contraceptives or hormone replacement Sepsis (< 1 month) Serious lung disease, including pneumonia (< 1 month) Abnormal pulmonary function Acute myocardial infarction Congestive heart failure (< 1 month) History of inflammatory bowel disease Medical patient at bed rest Age 61-74 Arthroscopic surgery Major open surgery (> 45 min) Laparoscopic surgery (> 45 min) Malignancy Confined to bed (> 72 hours) Immobilizing plaster cast Central venous access Age >= 75 History of VTE Family history of VTE Factor V Leiden Prothrombin [id number] Lupus anticoagulant Anticardiolipin antibodies Elevated serum homocysteine Heparin-induced thrombocytopenia Other congenital or acquired thrombophilia Stroke (< 1 month) Elective arthroplasty Hip, pelvis, or leg fracture Acute spinal cord injury (< 1 month) Prophylaxis Regimen: Total Risk Factor Score Risk Level Prophylaxis Regimen 0-1 Low Early ambulation 2 Moderate Order ONE of the following: *Sequential Compression Device (SCD) *Heparin 5000 units SQ BID 3-4 Higher Order ONE of the following medications: *Heparin 5000 units SQ TID *Enoxaparin/Lovenox 40 mg SQ daily (WT < 150 kg, CrCl > 30 mL/min) *Enoxaparin/Lovenox 30 mg SQ daily (WT < 150 kg, CrCl > 10-29 mL/min) *Enoxaparin/Lovenox 30 mg SQ BID (WT < 150 kg, CrCl > 30 mL/min) AND/OR *Sequential Compression Device (SCD) 5 or more Highest Order ONE of the following medications: *Heparin 5000 units SQ TID (Preferred with Epidurals) *Enoxaparin/Lovenox 40 mg SQ daily (WT < 150 kg, CrCl > 30 mL/min) *Enoxaparin/Lovenox 30 mg SQ daily (WT < 150 kg, CrCl > 10-29 mL/min) *Enoxaparin/Lovenox 30 mg SQ BID (WT < 150 kg, CrCl > 30 mL/min) AND *Sequential Compression Device (SCD) Assessment and Plan Plan Ms. Akers is a pleasant 63-year-old female with a history of COPD, hypertension, type 2 diabetes mellitus, and chronic pain who presented to the emergency room and [place] after her AICD fired 3 times during a short trip to the grocery store today. The patient's AICD was placed due to ventricular fibrillation arrest in July [address] Thompson. The pacemaker was interrogated in [place] and found to have a low sensing lead causing the device to double count the T wave causing defibrillations. The patient was transferred to [facility] to undergo AICD lead replacement by Dr. Thompson under the medical management of the hospitalist service. Misfiring AICD with suspected lead displacement - NPO except medications -IV fluid hydration with normal saline at 100 cc/h - Consult Dr. Thompson - assistance appreciated - [place] 5/325 mg q4h PRN pain - continuous cardiac telemetry to monitor for arrhythmias Hypertension - Resume home amlodipine and lisinopril - Monitor trends in blood pressure readings and adjust treatments as indicated COPD - Duo nebulizers every 2 hours as needed for shortness of breath/wheezing Tobacco abuse - Advised smoking cessation DVT prophylaxis -SCDs Discussed Condition With: Patient, RN, and Dr. Gomez H&P: Quality VTE Deep Vein Thrombosis/Pulmonary Embolism Present on Admission: No
[2018-09-01] MEDS: Lisinopril 20 MG Tablet PO SCH (09:37)
[2018-09-01] MEDS: amLODIPine 10 MG Tablet PO SCH (09:38)
[2018-09-01] MEDS ORDERED: Sodium Chlor 0.9% Inj 250 ML IV.SIG SCH (10:00)
--- NOTE | 2018-09-01 10:04 | P.PN ---
Subjective Interval history: Follow-up AICD firing/syncope September 01, 2018-patient seen and examined, denies any more episodes of AICD firing since admission however complaint of chest pain at the site of AICD. No shortness of breath. Physical Exam Vital signs: Vital Signs 08/31/18 21:27 08/31/18 22:06 08/31/18 23:52 Temperature 99.0 F Pulse Rate 114 H 84 56 L Respiratory Rate 18 16 18 Blood Pressure 133/60 115/54 L 114/60 Pulse Oximetry 100 100 97 09/01/18 01:45 09/01/18 04:00 09/01/18 05:00 Temperature 98.4 F Pulse Rate 60 55 L 44 L Respiratory Rate 16 18 Blood Pressure 119/64 144/65 H Pulse Oximetry 98 97 09/01/18 06:00 09/01/18 07:00 Temperature Pulse Rate 58 L 42 L Respiratory Rate Blood Pressure Pulse Oximetry Intake & Output 08/31/18 09/01/18 09/01/18 18:59 06:59 18:59 Intake Total 414 / 414 Balance 414 / 414 Weight 60 kg Intake: IV 414 / 414 NS Inj 1,000 ML @ 100 mls/hr IV 114 / 114 .CONT .Q10H [facility] Rx#:[id number] NS Inj 500 ML @ 1000 mls/hr IV. 300 / 300 SIG BOLUS [facility] Rx#:[id number] Oral 0 / 0 Other: # Voids 1 Narrative: GENERAL: NAD SKIN: Warm and dry. HEAD: Normocephalic. EYES: No scleral icterus. No injection or drainage. NECK: Supple, trachea midline. No JVD or lymphadenopathy. CARDIOVASCULAR: Regular rate and rhythm without murmurs, gallops, or rubs. RESPIRATORY: Breath sounds equal bilaterally. No accessory muscle use. GASTROINTESTINAL: Abdomen soft, non-tender, nondistended. MUSCULOSKELETAL: No cyanosis, or edema. BACK: Nontender without obvious deformity. No CVA tenderness. Results - Labs CBC & Chem 7: 09/01/18 00:17 09/01/18 00:17 Laboratory Results - last 24 hr 09/01/18 09/01/18 09/01/18 00:17 00:17 00:17 CBC w Diff Slide review pending WBC 9.3 RBC 3.88 L Hgb 7.6 L Hct 25.4 L MCV 65.4 L MCH 19.5 L MCHC 29.8 L RDW 15.9 Plt Count 219 MPV 10.9 Neut % (Auto) 66.9 Lymph % (Auto) 15.6 [place] % (Auto) 13.3 H Eos % (Auto) 0.3 Baso % (Auto) 3.9 H Neut # (Auto) 6.2 Lymph # (Auto) 1.5 [place] # (Auto) 1.2 H Eos # (Auto) 0.0 Baso # (Auto) 0.4 H WBC Differential . Diff Scan Auto diff confirmed Differential Comment . Platelet Estimate Normal Platelet Morphology Normal Tear Drop Cells 1+ H Ovalocytes 1+ H PT 9.9 INR 1.0 APTT 29.9 Sodium 139 Potassium 4.3 Chloride 105 Carbon Dioxide 28.8 Anion Gap 5 BUN 19 H Creatinine 1.20 H Estimated GFR 45 L POC Glucose Random Glucose 95 Calcium 8.1 L Magnesium 2.1 Total Bilirubin 0.2 AST 35 ALT 32 Alkaline Phosphatase 82 Total Creatine Kinase 82 Troponin I 0.12 H B-Natriuretic Peptide Total Protein 7.3 Albumin 3.3 L Serum Alcohol Less than 3 Blood Type Blood Type Recheck Antibody Screen 09/01/18 09/01/18 09/01/18 00:17 01:42 07:23 CBC w Diff WBC RBC Hgb Hct MCV MCH MCHC RDW Plt Count MPV Neut % (Auto) Lymph % (Auto) [place] % (Auto) Eos % (Auto) Baso % (Auto) Neut # (Auto) Lymph # (Auto) [place] # (Auto) Eos # (Auto) Baso # (Auto) WBC Differential Diff Scan Differential Comment Platelet Estimate Platelet Morphology Tear Drop Cells Ovalocytes PT INR APTT Sodium Potassium Chloride Carbon Dioxide Anion Gap BUN Creatinine Estimated GFR POC Glucose 113 H Random Glucose Calcium Magnesium Total Bilirubin AST ALT Alkaline Phosphatase Total Creatine Kinase Troponin I B-Natriuretic Peptide 99 Total Protein Albumin Serum Alcohol Blood Type O Positive Blood Type Recheck Not needed Antibody Screen Negative - Imaging Impressions Chest X-Ray 09/01/18 00:00 CONCLUSION: 1. Cardiomegaly with mild pulmonary vascular congestion. Assessment and Plan - Plan 63-year-old female with Misfiring AICD with suspected lead displacement - Consult Dr. Thompson - assistance appreciated - [place] 5/325 mg q4h PRN pain - continuous cardiac telemetry to monitor for arrhythmias Hypertension -Continue home amlodipine and lisinopril COPD - Duo nebulizers every 2 hours as needed for shortness of breath/wheezing Tobacco abuse - Advised smoking cessation Normochromic normocytic anemia -We will transfuse 1 unit packed red blood cell 09/01 -Check ferritin, iron study DVT prophylaxis -SCDs
[2018-09-01 11:08] LABS: % Iron Saturation 1.7 % (20-50)
[2018-09-01] MEDS ORDERED: Influenza (Quadrivalent) Vaccine 0.5 ML Syringe IM ONE (18:00)
--- NOTE | 2018-09-01 18:26 | ECG ---
Date Performed: 09/01/2018 Time Performed: 00:31:41 PTAGE: 63 years EKG: SINUS BRADYCARDIA BORDERLINE ECG PREVIOUS TRACING : 03/09/2018 08.58 Since the previous tracing, no significant change noted DOCTOR: Sree Aguilera Interpretating Date/Time 09/01/2018 18:23:57
--- NOTE | 2018-09-01 19:23 | MB ---
cc: Jena Thompson MD, Hanscy MD Pontey,Rasheed WEST DATE: 09/01/2018 REASON FOR CONSULTATION: Defibrillator shock. HISTORY OF PRESENT ILLNESS: Mrs. Akers is a 63-year-old female with history of congestive heart failure, high blood pressure, cardiomyopathy with a defibrillator placed in 2006 due to ventricular fibrillation, cardiac arrest. The patient was at home and received very frequent defibrillator shock, high blood pressure, COPD, atrial fibrillation, episode of sudden due to ventricular fibrillation, previous defibrillator implanted in 07/2007. The patient was going to the grocery store and received multiple defibrillatory shocks. She was brought to the emergency room. Interrogation of the device indicated double counting. Patient was admitted, device was turned off, and I was consulted for evaluation and management. The chart was reviewed. The patient was evaluated. ALLERGIES: Multiple: 1. CECLOR. 2. PROCHLORPERAZINE. 3. CIPROFLOXACIN. 4. ORPHENADRINE. SOCIAL HISTORY: The patient denied drinking, smokes cigarettes every day. FAMILY HISTORY: Noncontributory to her current medical condition. MEDICATIONS: At home, she was on: 1. Albuterol. 2. Amlodipine. 3. Lisinopril. 4. Metformin. 5. Methadone. 6. Lisinopril. REVIEW OF SYSTEMS: Currently, she has no chest pain or discomfort, no defibrillatory shock. No fever. PHYSICAL EXAMINATION: GENERAL: Alert, fully oriented. VITAL SIGNS: Blood pressure 151/65, pulse 55, respiratory rate 18. LUNGS: Ventilated. CARDIOVASCULAR: S1, S2. No gallop. No murmur. ABDOMEN: Soft. No masses. No bruits. EXTREMITIES: No edema. ELECTROCARDIOGRAM: Sinus rhythm, diffuse ST changes. LABORATORY DATA: Hemoglobin 7.6. White blood cell 9.3. INR 1.0. Potassium 4.2, creatinine 1.20. Troponin 0.12. ASSESSMENT AND RECOMMENDATIONS: Mrs. Akers has a T-wave oversensing. The device is double counting, counting the T-wave as a QRS. The device is over 13 months since implantation. This is most likely scar or damaged tissue on the sensing portion of the device. The patient is going to need a new right ventricular defibrillator lead. The risks, the nature and the benefits of the procedure are clearly stated to her. Risks include pneumothorax, perforation, stroke and even . She understands and agrees to proceed. Also, there is occasional question about bradycardia. I reviewed the device interrogation. The patient is 99% V-sensing only less than 1% RV pacing. She is managing the bradycardia very well. Apparently, she is over 40 most of the time. At this point, there is no need to add an atrial port or atrial lead. Only the right defibrillator lead will be replaced. As mentioned before, the risks, the nature and the benefits of the procedure were clearly said to her, including pneumothorax, cardiac perforation, stroke and even . She understands and agrees to proceed. The procedure will be performed during hospitalization. MD ROZINA Carrasco/radha , 06:43 PM , 06:54 PM
[2018-09-01] MEDS ORDERED: Lidocaine 2% Inj 50 ML Vial ONE (20:20)
[2018-09-01] MEDS ORDERED: LEVOFLOXACIN IV.SIG ONE (20:20)
[2018-09-01] MEDS ORDERED: fentaNYL Citrate Inj 100 MCG/2 ML Ampul ONE (20:29)
--- NOTE | 2018-09-01 20:43 | CATHPROC ---
Patient Name: Luli Akers Study #: [id number] Initial MD: Jena Love Date of : 1955 Study Date: 09/01/2018 Cardiac Catheterization Report 09/01/2018 8:43:18 PM Financial #: [id number] 1 of 5 Patient Name: Luli Akers Study #: [id number] Initial MD: Jena Love Date of : 1955 Study Date: 09/01/2018 Entire Case Report Patient Information Patient Name Luli Akers Date of 1955 Age 63 years Financial # [id number] Gender F AlternateID Lab Number 6 Room Number 453 Height (in) 63.0 Height (cm) 160.0 BSA 1.62 Weight (lbs) 132.0 Weight (kg) 60.0 Patient Address/Phone Number Home Address [facility] Home Phone Number [address] [facility] [id number] Study Information Study Number Admission Scheduled Start Study Start [id number] Sep 01 2018 12:22AM 09/01/2018 Sep 01 2018 7:47PM [place] [facility] Cardiac Catheterization Admit Source Facility Department Other [facility] - Banking Analyst Physician and Clinical Staff Initial Jena Barron Retail Department Manager Edgar Menendez,RT(R) Other Anesthesia, FISH NET STRINGER Recorder Lina Ashley RN Scrub Wilsey, Rita, RCIS TECHCelina 09/01/2018 8:43:18 PM Financial #: [id number] 2 of 5 Patient Name: Luli Akers Study #: [id number] Initial MD: Jena Love Date of : 1955 Study Date: 09/01/2018 Equipment Time Pharmacy Tech Description Size Mfg Part Number Used/Scraped DERMABOND, ADHESIVE SKIN [id number] 19:49 CORDIS/PACER * Used GLUE MINI *[id number] 19:49 AdScore BLANKET,WARM AIR CCL * Used *[id number] 19:49 AdScore SUTURE, STRIP PLUS 1/2" * Used *[id number] 19:49 MEDLINE PACER GAUTHIER, LIMB * [id number] *[id number] Used [id number] 19:49 MEDLINE PACER PACK, PACER CUSTOM * Used *[id number] SUTURE, 0 ETHIBOND [CT1] (CX21D), 8pk SUTURE, 2-0 VICRYL [CT1] ([id number]) SUTURE, 2-0 VICRYL [CT1] ([id number]) [place] PAD, ELECTROSURGICAL 19:49 * [id number] *[id number] Used SURGICAL GROUNDING ORANGE [id number] 19:49 [employer] SONU. / * Used *[id number] Insurance Information Insurance Payor Medicare Third Alliance Party Third Alliance Party Number MEDICARE A B MCRAB History: Allergies Allergy Reaction prochlorperazine THROAT CLOSES orphenadrine PALPITATIONS cefaclor HIVES, THROAT CLOSES ciprofloxacin nausea/vomiting History: Risk Factors Hypertension Dyslipidemia Yes Yes Chronic Lung Diabetes Disease Labs Hgb (g/dl) Hct (%) WBC (l/cumm) Platelets (thousands) 11.60-17.00 35.00-51.00 4.00-11.00 150.00-450.00 7.6 25.4 9.3 219 09/01/2018 8:43:18 PM Financial #: [id number] 3 of 5 Patient Name: Luli Aekrs Study #: [id number] Initial MD: Jena Love Date of : 1955 Study Date: 09/01/2018 Glucose (mg/dl) BUN (mg/dl) Creatinine (mg/dl) BUN:Creatinine (1:x) 74.00-106.00 7.00-18.00 0.50-1.30 10.00-20.00 113 19 1.2 15.8 Na (meq/l) K (meq/l) 136.00-145.00 3.50-5.10 139 4.3 INR (PTT:PT) 0.90-1.10 1 Chronological Log Time Study Chronological Log 20:15:41 Patient arrived via Bed. 20:15:42 Patient Name, D.O.B, / Armband Verified By R.N. 20:15:43 Consent signed by the physician and the patient and verified by the Banking Analyst staff. 20:15:44 Pre-op and post- op instructions given; patient acknowledges understanding of instructions . 20:15:45 Verbal Stimulation=2 Physical Stimulation=2 Airway=2 Respiration=2 TOTAL=8. (0=absent, 1=l imited, 2=present) 20:15:46 Anesthesia at bedside. Assumes care of patient. 20:15:57 Patient has been NPO for More than 6Hrs. 20:15:58 Skin Breakdown-NONE PER PT 20:16:06 Patient Warmer Placed on the Table. 20:16:07 Disposable Defibrillator Pads Placed On Patient. 20:16:07 Gema Prominences Protected 20:16:10 A # ~SIZE~ IV was noted in the ~SITE~. Grade = ~GRADE~ 20:16:13 History and physical on the chart or being dictated. ANESTHESIOLOGIST PRESENT FOR INTUBTION. ASSESSED PT AND DISCUSSED WITH DR LOVE PT'S PULMONARY 20:30:38 STATUS. CASE CANCELLED. 20:41:03 CPCU called. Spoke to RODNEY 20:45:28 Patient moved to [facility] 09/01/2018 8:43:18 PM Financial #: [id number] 4 of 5 Patient Name: Luli Akers Study #: [id number] Initial MD: Jena Love Date of : 1955 Study Date: 09/01/2018 End Study - Contrast Media Used In Study Contrast Total Opened (mL) Total Used (mL) Total Wasted (mL) Unspecified 0 0 0 End Study - Maximum Contrast Load Max Contrast Load (mL) 250.0 End Study - Radiation Exposure Fluoro Time Fluoro Dose (mGy) Cine Dose (uGym2) (minutes) 0.0 0 0 End Study - Patient Disposition Complications Transferred To Interventional Outcome No Telemetry Bed No attempt made 09/01/2018 8:43:18 PM Financial #: [id number] 5 of 5
[2018-09-02 05:09] LABS: Baso % (Auto) 0.6 % (0.0-2.0); Eos # (Auto) 0.1 th/mm3 (0.0-0.4); Hematocrit 27.6 % (35.0-46.0); Hemoglobin 8.4 gm/dL (11.6-15.3); Lymph # (Auto) 1.9 th/mm3 (1.0-4.8); Lymph % (Auto) 23.9 % (9.0-44.0); Mean Corpuscular Hemoglobin 21.1 pg (27.0-34.0); Mean Corpuscular Volume 69.2 fL (80.0-100.0); Mean Platelet Volume 9.2 fL (7.0-11.0); Mono # (Auto) 1.5 th/mm3 (0.0-0.9); Mono % (Auto) 19.5 % (0.0-8.0); Neut # (Auto) 4.3 th/mm3 (1.8-7.7); Platelet Count 138 th/mm3 (150-450); Red Blood Count 3.99 mil/mm3 (4.00-5.30); Red Cell Distribution Width 18.2 % (11.6-17.2); White Blood Count 7.9 th/mm3 (4.0-11.0)
[2018-09-02 05:15] LABS: Mean Corpuscular HGB Conc 30.5 % (32.0-36.0)
[2018-09-02 05:33] LABS: Albumin 2.9 g/dL (3.4-5.0); Anion Gap 7 meq/L (5-15); Aspartate Aminotransferase 31 U/L (15-37); Blood Urea Nitrogen 16 mg/dL (7-18); Calcium 7.9 mg/dL (8.5-10.1); Carbon Dioxide 25.6 meq/L (21.0-32.0); Chloride 107 meq/L (98-107); Glomerular Filtration Rate 51 mL/min (>89); Glucose,Random 105 mg/dL (74-106); Potassium 4.2 meq/L (3.5-5.1); Sodium 140 meq/L (136-145)
[2018-09-02 05:34] LABS: Alanine Aminotransferase 27 U/L (10-53)
[2018-09-02 05:37] LABS: Alkaline Phosphatase 61 U/L (45-117); Total Protein 6.5 g/dL (6.4-8.2)
[2018-09-02] MEDS: Lisinopril 20 MG Tablet PO SCH (08:47)
[2018-09-02] MEDS: amLODIPine 10 MG Tablet PO SCH (08:47)
--- NOTE | 2018-09-02 09:29 | P.PNIM ---
Subjective Interval history: The pt was resting in bed. She said the procedure didn't happen last night because she was too congested. She said she was coughing up clear mucous. She denied any chest pain. No other acute concerns. Physical Exam Vital signs: Vital Signs 09/01/18 10:00 09/01/18 10:45 09/01/18 11:00 Temperature 99.1 F Pulse Rate 50 L 53 L 50 L Respiratory Rate 16 Blood Pressure 154/64 H Pulse Oximetry 95 09/01/18 11:03 09/01/18 11:08 09/01/18 12:04 Temperature 99 F 98.8 F 99.9 F H Pulse Rate 53 L 51 L 49 L Respiratory Rate 16 16 16 Blood Pressure 139/64 147/64 H 141/66 H Pulse Oximetry 97 99 99 09/01/18 12:06 09/01/18 12:07 09/01/18 12:52 Temperature 99.9 F H 99 F Pulse Rate 48 L 52 L 46 L Respiratory Rate 17 16 Blood Pressure 141/66 H 140/63 Pulse Oximetry 97 97 09/01/18 13:00 09/01/18 14:00 09/01/18 15:00 Temperature Pulse Rate 52 L 54 L 52 L Respiratory Rate Blood Pressure Pulse Oximetry 09/01/18 16:00 09/01/18 16:20 09/01/18 17:11 Temperature 98.9 F Pulse Rate 48 L 55 L 57 L Respiratory Rate 17 Blood Pressure 151/65 H Pulse Oximetry 98 09/01/18 18:00 09/01/18 19:00 09/01/18 19:50 Temperature Pulse Rate 48 L 42 L Respiratory Rate Blood Pressure Pulse Oximetry 98 09/01/18 20:00 09/01/18 21:00 09/01/18 22:00 Temperature 99 F Pulse Rate 56 L 60 58 L Respiratory Rate 16 Blood Pressure 144/69 H Pulse Oximetry 93 L 09/01/18 23:00 09/02/18 00:00 09/02/18 00:36 Temperature 98.9 F Pulse Rate 75 75 69 Respiratory Rate 18 20 Blood Pressure 158/74 H Pulse Oximetry 96 95 09/02/18 01:00 09/02/18 02:00 09/02/18 03:00 Temperature Pulse Rate 68 62 53 L Respiratory Rate Blood Pressure Pulse Oximetry 09/02/18 04:00 09/02/18 05:00 09/02/18 06:00 Temperature 99.9 F H Pulse Rate 60 50 L 64 Respiratory Rate 18 Blood Pressure 132/62 Pulse Oximetry 97 09/02/18 07:00 09/02/18 07:47 09/02/18 07:48 Temperature Pulse Rate 63 63 Respiratory Rate 18 Blood Pressure Pulse Oximetry 98 09/02/18 07:57 09/02/18 08:00 09/02/18 09:00 Temperature 99.4 F Pulse Rate 60 76 72 Respiratory Rate 20 Blood Pressure 113/57 L Pulse Oximetry 98 Intake & Output 09/01/18 09/02/18 09/02/18 18:59 06:59 18:59 Intake Total 1385 / 1385 360 / 360 Output Total 420 / 420 400 / 400 Balance 965 / 965 -40 / -40 Weight 61 kg Intake: IV 1050 / 1050 NS Inj 1,000 ML @ 100 mls/hr IV 800 / 800 .CONT .Q10H [facility] Rx#:[id number] NS Inj 250 ML @ 15 mls/hr IV. 250 / 250 SIG ONCE [facility] Rx#:[id number] Oral 0 / 0 360 / 360 Intake (Blood Product) Amt 335 / 335 Rbc As-3 Leukoreduced Unit 335 / 335 [id number] Output: Urine 420 / 420 400 / 400 Other: Date of Last Bowel Movement 09/01/18 09/01/18 08/31/18 Narrative: GENERAL: NAD. SKIN: Warm and dry. HEAD: Normocephalic. EYES: No scleral icterus. No injection or drainage. NECK: Supple, trachea midline. No JVD or lymphadenopathy. CARDIOVASCULAR: Regular rate and rhythm without murmurs, gallops, or rubs. RESPIRATORY: Diffuse wheezing. GASTROINTESTINAL: Abdomen soft, non-tender, nondistended. MUSCULOSKELETAL: No cyanosis, or edema. BACK: Nontender without obvious deformity. No CVA tenderness. NEURO: No gross deficits. Results - Labs CBC & Chem 7: 09/02/18 04:33 09/02/18 04:33 Laboratory Results - last 24 hr 09/01/18 09/01/18 09/01/18 09:58 10:26 12:59 WBC RBC Hgb Hct MCV MCH MCHC RDW Plt Count MPV Neut % (Auto) Lymph % (Auto) [place] % (Auto) Eos % (Auto) Baso % (Auto) Neut # (Auto) Lymph # (Auto) Yell # (Auto) Eos # (Auto) Baso # (Auto) WBC Differential Differential Comment Sodium Potassium Chloride Carbon Dioxide Anion Gap BUN Creatinine Estimated GFR POC Glucose 117 H Random Glucose Calcium Iron 10 L TIBC 594 H % Saturation 1.7 L Ferritin 2 L Total Bilirubin AST ALT Alkaline Phosphatase Total Protein Albumin MTS Gel Crossmatch See Detail 09/02/18 09/02/18 04:33 04:33 WBC 7.9 RBC 3.99 L Hgb 8.4 L Hct 27.6 L MCV 69.2 L D MCH 21.1 L MCHC 30.5 L RDW 18.2 H Plt Count 138 L D MPV 9.2 Neut % (Auto) 55.0 Lymph % (Auto) 23.9 [place] % (Auto) 19.5 H Eos % (Auto) 1.0 Baso % (Auto) 0.6 Neut # (Auto) 4.3 Lymph # (Auto) 1.9 Yell # (Auto) 1.5 H Eos # (Auto) 0.1 Baso # (Auto) 0.0 WBC Differential . Differential Comment Auto diff final Sodium 140 Potassium 4.2 Chloride 107 Carbon Dioxide 25.6 Anion Gap 7 BUN 16 Creatinine 1.08 H Estimated GFR 51 L POC Glucose Random Glucose 105 Calcium 7.9 L Iron TIBC % Saturation Ferritin Total Bilirubin 0.3 AST 31 ALT 27 Alkaline Phosphatase 61 Total Protein 6.5 D Albumin 2.9 L MTS Gel Crossmatch Assessment and Plan - Plan Misfiring AICD with suspected lead displacement Consulted Dr. Thompson - assistance appreciated. -lead revision planned 09/02 per cardiology. -[place] 5/325 mg q4h PRN pain. -continuous cardiac telemetry to monitor for arrhythmias. Hypertension Stable. -Continue home amlodipine and lisinopril. COPD In exacerbation. -Duo nebulizers standing and every 2 hours as needed for shortness of breath/ wheezing. -start IV Solumedrol. -incentive spirometry. -sputum culture. -encourage ambulation. -oxygen as needed. Normochromic normocytic anemia Appears to be s/t iron deficiency. Transfused 1 unit red cells. -check Hemoccult. -follow CBC and transfuse as needed. DVT prophylaxis: SCDs
[2018-09-02] MEDS: MethylPREDNISolone Sod Succinate Inj 40 MG/ML Vial IV.PUSH SCH ×3 (10:15→21:57)
--- NOTE | 2018-09-02 17:37 | P.PN ---
Subjective Interval history: Feeling better Physical Exam Vital signs: Vital Signs 09/01/18 18:00 09/01/18 19:00 09/01/18 19:50 Temperature Pulse Rate 48 L 42 L Respiratory Rate Blood Pressure Pulse Oximetry 98 09/01/18 20:00 09/01/18 21:00 09/01/18 22:00 Temperature 99 F Pulse Rate 56 L 60 58 L Respiratory Rate 16 Blood Pressure 144/69 H Pulse Oximetry 93 L 09/01/18 23:00 09/02/18 00:00 09/02/18 00:36 Temperature 98.9 F Pulse Rate 75 75 69 Respiratory Rate 18 20 Blood Pressure 158/74 H Pulse Oximetry 96 95 09/02/18 01:00 09/02/18 02:00 09/02/18 03:00 Temperature Pulse Rate 68 62 53 L Respiratory Rate Blood Pressure Pulse Oximetry 09/02/18 04:00 09/02/18 05:00 09/02/18 06:00 Temperature 99.9 F H Pulse Rate 60 50 L 64 Respiratory Rate 18 Blood Pressure 132/62 Pulse Oximetry 97 09/02/18 07:00 09/02/18 07:47 09/02/18 07:48 Temperature Pulse Rate 63 63 Respiratory Rate 18 Blood Pressure Pulse Oximetry 98 09/02/18 07:57 09/02/18 08:00 09/02/18 09:00 Temperature 99.4 F Pulse Rate 60 76 72 Respiratory Rate 20 Blood Pressure 113/57 L Pulse Oximetry 98 09/02/18 10:00 09/02/18 11:00 09/02/18 11:17 Temperature 99.1 F Pulse Rate 64 58 L 55 L Respiratory Rate 20 Blood Pressure 111/52 L Pulse Oximetry 97 09/02/18 12:00 09/02/18 13:00 09/02/18 14:00 Temperature Pulse Rate 59 L 66 59 L Respiratory Rate Blood Pressure Pulse Oximetry 09/02/18 15:00 09/02/18 15:21 09/02/18 16:00 Temperature 98.4 F Pulse Rate 56 L 66 56 L Respiratory Rate 20 Blood Pressure 114/65 Pulse Oximetry 100 09/02/18 16:02 09/02/18 17:00 Temperature Pulse Rate 62 58 L Respiratory Rate 18 Blood Pressure Pulse Oximetry Intake & Output 09/01/18 09/02/18 09/02/18 18:59 06:59 18:59 Intake Total 1385 / 1385 360 / 360 960 / 960 Output Total 420 / 420 400 / 400 900 / 900 Balance 965 / 965 -40 / -40 60 / 60 Weight 61 kg Intake: IV 1050 / 1050 NS Inj 1,000 ML @ 100 mls/hr IV 800 / 800 .CONT .Q10H [facility] Rx#:[id number] NS Inj 250 ML @ 15 mls/hr IV. 250 / 250 SIG ONCE [facility] Rx#:[id number] Oral 0 / 0 360 / 360 960 / 960 Intake (Blood Product) Amt 335 / 335 Rbc As-3 Leukoreduced Unit 335 / 335 [id number] Output: Urine 420 / 420 400 / 400 900 / 900 Other: # Voids 1 Date of Last Bowel Movement 09/01/18 09/01/18 08/31/18 # Bowel Movements 0 - Constitutional mild distress - Routine HEENT Exam Head: Present: normocephalic Eye: Present: PERRL ENT: Present: mucous membranes moist - Routine Respiratory Exam Present: wheezes, crackles - Routine Cardiovascular Exam Present: RRR, S1, S2 - Routine Abdominal Exam Present: soft - Routine Neurological Exam Present: alert, oriented X3, normal reflexes - Detailed Neurological Exam: Coma Scale Eye Opening: Spontaneous Verbal Response: Oriented Motor Response: Obey commands [place] Coma Scale Total: 15 Results - Labs CBC & Chem 7: 09/02/18 04:33 09/02/18 04:33 Laboratory Results - last 24 hr 09/02/18 09/02/18 04:33 04:33 WBC 7.9 RBC 3.99 L Hgb 8.4 L Hct 27.6 L MCV 69.2 L D MCH 21.1 L MCHC 30.5 L RDW 18.2 H Plt Count 138 L D MPV 9.2 Neut % (Auto) 55.0 Lymph % (Auto) 23.9 [place] % (Auto) 19.5 H Eos % (Auto) 1.0 Baso % (Auto) 0.6 Neut # (Auto) 4.3 Lymph # (Auto) 1.9 [place] # (Auto) 1.5 H Eos # (Auto) 0.1 Baso # (Auto) 0.0 WBC Differential . Differential Comment Auto diff final Sodium 140 Potassium 4.2 Chloride 107 Carbon Dioxide 25.6 Anion Gap 7 BUN 16 Creatinine 1.08 H Estimated GFR 51 L Random Glucose 105 Calcium 7.9 L Total Bilirubin 0.3 AST 31 ALT 27 Alkaline Phosphatase 61 Total Protein 6.5 D Albumin 2.9 L Assessment and Plan - Assessment (1) ICD (implantable cardioverter-defibrillator) lead failure Code(s): T82.110A - Breakdown (mechanical) of cardiac electrode, initial encounter Status: Acute Plan: Defib off No further discharge. Severe gamaliel Device will need to be upgraded and also new RV lead inserted Case canceled today by anesthesiology due to wheezing Steroids and antibiotic given If stable new leads in AM. case discussed with patient (2) History of COPD Code(s): Z87.09 - Personal history of other diseases of the respiratory system Status: Acute Plan: COPD. Improving Zithromax added case discussed with Dr Soria
[2018-09-02] MEDS ORDERED: Azithromycin Inj 500 MG in Sodium Chlor 0.9% Inj 250 ML IV.SIG SCH (18:00)
--- NOTE | 2018-09-02 19:06 | XR ---
EXAM DATE: 09/02/2018 7:02 PM EST AGE/SEX: 63 years / Female INDICATIONS: Shortness of breath. CLINICAL DATA: This is the patient's subsequent encounter. Patient reports that signs and symptoms h ave been present for 2 days and indicates a pain score of 0/10. MEDICAL/SURGICAL HISTORY: Diabetes. Chronic obstructive pulmonary disease. Hypertension. Afib. . Defibrilator. COMPARISON: [facility], CHEST 1V SINGLE AP, 09/01/2018. . FINDINGS: Stable single lead AICD device. Mild diffuse interstitial prominence with minimal airspace disease at the left lung base. Cardiomediastinal contours are stable. Probable moderate hiatal hernia. Remainde r of the exam is unchanged. CONCLUSION: 1. Minimal airspace disease at the left lung base, presumably atelectasis. 2. Mild interstitial edema. Electronically signed by: Tez Daley MD Board Certified Radiologist 09/02/2018 7:04 PM ERNIE Morrison
[2018-09-02] MEDS ORDERED: Aztreonam Inj 2 GM in Sodium Chloride 0.9% Inj 100 ML IV.SIG SCH (20:00)
[2018-09-03 03:55] LABS: Hematocrit 30.4 % (35.0-46.0); Hemoglobin 9.2 gm/dL (11.6-15.3); Mean Corpuscular Volume 69.2 fL (80.0-100.0); Mean Platelet Volume 9.1 fL (7.0-11.0); Platelet Count 157 th/mm3 (150-450)
[2018-09-03 04:14] LABS: Mean Corpuscular HGB Conc 30.4 % (32.0-36.0)
[2018-09-03 04:27] LABS: Calcium 8.3 mg/dL (8.5-10.1); Carbon Dioxide 22.3 meq/L (21.0-32.0); Potassium 4.2 meq/L (3.5-5.1)
[2018-09-03] MEDS: MethylPREDNISolone Sod Succinate Inj 40 MG/ML Vial IV.PUSH SCH ×3 (05:55→21:16)
[2018-09-03] MEDS: amLODIPine 10 MG Tablet PO SCH (08:45)
[2018-09-03] MEDS: Lisinopril 20 MG Tablet PO SCH (08:46)
--- NOTE | 2018-09-03 09:54 | P.PNIM ---
Subjective Interval history: The pt was resting comfortably. She said her breathing has improved. No acute complaints, awaiting her procedure. Discussed with nursing. Physical Exam Vital signs: Vital Signs 09/02/18 10:00 09/02/18 11:00 09/02/18 11:17 Temperature 99.1 F Pulse Rate 64 58 L 55 L Respiratory Rate 20 Blood Pressure 111/52 L Pulse Oximetry 97 09/02/18 12:00 09/02/18 13:00 09/02/18 14:00 Temperature Pulse Rate 59 L 66 59 L Respiratory Rate Blood Pressure Pulse Oximetry 09/02/18 15:00 09/02/18 15:21 09/02/18 16:00 Temperature 98.4 F Pulse Rate 56 L 66 56 L Respiratory Rate 20 Blood Pressure 114/65 Pulse Oximetry 100 09/02/18 16:02 09/02/18 17:00 09/02/18 18:00 Temperature Pulse Rate 62 58 L 65 Respiratory Rate 18 Blood Pressure Pulse Oximetry 09/02/18 19:00 09/02/18 20:00 09/02/18 20:44 Temperature 98.3 F Pulse Rate 66 65 64 Respiratory Rate 20 16 Blood Pressure 110/53 L Pulse Oximetry 100 98 09/02/18 21:00 09/02/18 22:00 09/02/18 23:00 Temperature Pulse Rate 78 79 66 Respiratory Rate Blood Pressure Pulse Oximetry 09/02/18 23:59 09/03/18 00:00 09/03/18 00:19 Temperature 98.2 F Pulse Rate 65 65 62 Respiratory Rate 20 16 Blood Pressure 109/55 L Pulse Oximetry 97 09/03/18 01:00 09/03/18 02:00 09/03/18 03:00 Temperature Pulse Rate 70 61 51 L Respiratory Rate Blood Pressure Pulse Oximetry 09/03/18 04:00 09/03/18 04:12 09/03/18 05:00 Temperature 97.9 F Pulse Rate 71 64 66 Respiratory Rate 20 16 Blood Pressure 106/51 L Pulse Oximetry 97 09/03/18 06:00 09/03/18 07:00 09/03/18 07:38 Temperature Pulse Rate 95 H 63 82 Respiratory Rate 18 Blood Pressure Pulse Oximetry 95 Intake & Output 09/02/18 09/03/18 09/03/18 18:59 06:59 18:59 Intake Total 960 / 960 490 / 490 Output Total 900 / 900 400 / 400 Balance 60 / 60 90 / 90 Weight 60.5 kg Intake: IV 250 / 250 Doxy 100 Inj 100 MG In NS Inj 100 / 100 100 ML @ 100 mls/hr IV.SIG Q12H [facility] Rx#:[id number] Levaquin 750 mg Premix Inj 150 150 / 150 ML @ 100 mls/hr IV.SIG Q24H [facility] Rx#:[id number] Oral 960 / 960 240 / 240 Output: Urine 900 / 900 400 / 400 Other: # Voids 1 Date of Last Bowel Movement 08/31/18 08/31/18 # Bowel Movements 0 Narrative: GENERAL: NAD. SKIN: Warm and dry. HEAD: Normocephalic. EYES: No scleral icterus. No injection or drainage. NECK: Supple, trachea midline. No JVD or lymphadenopathy. CARDIOVASCULAR: Regular rate and rhythm without murmurs, gallops, or rubs. RESPIRATORY: Diffuse wheezing. GASTROINTESTINAL: Abdomen soft, non-tender, nondistended. MUSCULOSKELETAL: No cyanosis, or edema. BACK: Nontender without obvious deformity. No CVA tenderness. NEURO: No gross deficits. Results - Labs CBC & Chem 7: 09/03/18 03:40 09/03/18 03:40 Laboratory Results - last 24 hr 09/03/18 09/03/18 03:40 03:40 WBC 10.0 RBC 4.40 Hgb 9.2 L Hct 30.4 L MCV 69.2 L MCH 21.0 L MCHC 30.4 L RDW 19.0 H Plt Count 157 MPV 9.1 Sodium 137 Potassium 4.2 Chloride 104 Carbon Dioxide 22.3 Anion Gap 11 BUN 27 H Creatinine 1.49 H Estimated GFR 35 L Random Glucose 173 H Calcium 8.3 L Magnesium 2.0 - Imaging Impressions Chest X-Ray 09/02/18 18:25 CONCLUSION: 1. Minimal airspace disease at the left lung base, presumably atelectasis. 2. Mild interstitial edema. Assessment and Plan - Plan Misfiring AICD with suspected lead displacement Consulted Dr. Thompson - assistance appreciated. -lead revision planned 09/03 per cardiology. -[place] 5/325 mg q4h PRN pain. -continuous cardiac telemetry to monitor for arrhythmias. Hypertension Stable. -Continue home amlodipine and lisinopril. COPD In exacerbation. -Duo nebulizers standing and every 2 hours as needed for shortness of breath/ wheezing. -continue IV Solumedrol. -incentive spirometry. -sputum culture. -encourage ambulation. -oxygen as needed. -IV doxycycline. Normochromic normocytic anemia Appears to be s/t iron deficiency. Transfused 1 unit red cells. -check Hemoccult. -follow CBC and transfuse as needed. Acute renal failure Possibly pre-renal. -check UA, calculate FENa. -IVFs. -avoid nephrotoxins and monitor. DVT prophylaxis: SCDs
[2018-09-03] MEDS: Sod Chloride 0.9% Inj 1,000 ML IV.CONT SCH ×2 (12:22→18:56)
[2018-09-03 13:07] LABS: Bacteria,Urine Rare /hpf; Bilirubin,Urine Negative (Negative); Clarity,Urine Clear (Clear); Color,Urine Yellow (Yellw/Straw); Glucose,Urine (UA) 50 mg/dL (Negative); Hyaline Casts,Urine 3 /lpf (0-3); Leukocyte Esterase,Urine Negative (Negative); Nitrite,Urine Negative (Negative); Specific Gravity,Urine 1.016 (1.002-1.035); Squamous Epithelial Cell,Urine 3 /hpf (0-5)
[2018-09-03 13:14] LABS: Creatinine,Urine Random 129 mg/dL (27-300); Sodium,Urine Random 18 meq/L
--- NOTE | 2018-09-03 16:12 | P.PN ---
Subjective Interval history: Tired Physical Exam Vital signs: Vital Signs 09/02/18 17:00 09/02/18 18:00 09/02/18 19:00 Temperature Pulse Rate 58 L 65 66 Respiratory Rate Blood Pressure Pulse Oximetry 09/02/18 20:00 09/02/18 20:44 09/02/18 21:00 Temperature 98.3 F Pulse Rate 65 64 78 Respiratory Rate 20 16 Blood Pressure 110/53 L Pulse Oximetry 100 98 09/02/18 22:00 09/02/18 23:00 09/02/18 23:59 Temperature 98.2 F Pulse Rate 79 66 65 Respiratory Rate 20 Blood Pressure 109/55 L Pulse Oximetry 97 09/03/18 00:00 09/03/18 00:19 09/03/18 01:00 Temperature Pulse Rate 65 62 70 Respiratory Rate 16 Blood Pressure Pulse Oximetry 09/03/18 02:00 09/03/18 03:00 09/03/18 04:00 Temperature 97.9 F Pulse Rate 61 51 L 71 Respiratory Rate 20 Blood Pressure 106/51 L Pulse Oximetry 97 09/03/18 04:12 09/03/18 05:00 09/03/18 06:00 Temperature Pulse Rate 64 66 95 H Respiratory Rate 16 Blood Pressure Pulse Oximetry 09/03/18 07:00 09/03/18 07:38 09/03/18 08:00 Temperature 98.1 F Pulse Rate 63 82 68 Respiratory Rate 18 20 Blood Pressure 121/57 L Pulse Oximetry 95 99 09/03/18 09:00 09/03/18 10:00 09/03/18 11:00 Temperature 98.2 F Pulse Rate 76 98 H 76 Respiratory Rate 20 Blood Pressure 108/54 L Pulse Oximetry 99 09/03/18 11:05 09/03/18 12:00 09/03/18 13:00 Temperature Pulse Rate 73 96 H 96 H Respiratory Rate 18 Blood Pressure Pulse Oximetry 09/03/18 15:46 Temperature Pulse Rate 69 Respiratory Rate 18 Blood Pressure Pulse Oximetry Intake & Output 09/02/18 09/03/18 09/03/18 18:59 06:59 18:59 Intake Total 960 / 960 490 / 490 100 / 100 Output Total 900 / 900 400 / 400 Balance 60 / 60 90 / 90 100 / 100 Weight 60.5 kg Intake: IV 250 / 250 100 / 100 Doxy 100 Inj 100 MG In NS Inj 100 / 100 100 / 100 100 ML @ 100 mls/hr IV.SIG Q12H [facility] Rx#:[id number] Levaquin 750 mg Premix Inj 150 150 / 150 ML @ 100 mls/hr IV.SIG Q24H [facility] Rx#:[id number] Oral 960 / 960 240 / 240 Output: Urine 900 / 900 400 / 400 Other: # Voids 1 Date of Last Bowel Movement 08/31/18 08/31/18 08/31/18 # Bowel Movements 0 - Constitutional moderate distress - Routine HEENT Exam Eye: Present: PERRL ENT: Present: mucous membranes moist - Routine Respiratory Exam Present: wheezes, crackles - Routine Cardiovascular Exam Present: S1, S2, tachycardia - Routine Neurological Exam Present: alert, oriented X3 - Detailed Neurological Exam: Coma Scale Eye Opening: Spontaneous Verbal Response: Oriented Motor Response: Obey commands [place] Coma Scale Total: 15 Results - Labs CBC & Chem 7: 09/03/18 03:40 09/03/18 03:40 Laboratory Results - last 24 hr 09/03/18 09/03/18 09/03/18 03:40 03:40 12:40 WBC 10.0 RBC 4.40 Hgb 9.2 L Hct 30.4 L MCV 69.2 L MCH 21.0 L MCHC 30.4 L RDW 19.0 H Plt Count 157 MPV 9.1 Sodium 137 Potassium 4.2 Chloride 104 Carbon Dioxide 22.3 Anion Gap 11 BUN 27 H Creatinine 1.49 H Estimated GFR 35 L Random Glucose 173 H Calcium 8.3 L Magnesium 2.0 Urine Color Yellow Urine Clarity Clear Urine pH 5.0 Ur Specific [place] 1.016 Urine Protein Negative Urine Glucose (UA) 50 Urine Ketones Negative Urine Occult Blood Negative Urine Nitrate Negative Urine Bilirubin Negative Urine Urobilinogen Less than 2 Ur Leukocyte Esterase Negative Urine RBC Less than 1 Urine WBC Less than 1 Ur Squamous Epith Cells 3 Urine Bacteria Rare H Hyaline Casts 3 Micro UA Comment Culture not ind Ur Microscopic Review Not Reportable Urine Culture Comments Culture not ind Ur Random Creatinine Ur Random Sodium 09/03/18 12:40 WBC RBC Hgb Hct MCV MCH MCHC RDW Plt Count MPV Sodium Potassium Chloride Carbon Dioxide Anion Gap BUN Creatinine Estimated GFR Random Glucose Calcium Magnesium Urine Color Urine Clarity Urine pH Ur Specific [place] Urine Protein Urine Glucose (UA) Urine Ketones Urine Occult Blood Urine Nitrate Urine Bilirubin Urine Urobilinogen Ur Leukocyte Esterase Urine RBC Urine WBC Ur Squamous Epith Cells Urine Bacteria Hyaline Casts Micro UA Comment Ur Microscopic Review Urine Culture Comments Ur Random Creatinine 129 Ur Random Sodium 18 Microbiology 09/02/18 12:30 Sputum - Oral Tracheal Aspirate Gram Stain - Final 09/02/18 12:30 Sputum - Oral Tracheal Aspirate Sputum Culture - Preliminary Heavy growth normal respiratory priya at 24 hours - Imaging Impressions Chest X-Ray 09/02/18 18:25 CONCLUSION: 1. Minimal airspace disease at the left lung base, presumably atelectasis. 2. Mild interstitial edema. Assessment and Plan - Assessment (1) ICD (implantable cardioverter-defibrillator) lead failure Code(s): T82.110A - Breakdown (mechanical) of cardiac electrode, initial encounter Status: Acute Plan: No new defib shock Lead insertion postpone Patient with severe COPD On antibiotics cannot tolerate flat bed. Will need pulmonary evaluation. Patient will be follow for now by Dr German. Further decision when stable (2) History of COPD Code(s): Z87.09 - Personal history of other diseases of the respiratory system Status: Acute Plan: Severe COPD SOB on minimal activity May need pulmonary evaluation
[2018-09-04 03:49] LABS: Hematocrit 29.9 % (35.0-46.0); Hemoglobin 8.9 gm/dL (11.6-15.3); Mean Corpuscular Hemoglobin 20.6 pg (27.0-34.0); Mean Corpuscular Volume 69.6 fL (80.0-100.0); Mean Platelet Volume 9.6 fL (7.0-11.0); Platelet Count 175 th/mm3 (150-450); Red Cell Distribution Width 19.2 % (11.6-17.2); White Blood Count 28.6 th/mm3 (4.0-11.0)
[2018-09-04 03:57] LABS: Mean Corpuscular HGB Conc 29.6 % (32.0-36.0)
[2018-09-04 04:18] LABS: Albumin 2.8 g/dL (3.4-5.0); Calcium 8.2 mg/dL (8.5-10.1); Carbon Dioxide 23.3 meq/L (21.0-32.0); Magnesium 2.2 mg/dL (1.5-2.5); Potassium 4.4 meq/L (3.5-5.1); Total Protein 6.7 g/dL (6.4-8.2)
[2018-09-04] MEDS: MethylPREDNISolone Sod Succinate Inj 40 MG/ML Vial IV.PUSH SCH ×3 (05:25→22:14)
[2018-09-04] MEDS: amLODIPine 10 MG Tablet PO SCH (08:22)
--- NOTE | 2018-09-04 09:23 | P.PNCA ---
Subjective Interval history: No CP, dizziness, palpitations. Dyspnea minimally improved overall. Slept some. Medications and Allergies Active Medications: Active Medications Acetaminophen (Tylenol) 650 mg PO Q4H PRN PRN Reason: Temp > 100.4 Acetaminophen (Tylenol) 650 mg PO Q4H PRN PRN Reason: SEE LABEL COMMENTS Hydrocodone Bitart/Acetaminophen ([place] 5/325) 1 tab PO Q4H PRN PRN Reason: Acute Pain Last Admin: 09/04/18 08:22 Dose: 1 tab Albuterol (Duoneb Neb (Prn)) 1 ampul NEB Q2HR NEB PRN PRN Reason: SHORTNESS OF BREATH Last Admin: 09/02/18 07:46 Dose: 1 ampul Albuterol (Duoneb Neb ([place])) 1 ampul NEB Q4HR NEB [facility] Last Admin: 09/04/18 07:29 Dose: 1 ampul Amlodipine Besylate (Norvasc) 10 mg PO DAILY [facility] Last Admin: 09/04/18 08:22 Dose: 10 mg Diphenhydramine HCl (Benadryl) 25 mg PO Q4H PRN PRN Reason: SEE LABEL COMMENTS Doxycycline Hyclate 100 mg/ (Sodium Chloride) 100 mls @ 100 mls/hr IV.SIG Q12H [facility] Last Admin: 09/04/18 08:49 Dose: 100 mls/hr Lisinopril (Prinivil) 20 mg PO DAILY [facility] Last Admin: 09/03/18 08:46 Dose: 20 mg Lorazepam (Ativan) 0.5 mg PO Q6H PRN PRN Reason: ANXIETY Methylprednisolone Sodium Succinate (Solumedrol Inj) 40 mg IV.PUSH Q8HR [facility] Last Admin: 09/04/18 05:25 Dose: 40 mg Sodium Chloride (Ns Flush) 2 ml IV.FLUSH BID [facility] Last Admin: 09/04/18 08:23 Dose: 2 ml Sodium Chloride (Ns Flush) 2 ml IV.FLUSH PRN PRN PRN Reason: FLUSH AFTER USING IV ACCESS Allergies Allergy/AdvReac Type Severity Reaction Status Date / Time cefaclor Allergy Severe HIVES, Verified 08/31/18 22:00 THROAT CLOSES prochlorperazine Allergy Severe THROAT Verified 08/31/18 22:00 CLOSES ciprofloxacin Allergy Intermediate nausea/vomi Verified 08/31/18 22:00 ting orphenadrine Allergy Intermediate PALPITATION Verified 08/31/18 22:00 S Home Medications Medication Instructions Recorded Confirmed Type albuterol sulfate [Ventolin HFA] 2 puff INHALATION Q4-6H PRN 03/07/18 08/31/18 History amlodipine 10 mg PO DAILY 03/07/18 08/31/18 History lisinopril 20 mg PO DAILY 03/07/18 08/31/18 History metformin 500 mg PO DAILY 03/07/18 08/31/18 History methadone 50 mg PO DAILY 03/07/18 08/31/18 History Physical Exam Vital signs: Vital Signs 09/03/18 10:00 09/03/18 11:00 09/03/18 11:05 Temperature 98.2 F Pulse Rate 98 H 76 73 Respiratory Rate 20 18 Blood Pressure 108/54 L Pulse Oximetry 99 09/03/18 12:00 09/03/18 13:00 09/03/18 14:00 Temperature Pulse Rate 96 H 96 H 88 Respiratory Rate Blood Pressure Pulse Oximetry 09/03/18 15:00 09/03/18 15:46 09/03/18 16:00 Temperature 98.6 F Pulse Rate 78 69 84 Respiratory Rate 20 18 Blood Pressure 104/53 L Pulse Oximetry 98 09/03/18 17:00 09/03/18 18:00 09/03/18 19:00 Temperature 99.4 F Pulse Rate 82 80 90 Respiratory Rate 20 Blood Pressure 114/66 Pulse Oximetry 97 09/03/18 20:00 09/03/18 20:23 09/03/18 21:00 Temperature Pulse Rate 70 78 72 Respiratory Rate 18 Blood Pressure Pulse Oximetry 98 96 09/03/18 22:00 09/03/18 23:00 09/03/18 23:51 Temperature 98.3 F Pulse Rate 72 87 80 Respiratory Rate 20 17 Blood Pressure 115/57 L Pulse Oximetry 97 97 09/04/18 00:00 09/04/18 01:00 09/04/18 02:00 Temperature Pulse Rate 74 65 67 Respiratory Rate Blood Pressure Pulse Oximetry 09/04/18 03:00 09/04/18 03:47 09/04/18 04:00 Temperature 98.3 F Pulse Rate 77 71 71 Respiratory Rate 20 19 Blood Pressure 110/84 Pulse Oximetry 98 09/04/18 05:00 09/04/18 06:00 09/04/18 07:00 Temperature 97.8 F Pulse Rate 70 65 104 H Respiratory Rate 20 Blood Pressure 113/56 L Pulse Oximetry 96 09/04/18 07:30 Temperature Pulse Rate 62 Respiratory Rate 14 Blood Pressure Pulse Oximetry 97 Intake & Output 09/03/18 09/04/18 09/04/18 18:59 06:59 18:59 Intake Total 800 / 800 580 / 580 Output Total 450 / 450 475 / 475 Balance 350 / 350 105 / 105 Weight 61 kg Intake: IV 100 / 100 100 / 100 Doxy 100 Inj 100 MG In NS Inj 100 / 100 100 / 100 100 ML @ 100 mls/hr IV.SIG Q12H [facility] Rx#:[id number] Oral 700 / 700 480 / 480 Output: Urine 450 / 450 475 / 475 Other: Date of Last Bowel Movement 08/31/18 08/31/18 09/02/18 # Bowel Movements 0 - Constitutional no acute distress - Routine Neck Exam Absent: JVD - Routine Respiratory Exam Present: decreased breath sounds, wheezes - Routine Cardiovascular Exam Present: RRR, S1, S2. Absent: murmur, gallop - Routine Abdominal Exam Present: soft, normoactive bowel sounds. Absent: tenderness, organomegaly - Routine Extremities Exam Absent: cyanosis, clubbing, edema Results 09/04/18 03:15 09/04/18 03:15 Cardiac Enzymes 09/04/18 Range/Units 03:15 AST 24 (15-37) U/L CBC 09/03/18 09/04/18 Range/Units 03:40 03:15 WBC 10.0 28.6 H D (4.0-11.0) th/mm3 RBC 4.40 4.30 (4.00-5.30) mil/mm3 Hgb 9.2 L 8.9 L (11.6-15.3) gm/dL Hct 30.4 L 29.9 L (35.0-46.0) % Plt Count 157 175 (150-450) th/mm3 Comprehensive Metabolic Panel 09/03/18 09/04/18 Range/Units 03:40 03:15 Sodium 137 137 (136-145) meq/L Potassium 4.2 4.4 (3.5-5.1) meq/L Chloride 104 104 (98-107) meq/L Carbon Dioxide 22.3 23.3 (21.0-32.0) meq/L BUN 27 H 46 H (7-18) mg/dL Creatinine 1.49 H 1.88 H (0.50-1.00) mg/dL Calcium 8.3 L 8.2 L (8.5-10.1) mg/dL Direct Bilirubin 0.1 (0.0-0.2) mg/dL Indirect Bilirubin 0.1 (0.0-0.8) mg/dL AST 24 (15-37) U/L ALT 26 (10-53) U/L Alkaline Phosphatase 64 (45-117) U/L Total Protein 6.7 (6.4-8.2) g/dL Albumin 2.8 L (3.4-5.0) g/dL Intake and Output 09/03/18 09/04/18 09/04/18 22:59 06:59 14:59 Intake Total 800 / 800 480 / 480 Output Total 450 / 450 475 / 475 Balance 350 / 350 5 / 5 Intake: IV 100 / 100 Doxy 100 Inj 100 MG In NS Inj 100 / 100 100 ML @ 100 mls/hr IV.SIG Q12H [facility] Rx#:[id number] Oral 700 / 700 480 / 480 Output: Urine 450 / 450 475 / 475 Other: Date of Last Bowel Movement 08/31/18 08/31/18 09/02/18 # Bowel Movements 0 Weight 61 kg - Imaging and Cardiology Imaging: Impressions Chest X-Ray 09/02/18 18:25 CONCLUSION: 1. Minimal airspace disease at the left lung base, presumably atelectasis. 2. Mild interstitial edema. Assessment and Plan - Assessment (1) ICD (implantable cardioverter-defibrillator) lead failure Code(s): T82.110A - Breakdown (mechanical) of cardiac electrode, initial encounter Status: Acute Plan: Cardiac status stable overnight. Patient still considerably dyspneic and unable to lie flat for a ICD lead replacement procedure. RECOMMEND await pulmonary consult, OK to discharge home from a cardiac standpoint and Dr. Thompson will contact patient to return for her new lead procedure as an outpatient. (2) Congestive heart failure Code(s): I50.9 - Heart failure, unspecified Status: Chronic Plan: Patient apparently with history of CHF. Most recent chest x-ray suggests mild pulmonary edema. RECOMMEND hold SAMARIA-I with her worsening renal indices, initiate beta saeid therapy, consider mild diuresis. (3) History of COPD Code(s): Z87.09 - Personal history of other diseases of the respiratory system Status: Chronic - Plan Code Status: full code Discussed Condition With: patient (1) ICD (implantable cardioverter-defibrillator) lead failure Qualifiers: Encounter type: subsequent encounter Qualified Code(s): T82.110D - Breakdown (mechanical) of cardiac electrode, subsequent encounter (2) Congestive heart failure Qualifiers: Heart failure type: unspecified Heart failure chronicity: acute on chronic Qualified Code(s): I50.9 - Heart failure, unspecified
[2018-09-04] MEDS: Azithromycin Inj 500 MG in Sodium Chlor 0.9% Inj 250 ML IV.SIG SCH (10:51)
--- NOTE | 2018-09-04 10:58 | MB ---
cc: Rima Jama MD DATE: 09/04/2018 REASON FOR CONSULTATION: COPD and cough. HISTORY OF PRESENT ILLNESS: This is a 63-year-old female who has a history of COPD, diabetes, and hypertension, as well as chronic pain who was admitted via emergency room with complaints of AICD firing x3 while she was at the grocery store. The patient apparently has had an AICD in place due to history of ventricular fibrillation arrest in 07/2017 and has been monitored by Dr. Girard, the angle bender. The patient recently, however, has had no chest pain, no fevers or chills, but has had a persistent cough, wheezing, chest congestion, and brings up a little whitish mucus. She has had no fevers or chills. She was admitted for cardiac evaluation and she continues to have some coughing spells and is also short of breath, but is not on any oxygen. PAST MEDICAL HISTORY: Included history for COPD, history of diabetes, past history of hypertension, history of ventricular fibrillation with arrest and AICD placement. PAST SURGICAL HISTORY: Appendectomy, breast augmentation surgery, hemorrhoidectomy, nasal septal surgery, and exploratory laparotomy as well as tonsillectomy remotely. SOCIAL HISTORY: The patient smoked 1/2 to 1 pack per day for 25 years and has quit more than a month ago. No significant alcohol use. ALLERGIES: 1. CEFACLOR. 2. PROCHLORPERAZINE. 3. CIPRO. 4. ORPHENADRINE. MEDICATIONS: 1. Amlodipine 10 mg daily. 2. Lisinopril 20 mg daily. 3. Metformin 500 mg daily. 4. Methadone 50 mg a day. 5. Ventolin inhaler p.r.n. FAMILY HISTORY: Father of heart disease and stroke. Mother of cancer in the liver and also had COPD. REVIEW OF SYSTEMS: The patient has gained weight. She has dizziness, postnasal drip. She has cough and wheezing. She has some epigastric distress. No nausea, vomiting. Denies urinary symptoms. She has some joint pains and lower back pain. She has anxiety attacks. The other system review is negative. PHYSICAL EXAMINATION: GENERAL: This is an averagely built, middle-aged, white female who is alert, pale, no acute distress. VITAL SIGNS: Blood pressure 130/60 and the pulse is 57, respirations 20, temperature is 98.2. HEENT: Head is normocephalic. Pupils are reactive and equal. Tongue is moist. Throat is clear. Nasal mucosa injected. NECK: Supple with no venous distention. No thyromegaly or lymphadenopathy. CHEST: Distant breath sounds with expiratory wheezes bilaterally, prolonged expirations, and there are few crackles at the right base. HEART: Sounds are irregular S1 and S2 with no definite murmur or S3. ABDOMEN: Soft, protuberant without masses. Mild epigastric tenderness. No organomegaly. EXTREMITIES: No edema. No lesions, no calf tenderness. Mamie sign is negative. NEUROLOGIC: Reflexes are 1+ with no gross motor or sensory deficits. Cranial nerves grossly intact. SKIN: No lesions noted. IMPRESSION: 1. Chronic obstructive pulmonary disease with chronic bronchitis and acute exacerbation. 2. Hypertension. 3. Diabetes mellitus. 4. Mild congestive heart failure. 5. History of ventricular fibrillation. 6. Reactive airway disease. PLAN: The patient will be sent for a CT of the chest to evaluate for any lung infiltrates or nodules. A PFT will be done at the bedside. Sputum sent for culture and Gram stain. We will add Zithromax 500 mg IV daily for an exacerbation of bronchitis. Solu-Medrol 40 mg IV every 8 hours to be continued. Symbicort 80/4.5 mcg 1 puff twice daily. Repeat electrolytes to be done. Oxygen supplementation at 2 liters p.r.n. I will follow the case with you. Dr. Sam, thank you for this consultation. Rima Jama MD VJD/ts , 10:24 AM , 10:35 AM
--- NOTE | 2018-09-04 12:12 | P.PN ---
Subjective Interval history: Follow-up ICD lead failure/acute exacerbation of chronic COPD and chronic bronchitis September 04, 2018-patient seen and examined, stable significant shortness of breath however denies any chest pain. Case discussed with above cardiology and pulmonary medicine Physical Exam Vital signs: Vital Signs 09/03/18 13:00 09/03/18 14:00 09/03/18 15:00 Temperature 98.6 F Pulse Rate 96 H 88 78 Respiratory Rate 20 Blood Pressure 104/53 L Pulse Oximetry 98 09/03/18 15:46 09/03/18 16:00 09/03/18 17:00 Temperature Pulse Rate 69 84 82 Respiratory Rate 18 Blood Pressure Pulse Oximetry 09/03/18 18:00 09/03/18 19:00 09/03/18 20:00 Temperature 99.4 F Pulse Rate 80 90 70 Respiratory Rate 20 Blood Pressure 114/66 Pulse Oximetry 97 98 09/03/18 20:23 09/03/18 21:00 09/03/18 22:00 Temperature Pulse Rate 78 72 72 Respiratory Rate 18 Blood Pressure Pulse Oximetry 96 09/03/18 23:00 09/03/18 23:51 09/04/18 00:00 Temperature 98.3 F Pulse Rate 87 80 74 Respiratory Rate 20 17 Blood Pressure 115/57 L Pulse Oximetry 97 97 09/04/18 01:00 09/04/18 02:00 09/04/18 03:00 Temperature 98.3 F Pulse Rate 65 67 77 Respiratory Rate 20 Blood Pressure 110/84 Pulse Oximetry 98 09/04/18 03:47 09/04/18 04:00 09/04/18 05:00 Temperature Pulse Rate 71 71 70 Respiratory Rate 19 Blood Pressure Pulse Oximetry 09/04/18 06:00 09/04/18 07:00 09/04/18 07:30 Temperature 97.8 F Pulse Rate 65 104 H 62 Respiratory Rate 20 14 Blood Pressure 113/56 L Pulse Oximetry 96 97 09/04/18 10:57 09/04/18 11:55 Temperature 98.8 F Pulse Rate 73 84 Respiratory Rate 16 15 Blood Pressure 112/56 L Pulse Oximetry 96 Intake & Output 09/03/18 09/04/18 09/04/18 18:59 06:59 18:59 Intake Total 800 / 800 580 / 580 100 / 100 Output Total 450 / 450 475 / 475 Balance 350 / 350 105 / 105 100 / 100 Weight 61 kg Intake: IV 100 / 100 100 / 100 100 / 100 Doxy 100 Inj 100 MG In NS Inj 100 / 100 100 / 100 100 / 100 100 ML @ 100 mls/hr IV.SIG Q12H [facility] Rx#:[id number] Oral 700 / 700 480 / 480 Output: Urine 450 / 450 475 / 475 Other: Date of Last Bowel Movement 08/31/18 08/31/18 09/02/18 # Bowel Movements 0 Narrative: GENERAL: NAD. SKIN: Warm and dry. HEAD: Normocephalic. EYES: No scleral icterus. No injection or drainage. NECK: Supple, trachea midline. No JVD or lymphadenopathy. CARDIOVASCULAR: Regular rate and rhythm without murmurs, gallops, or rubs. RESPIRATORY: Diffuse wheezing. GASTROINTESTINAL: Abdomen soft, non-tender, nondistended. MUSCULOSKELETAL: No cyanosis, or edema. BACK: Nontender without obvious deformity. No CVA tenderness. NEURO: No gross deficits. Results - Labs CBC & Chem 7: 09/04/18 03:15 09/04/18 03:15 Laboratory Results - last 24 hr 09/03/18 09/03/18 09/04/18 12:40 12:40 03:15 WBC 28.6 H D RBC 4.30 Hgb 8.9 L Hct 29.9 L MCV 69.6 L MCH 20.6 L MCHC 29.6 L RDW 19.2 H Plt Count 175 MPV 9.6 Sodium Potassium Chloride Carbon Dioxide Anion Gap BUN Creatinine Estimated GFR Random Glucose Calcium Magnesium Total Bilirubin Direct Bilirubin Indirect Bilirubin AST ALT Alkaline Phosphatase Total Protein Albumin Urine Color Yellow Urine Clarity Clear Urine pH 5.0 Ur Specific [place] 1.016 Urine Protein Negative Urine Glucose (UA) 50 Urine Ketones Negative Urine Occult Blood Negative Urine Nitrate Negative Urine Bilirubin Negative Urine Urobilinogen Less than 2 Ur Leukocyte Esterase Negative Urine RBC Less than 1 Urine WBC Less than 1 Ur Squamous Epith Cells 3 Urine Bacteria Rare H Hyaline Casts 3 Micro UA Comment Culture not ind Ur Microscopic Review Not Reportable Urine Culture Comments Culture not ind Ur Random Creatinine 129 Ur Random Sodium 18 09/04/18 03:15 WBC RBC Hgb Hct MCV MCH MCHC RDW Plt Count MPV Sodium 137 Potassium 4.4 Chloride 104 Carbon Dioxide 23.3 Anion Gap 10 BUN 46 H Creatinine 1.88 H Estimated GFR 27 L Random Glucose 161 H Calcium 8.2 L Magnesium 2.2 Total Bilirubin 0.2 Direct Bilirubin 0.1 Indirect Bilirubin 0.1 AST 24 ALT 26 Alkaline Phosphatase 64 Total Protein 6.7 Albumin 2.8 L Urine Color Urine Clarity Urine pH Ur Specific [place] Urine Protein Urine Glucose (UA) Urine Ketones Urine Occult Blood Urine Nitrate Urine Bilirubin Urine Urobilinogen Ur Leukocyte Esterase Urine RBC Urine WBC Ur Squamous Epith Cells Urine Bacteria Hyaline Casts Micro UA Comment Ur Microscopic Review Urine Culture Comments Ur Random Creatinine Ur Random Sodium Microbiology 09/02/18 12:30 Sputum - Oral Tracheal Aspirate Gram Stain - Final 09/02/18 12:30 Sputum - Oral Tracheal Aspirate Sputum Culture - Final Heavy growth normal respiratory priya Assessment and Plan - Plan 63-year-old female with Misfiring AICD with suspected lead displacement -Appreciate input from cardiology and veterinary receptionist, however secondary to patient's worsening pulmonary status, recommend follow-up in the near future -Continue with Coreg. SAMARIA inhibitor on hold due to CKD - [place] 5/325 mg q4h PRN pain - continuous cardiac telemetry to monitor for arrhythmias Hypertension -Continue home amlodipine and Coreg -Lisinopril on hold secondary to CKD Acute exacerbation of COPD and chronic bronchitis -Pulmonary medicine has been consulted September 04, 2018 the case was discussed with Dr. Ramos -Patient currently on Solu-Medrol 40 mg IV q. 8-hour, azithromycin 500 mg daily , Symbicort, bronchodilators -CT chest pending Tobacco abuse - Advised smoking cessation Normochromic normocytic anemia -s/p 1 unit packed red blood cell 09/01 DVT prophylaxis -SCDs
--- NOTE | 2018-09-04 17:02 | CT ---
EXAM DATE: 09/04/2018 4:54 PM EST AGE/SEX: 63 years / Female INDICATIONS: Shortness of breath and cough. CLINICAL DATA: This is the patient's initial encounter. Patient reports that signs and symptoms have been present for 1 day and indicates a pain score of 0/10. MEDICAL/SURGICAL HISTORY: Chronic obstructive pulmonary disease. Diabetes. Congestive heart failu re. Breast augmentation. defibrillator placement RADIATION DOSE: 8.7 CTDI (mGy) COMPARISON: No prior exams available for comparison. TECHNIQUE: Multiple contiguous axial images were obtained through the chest without contrast. Image s were obtained in suspended respiration using multiple row detector helical technique. Using automa tameka exposure control and adjustment of the mA and/or kV according to patient size, radiation dose was kept as low as reasonably achievable to obtain optimal diagnostic quality images. DICOM format imag e data is available electronically for review and comparison. FINDINGS: There is scattered groundglass opacity in both lungs predominantly in the upper lobes most characteri stic of a mild bronchopneumonia. No pleural or pericardial effusion. Moderate coronary calcifications . Pacer lead tip right ventricle. No pathologically enlarged lymph nodes identified hilar, or axillary region. Bilateral breast augment ation with implant ruptures. CONCLUSION: 1. Patchy groundglass opacity in both lungs with an upper lobe predominance, most characteristic of a mild bronchopneumonia. 2. Moderate-sized hiatal hernia. Moderate coronary calcifications. Pacer lead in right ventricle. Bi lateral breast implant ruptures. Electronically signed by: Austin Astudillo MD Board Certified Radiologist 09/04/2018 5:01 PM EST
[2018-09-04] MEDS: Budesonide-Formoterol 80/4.5 MCG 6.9 GM Inhaler INH SCH (22:14)
[2018-09-05] MEDS: MethylPREDNISolone Sod Succinate Inj 40 MG/ML Vial IV.PUSH SCH ×3 (05:30→21:13)
[2018-09-05] MEDS: Budesonide-Formoterol 80/4.5 MCG 6.9 GM Inhaler INH SCH ×2 (08:19→22:55)
[2018-09-05] MEDS: amLODIPine 10 MG Tablet PO SCH (08:19)
--- NOTE | 2018-09-05 09:05 | P.PN ---
Subjective Interval history: Follow-up ICD lead failure/acute exacerbation of chronic COPD and chronic bronchitis September 04, 2018-patient seen and examined, stable significant shortness of breath however denies any chest pain. Case discussed with above cardiology and pulmonary medicine September 05, 2018-, still with shortness of breath and wheezing on exam, denies any chest pain. Son by the bedside. Discussed above secondhand smoking with the patient's son Physical Exam Vital signs: Vital Signs 09/04/18 10:00 09/04/18 10:57 09/04/18 11:00 Temperature 98.8 F Pulse Rate 72 73 81 Respiratory Rate 16 Blood Pressure 112/56 L Pulse Oximetry 96 09/04/18 11:55 09/04/18 12:00 09/04/18 13:00 Temperature Pulse Rate 84 76 73 Respiratory Rate 15 Blood Pressure Pulse Oximetry 09/04/18 13:13 09/04/18 14:00 09/04/18 15:00 Temperature 97.9 F Pulse Rate 74 82 Respiratory Rate 18 18 Blood Pressure 136/61 Pulse Oximetry 98 09/04/18 16:00 09/04/18 16:57 09/04/18 17:00 Temperature Pulse Rate 72 101 H 84 Respiratory Rate 15 Blood Pressure Pulse Oximetry 09/04/18 18:00 09/04/18 19:00 09/04/18 19:36 Temperature 99.2 F Pulse Rate 78 78 Respiratory Rate 18 Blood Pressure 108/55 L Pulse Oximetry 96 97 09/04/18 20:00 09/04/18 21:00 09/04/18 22:00 Temperature Pulse Rate 78 84 72 Respiratory Rate Blood Pressure Pulse Oximetry 96 09/04/18 23:00 09/05/18 00:00 09/05/18 01:00 Temperature 98.3 F Pulse Rate 60 60 58 L Respiratory Rate 16 Blood Pressure 120/60 Pulse Oximetry 96 09/05/18 02:00 09/05/18 03:00 09/05/18 04:00 Temperature 98 F Pulse Rate 56 L 58 L 58 L Respiratory Rate 16 Blood Pressure 117/59 L Pulse Oximetry 96 09/05/18 05:00 09/05/18 06:00 09/05/18 07:00 Temperature 98.0 F Pulse Rate 60 56 L 95 H Respiratory Rate 22 Blood Pressure 123/60 Pulse Oximetry 95 09/05/18 07:33 Temperature Pulse Rate 92 H Respiratory Rate 15 Blood Pressure Pulse Oximetry Intake & Output 09/04/18 09/05/18 09/05/18 18:59 06:59 18:59 Intake Total 1490 / 1490 544 / 544 Output Total 800 / 800 600 / 600 Balance 690 / 690 -56 / -56 Weight 60 kg Intake: IV 350 / 350 100 / 100 Azithromycin Inj 500 MG In NS 250 / 250 Inj 250 ML @ 250 mls/hr IV.SIG Q24H [facility] Rx#:[id number] Doxy 100 Inj 100 MG In NS Inj 100 / 100 100 / 100 100 ML @ 100 mls/hr IV.SIG Q12H [facility] Rx#:[id number] Oral 1140 / 1140 444 / 444 Output: Urine 800 / 800 600 / 600 Other: Date of Last Bowel Movement 09/02/18 09/02/18 # Bowel Movements 0 Narrative: GENERAL: NAD. SKIN: Warm and dry. HEAD: Normocephalic. EYES: No scleral icterus. No injection or drainage. NECK: Supple, trachea midline. No JVD or lymphadenopathy. CARDIOVASCULAR: Regular rate and rhythm without murmurs, gallops, or rubs. RESPIRATORY: Poor air entry Bilaterally .Diffuse wheezing. GASTROINTESTINAL: Abdomen soft, non-tender, nondistended. MUSCULOSKELETAL: No cyanosis, or edema. BACK: Nontender without obvious deformity. No CVA tenderness. NEURO: No gross deficits. Results - Labs CBC & Chem 7: 09/04/18 03:15 09/04/18 03:15 Microbiology 09/02/18 12:30 Sputum - Oral Tracheal Aspirate Gram Stain - Final 09/02/18 12:30 Sputum - Oral Tracheal Aspirate Sputum Culture - Final Heavy growth normal respiratory priya - Imaging Impressions Chest CT 09/04/18 00:00 CONCLUSION: 1. Patchy groundglass opacity in both lungs with an upper lobe predominance, most characteristic of a mild bronchopneumonia. 2. Moderate-sized hiatal hernia. Moderate coronary calcifications. Pacer lead in right ventricle. Bilateral breast implant ruptures. Assessment and Plan - Plan 63-year-old female with Misfiring AICD with suspected lead displacement -Appreciate input from cardiology and senior biostatistician, however secondary to patient's worsening pulmonary status, Plan for the procedure has been postponed until improvement of respiratory status. -Continue with Coreg. SAMARIA inhibitor on hold due to CKD - [place] 5/325 mg q4h PRN pain - continuous cardiac telemetry to monitor for arrhythmias Hypertension -Continue home amlodipine and Coreg -Lisinopril on hold secondary to CKD Acute exacerbation of COPD and chronic bronchitis -Pulmonary medicine ff -Patient currently on Solu-Medrol 40 mg IV q. 8-hour, doxy + azithromycin 500 mg daily, Symbicort, bronchodilators -CT chest with finding of Patchy groundglass opacity in both lungs with an upper lobe predominance, most characteristic of a mild bronchopneumonia Tobacco abuse - Advised smoking cessation Normochromic normocytic anemia -s/p 1 unit packed red blood cell 09/01 -Monitor H&H DVT prophylaxis -SCDs
[2018-09-05] MEDS: Azithromycin Inj 500 MG in Sodium Chlor 0.9% Inj 250 ML IV.SIG SCH (10:43)
--- NOTE | 2018-09-05 13:19 | P.PN ---
Subjective Interval history: She has some cough and wheezing. No fever. CT chest shows bilat infiltrates. Physical Exam Vital signs: Vital Signs 09/04/18 14:00 09/04/18 15:00 09/04/18 16:00 Temperature 97.9 F Pulse Rate 74 82 72 Respiratory Rate 18 Blood Pressure 136/61 Pulse Oximetry 98 09/04/18 16:57 09/04/18 17:00 09/04/18 18:00 Temperature Pulse Rate 101 H 84 78 Respiratory Rate 15 Blood Pressure Pulse Oximetry 09/04/18 19:00 09/04/18 19:36 09/04/18 20:00 Temperature 99.2 F Pulse Rate 78 78 Respiratory Rate 18 Blood Pressure 108/55 L Pulse Oximetry 96 97 96 09/04/18 21:00 09/04/18 22:00 09/04/18 23:00 Temperature 98.3 F Pulse Rate 84 72 60 Respiratory Rate 16 Blood Pressure 120/60 Pulse Oximetry 96 09/05/18 00:00 09/05/18 01:00 09/05/18 02:00 Temperature Pulse Rate 60 58 L 56 L Respiratory Rate Blood Pressure Pulse Oximetry 09/05/18 03:00 09/05/18 04:00 09/05/18 05:00 Temperature 98 F Pulse Rate 58 L 58 L 60 Respiratory Rate 16 Blood Pressure 117/59 L Pulse Oximetry 96 09/05/18 06:00 09/05/18 07:00 09/05/18 07:33 Temperature 98.0 F Pulse Rate 56 L 57 L 92 H Respiratory Rate 22 15 Blood Pressure 123/60 Pulse Oximetry 95 09/05/18 08:00 09/05/18 09:00 09/05/18 10:00 Temperature Pulse Rate 84 70 58 L Respiratory Rate Blood Pressure Pulse Oximetry 95 09/05/18 11:00 09/05/18 11:06 09/05/18 12:00 Temperature 98.1 F Pulse Rate 64 61 77 Respiratory Rate 22 15 Blood Pressure 113/54 L Pulse Oximetry 96 09/05/18 13:00 Temperature Pulse Rate 78 Respiratory Rate Blood Pressure Pulse Oximetry Intake & Output 09/04/18 09/05/18 09/05/18 18:59 06:59 18:59 Intake Total 1490 / 1490 544 / 544 350 / 350 Output Total 800 / 800 600 / 600 Balance 690 / 690 -56 / -56 350 / 350 Weight 60 kg Intake: IV 350 / 350 100 / 100 350 / 350 Azithromycin Inj 500 MG In NS 250 / 250 250 / 250 Inj 250 ML @ 250 mls/hr IV.SIG Q24H [facility] Rx#:[id number] Doxy 100 Inj 100 MG In NS Inj 100 / 100 100 / 100 100 / 100 100 ML @ 100 mls/hr IV.SIG Q12H [facility] Rx#:[id number] Oral 1140 / 1140 444 / 444 Output: Urine 800 / 800 600 / 600 Other: Date of Last Bowel Movement 09/02/18 09/02/18 # Bowel Movements 0 Narrative: GENERAL: Mid aged W/F in NAD. SKIN: Warm and dry. HEAD: Normocephalic. EYES: No scleral icterus. No injection or drainage. NECK: Supple, trachea midline. No JVD or lymphadenopathy. CARDIOVASCULAR: Regular rate and rhythm without murmurs, gallops, or rubs. RESPIRATORY: Poor air entry Bilaterally .Diffuse wheezing.Occ basal crackles. GASTROINTESTINAL: Abdomen soft, non-tender, nondistended. MUSCULOSKELETAL: No cyanosis, or edema. BACK: Nontender without obvious deformity. No CVA tenderness. NEURO: No gross deficits. Results - Labs CBC & Chem 7: 09/04/18 03:15 09/04/18 03:15 Microbiology 09/02/18 12:30 Sputum - Oral Tracheal Aspirate Gram Stain - Final 09/02/18 12:30 Sputum - Oral Tracheal Aspirate Sputum Culture - Final Heavy growth normal respiratory priya - Imaging Impressions Chest CT 09/04/18 00:00 CONCLUSION: 1. Patchy groundglass opacity in both lungs with an upper lobe predominance, most characteristic of a mild bronchopneumonia. 2. Moderate-sized hiatal hernia. Moderate coronary calcifications. Pacer lead in right ventricle. Bilateral breast implant ruptures. Assessment and Plan - Assessment (1) Bronchopneumonia Code(s): J18.0 - Bronchopneumonia, unspecified organism Status: Acute (2) Urinary tract infection Code(s): N39.0 - Urinary tract infection, site not specified Status: Acute (3) Upper GI bleed Code(s): K92.2 - Gastrointestinal hemorrhage, unspecified Status: Acute (4) Dehydration Code(s): E86.0 - Dehydration Status: Acute (5) Sepsis Code(s): A41.9 - Sepsis, unspecified organism Status: Acute (6) Acute GI bleeding Code(s): K92.2 - Gastrointestinal hemorrhage, unspecified Status: Acute (7) Anemia Code(s): D64.9 - Anemia, unspecified Status: Acute (8) History of COPD Code(s): Z87.09 - Personal history of other diseases of the respiratory system Status: Chronic (9) Colon polyp, hyperplastic Code(s): K63.5 - Polyp of colon Status: Acute - Plan 1. Continue antibiotics , Doxycycline / Zithromax 2. Nebs qid , duoneb 3. Solumedrol 40 mg Q6H 4. get urine antigen for Legionella / Pneumo 5. CBc,BMP in am 6. Add Singulair 10 mg daily 7. Symbicort 160/4.5 mcg, 2puffs BID (7) Anemia Qualifiers: Anemia type: iron deficiency Iron deficiency anemia type: chronic blood loss Qualified Code(s): D50.0 - Iron deficiency anemia secondary to blood loss ( chronic)
--- NOTE | 2018-09-05 13:56 | P.PNCA ---
Subjective Interval history: Dyspnea minimally improved. No CP, dizziness, palpitations. Slept fairly well. Medications and Allergies Active Medications: Active Medications Acetaminophen (Tylenol) 650 mg PO Q4H PRN PRN Reason: Temp > 100.4 Acetaminophen (Tylenol) 650 mg PO Q4H PRN PRN Reason: SEE LABEL COMMENTS Hydrocodone Bitart/Acetaminophen ([place] 5/325) 1 tab PO Q4H PRN PRN Reason: Acute Pain Last Admin: 09/05/18 12:43 Dose: 1 tab Albuterol (Duoneb Neb (Prn)) 1 ampul NEB Q2HR NEB PRN PRN Reason: SHORTNESS OF BREATH Last Admin: 09/02/18 07:46 Dose: 1 ampul Albuterol (Duoneb Neb (Logan)) 1 ampul NEB Q4HR NEB LOGAN Last Admin: 09/05/18 11:04 Dose: 1 ampul Amlodipine Besylate (Norvasc) 10 mg PO DAILY [facility] [place] Last Admin: 09/05/18 08:19 Dose: 10 mg Budesonide/Formoterol Fumarate (Symbicort 80/4.5 Mcg Inh) 1 puff INH BID [facility] [place] Last Admin: 09/05/18 08:19 Dose: 1 puff Carvedilol (Coreg) 3.125 mg PO BID [facility] [place] Last Admin: 09/05/18 08:19 Dose: 3.125 mg Diphenhydramine HCl (Benadryl) 25 mg PO Q4H PRN PRN Reason: SEE LABEL COMMENTS Doxycycline Hyclate 100 mg/ (Sodium Chloride) 100 mls @ 100 mls/hr IV.SIG Q12H [facility] [place] Last Infusion: 09/05/18 09:20 Dose: Infused Azithromycin 500 mg/ Sodium (Chloride) 250 mls @ 250 mls/hr IV.SIG Q24H [facility] [place] Last Infusion: 09/05/18 11:45 Dose: Infused Lisinopril (Prinivil) 20 mg PO DAILY [facility] [place] Last Admin: 09/03/18 08:46 Dose: 20 mg Lorazepam (Ativan) 0.5 mg PO Q6H PRN PRN Reason: ANXIETY Methylprednisolone Sodium Succinate (Solumedrol Inj) 40 mg IV.PUSH Q6H [facility] [place] Last Admin: 09/05/18 13:38 Dose: 40 mg Sodium Chloride (Ns Flush) 2 ml IV.FLUSH BID [facility] [place] Last Admin: 09/05/18 10:43 Dose: 2 ml Sodium Chloride (Ns Flush) 2 ml IV.FLUSH PRN PRN PRN Reason: FLUSH AFTER USING IV ACCESS Allergies Allergy/AdvReac Type Severity Reaction Status Date / Time cefaclor Allergy Severe HIVES, Verified 08/31/18 22:00 THROAT CLOSES prochlorperazine Allergy Severe THROAT Verified 08/31/18 22:00 CLOSES ciprofloxacin Allergy Intermediate nausea/vomi Verified 08/31/18 22:00 ting orphenadrine Allergy Intermediate PALPITATION Verified 08/31/18 22:00 S Home Medications Medication Instructions Recorded Confirmed Type albuterol sulfate [Ventolin HFA] 2 puff INHALATION Q4-6H PRN 03/07/18 08/31/18 History amlodipine 10 mg PO DAILY 03/07/18 08/31/18 History lisinopril 20 mg PO DAILY 03/07/18 08/31/18 History metformin 500 mg PO DAILY 03/07/18 08/31/18 History methadone 50 mg PO DAILY 03/07/18 08/31/18 History Physical Exam Vital signs: Vital Signs 09/04/18 14:00 09/04/18 15:00 09/04/18 16:00 Temperature 97.9 F Pulse Rate 74 82 72 Respiratory Rate 18 Blood Pressure 136/61 Pulse Oximetry 98 09/04/18 16:57 09/04/18 17:00 09/04/18 18:00 Temperature Pulse Rate 101 H 84 78 Respiratory Rate 15 Blood Pressure Pulse Oximetry 09/04/18 19:00 09/04/18 19:36 09/04/18 20:00 Temperature 99.2 F Pulse Rate 78 78 Respiratory Rate 18 Blood Pressure 108/55 L Pulse Oximetry 96 97 96 09/04/18 21:00 09/04/18 22:00 09/04/18 23:00 Temperature 98.3 F Pulse Rate 84 72 60 Respiratory Rate 16 Blood Pressure 120/60 Pulse Oximetry 96 09/05/18 00:00 09/05/18 01:00 09/05/18 02:00 Temperature Pulse Rate 60 58 L 56 L Respiratory Rate Blood Pressure Pulse Oximetry 09/05/18 03:00 09/05/18 04:00 09/05/18 05:00 Temperature 98 F Pulse Rate 58 L 58 L 60 Respiratory Rate 16 Blood Pressure 117/59 L Pulse Oximetry 96 09/05/18 06:00 09/05/18 07:00 09/05/18 07:33 Temperature 98.0 F Pulse Rate 56 L 57 L 92 H Respiratory Rate 22 15 Blood Pressure 123/60 Pulse Oximetry 95 09/05/18 08:00 09/05/18 09:00 09/05/18 10:00 Temperature Pulse Rate 84 70 58 L Respiratory Rate Blood Pressure Pulse Oximetry 95 09/05/18 11:00 09/05/18 11:06 09/05/18 12:00 Temperature 98.1 F Pulse Rate 64 61 77 Respiratory Rate 22 15 Blood Pressure 113/54 L Pulse Oximetry 96 09/05/18 13:00 Temperature Pulse Rate 78 Respiratory Rate Blood Pressure Pulse Oximetry Intake & Output 09/04/18 09/05/18 09/05/18 18:59 06:59 18:59 Intake Total 1490 / 1490 544 / 544 350 / 350 Output Total 800 / 800 600 / 600 Balance 690 / 690 -56 / -56 350 / 350 Weight 60 kg Intake: IV 350 / 350 100 / 100 350 / 350 Azithromycin Inj 500 MG In NS 250 / 250 250 / 250 Inj 250 ML @ 250 mls/hr IV.SIG Q24H [facility] Rx#:[id number] Doxy 100 Inj 100 MG In NS Inj 100 / 100 100 / 100 100 / 100 100 ML @ 100 mls/hr IV.SIG Q12H [facility] Rx#:[id number] Oral 1140 / 1140 444 / 444 Output: Urine 800 / 800 600 / 600 Other: Date of Last Bowel Movement 09/02/18 09/02/18 # Bowel Movements 0 - Constitutional no acute distress - Routine Neck Exam Absent: JVD - Routine Respiratory Exam Present: decreased breath sounds, wheezes. Absent: crackles - Routine Cardiovascular Exam Present: RRR, S1, S2. Absent: murmur, gallop - Routine Abdominal Exam Present: soft, normoactive bowel sounds. Absent: tenderness, organomegaly - Routine Extremities Exam Absent: cyanosis, clubbing, edema Results 09/04/18 03:15 09/04/18 03:15 Cardiac Enzymes 09/04/18 Range/Units 03:15 AST 24 (15-37) U/L CBC 09/04/18 Range/Units 03:15 WBC 28.6 H D (4.0-11.0) th/mm3 RBC 4.30 (4.00-5.30) mil/mm3 Hgb 8.9 L (11.6-15.3) gm/dL Hct 29.9 L (35.0-46.0) % Plt Count 175 (150-450) th/mm3 Comprehensive Metabolic Panel 09/04/18 Range/Units 03:15 Sodium 137 (136-145) meq/L Potassium 4.4 (3.5-5.1) meq/L Chloride 104 (98-107) meq/L Carbon Dioxide 23.3 (21.0-32.0) meq/L BUN 46 H (7-18) mg/dL Creatinine 1.88 H (0.50-1.00) mg/dL Calcium 8.2 L (8.5-10.1) mg/dL Direct Bilirubin 0.1 (0.0-0.2) mg/dL Indirect Bilirubin 0.1 (0.0-0.8) mg/dL AST 24 (15-37) U/L ALT 26 (10-53) U/L Alkaline Phosphatase 64 (45-117) U/L Total Protein 6.7 (6.4-8.2) g/dL Albumin 2.8 L (3.4-5.0) g/dL Intake and Output 09/04/18 09/05/18 09/05/18 22:59 06:59 14:59 Intake Total 1240 / 1240 444 / 444 350 / 350 Output Total 800 / 800 600 / 600 Balance 440 / 440 -156 / -156 350 / 350 Intake: IV 100 / 100 350 / 350 Azithromycin Inj 500 MG In NS 250 / 250 Inj 250 ML @ 250 mls/hr IV.SIG Q24H [facility] Rx#:[id number] Doxy 100 Inj 100 MG In NS Inj 100 / 100 100 / 100 100 ML @ 100 mls/hr IV.SIG Q12H [facility] Rx#:[id number] Oral 1140 / 1140 444 / 444 Output: Urine 800 / 800 600 / 600 Other: Date of Last Bowel Movement 09/02/18 09/02/18 # Bowel Movements 0 Weight 60 kg - Imaging and Cardiology Imaging: Impressions Chest CT 09/04/18 00:00 CONCLUSION: 1. Patchy groundglass opacity in both lungs with an upper lobe predominance, most characteristic of a mild bronchopneumonia. 2. Moderate-sized hiatal hernia. Moderate coronary calcifications. Pacer lead in right ventricle. Bilateral breast implant ruptures. Assessment and Plan - Assessment (1) ICD (implantable cardioverter-defibrillator) lead failure Code(s): T82.110A - Breakdown (mechanical) of cardiac electrode, initial encounter Status: Acute Plan: History of ICD implant for secondary prevention after VF arrest 07/2017. Cardiac status stable. Patient still considerably dyspneic and unable to lie flat for an ICD lead replacement procedure. RECOMMEND continue pulmonary therapy, OK to discharge home from a cardiac standpoint and Dr. Thompson will contact patient to return for her new lead procedure as an outpatient, or if patient still here Thursday can keep in hospital for the procedure. Will f/u PRN. (2) Congestive heart failure Code(s): I50.9 - Heart failure, unspecified Status: Acute Plan: Patient apparently with history of CHF though not well documented. Cardiac w/u in 07/2017 s/p VF arrest revealed minimal CAD, excellent LV function. RECOMMEND hold SAMARIA-I with her worsening renal indices, continue beta saeid therapy. (3) History of COPD Code(s): Z87.09 - Personal history of other diseases of the respiratory system Status: Chronic - Plan Code Status: full code Discussed Condition With: patient (1) ICD (implantable cardioverter-defibrillator) lead failure Qualifiers: Encounter type: subsequent encounter Qualified Code(s): T82.110D - Breakdown (mechanical) of cardiac electrode, subsequent encounter (2) Congestive heart failure Qualifiers: Heart failure type: unspecified Heart failure chronicity: acute on chronic Qualified Code(s): I50.9 - Heart failure, unspecified
[2018-09-05] MEDS: LORazepam 0.5 MG Tablet PO PRN (21:15)
[2018-09-06] MEDS: MethylPREDNISolone Sod Succinate Inj 40 MG/ML Vial IV.PUSH SCH ×4 (02:37→20:17)
--- NOTE | 2018-09-06 07:22 | P.PN ---
Subjective Interval history: Patient seen and examined this morning, their vitals are stable and the patient is afebrile. Patient states she slept very well last night after her Ativan. She continues to have significant cough and shortness of breath. She states the coughing causes her chest wall to hurt. She appears to be breathing comfortably on room air. Physical Exam Vital signs: Vital Signs 09/05/18 07:33 09/05/18 08:00 09/05/18 09:00 Temperature Pulse Rate 92 H 84 70 Respiratory Rate 15 Blood Pressure Pulse Oximetry 95 09/05/18 10:00 09/05/18 11:00 09/05/18 11:06 Temperature 98.1 F Pulse Rate 58 L 64 61 Respiratory Rate 22 15 Blood Pressure 113/54 L Pulse Oximetry 96 09/05/18 12:00 09/05/18 13:00 09/05/18 14:00 Temperature Pulse Rate 77 78 58 L Respiratory Rate Blood Pressure Pulse Oximetry 09/05/18 15:00 09/05/18 16:00 09/05/18 16:04 Temperature 98.1 F Pulse Rate 63 56 L 56 L Respiratory Rate 24 15 Blood Pressure 126/60 Pulse Oximetry 98 09/05/18 17:00 09/05/18 18:00 09/05/18 19:00 Temperature 98.7 F Pulse Rate 75 59 L 56 L Respiratory Rate 18 Blood Pressure 124/60 Pulse Oximetry 97 09/05/18 20:00 09/05/18 21:00 09/05/18 21:27 Temperature Pulse Rate 56 L 58 L 84 Respiratory Rate 18 Blood Pressure Pulse Oximetry 97 09/05/18 22:00 09/05/18 23:00 09/06/18 00:11 Temperature 98.9 F Pulse Rate 64 68 71 Respiratory Rate 18 18 Blood Pressure 126/60 Pulse Oximetry 96 09/06/18 03:00 09/06/18 04:03 Temperature 97.6 F Pulse Rate 62 66 Respiratory Rate 18 16 Blood Pressure 127/61 Pulse Oximetry 96 Intake & Output 09/05/18 09/06/18 09/06/18 18:59 06:59 18:59 Intake Total 1470 / 1470 100 / 100 Output Total 900 / 900 Balance 570 / 570 100 / 100 Intake: IV 350 / 350 100 / 100 Azithromycin Inj 500 MG In NS 250 / 250 Inj 250 ML @ 250 mls/hr IV.SIG Q24H [facility] Rx#:[id number] Doxy 100 Inj 100 MG In NS Inj 100 / 100 100 / 100 100 ML @ 100 mls/hr IV.SIG Q12H [facility] Rx#:[id number] Oral 1120 / 1120 Output: Urine 900 / 900 Other: Date of Last Bowel Movement 09/02/18 09/02/18 Narrative: GENERAL: Well-appearing, no acute distress SKIN: Warm and dry. HEAD: Normocephalic. EYES: No scleral icterus. No injection or drainage. NECK: Supple, trachea midline. No JVD or lymphadenopathy. CARDIOVASCULAR: Regular rate and rhythm without murmurs, gallops, or rubs. RESPIRATORY: Bilateral expiratory wheezing. No accessory muscle use. GASTROINTESTINAL: Abdomen soft, non-tender, nondistended. MUSCULOSKELETAL: No cyanosis, or edema. Results - Labs CBC & Chem 7: 09/04/18 03:15 09/04/18 03:15 Assessment and Plan - Plan This is a 63-year-old female placed in with a history of COPD, hypertension, type 2 diabetes, and chronic pain, ICD implant for secondary prevention after ventricular fibrillation arrest in 2017. Patient presented to the hospital after AICD fired 3 times. Her pacemaker was interrogated at [place] and was found to have a low sensing lead because advised to double count the T waves can cause any defibrillations. [facility] a lead replacement by Dr. Thompson. Patient was initially planned for procedure but case had been canceled due to her respiratory status. Patient has been treated for COPD exacerbation. Per Dr. boyd the patient will have to come back to hospital on to have her procedure performed. Per last note by cardiology the patient is stable from a cardiac standpoint is okay to discharge and they will be contacted to have her procedure done as an outpatient. If the patient remains inpatient due to her other medical problems (respiratory status), then the procedure will be done in hospital. Misfiring AICD -Procedure likely to be performed as an outpatient unless patient remains in hospital -Continue Coreg. Hold SAMARIA due to kidney dysfunction. -Continue telemetry Hypertension Continue amlodipine and Coreg CKD - SAMARIA I on hold - Cr worsening - renally dose all meds - continue to trend, consider nephro consult if continue to downtrend despite the above COPD exacerbation -Pulmonology was consulted on patient currently on Solu-Medrol 40 mg IV every 6 hours, azithromycin 500 mg daily, doxycycline 100 mg daily, Symbicort, duoneb, neb, check urine antigen for Legionella, add Singulair 10 mg daily -CT chest with patchy groundglass opacities in both lungs with upper lobe prominence, most suggestive of mild bronchopneumonia Normocytic no normochromic anemia -Status post 1 unit of packed red blood cells on 09/01 DVT prophylaxis: bilat SCD
[2018-09-06] MEDS: Budesonide-Formoterol 80/4.5 MCG 6.9 GM Inhaler INH SCH ×2 (08:32→20:21)
[2018-09-06] MEDS: amLODIPine 10 MG Tablet PO SCH (08:32)
[2018-09-06] MEDS: Azithromycin Inj 500 MG in Sodium Chlor 0.9% Inj 250 ML IV.SIG SCH (11:00)
--- NOTE | 2018-09-06 12:32 | P.PN ---
Subjective Interval history: She is still wheezing. On O2 3 L. Coughs up very little.No fever. Physical Exam Vital signs: Vital Signs 09/05/18 13:00 09/05/18 14:00 09/05/18 15:00 Temperature 98.1 F Pulse Rate 78 58 L 63 Respiratory Rate 24 Blood Pressure 126/60 Pulse Oximetry 98 09/05/18 16:00 09/05/18 16:04 09/05/18 17:00 Temperature Pulse Rate 56 L 56 L 75 Respiratory Rate 15 Blood Pressure Pulse Oximetry 09/05/18 18:00 09/05/18 19:00 09/05/18 20:00 Temperature 98.7 F Pulse Rate 59 L 56 L 56 L Respiratory Rate 18 Blood Pressure 124/60 Pulse Oximetry 97 97 09/05/18 21:00 09/05/18 21:27 09/05/18 22:00 Temperature Pulse Rate 58 L 84 64 Respiratory Rate 18 Blood Pressure Pulse Oximetry 09/05/18 23:00 09/06/18 00:00 09/06/18 00:11 Temperature 98.9 F Pulse Rate 69 60 71 Respiratory Rate 18 18 Blood Pressure 126/60 Pulse Oximetry 96 09/06/18 01:00 09/06/18 02:00 09/06/18 03:00 Temperature 97.6 F Pulse Rate 60 56 L 60 Respiratory Rate 18 Blood Pressure 127/61 Pulse Oximetry 96 09/06/18 04:00 09/06/18 04:03 09/06/18 05:00 Temperature Pulse Rate 60 66 54 L Respiratory Rate 16 Blood Pressure Pulse Oximetry 09/06/18 06:00 09/06/18 07:00 09/06/18 07:24 Temperature 99.6 F Pulse Rate 56 L 76 60 Respiratory Rate 17 20 Blood Pressure 139/70 Pulse Oximetry 97 09/06/18 08:00 09/06/18 08:31 09/06/18 09:00 Temperature Pulse Rate 69 66 Respiratory Rate 21 Blood Pressure Pulse Oximetry 09/06/18 09:30 09/06/18 11:00 09/06/18 11:41 Temperature 98.1 F Pulse Rate 67 63 70 Respiratory Rate 18 20 Blood Pressure 124/60 Pulse Oximetry 96 Intake & Output 09/05/18 09/06/18 09/06/18 18:59 06:59 18:59 Intake Total 1470 / 1470 340 / 340 100 / 100 Output Total 900 / 900 800 / 800 Balance 570 / 570 -460 / -460 100 / 100 Weight 61.5 kg Intake: IV 350 / 350 100 / 100 100 / 100 Azithromycin Inj 500 MG In NS 250 / 250 Inj 250 ML @ 250 mls/hr IV.SIG Q24H [facility] Rx#:[id number] Doxy 100 Inj 100 MG In NS Inj 100 / 100 100 / 100 100 / 100 100 ML @ 100 mls/hr IV.SIG Q12H [facility] Rx#:[id number] Oral 1120 / 1120 240 / 240 Output: Urine 900 / 900 800 / 800 Other: Date of Last Bowel Movement 09/02/18 09/02/18 09/02/18 # Bowel Movements 0 Narrative: GENERAL: Elderly W/F in no acute distress SKIN: Warm and dry. HEAD: Normocephalic. EYES: No scleral icterus. No injection or drainage. NECK: Supple, trachea midline. No JVD or lymphadenopathy. CARDIOVASCULAR: Regular rate and rhythm without murmurs, gallops, or rubs. RESPIRATORY: Bilateral expiratory wheezing and accessory muscle use. GASTROINTESTINAL: Abdomen soft, non-tender, nondistended. MUSCULOSKELETAL: No cyanosis, or edema.Neuro: No gross deficits. Results - Labs CBC & Chem 7: 09/04/18 03:15 09/04/18 03:15 Microbiology 09/05/18 15:40 Sputum - Expectorated Sputum Gram Stain - Final Assessment and Plan - Assessment (1) Bronchopneumonia Code(s): J18.0 - Bronchopneumonia, unspecified organism Status: Acute (2) Urinary tract infection Code(s): N39.0 - Urinary tract infection, site not specified Status: Acute (3) Upper GI bleed Code(s): K92.2 - Gastrointestinal hemorrhage, unspecified Status: Acute (4) Dehydration Code(s): E86.0 - Dehydration Status: Acute (5) Sepsis Code(s): A41.9 - Sepsis, unspecified organism Status: Acute (6) Acute GI bleeding Code(s): K92.2 - Gastrointestinal hemorrhage, unspecified Status: Acute (7) Anemia Code(s): D64.9 - Anemia, unspecified Status: Acute (8) History of COPD Code(s): Z87.09 - Personal history of other diseases of the respiratory system Status: Chronic (9) Colon polyp, hyperplastic Code(s): K63.5 - Polyp of colon Status: Acute - Plan 1. Continue antibiotics , Doxycycline / Zithromax 2. Nebs qid , duoneb 3. Cont Solumedrol 40 mg Q6H 4. Chest Xray in am 5. CBC,BMP in am 6. Cont Singulair 10 mg daily 7. Symbicort 160/4.5 mcg, 2puffs BID (7) Anemia Qualifiers: Anemia type: iron deficiency Iron deficiency anemia type: chronic blood loss Qualified Code(s): D50.0 - Iron deficiency anemia secondary to blood loss ( chronic)
[2018-09-06] MEDS ORDERED: Senna/Docusate Sodium 8.6/50 MG Tablet PO PRN (19:22)
[2018-09-06] MEDS: LORazepam 0.5 MG Tablet PO PRN (20:20)
[2018-09-07] MEDS: MethylPREDNISolone Sod Succinate Inj 40 MG/ML Vial IV.PUSH SCH ×4 (01:15→22:14)
--- NOTE | 2018-09-07 05:05 | XR ---
EXAM DATE: 09/07/2018 4:23 AM EST AGE/SEX: 63 years / Female INDICATIONS: Shortness of breath, possible pulmonary disease. CLINICAL DATA: This is the patient's subsequent encounter. Patient reports that signs and symptoms h ave been present for 4 - 6 days and indicates a pain score of 0/10. MEDICAL/SURGICAL HISTORY: Diabetes. Chronic obstructive pulmonary disease. Hypertension. A-f ib. . Defibrillator. COMPARISON: [facility] [place], CHEST 1V SINGLE AP, 09/02/2018. . FINDINGS: There is a pacing device in place from the left subclavian approach. The heart size is normal. There is been development of areas of consolidation in the perihilar and upper lungs bilaterally being more prominent on the right. CONCLUSION: Development of perihilar and upper lung consolidations likely related to edema. Electronically signed by: Kolton Taveras MD Board Certified Radiologist 09/07/2018 5:04 AM EST
[2018-09-07 08:24] LABS: Baso % (Auto) 0.1 % (0.0-2.0); Hematocrit 31.2 % (35.0-46.0); Hemoglobin 9.6 gm/dL (11.6-15.3); Lymph # (Auto) 1.7 th/mm3 (1.0-4.8); Lymph % (Auto) 8.1 % (9.0-44.0); Mean Corpuscular Hemoglobin 21.1 pg (27.0-34.0); Mean Corpuscular Volume 68.5 fL (80.0-100.0); Mean Platelet Volume 8.9 fL (7.0-11.0); Mono # (Auto) 1.5 th/mm3 (0.0-0.9); Neut % (Auto) 84.8 % (16.0-70.0); Platelet Count 197 th/mm3 (150-450); Red Blood Count 4.55 mil/mm3 (4.00-5.30); Red Cell Distribution Width 19.9 % (11.6-17.2); White Blood Count 21.2 th/mm3 (4.0-11.0)
[2018-09-07 08:28] LABS: Mean Corpuscular HGB Conc 30.8 % (32.0-36.0)
[2018-09-07 08:46] LABS: Calcium 8.5 mg/dL (8.5-10.1); Carbon Dioxide 21.1 meq/L (21.0-32.0); Potassium 4.4 meq/L (3.5-5.1)
[2018-09-07 09:10] LABS: Acanthocytes 1+
[2018-09-07 09:11] LABS: Ovalocytes 1+; Platelet Estimate Normal (Normal); Tear Drop Cells 1+
[2018-09-07] MEDS: LORazepam 0.5 MG Tablet PO PRN ×2 (09:25→20:33)
[2018-09-07] MEDS: amLODIPine 10 MG Tablet PO SCH (09:25)
[2018-09-07] MEDS: Budesonide-Formoterol 80/4.5 MCG 6.9 GM Inhaler INH SCH ×2 (09:26→20:34)
[2018-09-07] MEDS: Azithromycin Inj 500 MG in Sodium Chlor 0.9% Inj 250 ML IV.SIG SCH (12:37)
--- NOTE | 2018-09-07 15:03 | P.PN ---
Subjective Interval history: She is feeling better but still wheezing. No chest pains. Off O2. Physical Exam Vital signs: Vital Signs 09/06/18 16:00 09/06/18 16:36 09/06/18 17:00 Temperature Pulse Rate 58 L 61 67 Respiratory Rate 16 Blood Pressure Pulse Oximetry 09/06/18 18:00 09/06/18 19:00 09/06/18 19:20 Temperature 98.4 F Pulse Rate 63 65 78 Respiratory Rate 18 18 Blood Pressure 131/77 Pulse Oximetry 97 09/06/18 20:00 09/06/18 21:00 09/06/18 22:00 Temperature Pulse Rate 61 64 62 Respiratory Rate Blood Pressure Pulse Oximetry 09/06/18 23:00 09/07/18 00:00 09/07/18 01:00 Temperature 98.7 F Pulse Rate 60 62 61 Respiratory Rate 18 Blood Pressure 128/75 Pulse Oximetry 98 09/07/18 02:00 09/07/18 03:00 09/07/18 04:00 Temperature 98.9 F Pulse Rate 55 L 53 L 53 L Respiratory Rate 18 Blood Pressure 130/69 Pulse Oximetry 97 09/07/18 05:00 09/07/18 06:00 09/07/18 07:00 Temperature 98.6 F Pulse Rate 55 L 53 L 76 Respiratory Rate 22 Blood Pressure 163/92 H Pulse Oximetry 95 09/07/18 08:00 09/07/18 08:30 09/07/18 09:00 Temperature Pulse Rate 58 L 66 Respiratory Rate 18 Blood Pressure Pulse Oximetry 09/07/18 10:00 09/07/18 11:00 09/07/18 12:00 Temperature 98.6 F Pulse Rate 58 L 55 L 48 L Respiratory Rate 22 Blood Pressure 117/69 Pulse Oximetry 97 09/07/18 13:00 09/07/18 13:10 09/07/18 14:00 Temperature Pulse Rate 60 58 L Respiratory Rate 20 Blood Pressure Pulse Oximetry Intake & Output 09/06/18 09/07/18 09/07/18 18:59 06:59 18:59 Intake Total 830 / 830 580 / 580 100 / 100 Output Total 650 / 650 800 / 800 Balance 180 / 180 -220 / -220 100 / 100 Weight 65.2 kg Intake: IV 350 / 350 100 / 100 100 / 100 Azithromycin Inj 500 MG In NS 250 / 250 Inj 250 ML @ 250 mls/hr IV.SIG Q24H [facility] Rx#:[id number] Doxy 100 Inj 100 MG In NS Inj 100 / 100 100 / 100 100 / 100 100 ML @ 100 mls/hr IV.SIG Q12H [facility]UM Rx#:[id number] Oral 480 / 480 480 / 480 Output: Urine 650 / 650 800 / 800 Other: # Voids 2 Date of Last Bowel Movement 09/02/18 09/02/18 09/06/18 # Bowel Movements 0 Narrative: GENERAL: Elderly W/F in no acute distress SKIN: Warm and dry. HEAD: Normocephalic. EYES: No scleral icterus. No injection or drainage. NECK: Supple, trachea midline. No JVD or lymphadenopathy. CARDIOVASCULAR: Regular rate and rhythm without murmurs, gallops, or rubs. RESPIRATORY: Bilateral expiratory wheezing and no crackles. No accessory muscle use. GASTROINTESTINAL: Abdomen soft, non-tender, nondistended. MUSCULOSKELETAL: No cyanosis, or edema.Neuro: No gross deficits. Results - Labs CBC & Chem 7: 09/07/18 08:01 09/07/18 08:01 Laboratory Results - last 24 hr 09/07/18 09/07/18 08:01 08:01 WBC 21.2 H RBC 4.55 Hgb 9.6 L Hct 31.2 L MCV 68.5 L MCH 21.1 L MCHC 30.8 L RDW 19.9 H Plt Count 197 MPV 8.9 Prelim Diff (Auto) Slide review pending Neut % (Auto) 84.8 H Lymph % (Auto) 8.1 L [place] % (Auto) 7.0 Eos % (Auto) 0.0 Baso % (Auto) 0.1 Neut # (Auto) 18.0 H Lymph # (Auto) 1.7 [place] # (Auto) 1.5 H Eos # (Auto) 0.0 Baso # (Auto) 0.0 WBC Differential . Diff Scan Auto diff confirmed Differential Comment . Platelet Estimate Normal Platelet Morphology Enlarged H Tear Drop Cells 1+ H Ovalocytes 1+ H Acanthocytes (Spur) 1+ H Keratocytes Occ H Sodium 137 Potassium 4.4 Chloride 108 H Carbon Dioxide 21.1 Anion Gap 8 BUN 41 H Creatinine 1.26 H Estimated GFR 43 L Random Glucose 138 H Calcium 8.5 Microbiology 09/05/18 15:40 Sputum - Expectorated Sputum Gram Stain - Final 09/05/18 15:40 Sputum - Expectorated Sputum Sputum Culture - Final Heavy growth normal respiratory priya - Imaging Impressions Chest X-Ray 09/07/18 00:00 CONCLUSION: Development of perihilar and upper lung consolidations likely related to edema. Assessment and Plan - Assessment (1) Bronchopneumonia Code(s): J18.0 - Bronchopneumonia, unspecified organism Status: Acute (2) Urinary tract infection Code(s): N39.0 - Urinary tract infection, site not specified Status: Acute (3) Upper GI bleed Code(s): K92.2 - Gastrointestinal hemorrhage, unspecified Status: Acute (4) Dehydration Code(s): E86.0 - Dehydration Status: Acute (5) Sepsis Code(s): A41.9 - Sepsis, unspecified organism Status: Acute (6) Acute GI bleeding Code(s): K92.2 - Gastrointestinal hemorrhage, unspecified Status: Acute (7) Anemia Code(s): D64.9 - Anemia, unspecified Status: Acute (8) History of COPD Code(s): Z87.09 - Personal history of other diseases of the respiratory system Status: Chronic (9) Colon polyp, hyperplastic Code(s): K63.5 - Polyp of colon Status: Acute - Plan 1. Continue antibiotics , Doxycycline and D/C Zithromax 2. Nebs qid , duoneb 3. Taper Solumedrol to 40 mg Q8H 4. CBC ,BMP in am 5. Cont Coreg 6. Cont Singulair 10 mg daily 7. Symbicort 160/4.5 mcg, 2puffs BID (7) Anemia Qualifiers: Anemia type: iron deficiency Iron deficiency anemia type: chronic blood loss Qualified Code(s): D50.0 - Iron deficiency anemia secondary to blood loss ( chronic)
--- NOTE | 2018-09-07 16:00 | P.PNIM ---
Subjective Interval history: Assumed patient care on 09/07/18. Still short of breath and wheezing but reports some little improvement today. She is coughing but not bringing up phlegm. Has some epigastric discomfort which she is attributing to steroids and requesting for some medication for this issue. Physical Exam Vital signs: Last Vital Signs Temp 98.6 F 09/07/18 11:00 Pulse 58 L 09/07/18 14:00 Resp 20 09/07/18 13:10 BP 117/69 09/07/18 11:00 Pulse Ox 97 09/07/18 11:00 Intake & Output 09/05/18 09/06/18 09/07/18 09/08/18 06:59 06:59 06:59 06:59 Intake Total 2034 / 2034 1810 / 1810 1410 / 1410 350 / 350 Output Total 1400 / 1400 1700 / 1700 1450 / 1450 Balance 634 / 634 110 / 110 -40 / -40 350 / 350 Weight 60 kg 61.5 kg 65.2 kg Results Labs CBC & Chem 7: 09/07/18 08:01 09/07/18 08:01 Labs: Microbiology 09/05/18 15:40 Sputum - Expectorated Sputum Gram Stain - Final 09/05/18 15:40 Sputum - Expectorated Sputum Sputum Culture - Final Heavy growth normal respiratory priya Imaging Imaging: Impressions Chest X-Ray 09/07/18 00:00 CONCLUSION: Development of perihilar and upper lung consolidations likely related to edema. Assessment and Plan Plan 63-year-old female placed in with a history of COPD, hypertension, type 2 diabetes, and chronic pain, ICD implant for secondary prevention after ventricular fibrillation arrest in 2017. Patient presented to the hospital after AICD fired 3 times. Her pacemaker was interrogated at [place] and was found to have a low sensing lead because advised to double count the T waves can cause any defibrillations. She was transferred to [facility] to undergo a lead replacement by Dr. Thompson. Patient was initially planned for procedure but case had been canceled due to her respiratory status. Patient has been treated for COPD exacerbation. Per Dr. boyd the patient will have to come back to hospital on to have her procedure performed. Per last note by cardiology the patient is stable from a cardiac standpoint is okay to discharge and they will be contacted to have her procedure done as an outpatient. If the patient remains inpatient due to her other medical problems (respiratory status), then the procedure will be done in hospital. 1.COPD exacerbation with bronchopneumonia: CT chest with patchy ground glass opacities in both lungs with upper lobe prominence, most suggestive of mild bronchopneumonia. -reports some slight symptomatic improvement today. -Solu-Medrol tapered to 40 mg IV every 8 hours,cont , duoneb, neb, doxycycline 100 mg daily azithromycin discontinued -cont Symbicort, Singulair 10 mg. luecocytosis noted, likely due to steroids, now trending down. appreciate pulmonary input. 2. Acute kidney injury on CKD III: Cr now trending down 1.88-->1.26 - SAMARIA I on hold - renally dose all meds,avoid nephrotoxins. 3.Misfiring AICD -Procedure likely to be performed as an outpatient unless patient remains in hospital -Continue Coreg. Hold SAMARIA due to kidney dysfunction. -Continue telemetry 4.Hypertension-BP within acceptable limits. continue amlodipine and Coreg 5.Normocytic no normochromic anemia -Status post 1 unit of packed red blood cells on 09/01. Hb stabilized in 9's range. DVT prophylaxis: bilat SCD Progress Note: Quality VTE Deep Vein Thrombosis/Pulmonary Embolism Present on Admission: No
[2018-09-08] MEDS: MethylPREDNISolone Sod Succinate Inj 40 MG/ML Vial IV.PUSH SCH (06:11)
[2018-09-08] MEDS: amLODIPine 10 MG Tablet PO SCH (09:23)
[2018-09-08] MEDS: Budesonide-Formoterol 80/4.5 MCG 6.9 GM Inhaler INH SCH ×2 (09:24→20:32)
[2018-09-08] MEDS: LORazepam 0.5 MG Tablet PO PRN ×2 (09:36→20:32)
--- NOTE | 2018-09-08 10:49 | P.PNIM ---
Subjective Interval history: patient reports still wheezy and short of breath, feels it is unchanged compared to yesterday. She is bringing up some yellow phlegm this morning. Physical Exam Vital signs: Last Vital Signs Temp 98.9 F 09/07/18 19:00 Pulse 50 L 09/08/18 06:00 Resp 20 09/08/18 04:06 BP 125/68 09/08/18 04:06 Pulse Ox 97 09/08/18 04:06 Intake & Output 09/06/18 09/07/18 09/08/18 09/09/18 06:59 06:59 06:59 06:59 Intake Total 1810 / 1810 1410 / 1410 1890 / 1890 Output Total 1700 / 1700 1450 / 1450 1700 / 1700 Balance 110 / 110 -40 / -40 190 / 190 Weight 61.5 kg 65.2 kg 65.1 kg Results Labs CBC & Chem 7: 09/07/18 08:01 09/07/18 08:01 Labs: Microbiology 09/07/18 22:28 Stool Stool Occult Blood (IAN) - Final Hemoccult negative 09/05/18 15:40 Sputum - Expectorated Sputum Gram Stain - Final 09/05/18 15:40 Sputum - Expectorated Sputum Sputum Culture - Final Heavy growth normal respiratory priya Assessment and Plan Plan 63-year-old female placed in with a history of COPD, hypertension, type 2 diabetes, and chronic pain, ICD implant for secondary prevention after ventricular fibrillation arrest in 2017. Patient presented to the hospital after AICD fired 3 times. Her pacemaker was interrogated at [place] and was found to have a low sensing lead because advised to double count the T waves can cause any defibrillations. She was transferred to [facility] to undergo a lead replacement by Dr. Thompson. Patient was initially planned for procedure but case had been canceled due to her respiratory status. Patient has been treated for COPD exacerbation. Per Dr. boyd the patient will have to come back to hospital on to have her procedure performed. Per last note by cardiology the patient is stable from a cardiac standpoint is okay to discharge and they will be contacted to have her procedure done as an outpatient. If the patient remains inpatient due to her other medical problems (respiratory status), then the procedure will be done in hospital. 1.COPD exacerbation with bronchopneumonia: CT chest with patchy ground glass opacities in both lungs with upper lobe prominence, most suggestive of mild bronchopneumonia. sputum culture 09/06-heavy growth normal resp priya,few gram positive cocci in pairs. -reports some slight symptomatic improvement today. -Solu-Medrol tapered to 40 mg IV every 8 hours,cont , duoneb, neb, doxycycline 100 mg daily azithromycin discontinued -cont Symbicort, Singulair 10 mg. leucococytosis noted, likely due to steroids, now trending down. appreciate pulmonary input. 2. Acute kidney injury on CKD III: Cr now trending down 1.88-->1.26 - SAMARIA I on hold - renally dose all meds,avoid nephrotoxins. 3.Misfiring AICD -Procedure likely to be performed as an outpatient unless patient remains in hospital -Continue Coreg. Hold SAMARIA due to kidney dysfunction. -Continue telemetry 4.Hypertension-BP within acceptable limits. continue amlodipine and Coreg 5.Normocytic no normochromic anemia -Status post 1 unit of packed red blood cells on 09/01. Hb stabilized in 9's range. DVT prophylaxis: bilat SCD Progress Note: Quality VTE Deep Vein Thrombosis/Pulmonary Embolism Present on Admission: No
[2018-09-08 10:56] LABS: Baso % (Auto) 0.1 % (0.0-2.0); Hematocrit 29.8 % (35.0-46.0); Hemoglobin 9.2 gm/dL (11.6-15.3); Lymph # (Auto) 1.2 th/mm3 (1.0-4.8); Mean Corpuscular Hemoglobin 20.9 pg (27.0-34.0); Mean Platelet Volume 9.1 fL (7.0-11.0); Mono # (Auto) 0.7 th/mm3 (0.0-0.9); Mono % (Auto) 4.6 % (0.0-8.0); Neut # (Auto) 13.7 th/mm3 (1.8-7.7); Neut % (Auto) 87.3 % (16.0-70.0); Platelet Count 201 th/mm3 (150-450); Red Blood Count 4.39 mil/mm3 (4.00-5.30); Red Cell Distribution Width 19.6 % (11.6-17.2); White Blood Count 15.7 th/mm3 (4.0-11.0)
[2018-09-08 11:12] LABS: Calcium 8.1 mg/dL (8.5-10.1); Carbon Dioxide 22.7 meq/L (21.0-32.0); Potassium 4.2 meq/L (3.5-5.1)
[2018-09-08 11:13] LABS: Mean Corpuscular HGB Conc 30.7 % (32.0-36.0)
[2018-09-08 12:10] LABS: Acanthocytes Occ; Ovalocytes 1+
[2018-09-08 12:12] LABS: Platelet Estimate Normal (Normal)
--- NOTE | 2018-09-08 13:03 | P.PN ---
Subjective Interval history: She has some wheezing. Off O2 sat 94. Good output. Denies chest pains. Physical Exam Vital signs: Vital Signs 09/07/18 13:10 09/07/18 14:00 09/07/18 15:00 Temperature 98.4 F Pulse Rate 58 L 59 L Respiratory Rate 20 18 Blood Pressure 144/78 H Pulse Oximetry 97 09/07/18 16:00 09/07/18 17:00 09/07/18 18:00 Temperature Pulse Rate 53 L 56 L 68 Respiratory Rate Blood Pressure Pulse Oximetry 09/07/18 18:30 09/07/18 19:00 09/07/18 20:00 Temperature 98.9 F Pulse Rate 62 66 Respiratory Rate 18 16 Blood Pressure 154/81 H Pulse Oximetry 95 09/07/18 21:00 09/07/18 22:00 09/07/18 23:00 Temperature Pulse Rate 62 56 L 62 Respiratory Rate 20 Blood Pressure 133/74 Pulse Oximetry 97 09/08/18 00:00 09/08/18 01:00 09/08/18 02:00 Temperature Pulse Rate 56 L 58 L 58 L Respiratory Rate Blood Pressure Pulse Oximetry 09/08/18 03:00 09/08/18 04:00 09/08/18 04:06 Temperature Pulse Rate 56 L 66 56 L Respiratory Rate 20 Blood Pressure 125/68 Pulse Oximetry 97 09/08/18 05:00 09/08/18 06:00 09/08/18 07:00 Temperature Pulse Rate 64 50 L 55 L Respiratory Rate 18 Blood Pressure 115/62 Pulse Oximetry 97 09/08/18 08:00 09/08/18 09:00 09/08/18 10:00 Temperature Pulse Rate 55 L 55 L 55 L Respiratory Rate Blood Pressure Pulse Oximetry Intake & Output 09/07/18 09/08/18 09/08/18 18:59 06:59 18:59 Intake Total 1310 / 1310 580 / 580 Output Total 500 / 500 1200 / 1200 Balance 810 / 810 -620 / -620 Weight 65.1 kg Intake: IV 350 / 350 100 / 100 Azithromycin Inj 500 MG In NS 250 / 250 Inj 250 ML @ 250 mls/hr IV.SIG Q24H [facility] Rx#:[id number] Doxy 100 Inj 100 MG In NS Inj 100 / 100 100 / 100 100 ML @ 100 mls/hr IV.SIG Q12H [facility]IUM Rx#:[id number] Oral 960 / 960 480 / 480 Output: Urine 500 / 500 1200 / 1200 Other: # Voids 2 Date of Last Bowel Movement 09/07/18 09/07/18 09/07/18 # Bowel Movements 1 0 Narrative: GENERAL: Mid aged W/F in no acute distress SKIN: Warm and dry. HEAD: Normocephalic. EYES: No scleral icterus. No injection or drainage. NECK: Supple, trachea midline. No JVD or lymphadenopathy. CARDIOVASCULAR: Regular rate and rhythm without murmurs, gallops, or rubs. RESPIRATORY: Bilateral expiratory wheezing and no crackles. Has accessory muscle use. GASTROINTESTINAL: Abdomen soft, non-tender, nondistended. MUSCULOSKELETAL: No cyanosis, or edema.Neuro: No gross deficits. Results - Labs CBC & Chem 7: 09/08/18 09:54 09/08/18 09:54 Laboratory Results - last 24 hr 09/08/18 09/08/18 09:54 09:54 WBC 15.7 H RBC 4.39 Hgb 9.2 L Hct 29.8 L MCV 68.0 L MCH 20.9 L MCHC 30.7 L RDW 19.6 H Plt Count 201 MPV 9.1 Prelim Diff (Auto) Slide review pending Neut % (Auto) 87.3 H Lymph % (Auto) 8.0 L [place] % (Auto) 4.6 Eos % (Auto) 0.0 Baso % (Auto) 0.1 Neut # (Auto) 13.7 H Lymph # (Auto) 1.2 [place] # (Auto) 0.7 Eos # (Auto) 0.0 Baso # (Auto) 0.0 WBC Differential . Diff Scan Auto diff confirmed Differential Comment . Platelet Estimate Normal Platelet Morphology Enlarged H Ovalocytes 1+ H Acanthocytes (Spur) Occ H Keratocytes Occ H Sodium 136 Potassium 4.2 Chloride 105 Carbon Dioxide 22.7 Anion Gap 8 BUN 37 H Creatinine 1.20 H Estimated GFR 45 L Random Glucose 307 H D Calcium 8.1 L Microbiology 09/07/18 22:28 Stool Stool Occult Blood (IAN) - Final Hemoccult negative 09/05/18 15:40 Sputum - Expectorated Sputum Gram Stain - Final 09/05/18 15:40 Sputum - Expectorated Sputum Sputum Culture - Final Heavy growth normal respiratory priya Assessment and Plan - Assessment (1) Bronchopneumonia Code(s): J18.0 - Bronchopneumonia, unspecified organism Status: Acute (2) Urinary tract infection Code(s): N39.0 - Urinary tract infection, site not specified Status: Acute (3) Upper GI bleed Code(s): K92.2 - Gastrointestinal hemorrhage, unspecified Status: Acute (4) Dehydration Code(s): E86.0 - Dehydration Status: Acute (5) Sepsis Code(s): A41.9 - Sepsis, unspecified organism Status: Acute (6) Acute GI bleeding Code(s): K92.2 - Gastrointestinal hemorrhage, unspecified Status: Acute (7) Anemia Code(s): D64.9 - Anemia, unspecified Status: Acute (8) History of COPD Code(s): Z87.09 - Personal history of other diseases of the respiratory system Status: Chronic (9) Colon polyp, hyperplastic Code(s): K63.5 - Polyp of colon Status: Acute - Plan 1. Continue antibiotics , Doxycycline 2. Nebs qid , duoneb 3. Solumedrol to 40 mg Q8H 4. CBC ,BMP in am 5. Cont Coreg PO 6. Cont Singulair 10 mg daily 7. Symbicort 160/4.5 mcg, 2puffs BID 8. PFT today (7) Anemia Qualifiers: Anemia type: iron deficiency Iron deficiency anemia type: chronic blood loss Qualified Code(s): D50.0 - Iron deficiency anemia secondary to blood loss ( chronic)
[2018-09-08] MEDS: MethylPREDNISolone Sod Succinate Inj 125 MG/2 ML Vial IV.PUSH SCH ×2 (16:10→22:00)
[2018-09-09] MEDS: MethylPREDNISolone Sod Succinate Inj 125 MG/2 ML Vial IV.PUSH SCH (05:35)
[2018-09-09] MEDS: LORazepam 0.5 MG Tablet PO PRN ×3 (05:45→21:17)
[2018-09-09 06:47] LABS: Baso % (Auto) 0.1 % (0.0-2.0); Hematocrit 30.1 % (35.0-46.0); Hemoglobin 9.2 gm/dL (11.6-15.3); Lymph # (Auto) 1.3 th/mm3 (1.0-4.8); Mean Corpuscular Hemoglobin 21.1 pg (27.0-34.0); Mean Corpuscular Volume 68.6 fL (80.0-100.0); Mean Platelet Volume 8.8 fL (7.0-11.0); Mono # (Auto) 0.5 th/mm3 (0.0-0.9); Mono % (Auto) 3.1 % (0.0-8.0); Neut # (Auto) 14.5 th/mm3 (1.8-7.7); Neut % (Auto) 88.8 % (16.0-70.0); Platelet Count 178 th/mm3 (150-450); Red Blood Count 4.38 mil/mm3 (4.00-5.30); White Blood Count 16.4 th/mm3 (4.0-11.0)
[2018-09-09 06:48] LABS: Mean Corpuscular HGB Conc 30.7 % (32.0-36.0)
[2018-09-09 08:25] LABS: Acanthocytes 1+; Lymphocytes 7 % (9-44); Monocytes 2 % (0-8); Myelocytes 1 % (0-0)
[2018-09-09 08:26] LABS: Platelet Estimate Normal (Normal); Platelet Morphology Normal (Normal)
[2018-09-09 08:28] LABS: Burr Cells 1+
[2018-09-09] MEDS: Budesonide-Formoterol 80/4.5 MCG 6.9 GM Inhaler INH SCH ×2 (09:45→21:18)
[2018-09-09] MEDS: amLODIPine 10 MG Tablet PO SCH (09:45)
--- NOTE | 2018-09-09 13:16 | P.PN ---
Subjective Interval history: She is better.. O2 2 L Wants to go home. Physical Exam Vital signs: Vital Signs 09/08/18 15:00 09/08/18 15:26 09/08/18 19:00 Temperature Pulse Rate 54 L 55 L 57 L Respiratory Rate 18 18 15 Blood Pressure 138/75 Pulse Oximetry 97 09/08/18 20:00 09/09/18 00:00 09/09/18 04:00 Temperature 99.1 F 98.7 F 98.2 F Pulse Rate 56 L 50 L 51 L Respiratory Rate 18 18 18 Blood Pressure 136/78 155/85 H 136/70 Pulse Oximetry 96 96 98 09/09/18 07:00 09/09/18 07:26 09/09/18 08:00 Temperature 98.5 F Pulse Rate 62 71 60 Respiratory Rate 20 16 Blood Pressure 130/75 Pulse Oximetry 97 09/09/18 11:00 09/09/18 12:00 Temperature 97.9 F Pulse Rate 65 62 Respiratory Rate 20 Blood Pressure 147/65 H Pulse Oximetry 97 Intake & Output 09/08/18 09/09/18 09/09/18 18:59 06:59 18:59 Intake Total 700 / 700 1120 / 1120 100 / 100 Output Total 700 / 700 1750 / 1750 Balance 0 / 0 -630 / -630 100 / 100 Weight 64.6 kg Intake: IV 100 / 100 100 / 100 100 / 100 Doxy 100 Inj 100 MG In NS Inj 100 / 100 100 / 100 100 / 100 100 ML @ 100 mls/hr IV.SIG Q12H MARIUM Rx#:[id number] Oral 600 / 600 1020 / 1020 Output: Urine 700 / 700 1750 / 1750 Other: # Voids 2 Date of Last Bowel Movement 09/07/18 09/07/18 # Bowel Movements 0 Narrative: GENERAL: Mid aged W/F in no acute distress SKIN: Warm and dry. HEAD: Normocephalic. EYES: No scleral icterus. No injection or drainage. NECK: Supple, trachea midline. No JVD or lymphadenopathy. CARDIOVASCULAR: Regular rate and rhythm without murmurs, gallops, or rubs. RESPIRATORY:Occ wheezing and no crackles. Has accessory muscle use. GASTROINTESTINAL: Abdomen soft, non-tender, nondistended. MUSCULOSKELETAL: No cyanosis, or edema.Neuro: No gross deficits. Results - Labs CBC & Chem 7: 01/03/19 05:02 09/08/18 09:54 Laboratory Results - last 24 hr 09/09/18 05:02 WBC 16.4 H RBC 4.38 Hgb 9.2 L Hct 30.1 L MCV 68.6 L MCH 21.1 L MCHC 30.7 L RDW 20.0 H Plt Count 178 MPV 8.8 Prelim Diff (Auto) Slide review pending Neut % (Auto) 88.8 H Lymph % (Auto) 8.0 L [place] % (Auto) 3.1 Eos % (Auto) 0.0 Baso % (Auto) 0.1 Neut # (Auto) 14.5 H Lymph # (Auto) 1.3 [place] # (Auto) 0.5 Eos # (Auto) 0.0 Baso # (Auto) 0.0 WBC Differential Manual diff final Seg Neuts % (Manual) 88 H Band Neuts % (Manual) 2 Lymphocytes % (Manual) 7 L Monocytes % (Manual) 2 Myelocytes % (Man) 1 H Abs Neuts (Manual) 14.9 H Differential Comment . Platelet Estimate Normal Platelet Morphology Normal [place] Cells 1+ H Acanthocytes (Spur) 1+ H Assessment and Plan - Assessment (1) Bronchopneumonia Code(s): J18.0 - Bronchopneumonia, unspecified organism Status: Acute (2) Urinary tract infection Code(s): N39.0 - Urinary tract infection, site not specified Status: Acute (3) Upper GI bleed Code(s): K92.2 - Gastrointestinal hemorrhage, unspecified Status: Acute (4) Dehydration Code(s): E86.0 - Dehydration Status: Acute (5) Sepsis Code(s): A41.9 - Sepsis, unspecified organism Status: Acute (6) Acute GI bleeding Code(s): K92.2 - Gastrointestinal hemorrhage, unspecified Status: Acute (7) Anemia Code(s): D64.9 - Anemia, unspecified Status: Acute (8) History of COPD Code(s): Z87.09 - Personal history of other diseases of the respiratory system Status: Chronic (9) Colon polyp, hyperplastic Code(s): K63.5 - Polyp of colon Status: Acute - Plan 1. Continue Doxycycline 100 mg BID X 5 days 2. Nebs qid , duoneb 3. D/C Solumedrol and add Prednisone 20 mg BID 4. OK to go home 5. Cont Coreg PO 6. Cont Singulair 10 mg daily 7. Symbicort 160/4.5 mcg, 2puffs BID 8. Will see as OP in 2 weeks (7) Anemia Qualifiers: Anemia type: iron deficiency Iron deficiency anemia type: chronic blood loss Qualified Code(s): D50.0 - Iron deficiency anemia secondary to blood loss ( chronic)
--- NOTE | 2018-09-09 16:50 | P.PNIM ---
Subjective Interval history: breathing continues to improve. Physical Exam Vital signs: Last Vital Signs Temp 97.9 F 09/09/18 11:00 Pulse 74 09/09/18 13:28 Resp 16 09/09/18 13:28 BP 147/65 H 09/09/18 11:00 Pulse Ox 97 09/09/18 11:00 Intake & Output 09/07/18 09/08/18 09/09/18 09/10/18 06:59 06:59 06:59 06:59 Intake Total 1410 / 1410 1890 / 1890 1820 / 1820 100 / 100 Output Total 1450 / 1450 1700 / 1700 2450 / 2450 Balance -40 / -40 190 / 190 -630 / -630 100 / 100 Weight 65.2 kg 65.1 kg 64.6 kg Narrative: GENERAL: middle aged woman, not in distress. HEENT:not pale,anicteric NECK:no JVD CARDIOVASCULAR: Regular rate and rhythm without murmurs, gallops, or rubs. RESPIRATORY: Clear to auscultation. Breath sounds equal bilaterally. No wheezes , rales, or rhonchi. GASTROINTESTINAL: Abdomen soft, non-tender, nondistended. Normal active bowel sounds MUSCULOSKELETAL: Extremities without clubbing, cyanosis, or edema. NEURO: Alert & Oriented x4 to person, place, time, situation. Moves all ext x4 Results Labs CBC & Chem 7: 09/09/18 05:02 09/08/18 09:54 Assessment and Plan Plan 63-year-old female placed in with a history of COPD, hypertension, type 2 diabetes, and chronic pain, ICD implant for secondary prevention after ventricular fibrillation arrest in 2017. Patient presented to the hospital after AICD fired 3 times. Her pacemaker was interrogated at [place] and was found to have a low sensing lead because advised to double count the T waves can cause any defibrillations. She was transferred to [facility] to undergo a lead replacement by Dr. Thompson. Patient was initially planned for procedure but case had been canceled due to her respiratory status. Patient has been treated for COPD exacerbation. Per Dr. boyd the patient will have to come back to hospital on to have her procedure performed. Per last note by cardiology the patient is stable from a cardiac standpoint is okay to discharge and they will be contacted to have her procedure done as an outpatient. If the patient remains inpatient due to her other medical problems (respiratory status), then the procedure will be done in hospital. 1.COPD exacerbation with bronchopneumonia: CT chest with patchy ground glass opacities in both lungs with upper lobe prominence, most suggestive of mild bronchopneumonia. sputum culture 09/06-heavy growth normal resp priya,few gram positive cocci in pairs. -reports some slight symptomatic improvement today. -Switched to oral prednisone today. duoneb, neb, doxycycline 100 mg daily azithromycin discontinued -cont Symbicort, Singulair 10 mg. leucococytosis noted, likely due to steroids, now trending down. appreciate pulmonary input. 2. Acute kidney injury on CKD III: Cr now trending down 1.88-->1.2 - SAMARIA I on hold - renally dose all meds,avoid nephrotoxins. 3.Misfiring AICD -Procedure likely to be performed as an outpatient unless patient remains in hospital -Continue Coreg. Hold SAMARIA due to kidney dysfunction. -Continue telemetry 4.Hypertension-BP within acceptable limits. continue amlodipine and Coreg 5.Normocytic no normochromic anemia -Status post 1 unit of packed red blood cells on 09/01. Hb stabilized in 9's range. DVT prophylaxis: bilat SCD Progress Note: Quality VTE Deep Vein Thrombosis/Pulmonary Embolism Present on Admission: No
[2018-09-09] MEDS: predniSONE 20 MG Tablet PO SCH (21:17)
[2018-09-10] MEDS: amLODIPine 10 MG Tablet PO SCH (09:27)
[2018-09-10] MEDS: predniSONE 20 MG Tablet PO SCH ×2 (09:27→21:18)
[2018-09-10] MEDS: Nystatin Liq 500,000 UNIT/5 ML UDC SWISH-SWAL SCH ×4 (09:27→21:19)
[2018-09-10] MEDS: Budesonide-Formoterol 80/4.5 MCG 6.9 GM Inhaler INH SCH (09:28)
--- NOTE | 2018-09-10 09:34 | P.PNIM ---
Subjective Interval history: breathing improved. some sores in mouth and throat. Physical Exam Vital signs: Last Vital Signs Temp 98.8 F 09/10/18 08:00 Pulse 60 09/10/18 08:00 Resp 18 09/10/18 08:00 BP 148/82 H 09/10/18 08:00 Pulse Ox 96 09/10/18 08:00 Intake & Output 09/08/18 09/09/18 09/10/18 09/11/18 06:59 06:59 06:59 06:59 Intake Total 1890 / 1890 1820 / 1820 1960 / 1960 Output Total 1700 / 1700 2450 / 2450 2400 / 2400 Balance 190 / 190 -630 / -630 -440 / -440 Weight 65.1 kg 64.6 kg 63.4 kg Narrative: GENERAL: middle aged woman, not in distress. HEENT:not pale,anicteric,oral thrush noted. NECK:no JVD CARDIOVASCULAR: Regular rate and rhythm without murmurs, gallops, or rubs. RESPIRATORY: Clear to auscultation. Breath sounds equal bilaterally. No wheezes , rales, or rhonchi. GASTROINTESTINAL: Abdomen soft, non-tender, nondistended. Normal active bowel sounds MUSCULOSKELETAL: Extremities without clubbing, cyanosis, or edema. NEURO: Alert & Oriented x4 to person, place, time, situation. Moves all ext x4 Results Labs CBC & Chem 7: 09/09/18 05:02 09/08/18 09:54 Assessment and Plan Plan 63-year-old female placed in with a history of COPD, hypertension, type 2 diabetes, and chronic pain, ICD implant for secondary prevention after ventricular fibrillation arrest in 2017. Patient presented to the hospital after AICD fired 3 times. Her pacemaker was interrogated at [place] and was found to have a low sensing lead because advised to double count the T waves can cause any defibrillations. She was transferred to [facility] to undergo a lead replacement by Dr. Thompson. Patient was initially planned for procedure but case had been canceled due to her respiratory status. Patient has been treated for COPD exacerbation. Per Dr. boyd the patient will have to come back to hospital on to have her procedure performed. Per last note by cardiology the patient is stable from a cardiac standpoint is okay to discharge and they will be contacted to have her procedure done as an outpatient. If the patient remains inpatient due to her other medical problems (respiratory status), then the procedure will be done in hospital. 1.COPD exacerbation with bronchopneumonia: CT chest with patchy ground glass opacities in both lungs with upper lobe prominence, most suggestive of mild bronchopneumonia. sputum culture 09/06-heavy growth normal resp priya,few gram positive cocci in pairs. -reports some slight symptomatic improvement today. -Switched to oral prednisone /3 jeremi ballard, doxycycline 100 mg daily azithromycin discontinued -cont Symbicort, Singulair 10 mg. leucococytosis noted, likely due to steroids, now trending down. appreciate pulmonary input. Oral thrush--likely in setting of steroid use. add Nystatin swish 2. Acute kidney injury on CKD III: Cr now trending down 1.88-->1.2 - SAMARIA I on hold - renally dose all meds,avoid nephrotoxins. 3.Misfiring AICD -Continue Coreg. Hold SAMARIA due to kidney dysfunction. -Continue telemetry -d/w Dr. Thompson today, he says to keep patient in hospital, will change the device on Wednesday 09/13. keep NPO after MN on 09/12 4.Hypertension-BP within acceptable limits. continue amlodipine and Coreg 5.Normocytic no normochromic anemia -Status post 1 unit of packed red blood cells on 09/01. Hb stabilized in 9's range. DVT prophylaxis: bilat SCD Progress Note: Quality VTE Deep Vein Thrombosis/Pulmonary Embolism Present on Admission: No
[2018-09-10] MEDS: LORazepam 0.5 MG Tablet PO PRN (09:37)
--- NOTE | 2018-09-10 12:44 | P.PN ---
Subjective Interval history: She is doing better and will go to cardiac cath next week Less wheezing and cough. No SOB at rest . Physical Exam Vital signs: Vital Signs 09/09/18 13:28 09/09/18 15:00 09/09/18 16:00 Temperature 97.3 F L Pulse Rate 74 74 62 Respiratory Rate 16 Blood Pressure Pulse Oximetry 09/09/18 19:00 09/09/18 20:00 09/10/18 00:00 Temperature 98.6 F 97.6 F Pulse Rate 72 56 L 70 Respiratory Rate 18 18 Blood Pressure 154/79 H 150/93 H Pulse Oximetry 95 96 09/10/18 04:00 09/10/18 07:00 09/10/18 07:51 Temperature 97.4 F L Pulse Rate 78 54 L 67 Respiratory Rate 16 17 Blood Pressure 157/92 H Pulse Oximetry 96 09/10/18 08:00 09/10/18 11:00 09/10/18 11:11 Temperature 98.8 F 99.3 F Pulse Rate 60 64 70 Respiratory Rate 18 18 Blood Pressure 148/82 H 127/70 Pulse Oximetry 96 97 Intake & Output 09/09/18 09/10/18 09/10/18 18:59 06:59 18:59 Intake Total 900 / 900 1060 / 1060 100 / 100 Output Total 1000 / 1000 1400 / 1400 Balance -100 / -100 -340 / -340 100 / 100 Weight 63.4 kg Intake: IV 100 / 100 100 / 100 100 / 100 Doxy 100 Inj 100 MG In NS Inj 100 / 100 100 / 100 100 / 100 100 ML @ 100 mls/hr IV.SIG Q12H MARIUM Rx#:[id number] Oral 800 / 800 960 / 960 Output: Urine 1000 / 1000 1400 / 1400 Other: # Voids 3 Date of Last Bowel Movement 09/07/18 09/09/18 09/09/18 # Bowel Movements 0 Narrative: GENERAL: middle aged woman, not in distress. HEENT:not pale,anicteric,oral thrush noted. NECK:no JVD CARDIOVASCULAR: Regular rate and rhythm without murmurs, gallops, or rubs. RESPIRATORY: Has bilateral wheeze and occ basal crackles. GASTROINTESTINAL: Abdomen soft, non-tender, nondistended. Normal active bowel sounds MUSCULOSKELETAL: Extremities without clubbing, cyanosis, or edema. NEURO: Alert & Oriented x4 to person, place, time, situation. Moves all ext x4 Results - Labs CBC & Chem 7: 09/09/18 05:02 09/08/18 09:54 Assessment and Plan - Assessment (1) Bronchopneumonia Code(s): J18.0 - Bronchopneumonia, unspecified organism Status: Acute (2) Urinary tract infection Code(s): N39.0 - Urinary tract infection, site not specified Status: Acute (3) Upper GI bleed Code(s): K92.2 - Gastrointestinal hemorrhage, unspecified Status: Acute (4) Dehydration Code(s): E86.0 - Dehydration Status: Acute (5) Sepsis Code(s): A41.9 - Sepsis, unspecified organism Status: Acute (6) Acute GI bleeding Code(s): K92.2 - Gastrointestinal hemorrhage, unspecified Status: Acute (7) Anemia Code(s): D64.9 - Anemia, unspecified Status: Acute (8) History of COPD Code(s): Z87.09 - Personal history of other diseases of the respiratory system Status: Chronic (9) Colon polyp, hyperplastic Code(s): K63.5 - Polyp of colon Status: Acute - Plan 1. Continue Doxycycline 100 mg BID X 5 days 2. Nebs qid , duoneb 3. Prednisone 20 mg BID and taper 4. Add magic mouthwash 10 CC QID 5. Cont Coreg PO 6. Cont Singulair 10 mg daily 7. Symbicort 160/4.5 mcg, 2puffs BID 8. For cardiac Ablation on Thursday (7) Anemia Qualifiers: Anemia type: iron deficiency Iron deficiency anemia type: chronic blood loss Qualified Code(s): D50.0 - Iron deficiency anemia secondary to blood loss ( chronic)
[2018-09-11] MEDS: Budesonide-Formoterol 80/4.5 MCG 6.9 GM Inhaler INH SCH ×3 (00:07→22:33)
[2018-09-11] MEDS: Nystatin Liq 500,000 UNIT/5 ML UDC SWISH-SWAL SCH ×4 (08:47→20:06)
[2018-09-11] MEDS: LORazepam 0.5 MG Tablet PO PRN ×2 (08:47→22:33)
[2018-09-11] MEDS: amLODIPine 10 MG Tablet PO SCH (08:48)
[2018-09-11] MEDS: predniSONE 20 MG Tablet PO SCH ×2 (08:48→20:06)
[2018-09-11 10:56] LABS: Baso # (Auto) 0.1 th/mm3 (0.0-0.2); Baso % (Auto) 0.4 % (0.0-2.0); Eos % (Auto) 0.1 % (0.0-4.0); Hematocrit 29.6 % (35.0-46.0); Hemoglobin 9.2 gm/dL (11.6-15.3); Lymph % (Auto) 9.4 % (9.0-44.0); Mean Corpuscular HGB Conc 31.1 % (32.0-36.0); Mean Corpuscular Volume 67.4 fL (80.0-100.0); Mean Platelet Volume 8.6 fL (7.0-11.0); Mono # (Auto) 1.9 th/mm3 (0.0-0.9); Mono % (Auto) 8.9 % (0.0-8.0); Neut % (Auto) 81.2 % (16.0-70.0); Platelet Count 182 th/mm3 (150-450); Red Blood Count 4.39 mil/mm3 (4.00-5.30); Red Cell Distribution Width 19.7 % (11.6-17.2); White Blood Count 20.9 th/mm3 (4.0-11.0)
[2018-09-11 11:58] LABS: Lymphocytes 12 % (9-44); Monocytes 5 % (0-8); Myelocytes 1 % (0-0); Tallied Nucleated RBC 1 (0-0)
[2018-09-11 11:59] LABS: Acanthocytes Occ; Ovalocytes 1+; Platelet Estimate Normal (Normal); Platelet Morphology Normal (Normal)
[2018-09-11] MEDS ORDERED: Aluminum/Magnesium/Simethacone Susp 30 ML UDC PO PRN (14:14)
--- NOTE | 2018-09-11 15:54 | P.PNIM ---
Physical Exam Vital signs: Last Vital Signs Temp 98.4 F 09/11/18 15:00 Pulse 69 09/11/18 15:00 Resp 16 09/11/18 15:00 BP 139/79 09/11/18 15:00 Pulse Ox 97 09/11/18 15:00 Intake & Output 09/09/18 09/10/18 09/11/18 09/12/18 06:59 06:59 06:59 06:59 Intake Total 1820 / 1820 1960 / 1959 2140 / 2140 Output Total 2450 / 2450 2400 / 2400 2200 / 2200 Balance -630 / -630 -440 / -440 -60 / -60 Weight 64.6 kg 63.4 kg 63.7 kg Narrative: GENERAL: middle aged woman, not in distress. HEENT:not pale,anicteric,oral thrush noted. NECK:no JVD CARDIOVASCULAR: Regular rate and rhythm without murmurs, gallops, or rubs. RESPIRATORY:equal air entry bilaterally with few scattered wheezes, no rales. GASTROINTESTINAL: Abdomen soft, non-tender, nondistended. Normal active bowel sounds MUSCULOSKELETAL: Extremities without clubbing, cyanosis, or edema. NEURO: Alert & Oriented x4 to person, place, time, situation. Moves all ext x4 Results Labs CBC & Chem 7: 09/11/18 10:33 09/08/18 09:54 Assessment and Plan Plan 63-year-old female placed in with a history of COPD, hypertension, type 2 diabetes, and chronic pain, ICD implant for secondary prevention after ventricular fibrillation arrest in 2017. Patient presented to the hospital after AICD fired 3 times. Her pacemaker was interrogated at [place] and was found to have a low sensing lead because advised to double count the T waves can cause any defibrillations. She was transferred to [facility] to undergo a lead replacement by Dr. Thompson. Patient was initially planned for procedure but case had been canceled due to her respiratory status. Patient has been treated for COPD exacerbation. Per Dr. boyd the patient will have to come back to hospital on to have her procedure performed. Per last note by cardiology the patient is stable from a cardiac standpoint is okay to discharge and they will be contacted to have her procedure done as an outpatient. If the patient remains inpatient due to her other medical problems (respiratory status), then the procedure will be done in hospital. 1.COPD exacerbation with bronchopneumonia: CT chest with patchy ground glass opacities in both lungs with upper lobe prominence, most suggestive of mild bronchopneumonia. sputum culture 09/06-heavy growth normal resp priya,few gram positive cocci in pairs. -reports some slight symptomatic improvement today. -Switched to oral prednisone 09/09 duoneb, neb, doxycycline 100 mg daily azithromycin discontinued -cont Symbicort, Singulair 10 mg. leucococytosis noted, likely due to steroids, now trending down. appreciate pulmonary input. Oral thrush--likely in setting of steroid use. add Nystatin swish 2. Acute kidney injury on CKD III: Cr now trending down 1.88-->1.2 - SAMARIA I on hold - renally dose all meds,avoid nephrotoxins. 3.Misfiring AICD -Continue Coreg. Hold SAMARIA due to kidney dysfunction. -Continue telemetry -d/w Dr. Thompson today, he says to keep patient in hospital, will change the device on Wednesday 09/13. keep NPO after MN on 09/12 4.Hypertension-BP within acceptable limits. continue amlodipine and Coreg 5.Normocytic no normochromic anemia -Status post 1 unit of packed red blood cells on 09/01. Hb stabilized in 9's range. DVT prophylaxis: bilat SCD Progress Note: Quality VTE Deep Vein Thrombosis/Pulmonary Embolism Present on Admission: No
[2018-09-12] MEDS: Nystatin Liq 500,000 UNIT/5 ML UDC SWISH-SWAL SCH ×4 (08:34→20:28)
[2018-09-12] MEDS: predniSONE 20 MG Tablet PO SCH ×2 (08:34→20:21)
[2018-09-12] MEDS: amLODIPine 10 MG Tablet PO SCH (08:34)
[2018-09-12] MEDS: Budesonide-Formoterol 80/4.5 MCG 6.9 GM Inhaler INH SCH ×2 (10:50→20:24)
[2018-09-12] MEDS: LORazepam 0.5 MG Tablet PO PRN ×2 (11:05→20:20)
--- NOTE | 2018-09-12 15:34 | P.PNIM ---
Subjective Interval history: patient has no complaints, breathing is good without wheezes. does not feel short of breath. Physical Exam Vital signs: Last Vital Signs Temp 98.3 F 09/12/18 11:00 Pulse 68 09/12/18 14:49 Resp 16 09/12/18 14:49 BP 133/75 09/12/18 11:00 Pulse Ox 98 09/12/18 11:00 Intake & Output 09/10/18 09/11/18 09/12/18 09/13/18 06:59 06:59 06:59 06:59 Intake Total 1960 / 1960 2140 / 2140 1386 / 1386 Output Total 2400 / 2400 2200 / 2200 700 / 700 Balance -440 / -440 -60 / -60 686 / 686 Weight 63.4 kg 63.7 kg 62.5 kg Narrative: GENERAL: middle aged woman, not in distress. HEENT:not pale,anicteric,oral thrush noted. NECK:no JVD CARDIOVASCULAR: Regular rate and rhythm without murmurs, gallops, or rubs. RESPIRATORY:equal air entry bilaterally with few scattered wheezes, no rales. GASTROINTESTINAL: Abdomen soft, non-tender, nondistended. Normal active bowel sounds MUSCULOSKELETAL: Extremities without clubbing, cyanosis, or edema. NEURO: Alert & Oriented x4 to person, place, time, situation. Moves all ext x4 Results Labs CBC & Chem 7: 09/11/18 10:33 09/08/18 09:54 Assessment and Plan Plan 63-year-old female placed in with a history of COPD, hypertension, type 2 diabetes, and chronic pain, ICD implant for secondary prevention after ventricular fibrillation arrest in 2017. Patient presented to the hospital after AICD fired 3 times. Her pacemaker was interrogated at [place] and was found to have a low sensing lead because advised to double count the T waves can cause any defibrillations. She was transferred to [facility] to undergo a lead replacement by Dr. Thompson. Patient was initially planned for procedure but case had been canceled due to her respiratory status. Patient has been treated for COPD exacerbation. Per Dr. boyd the patient will have to come back to hospital on to have her procedure performed. Per last note by cardiology the patient is stable from a cardiac standpoint is okay to discharge and they will be contacted to have her procedure done as an outpatient. If the patient remains inpatient due to her other medical problems (respiratory status), then the procedure will be done in hospital. 1.COPD exacerbation with bronchopneumonia: CT chest with patchy ground glass opacities in both lungs with upper lobe prominence, most suggestive of mild bronchopneumonia. sputum culture 09/06-heavy growth normal resp priya,few gram positive cocci in pairs. -clinically improved. -Switched to oral prednisone 09/09 duoneb, neb, doxycycline 100 mg q12h azithromycin discontinued -cont Symbicort, Singulair 10 mg. leucocytosis noted, likely due to steroids. appreciate pulmonary input. Oral thrush--likely in setting of steroid use, started on Nystatin swish 2. Acute kidney injury on CKD III: Cr now trending down 1.88-->1.2 - SAMARIA I on hold - renally dose all meds,avoid nephrotoxins. 3.Misfiring AICD -Continue Coreg. Hold SAMARIA due to kidney dysfunction. -Continue telemetry -d/w Dr. Thompson, for change the device on Wednesday 09/13. keep NPO after MN on 09/12 4.Hypertension-BP within acceptable limits. continue amlodipine and Coreg 5.Normocytic no normochromic anemia -Status post 1 unit of packed red blood cells on 09/01. Hb stabilized in 9's range. DVT prophylaxis: bilat SCD DISPO- planned for AICD change on Wednesday 09/13. Progress Note: Quality VTE Deep Vein Thrombosis/Pulmonary Embolism Present on Admission: No
[2018-09-12] MEDS ORDERED: Dextrose 50% in Water 50 ML Vial IV.PUSH PRN (22:16)
--- NOTE | 2018-09-12 22:18 | P.PNIM ---
Subjective Interval history: not seen Physical Exam Vital signs: Last Vital Signs Temp 98.4 F 09/12/18 19:00 Pulse 71 09/12/18 21:00 Resp 16 09/12/18 20:07 BP 137/75 09/12/18 19:00 Pulse Ox 98 09/12/18 19:00 Intake & Output 09/10/18 09/11/18 09/12/18 09/13/18 06:59 06:59 06:59 06:59 Intake Total 1960 / 1960 2140 / 2140 1386 / 1386 720 / 720 Output Total 2400 / 2400 2200 / 2200 700 / 700 300 / 300 Balance -440 / -440 -60 / -60 686 / 686 420 / 420 Weight 63.4 kg 63.7 kg 62.5 kg Narrative: GENERAL: middle aged woman, not in distress. HEENT:not pale,anicteric,oral thrush noted. NECK:no JVD CARDIOVASCULAR: Regular rate and rhythm without murmurs, gallops, or rubs. RESPIRATORY:equal air entry bilaterally with few scattered wheezes, no rales. GASTROINTESTINAL: Abdomen soft, non-tender, nondistended. Normal active bowel sounds MUSCULOSKELETAL: Extremities without clubbing, cyanosis, or edema. NEURO: Alert & Oriented x4 to person, place, time, situation. Moves all ext x4 Results Labs CBC & Chem 7: 09/11/18 10:33 09/08/18 09:54 Imaging Imaging: ITS Impressions Chest CT 09/04/18 00:00 CONCLUSION: 1. Patchy groundglass opacity in both lungs with an upper lobe predominance, most characteristic of a mild bronchopneumonia. 2. Moderate-sized hiatal hernia. Moderate coronary calcifications. Pacer lead in right ventricle. Bilateral breast implant ruptures. Chest X-Ray 09/07/18 00:00 CONCLUSION: Development of perihilar and upper lung consolidations likely related to edema. Assessment and Plan Plan 63-year-old female placed in with a history of COPD, hypertension, type 2 diabetes, and chronic pain, ICD implant for secondary prevention after ventricular fibrillation arrest in 2017. Patient presented to the hospital after AICD fired 3 times. Her pacemaker was interrogated at [place] and was found to have a low sensing lead because advised to double count the T waves can cause any defibrillations. She was transferred to [facility] to undergo a lead replacement by Dr. Thompson. Patient was initially planned for procedure but case had been canceled due to her respiratory status. Patient has been treated for COPD exacerbation. Per Dr. boyd the patient will have to come back to hospital on to have her procedure performed. Per last note by cardiology the patient is stable from a cardiac standpoint is okay to discharge and they will be contacted to have her procedure done as an outpatient. If the patient remains inpatient due to her other medical problems (respiratory status), then the procedure will be done in hospital. 1.COPD exacerbation with bronchopneumonia: CT chest with patchy ground glass opacities in both lungs with upper lobe prominence, most suggestive of mild bronchopneumonia. sputum culture 09/06-heavy growth normal resp priya,few gram positive cocci in pairs. -clinically improved. -Switched to oral prednisone 09/09 duoneb, neb, doxycycline 100 mg q12h x 5 d azithromycin discontinued -cont Symbicort, Singulair 10 mg. leucocytosis noted, likely due to steroids. appreciate pulmonary input. Oral thrush--likely in setting of steroid use, started on Nystatin swish 2. Acute kidney injury on CKD III: Cr now trending down 1.88-->1.2 - SAMARIA I on hold - renally dose all meds,avoid nephrotoxins. 3.Misfiring AICD -Continue Coreg. Hold SAMARIA due to kidney dysfunction. -Continue telemetry -d/w Dr. Thompson, for change the device on Wednesday 09/13. keep NPO after MN on 09/12 4.Hypertension-BP within acceptable limits. continue amlodipine and Coreg 5.Normocytic no normochromic anemia guaiac neg -Status post 1 unit of packed red blood cells on 09/01. Hb stabilized in 9's range. DVT prophylaxis: bilat SCD DISPO- planned for AICD change on Wednesday 09/13. Progress Note: Quality VTE Deep Vein Thrombosis/Pulmonary Embolism Present on Admission: No
[2018-09-13] MEDS: LORazepam 0.5 MG Tablet PO PRN ×3 (01:33→18:07)
[2018-09-13] MEDS: Nystatin Liq 500,000 UNIT/5 ML UDC SWISH-SWAL SCH ×4 (08:26→20:34)
[2018-09-13] MEDS: Budesonide-Formoterol 80/4.5 MCG 6.9 GM Inhaler INH SCH ×2 (08:26→20:34)
[2018-09-13] MEDS: amLODIPine 10 MG Tablet PO SCH (08:26)
[2018-09-13] MEDS: Insulin NovoLOG Aspart Correctional Sugar Inj SQ SCH ×4 (08:26→20:34)
[2018-09-13] MEDS: predniSONE 20 MG Tablet PO SCH ×2 (08:26→22:26)
[2018-09-13 10:29] LABS: Baso # (Auto) 0.1 th/mm3 (0.0-0.2); Baso % (Auto) 0.5 % (0.0-2.0); Eos % (Auto) 0.1 % (0.0-4.0); Hematocrit 32.7 % (35.0-46.0); Hemoglobin 9.8 gm/dL (11.6-15.3); Lymph # (Auto) 2.5 th/mm3 (1.0-4.8); Lymph % (Auto) 13.2 % (9.0-44.0); Mean Corpuscular HGB Conc 30.1 % (32.0-36.0); Mean Corpuscular Hemoglobin 20.9 pg (27.0-34.0); Mean Corpuscular Volume 69.3 fL (80.0-100.0); Mean Platelet Volume 8.7 fL (7.0-11.0); Mono # (Auto) 1.3 th/mm3 (0.0-0.9); Mono % (Auto) 6.6 % (0.0-8.0); Neut # (Auto) 15.2 th/mm3 (1.8-7.7); Neut % (Auto) 79.6 % (16.0-70.0); Platelet Count 189 th/mm3 (150-450); Red Blood Count 4.72 mil/mm3 (4.00-5.30); Red Cell Distribution Width 20.2 % (11.6-17.2); White Blood Count 19.1 th/mm3 (4.0-11.0)
[2018-09-13 10:41] LABS: Calcium 8.7 mg/dL (8.5-10.1); Potassium 4.8 meq/L (3.5-5.1)
[2018-09-13] MEDS ORDERED: Lidocaine 2% Inj 50 ML Vial ONE (11:26)
[2018-09-13 11:53] LABS: Acanthocytes 1+; Lymphocytes 11 % (9-44); Metamyelocytes 1 % (0-1); Monocytes 5 % (0-8); Ovalocytes 2+; Platelet Estimate Normal (Normal); Platelet Morphology Normal (Normal); Toxic Granulation 2+
--- NOTE | 2018-09-13 13:09 | CATHPROC ---
Patient Name: Luli Akers Study #: [id number] Initial MD: Jena Thompson Date of : 1955 Study Date: 09/13/2018 Cardiac Catheterization Report 09/13/2018 1:09:31 PM Financial #: [id number] 1 of 9 Patient Name: Luli Akers Study #: [id number] Initial MD: Jena Thompson Date of : 1955 Study Date: 09/13/2018 Entire Case Report Patient Information Patient Name Luli Akers Date of 1955 Age 63 years Financial # [id number] Gender F AlternateID Lab Number 2 Room Number 254 Height (in) 63.0 Height (cm) 160.0 BSA 1.66 Weight (lbs) 138.6 Weight (kg) 63.0 Patient Address/Phone Number Home Address [facility] Home Phone Number [address] [facility] [address] Study Information Study Number Admission Scheduled Start Study Start [id number] Sep 01 2018 12:22AM 09/13/2018 Sep 13 2018 11:18AM [place] Service Cardiac Pacer/ICD Admit Source Facility Department Other [facility] - [facility] Physician and Clinical Staff Initial Jena Barron Educational Programming Director Zeynep Banegas,YAAKOV TECH2 Other Anesthesia, LACQUER SIZER Recorder Jennifer Reynoso,[place] Sher[place]ub Edgar Menendez,RT(R) Procedures Performed Procedure Lead Insertion Lead Revision 09/13/2018 1:09:31 PM Financial #: [id number] 2 of 9 Patient Name: Luli Akers Study #: [id number] Initial MD: Jena Thompson Date of : 1955 Study Date: 09/13/2018 Equipment Time Auto Air Conditioning Apprentice Description Size Mfg Part Number Used/Scraped DERMABOND, ADHESIVE SKIN [id number] 11:19 CORDIS/PACER * Used GLUE MINI *[id number] 11:47 [employer] PHOTOBLADE, 7.5" RETRACTED [id number] Used [id number] 11:19 Sisteer BLANKET,WARM AIR CCL * Used *[id number] TP-1103 11:19 Sisteer SUTURE, STRIP PLUS 1/2" * Used *[id number] 11:19 MEDLINE PACER GAUTHIER, LIMB * 2530 *[id number] Used [id number] 11:19 Thinkful PACER PACK, PACER CUSTOM * Used *[id number] 12:11 [employer] Software PACER SAFE SHEATH, FR7, 13CM FR 7 [id number] Used 11:47 Needle Sponge Count 2 22 Used 12:01 Needle Sponge Count 20 200 Used 11:46 Needle Sponge Count 3 3 Used 11:46 Needle Sponge Count 30 1 Used SUTURE, 0 ETHIBOND [CT1] (CX21D), 8pk SUTURE, 2-0 VICRYL [CT1] ([id number]) SUTURE, 2-0 VICRYL [CT1] ([id number]) SUTURE, 4-0 VICRYL [PS2] ([id number]) [facility] PAD, ELECTROSURGICAL 11:19 * [id number] *[id number] Used SURGICAL GROUNDING ORANGE LEAD, SPRINT QUATTRO SECURE 6935M-62CM 12:12 [employer] SolutionsATRbookletmobileTRONIC 62CM Used S 62CM *[id number] 11:19 [employer]. / * Used *[id number] Equipment Model, Serial, Lot Number and Expiration Data Description Model Number Serial Number Lot Number Expiration Date LEAD, SPRINT QUATTRO SECURE S 6935M-62cm [id number] 06-07-2020 62CM Insurance Information Insurance Payor Medicare Third Constitution Party Third Constitution Party Number [facility] 09/13/2018 1:09:31 PM Financial #: [id number] 3 of 9 Patient Name: Luli Akers Study #: [id number] Initial MD: Jena Thompson Date of : 1955 Study Date: 09/13/2018 History: Allergies Allergy Reaction prochlorperazine THROAT CLOSES orphenadrine PALPITATIONS cefaclor HIVES, THROAT CLOSES ciprofloxacin nausea/vomiting History: Risk Factors Hypertension Dyslipidemia Yes Yes Chronic Lung Diabetes Disease Labs Hgb (g/dl) Hct (%) RBC (MIL/MM3) WBC (l/cumm) Platelets (thousands) 11.60-17.00 35.00-51.00 4.00-5.90 4.00-11.00 150.00-450.00 9.0 29 4.4 20 182 Glucose (mg/dl) BUN (mg/dl) Creatinine (mg/dl) BUN:Creatinine (1:x) 74.00-106.00 7.00-18.00 0.50-1.30 10.00-20.00 113 37 1.2 30.8 Na (meq/l) K (meq/l) 136.00-145.00 3.50-5.10 136 4.2 Medication Medication Total Dose (Bolus/Oral) Medication Total Dosage/Unit 2% XYLOCAINE 50 mL Medications (Bolus/Oral) Medication Time Given Dosage/Unit Administered By Reason 2% XYLOCAINE 09/13/2018 12:03:12 PM 50 mL Anesthesia, LACQUER SIZER 50 mL 2% XYLOCAINE given in lab by Anesthesia, LACQUER SIZER via Subcutaneous. Ordered by Jena Thompson. 09/13/2018 1:09:31 PM Financial #: [id number] Patient Name: Luli Akers Study #: [id number] Initial MD: Jena Thompson Date of : 1955 Study Date: 09/13/19 19 Medication (Drip) Medication Time Given Dosage/Unit Concentration/Unit Diluent (ml) Solution IV Solutions 09/13/2018 11:22:25 AM 0 mL (IV) NaCl .9 IV Solutions given in lab by Jennifer Reynoso RN in Left Antecubital via Peripheral IV. Pump/Drip Jani w = 30 ml/hr using NaCl .9. Ordered by Jena Thompson. Reason: As per physicians verbal order. IV Solutions 09/13/2018 11:26:43 AM 0 mL (IV) NaCl .9 IV Solutions given in lab by Jennifer Reynoso RN in Right Antecubital via Peripheral IV. Pump/Drip Fl ow = 30 ml/hr using NaCl .9. Ordered by Jena Thompson. Reason: As per physicians verbal order. VANCOMYCIN DRIP 09/13/2018 11:42:54 AM 1 g 1 g VANCOMYCIN DRIP given in lab by Anesthesia, LACQUER SIZER via Peripheral IV. Ordered by Jena Thompson. Cate son: As per physicians verbal order. Initial Case Assessment Cardiovascular HR NIBP 66 160/76 Edema Present Skin color Skin None Normal Warm Dry Circulatory - Right Pulses Dorsalis Pedis 1 Scale (0,1,2,3,4,d) Circulatory - Left Pulses Dorsalis Pedis 1 Scale (0,1,2,3,4,d) Circulatory - Lower Extremities Color Lower Right Color Lower Left Normal Normal Neurological State Oriented to time-place- Alert Moves all extremities person Respiration - General Respiration Rate SpO2 (%) (B/min) 20 99 09/13/2018 1:09:31 PM Financial #: [id number] 5 of 9 Patient Name: Luli Akers Study #: [id number] Initial MD: Jena Thompson Date of : 1955 Study Date: 09/13/2018 Final Case Assessment Cardiovascular HR NIBP 60 102/54 Edema Present Skin color Skin None Normal Warm Dry Circulatory - Right Pulses Dorsalis Pedis 1 Scale (0,1,2,3,4,d) Circulatory - Left Pulses Dorsalis Pedis 1 Scale (0,1,2,3,4,d) Circulatory - Lower Extremities Color Lower Right Color Lower Left Normal Normal Neurological State Drowsy Moves all extremities Respiration - General Respiration Rate SpO2 (%) O2 (lpm) (B/min) 20 100 4 Chronological Log Time Study Chronological Log 11:17:02 Patient arrived via Bed. 11:17:02 Patient Name, D.O.B, / Armband Verified By R.N. 11:17:30 Consent signed by the physician and the patient and verified by the [facility] [facility] staff. 11:18:01 MD arrived for anesthesia. 11:18:04 Pre-op and post- op instructions given; patient acknowledges understanding of instructions. 11:18:05 Anesthesia at bedside. Assumes care of patient. 11:18:06 Patient has been NPO for More than 6Hrs. 11:18:08 Skin Breakdown- none per pt 11:18:36 History and physical on the chart...see emr 09/13/2018 1:09:31 PM Financial #: [id number] 6 of 9 Patient Name: Luli Akers Study #: [id number] Initial MD: Jena Thompson Date of : 1955 Study Date: 09/13/2018 11:19:21 Verbal Stimulation=2 Physical Stimulation=2 Airway=2 Respiration=2 TOTAL=8. (0=absent, 1=li mited, 2=present) 11:19:28 Patient Warmer Placed on the Table. 11:20:40 2% CHLORHEXIDINE GLUCONATE WASH AND NASAL SWIPE DONE PRIOR TO PROCEDURE. 11:21:16 Gema Prominences Protected 11:22:17 A # 20 IV was noted in the Antecubital (left). Grade = 0 IV Solutions given in lab by Jennifer Reynoso, RN in Left Antecubital via Peripheral IV. Pump/Dr ip Flow = 30 ml/hr using 11:22:25 NaCl .9. Ordered by Jena Thompson. Reason: As per physicians verbal order. 11:23:16 Disposable Defibrillator Pads Placed On Patient. 11:24:35 A # 20 IV was noted in the Antecubital (right). Grade = 0 Assessment: Initial Case, HR=66 BPM, TYPO=711/76 mmhg, Edema=None, Color=Normal, Skin = Warm, D ry Right Pulses: Leobardo Ped=1 Left Pulses: Leobardo Ped=1 11:25:07 Lower Right Extremities: Color=Normal Lower Left Extremities: Color=Normal Neurological: State=Alert, Ox3, BELCHER Respiration: Resp=20 B/min, SpO2=99 % IV Solutions given in lab by Jennifer Reynoso, RN in Right Antecubital via Peripheral IV. Pump/D rip Flow = 30 ml/hr 11:26:43 using NaCl .9. Ordered by Jena Thompson. Reason: As per physicians verbal order. 11:29:38 Bovie ground pad applied to: right thigh 11:30:20 Table restraints applied according to hospital policy 11:32:16 Reference ECG taken 11:34:50 Left Upper Chest Prepped Times Two. RW 11:38:12 Anesthesiologist present for intubation. 1 g VANCOMYCIN DRIP given in lab by Anesthesia, LACQUER SIZER via Peripheral IV. Ordered by Marion Thompson Reason: As per 11:42:54 physicians verbal order. 11:45:31 A sterile drape was applied after a 5 minute prep dry time. First Sponge And Instrument Count Done by Edgar Menendez, RT(R). 11:45:57 Hypo's: 3, Sponges: 20, Bovie/scratch: 2 Sutures: 10, Blades: 1, Instruments: 26, Syveck Patches: 0 verified by RW 11:48:26 paged 11:59:23 MD arrived. Time Out. Correct patient, procedure, procedure equipment, site and side verified with physicia n present. Time 12:01:36 concurred by MD, individual staff and LACQUER SIZER. Time Out #2 - Consents verified, patient in correct position, all results are labled and displa yed, safety precautions 12:01:42 taken, antibiotics administered. Time out concurred by MD, individual staff and LACQUER SIZER in procedu re 12:02:07 Case Start 12:03:12 50 mL 2% XYLOCAINE given in lab by Anesthesia, LACQUER SIZER via Subcutaneous. Ordered by Brett Thompson. 12:03:48 Surgical Incision Made. 12:04:05 A pocket was created at the L Upper Chest. 12:04:11 A device was explanted. 12:07:39 Vascular access was obtained in the Subclav. Vein (Lft. 12:07:43 Wire inserted 12:08:47 A SAFE SHEATH, FR7, 13CM FR 7 was advanced into the Subclav. Vein (Lft using the Percutaneo us technique. 09/13/2018 1:09:31 PM Financial #: [id number] 7 of 9 Patient Name: Luli Akers Study #: [id number] Initial MD: Jena Thompson Date of : 1955 Study Date: 09/13/2018 12:10:59 Unscrewing the exisiting RV lead. 12:11:42 Existing RV lead extracted and removed successfully. 12:12:47 A LEAD, SPRINT QUATTRO SECURE S 62CM 62CM was inserted and positioned in the RV. 12:13:14 Lead placement verified under fluoroscopy 12:13:20 The RV lead impedance and threshold being tested. 12:14:22 The RV Lead Was Repositioned. 12:16:39 Lead placement verified under fluoroscopy 12:17:27 The RV lead impedance and threshold being tested. 12:18:46 The RV lead was sutured to the fascia. 12:20:36 Pocket flushed with antibiotic solution 12:20:41 A implantable was reconnected and replaced in the pocket. 12:23:53 The pocket is being closed. Second Sponge And Instrument Count Done by Edgar Menendez RT(R). 12:24:16 Hypo's: 3, Sponges: 20, Bovie/scratch: 2 Sutures: 10, Blades: 1, Instruments: ~INSTRU~, Syveck Patches: 0 verified by RW 12:26:24 1 suture added to table. count will now be 11 sutures. 12:39:25 The pocket was closed. Final Sponge And Instrument Count Done by Edgar Menendez RT(R). 12:39:32 Hypo's: 3, Sponges: 20, Bovie/scratch: 2 Sutures: 11, Blades: 1, Instruments: 26, Syveck Patches: 0 verified by RW 12:39:53 Implant Procedure was performed. 12:40:01 A Lead Removal . (Single) 12:40:20 A Lead Revision . (Single) 12:41:42 Case End (Physician broke scrub) 12:43:36 Steri-strips and a sterile dressing applied to site. 12:43:56 Holding Area notified of successful intervention. 12:51:47 A sling was placed on the affected arm. 12:51:56 PACU called. Spoke to Kimberly 12:52:34 Bedside Report will be given. Assessment: Final Case, HR=60 BPM, EAWV=724/54 mmhg, Edema=None, Color=Normal, Skin = Warm, Dry Right Pulses: Leobardo Ped=1 Left Pulses: Leobardo Ped=1 12:52:45 Lower Right Extremities: Color=Normal Lower Left Extremities: Color=Normal Neurological: State=Drowsy, BELCHER Respiration: Resp=20 B/min, JtY4=132 %, O2=4 lpm 12:52:53 No case complications noted. 12:52:54 Cine recording checked. 12:53:06 Implantable Device card placed in patient's chart. 12:53:10 Defibrillator and ground pads removed. Skin intact. Patient moved to stretcher and transported to PACU in stable condition on supplemental oxygen b y NC with LACQUER SIZER and 12:57:12 tech accompanying. 09/13/2018 1:09:31 PM Financial #: [id number] 8 of 9 Patient Name: Luli Akers Study #: [id number] Initial MD: Jena Thompson Date of : 1955 Study Date: 09/13/2018 End Study - Contrast Media Used In Study Contrast Total Opened (mL) Total Used (mL) Total Wasted (mL) Unspecified 0 0 0 End Study - Maximum Contrast Load Max Contrast Load (mL) 262.5 End Study - Radiation Exposure Fluoro Time Fluoro Dose (mGy) Cine Dose (uGym2) (minutes) 2.4 14 169 End Study - Patient Disposition Complications Transferred To Telemetry Bed 09/13/2018 1:09:31 PM Financial #: [id number]
[2018-09-13] MEDS ORDERED: *morphine SULFATE 4 MG/ML PERIprocedure ONLY ONE (13:37)
--- NOTE | 2018-09-13 15:51 | P.PNIM ---
Subjective Interval history: Follow-up AICD misfiring. Tolerated AICD changed today. Denies shortness of breath. Physical Exam Vital signs: Last Vital Signs Temp 98.4 F 09/13/18 14:27 Pulse 84 09/13/18 14:27 Resp 18 09/13/18 15:00 BP 111/81 09/13/18 14:27 Pulse Ox 99 09/13/18 14:27 Intake & Output 09/11/18 09/12/18 09/13/18 09/14/18 06:59 06:59 06:59 06:59 Intake Total 2140 / 2140 1386 / 1386 1200 / 1200 Output Total 2200 / 2200 700 / 700 900 / 900 Balance -60 / -60 686 / 686 300 / 300 Weight 63.7 kg 62.5 kg 63 kg Narrative: GENERAL: middle aged woman, not in distress. CARDIOVASCULAR: Regular rate and rhythm without murmurs, gallops, or rubs. Dry clean bandage over left chest wall with bag of ice RESPIRATORY:equal air entry bilaterally with clear breath sound GASTROINTESTINAL: Abdomen soft, non-tender, nondistended. Normal active bowel sounds MUSCULOSKELETAL: Extremities without clubbing, cyanosis, or edema. Left upper extremity in a sling NEURO: Alert & Oriented x4 to person, place, time, situation. Moves all ext x4 Results Labs CBC & Chem 7: 09/13/18 10:03 09/13/18 10:03 Procedures Procedures: AICD exchange Assessment and Plan Plan 63-year-old female placed in with a history of COPD, hypertension, type 2 diabetes, and chronic pain, ICD implant for secondary prevention after ventricular fibrillation arrest in 2017. Patient presented to the hospital after AICD fired 3 times. Her pacemaker was interrogated at [place] and was found to have a low sensing lead because advised to double count the T waves can cause any defibrillations. She was transferred to [facility] to undergo a lead replacement by Dr. Thompson. Patient was initially planned for procedure but case had been canceled due to her respiratory status. Patient has been treated for COPD exacerbation. Per Dr. boyd the patient will have to come back to hospital on to have her procedure performed. Per last note by cardiology the patient is stable from a cardiac standpoint is okay to discharge and they will be contacted to have her procedure done as an outpatient. If the patient remains inpatient due to her other medical problems (respiratory status), then the procedure will be done in hospital. 1.COPD exacerbation with bronchopneumonia: CT chest with patchy ground glass opacities in both lungs with upper lobe prominence, most suggestive of mild bronchopneumonia. sputum culture 09/06-heavy growth normal resp priya,few gram positive cocci in pairs. -clinically improved. -Switched to oral prednisone 09/09 dujeremi de la garza, doxycycline 100 mg q12h x 5 d azithromycin discontinued -cont Symbicort, Singulair 10 mg. leucocytosis noted, likely due to steroids. appreciate pulmonary input. Oral thrush--likely in setting of steroid use, started on Nystatin swish 2. Acute kidney injury on CKD III: Cr now trending down 1.88-->1.2 - SAMARIA I on hold - renally dose all meds,avoid nephrotoxins. 3.Misfiring AICD -Continue Coreg. Hold SAMARIA due to kidney dysfunction. -Continue telemetry -Status post AICD exchange today. Postoperative care per cardiology 4.Hypertension-BP within acceptable limits. continue amlodipine and Coreg 5.Normocytic no normochromic anemia guaiac neg -Status post 1 unit of packed red blood cells on 09/01. Hb stabilized in 9's range. DVT prophylaxis: bilat SCD DISPO-discharge tomorrow Progress Note: Quality VTE Deep Vein Thrombosis/Pulmonary Embolism Present on Admission: No
--- NOTE | 2018-09-13 16:05 | XR ---
EXAM DATE: 09/13/2018 4:00 PM EST AGE/SEX: 63 years / Female INDICATIONS: Post ICD placement. CLINICAL DATA: This is the patient's subsequent encounter. Patient reports that signs and symptoms h ave been present for 1 week and indicates a pain score of 0/10. MEDICAL/SURGICAL HISTORY: . Diabetes. Chronic obstructive pulmonary disease. Hypertension. A-f ib. Defibrillator. COMPARISON: [facility], CHEST 1V SINGLE AP, 09/07/2018. . FINDINGS: A pacing implement is present with control pack over left upper chest. There is no evidence of pneumo thorax. Lungs are focally clear. No effusion present. Comment for slight rotation, the cardiac contou rs are satisfactory. CONCLUSION: No acute findings Electronically signed by: Kolton Escalante MD Board Certified Radiologist 09/13/2018 4:04 PM EST
--- NOTE | 2018-09-13 19:09 | P.PN ---
Subjective Interval history: Went for ICD pacer today. Alert and breathing OK . still wheezing. On O2 3 L Physical Exam Vital signs: Vital Signs 09/12/18 20:00 09/12/18 20:07 09/12/18 21:00 Temperature Pulse Rate 69 62 71 Respiratory Rate 16 Blood Pressure Pulse Oximetry 09/12/18 22:00 09/12/18 23:00 09/13/18 00:00 Temperature 98.2 F Pulse Rate 70 61 61 Respiratory Rate 20 Blood Pressure 128/74 Pulse Oximetry 97 09/13/18 01:00 09/13/18 02:00 09/13/18 03:00 Temperature 98.1 F Pulse Rate 62 61 62 Respiratory Rate 18 Blood Pressure 118/69 Pulse Oximetry 95 09/13/18 04:00 09/13/18 05:00 09/13/18 06:00 Temperature Pulse Rate 62 60 63 Respiratory Rate Blood Pressure Pulse Oximetry 09/13/18 07:00 09/13/18 07:24 09/13/18 08:00 Temperature 98.0 F Pulse Rate 52 L 68 57 L Respiratory Rate 18 18 Blood Pressure 160/91 H Pulse Oximetry 100 09/13/18 11:30 09/13/18 13:00 09/13/18 13:15 Temperature 98.4 F Pulse Rate 79 87 86 Respiratory Rate 20 20 15 Blood Pressure 179/84 H 167/82 H Pulse Oximetry 98 97 09/13/18 13:30 09/13/18 13:32 09/13/18 13:45 Temperature 98.4 F Pulse Rate 89 87 90 Respiratory Rate 14 13 Blood Pressure 148/78 H 156/77 H Pulse Oximetry 98 98 98 09/13/18 13:50 09/13/18 14:27 09/13/18 15:00 Temperature 98.4 F Pulse Rate 85 84 Respiratory Rate 16 18 18 Blood Pressure 157/74 H 111/81 Pulse Oximetry 98 99 09/13/18 15:27 09/13/18 17:00 Temperature 98.4 F Pulse Rate 84 88 Respiratory Rate 18 Blood Pressure 111/81 Pulse Oximetry 99 Intake & Output 09/13/18 09/13/18 09/14/18 06:59 18:59 06:59 Intake Total 480 / 480 Output Total 600 / 600 Balance -120 / -120 Weight 63 kg Intake: Oral 480 / 480 Output: Urine 600 / 600 Other: Date of Last Bowel Movement 09/12/18 09/12/18 # Bowel Movements 0 GENERAL: alert and Oriented SKIN: Warm and dry. HEAD: Normocephalic. EYES: No scleral icterus. No injection or drainage. NECK: Supple, trachea midline. No JVD or lymphadenopathy. CARDIOVASCULAR: Regular rate and rhythm without murmurs, gallops, or rubs. RESPIRATORY: Breath sounds equal bilaterally. Bilateral wheeze .No accessory muscle use. GASTROINTESTINAL: Abdomen soft, non-tender, nondistended. MUSCULOSKELETAL: No cyanosis, or edema. BACK: Nontender without obvious deformity. No CVA tenderness. Results - Labs CBC & Chem 7: 09/13/18 10:03 09/13/18 10:03 Laboratory Results - last 24 hr 09/13/18 09/13/18 09/13/18 07:35 10:03 10:03 WBC 19.1 H RBC 4.72 Hgb 9.8 L Hct 32.7 L MCV 69.3 L MCH 20.9 L MCHC 30.1 L RDW 20.2 H Plt Count 189 MPV 8.7 Prelim Diff (Auto) Slide review pending Neut % (Auto) 79.6 H Lymph % (Auto) 13.2 [place] % (Auto) 6.6 Eos % (Auto) 0.1 Baso % (Auto) 0.5 Neut # (Auto) 15.2 H Lymph # (Auto) 2.5 [place] # (Auto) 1.3 H Eos # (Auto) 0.0 Baso # (Auto) 0.1 WBC Differential Manual diff final Seg Neuts % (Manual) 82 H Band Neuts % (Manual) 1 Lymphocytes % (Manual) 11 Monocytes % (Manual) 5 Metamyelocytes % (Man) 1 Abs Neuts (Manual) 16.0 H Differential Comment . Toxic Granulation 2+ H Platelet Estimate Normal Platelet Morphology Normal Ovalocytes 2+ H Acanthocytes (Spur) 1+ H PT 10.0 INR 1.0 Sodium Potassium Chloride Carbon Dioxide Anion Gap BUN Creatinine Estimated GFR POC Glucose 153 H Random Glucose Calcium 09/13/18 09/13/18 09/13/18 10:03 13:31 17:26 WBC RBC Hgb Hct MCV MCH MCHC RDW Plt Count MPV Prelim Diff (Auto) Neut % (Auto) Lymph % (Auto) [place] % (Auto) Eos % (Auto) Baso % (Auto) Neut # (Auto) Lymph # (Auto) [place] # (Auto) Eos # (Auto) Baso # (Auto) WBC Differential Seg Neuts % (Manual) Band Neuts % (Manual) Lymphocytes % (Manual) Monocytes % (Manual) Metamyelocytes % (Man) Abs Neuts (Manual) Differential Comment Toxic Granulation Platelet Estimate Platelet Morphology Ovalocytes Acanthocytes (Spur) PT INR Sodium 136 Potassium 4.8 Chloride 101 Carbon Dioxide 30.0 Anion Gap 5 BUN 35 H Creatinine 0.94 Estimated GFR 60 L POC Glucose 158 H 216 H Random Glucose 104 Calcium 8.7 - Imaging Impressions Chest X-Ray 09/13/18 00:00 CONCLUSION: No acute findings Assessment and Plan - Assessment (1) Bronchopneumonia Code(s): J18.0 - Bronchopneumonia, unspecified organism Status: Acute (2) Urinary tract infection Code(s): N39.0 - Urinary tract infection, site not specified Status: Acute (3) Upper GI bleed Code(s): K92.2 - Gastrointestinal hemorrhage, unspecified Status: Acute (4) Dehydration Code(s): E86.0 - Dehydration Status: Acute (5) Sepsis Code(s): A41.9 - Sepsis, unspecified organism Status: Acute (6) Acute GI bleeding Code(s): K92.2 - Gastrointestinal hemorrhage, unspecified Status: Acute (7) Anemia Code(s): D64.9 - Anemia, unspecified Status: Acute (8) History of COPD Code(s): Z87.09 - Personal history of other diseases of the respiratory system Status: Chronic (9) Colon polyp, hyperplastic Code(s): K63.5 - Polyp of colon Status: Acute - Plan 1. CXR in am 2. Nebs qid , duoneb 3. Prednisone 10 mg BID 4. Cont magic mouthwash 10 CC QID 5. Cont Coreg PO 6. Cont Singulair 10 mg daily 7. Symbicort 160/4.5 mcg, 2puffs BID 8. IS Q3H bedside (7) Anemia Qualifiers: Anemia type: iron deficiency Iron deficiency anemia type: chronic blood loss Qualified Code(s): D50.0 - Iron deficiency anemia secondary to blood loss ( chronic)
[2018-09-14] MEDS: LORazepam 0.5 MG Tablet PO PRN ×2 (00:24→09:02)
--- NOTE | 2018-09-14 05:41 | XR ---
EXAM DATE: 09/14/2018 5:22 AM EST AGE/SEX: 63 years / Female INDICATIONS: Infiltrates. CLINICAL DATA: This is the patient's subsequent encounter. Patient reports that signs and symptoms h ave been present for 2 weeks and indicates a pain score of 0/10. MEDICAL/SURGICAL HISTORY: Hypertension. Chronic obstructive pulmonary disease. Diabetes melli tus type II. Smoker. Hysterectomy. Pacemaker. Tonsillectomy. [place] [facility] [facility] [place]. . FINDINGS: A single AP view of the chest demonstrates the lungs to be symmetrically aerated without evidence of mass, infiltrate or effusion. The cardiomediastinal contours are unremarkable. Osseous structures a re intact. Left-sided pacing device. CONCLUSION: No acute cardiopulmonary disease. Electronically signed by: Levy Boudreaux MD Board Certified Radiologist 09/14/2018 5:40 AM EST
[2018-09-14] MEDS: Insulin NovoLOG Aspart Correctional Sugar Inj SQ SCH ×2 (09:01→12:31)
[2018-09-14] MEDS: Nystatin Liq 500,000 UNIT/5 ML UDC SWISH-SWAL SCH ×2 (09:02→12:34)
[2018-09-14] MEDS: predniSONE 20 MG Tablet PO SCH (09:02)
[2018-09-14] MEDS: amLODIPine 10 MG Tablet PO SCH (09:02)
[2018-09-14] MEDS: Budesonide-Formoterol 80/4.5 MCG 6.9 GM Inhaler INH SCH (09:02)
--- NOTE | 2018-09-14 12:01 | P.PN ---
Subjective Interval history: Feeling ok Physical Exam Vital signs: Vital Signs 09/13/18 13:00 09/13/18 13:15 09/13/18 13:30 Temperature 98.4 F Pulse Rate 87 86 89 Respiratory Rate 20 15 14 Blood Pressure 179/84 H 167/82 H 148/78 H Pulse Oximetry 98 97 98 09/13/18 13:32 09/13/18 13:45 09/13/18 13:50 Temperature 98.4 F Pulse Rate 87 90 85 Respiratory Rate 13 16 Blood Pressure 156/77 H 157/74 H Pulse Oximetry 98 98 98 09/13/18 14:27 09/13/18 15:00 09/13/18 15:27 Temperature 98.4 F 98.4 F Pulse Rate 84 84 Respiratory Rate 18 18 18 Blood Pressure 111/81 111/81 Pulse Oximetry 99 99 09/13/18 17:00 09/13/18 18:00 09/13/18 19:00 Temperature Pulse Rate 88 90 89 Respiratory Rate Blood Pressure Pulse Oximetry 09/13/18 19:27 09/13/18 19:52 09/13/18 20:00 Temperature 98.0 F Pulse Rate 68 82 80 Respiratory Rate 16 12 Blood Pressure 127/78 Pulse Oximetry 97 09/13/18 21:00 09/13/18 22:00 09/13/18 23:00 Temperature 97.8 F Pulse Rate 76 76 74 Respiratory Rate 18 Blood Pressure 126/75 Pulse Oximetry 98 09/14/18 00:00 09/14/18 01:00 09/14/18 02:00 Temperature Pulse Rate 72 83 88 Respiratory Rate Blood Pressure Pulse Oximetry 09/14/18 03:00 09/14/18 04:00 09/14/18 04:40 Temperature 98.8 F Pulse Rate 71 74 Respiratory Rate 16 16 Blood Pressure 136/94 H Pulse Oximetry 98 09/14/18 05:00 09/14/18 06:00 09/14/18 07:00 Temperature Pulse Rate 70 71 71 Respiratory Rate Blood Pressure Pulse Oximetry 09/14/18 07:31 09/14/18 07:49 Temperature 98 F Pulse Rate 73 75 Respiratory Rate 17 18 Blood Pressure 135/84 Pulse Oximetry 97 Intake & Output 09/13/18 09/14/18 09/14/18 18:59 06:59 18:59 Intake Total 740 / 740 420 / 420 Balance 740 / 740 420 / 420 Weight 65.6 kg Intake: Oral 740 / 740 420 / 420 Other: # Voids 3 5 Date of Last Bowel Movement 09/12/18 09/12/18 09/13/18 - Constitutional no acute distress - Routine HEENT Exam Head: Present: normocephalic Eye: Present: PERRL ENT: Present: mucous membranes moist - Routine Respiratory Exam Present: CTA bilaterally - Routine Cardiovascular Exam Present: RRR, S1, S2 - Routine Neurological Exam Present: alert, oriented X3 - Detailed Neurological Exam: Coma Scale Eye Opening: Spontaneous Verbal Response: Oriented Motor Response: Obey commands Mono Coma Scale Total: 15 Results - Labs CBC & Chem 7: 09/13/18 10:03 09/13/18 10:03 Laboratory Results - last 24 hr 09/13/18 09/13/18 09/13/18 13:31 17:26 20:31 POC Glucose 158 H 216 H 251 H 09/14/18 07:42 POC Glucose 285 H - Imaging Impressions Chest X-Ray 09/13/18 00:00 CONCLUSION: No acute findings Chest X-Ray 09/14/18 00:00 CONCLUSION: No acute cardiopulmonary disease. Assessment and Plan - Assessment (1) ICD (implantable cardioverter-defibrillator) lead failure Code(s): T82.110A - Breakdown (mechanical) of cardiac electrode, initial encounter Status: Acute Plan: New defib lead inserted yesterday Clean surgical wound Device well functioning Feeling better can be DH Follow up in 3 weeks (2) Congestive heart failure Code(s): I50.9 - Heart failure, unspecified Status: Acute Plan: On optimal medical management (3) History of COPD Code(s): Z87.09 - Personal history of other diseases of the respiratory system Status: Chronic Plan: Severe COPD SOB on minimal activity May need pulmonary evaluation (1) ICD (implantable cardioverter-defibrillator) lead failure Qualifiers: Encounter type: subsequent encounter Qualified Code(s): T82.110D - Breakdown (mechanical) of cardiac electrode, subsequent encounter (2) Congestive heart failure Qualifiers: Heart failure type: unspecified Heart failure chronicity: acute on chronic Qualified Code(s): I50.9 - Heart failure, unspecified
[2018-09-14 12:27] VITALS: BP 142/89; TEMP 98.9; O2SAT 98
--- NOTE | 2018-09-14 12:30 | P.DCO ---
Diagnosis (1) Pneumonia: Status: Acute Physical Therapy Order: Evaluate and treat, Improve ambulation and Strength and gait training Home Health Nursing Order: Medical education, Oxygen administration education, Medication education- adverse effect and Nursing assessment with vital signs Case Management Consult Case Management Consult-Home Health: Yes I have seen patient Luli Akers on 09/14/18. My clinical findings support the need for the requested home health care services because: Limited mobility due to disease progression and Deconditioned with increased weakness I certify that my clinical findings support that this patient is homebound because: Need for psychosocial assistance
--- NOTE | 2018-09-14 12:46 | P.PN ---
Subjective Interval history: Doing well , off O2 sat 94. No wheezing or cough. Physical Exam Vital signs: Vital Signs 09/13/18 13:00 09/13/18 13:15 09/13/18 13:30 Temperature 98.4 F Pulse Rate 87 86 89 Respiratory Rate 20 15 14 Blood Pressure 179/84 H 167/82 H 148/78 H Pulse Oximetry 98 97 98 09/13/18 13:32 09/13/18 13:45 09/13/18 13:50 Temperature 98.4 F Pulse Rate 87 90 85 Respiratory Rate 13 16 Blood Pressure 156/77 H 157/74 H Pulse Oximetry 98 98 98 09/13/18 14:27 09/13/18 15:00 09/13/18 15:27 Temperature 98.4 F 98.4 F Pulse Rate 84 84 Respiratory Rate 18 18 18 Blood Pressure 111/81 111/81 Pulse Oximetry 99 99 09/13/18 17:00 09/13/18 18:00 09/13/18 19:00 Temperature Pulse Rate 88 90 89 Respiratory Rate Blood Pressure Pulse Oximetry 09/13/18 19:27 09/13/18 19:52 09/13/18 20:00 Temperature 98.0 F Pulse Rate 68 82 80 Respiratory Rate 16 12 Blood Pressure 127/78 Pulse Oximetry 97 09/13/18 21:00 09/13/18 22:00 09/13/18 23:00 Temperature 97.8 F Pulse Rate 76 76 74 Respiratory Rate 18 Blood Pressure 126/75 Pulse Oximetry 98 09/14/18 00:00 09/14/18 01:00 09/14/18 02:00 Temperature Pulse Rate 72 83 88 Respiratory Rate Blood Pressure Pulse Oximetry 09/14/18 03:00 09/14/18 04:00 09/14/18 04:40 Temperature 98.8 F Pulse Rate 71 74 Respiratory Rate 16 16 Blood Pressure 136/94 H Pulse Oximetry 98 09/14/18 05:00 09/14/18 06:00 09/14/18 07:00 Temperature Pulse Rate 70 71 71 Respiratory Rate Blood Pressure Pulse Oximetry 09/14/18 07:31 09/14/18 07:49 09/14/18 12:26 Temperature 98 F 98.9 F Pulse Rate 73 75 88 Respiratory Rate 17 18 18 Blood Pressure 135/84 142/89 H Pulse Oximetry 97 98 Intake & Output 09/13/18 09/14/18 09/14/18 18:59 06:59 18:59 Intake Total 740 / 740 420 / 420 Balance 740 / 740 420 / 420 Weight 65.6 kg Intake: Oral 740 / 740 420 / 420 Other: # Voids 3 5 Date of Last Bowel Movement 09/12/18 09/12/18 09/13/18 GENERAL: Mid aged W/F alert SKIN: Warm and dry. HEAD: Normocephalic. EYES: No scleral icterus. No injection or drainage. NECK: Supple, trachea midline. No JVD or lymphadenopathy. CARDIOVASCULAR: Regular rate and rhythm without murmurs, gallops, or rubs. RESPIRATORY: Breath sounds equal bilaterally.clear lungs. No accessory muscle use. GASTROINTESTINAL: Abdomen soft, non-tender, nondistended. MUSCULOSKELETAL: No cyanosis, or edema. BACK: Nontender without obvious deformity. No CVA tenderness. Results - Labs CBC & Chem 7: 09/13/18 10:03 09/13/18 10:03 Laboratory Results - last 24 hr 09/13/18 09/13/18 09/13/18 13:31 17:26 20:31 POC Glucose 158 H 216 H 251 H 09/14/18 09/14/18 07:42 12:21 POC Glucose 285 H 119 H - Imaging Impressions Chest X-Ray 09/13/18 00:00 CONCLUSION: No acute findings Chest X-Ray 09/14/18 00:00 CONCLUSION: No acute cardiopulmonary disease. Assessment and Plan - Assessment (1) Bronchopneumonia Code(s): J18.0 - Bronchopneumonia, unspecified organism Status: Acute (2) Urinary tract infection Code(s): N39.0 - Urinary tract infection, site not specified Status: Acute (3) Upper GI bleed Code(s): K92.2 - Gastrointestinal hemorrhage, unspecified Status: Acute (4) Dehydration Code(s): E86.0 - Dehydration Status: Acute (5) Sepsis Code(s): A41.9 - Sepsis, unspecified organism Status: Acute (6) Acute GI bleeding Code(s): K92.2 - Gastrointestinal hemorrhage, unspecified Status: Acute (7) Anemia Code(s): D64.9 - Anemia, unspecified Status: Acute (8) History of COPD Code(s): Z87.09 - Personal history of other diseases of the respiratory system Status: Chronic (9) Colon polyp, hyperplastic Code(s): K63.5 - Polyp of colon Status: Acute - Plan 1. Home today Will 2. Nebs BID, duoneb 3. Prednisone 10 mg daily X 7 days 4. Cont magic mouthwash 10 CC QID 5. Cont Coreg PO 6. Cont Singulair 10 mg daily 7. Symbicort 160/4.5 mcg, 2puffs BID 8. IS Q3H bedside (7) Anemia Qualifiers: Anemia type: iron deficiency Iron deficiency anemia type: chronic blood loss Qualified Code(s): D50.0 - Iron deficiency anemia secondary to blood loss ( chronic)
[2018-09-14 12:47] VITALS: RESP 16
--- NOTE | 2018-09-14 13:01 | MP ---
cc: Jena Thompson MD DATE OF OPERATION: 09/13/2018 PROCEDURES: 1. Defibrillator removal. 2. Right ventricular defibrillatory lead extraction. 3. New right ventricular defibrillatory lead insertion and pocket revision. INDICATIONS: Mrs. Akers is a 63-year-old female who had a defibrillator inserted over a year and a half ago. The patient gets multiple defibrillatory shocks due to T-wave oversensing or poor sensing of the right ventricular defibrillatory lead and poor RV sensing was referred for lead insertion and lead extraction. The risks, the nature, and the benefits of the procedure are clearly stated to her. Risks include pneumothorax, cardiac perforation, stroke, need for open heart surgery, and even . The patient understood and agreed to proceed. DESCRIPTION OF PROCEDURE: After informed consent was obtained, the patient was brought to the EP lab where she was prepped and draped in the usual sterile fashion. Conscious sedation was initiated and maintained throughout the procedure by the anesthesiologist. Once sedation was verified, the left infraclavicular area over the existing generator was anesthetized with 2% Xylocaine. Using a #11 blade scalpel, a 3 cm incision was made over the existing generator. This incision was taken down to the deep fascial layer using Bovie cautery and blunt dissection. Once exposed, the generator was removed from the pocket. Scar tissue was removed from around the lead. The pocket was expanded. Pocket revision was performed. Then, the lead was disconnected from the generator. At that point, using modified Seldinger technique, the left subclavian vein was cannulated on one occasion and 1 guidewire was advanced. Then, 2-0 Vicryl suture was placed around the wire to prevent backbleeding. At this point, I decided to proceed with lead extraction. Scar tissue was removed from around the lead. A stylet was advanced over the lead. After multiple manipulation, the tip of the lead was retracted. The lead was removed without difficulty. Blood pressure was stable. At that point, over the wire, a 9-[place] Islander dilator and introducer were advanced. As dilator and wire were removed, an active fixation right ventricular pacing sensing defibrillatory lead was advanced. After adequate pacing and sensing thresholds were obtained, the lead was secured in the pocket using #2 Ethibond suture. At that point, the pocket was copiously irrigated using antibiotic solution. The lead was connected to generator and placed into the pocket. I did proceed with wound closure. The deep fascial layer was reapproximated with #2-0 Vicryl suture in a continuous fashion. The subcutaneous layer was approximated with #2-0 Vicryl suture in a continuous fashion. The subcuticular layer was approximated using #2-0 Vicryl suture in a continuous fashion. Dermabond adhesive was applied to the wound followed by a sterile pressure dressing. There were no complications. The patient tolerated the procedure. Blood loss minimal. FINDINGS: 1. The implanted and explanted defibrillator is a Medtronic. Please refer to previous dictation. 2. Explanted hardware: The explanted right ventricular pacing sensing defibrillatory lead is a Medtronic. Please refer to previous dictation. 3. Implanted hardware: The implanted right ventricular pacing sensing defibrillator lead is a Medtronic. Please refer to previous dictation. 4. Threshold: The right ventricle pacing in bipolar mode was 0.7 volt at 0.5 millisecond, lead impedance was 475 ohms, R-wave 13 millivolts. 5. Setting: The device set at VVI 40. Defibrillatory portion for 2 zones, 1 zone for ventricular tachycardia between 170 and 250 beats per minute. Initial therapy consists of 1 burst of ATP. 1 ramp 81%, 10 pulse, 70 millisecond decremental, followed by 20 and then 25 and a second shock at 35 joule defibrillatory shock. Second zone for ventricular fibrillation above 214 beats per minute, first therapy at 25 and a second shock at 35 defibrillatory shock. Comprehensive successful defibrillator removal and right ventricular defibrillatory lead extraction, new right ventricular defibrillator lead insertion. RECOMMENDATION: The patient is going to be transferred to the telemetry unit. She will be observed. When stable, she can be discharged home. MD ROZINA Carrasco/ts , 11:57 AM , 12:11 PM
[2018-09-14 13:58] VITALS: PULSE 84
--- NOTE | 2018-09-14 16:42 | P.DS ---
DS: Providers Date of admission: 09/01/18 00:22 Primary care physician: No Primary Care Physician Consults: 09/01/18 01:00 Consult to Cardiology Routine Consulting Provider: Jena Thompson Does the patient have a Assurance Services Manager Health Care who follows them?: Yes Preferred Appliance Tester:: Jena Thompson Reason for Consultation: Misplaced pacer lead resulting in shocks; please evaluate for correction/replacement Notified:: Service Spoke with:: eric Date Notified:: 09/01/18 Time Notified:: 04:00 Ordering Provider: FARIHA 09/04/18 08:45 Consult to Pulmonology Routine Consulting Provider: Kolton Cooney V Reason for Consultation: 63-year-old female with ICD lead failure, now with severe COPD exacerbation, please evaluate and advise for therapy Notified:: Service Spoke with:: Deshawn Date Notified:: 09/04/18 Time Notified:: 08:55 Ordering Provider: DILAN DS: Diagnosis Discharge Diagnosis (1) Pneumonia: Status: Acute DS: Summary 63-year-old female placed in with a history of COPD, hypertension, type 2 diabetes, and chronic pain, ICD implant for secondary prevention after ventricular fibrillation arrest in 2017. Patient presented to the hospital after AICD fired 3 times. Her pacemaker was interrogated at [place] and was found to have a low sensing lead because advised to double count the T waves can cause any defibrillations. She was transferred to [facility] to undergo a lead replacement by Dr. Thompson. Patient was initially planned for procedure but case had been canceled due to her respiratory status. Patient has been treated for COPD exacerbation. Per Dr. boyd the patient will have to come back to hospital on to have her procedure performed. Per last note by cardiology the patient is stable from a cardiac standpoint is okay to discharge and they will be contacted to have her procedure done as an outpatient. If the patient remains inpatient due to her other medical problems (respiratory status), then the procedure will be done in hospital. 1.COPD exacerbation with bronchopneumonia: CT chest with patchy ground glass opacities in both lungs with upper lobe prominence, most suggestive of mild bronchopneumonia. sputum culture 09/06-heavy growth normal resp priya,few gram positive cocci in pairs. -clinically improved. -Switched to oral prednisone 1/3 duoneb, neb, doxycycline 100 mg q12h x 5 d azithromycin discontinued -cont Symbicort, Singulair 10 mg. leucocytosis noted, likely due to steroids. appreciate pulmonary input. Pain management consult regarding narcotics. [employer] Prescription Drug Monitoring Database has been queried and verified prior to prescribing the controlled subsection. Patient is having significant pain caused by [surgery] which will last more than 3 days. Trial of alternative treatment options other than prescribed opioids has not helped. I believe that it is medically necessary to treat the patients pain because it is affecting patients ability to [do ADL]. Oral thrush--likely in setting of steroid use, continue nystatin swish 2. Acute kidney injury on CKD III: Cr now trending down 1.88-->1.2 - SAMARIA I on hold - renally dose all meds,avoid nephrotoxins. 3.Misfiring AICD -Continue Coreg. Hold SAMARIA due to kidney dysfunction. -Continue telemetry -Status post new lead placement. Postoperative care per cardiology 4.Hypertension-BP within acceptable limits. continue amlodipine and Coreg 5.Normocytic no normochromic anemia guaiac neg -Status post 1 unit of packed red blood cells on 09/01. Hb stabilized in 9's range. DVT prophylaxis: bilat SCD Time Spent with Patient Total time spent providing and/or coordinating discharge services: Greater than 30 minutes Quality: VTE Deep Vein Thrombosis/Pulmonary Embolism Present on Admission: No Exam Narrative Exam Narrative: GENERAL: Well-developed and well-nourished in no distress SKIN: Warm and dry. CARDIOVASCULAR: Regular rate and rhythm. Dry dressing left upper chest RESPIRATORY: No accessory muscle use. Clear to auscultation. Breath sounds equal bilaterally. GASTROINTESTINAL: Abdomen soft, non-tender, nondistended. MUSCULOSKELETAL: Extremities without clubbing, cyanosis, or edema. No obvious deformities. NEUROLOGICAL: Awake and alert. No obvious cranial nerve deficits. Motor grossly within normal limits. Five out of 5 muscle strength in the arms and legs. Normal speech. PSYCHIATRIC: Appropriate mood and affect; insight and judgment normal. Results Labs on day of discharge: Labs from last 24 hours 09/14/18 09/14/18 09/13/18 12:21 07:42 20:31 POC Glucose 119 H 285 H 251 H 09/13/18 17:26 POC Glucose 216 H Impressions ITS Impressions Chest CT 09/04/18 00:00 CONCLUSION: 1. Patchy groundglass opacity in both lungs with an upper lobe predominance, most characteristic of a mild bronchopneumonia. 2. Moderate-sized hiatal hernia. Moderate coronary calcifications. Pacer lead in right ventricle. Bilateral breast implant ruptures. Chest X-Ray 09/14/18 00:00 CONCLUSION: No acute cardiopulmonary disease. Discharge Plan Discharge Disposition Patient Disposition: Discharge Home Discharge Condition Condition: Stable Discharge Order Discharge Orders: Discharge Order (Routine); Ordered 09/14/18 Ordered By: Vladimir Braden Physicians Team ED Provider: Ana María Tate Primary Care Provider: Primary Care Savanna Patino Attending Provider: Vladimir Braden Other Providers: Jena Thompson ; Kolton Conoey V Rxs /Orders / Referrals /Forms Prescriptions: New nystatin 100,000 unit/mL Suspension 5 ml SWISH-SWAL QID Qty: 200 RF: 0 doxycycline hyclate 100 mg Capsule 100 mg PO Q12HR Qty: 6 RF: 0 hydrocodone-acetaminophen 5-325 mg Tablet 1 tab PO Q6HR PRN (Reason: Acute Pain) Qty: 12 RF: 0 carvedilol [Coreg] 3.125 mg Tablet 3.125 mg PO BID Qty: 60 RF: 0 prednisone 20 mg Tablet 10 mg PO BID Qty: 4 RF: 0 pantoprazole 40 mg Tablet,Delayed Release (Dr/Ec) 40 mg PO DAILY Qty: 14 RF: 0 budesonide-formoterol [Symbicort] 80-4.5 mcg/actuation Hfa Aerosol Inhaler 1 puff INH BID Qty: 1 RF: 0 Continue metformin 500 mg Tablet 500 mg PO DAILY RF: 0 lisinopril 20 mg Tablet 20 mg PO DAILY RF: 0 methadone 40 mg Tablet,Soluble 50 mg PO DAILY RF: 0 amlodipine 10 mg Tablet 10 mg PO DAILY RF: 0 albuterol sulfate [Ventolin HFA] 90 mcg/actuation Hfa Aerosol Inhaler 2 puff INHALATION Q4-6H PRN (Reason: Respiratory Distress) RF: 0 Ambulatory Orders / Order Sets / DME: Oxygen Tank (2 liter) (Routine) Location: Determined by Patient Ordered By: Vladimir Braden XR chest 2V PA&LAT (Routine) Timeframe: 6 Weeks Location: Determined by Patient Ordered By: Vladimir Braden Referrals: [facility], [Agency] - See Instructions Jena Thompson MD [Physician] - See Instructions (Follow-up in 1-2 weeks) Kolton Cooney MD [Physician] - See Instructions (Follow-up in 2 weeks) Primary Care Savanna Patino [Primary Care Provider] - See Instructions (PCP follow- up in 1 week) Discharge Instructions Patient Printed Instructions: Doxycycline (By mouth), Hydrocodone/ Acetaminophen (By mouth), Nystatin (By mouth), Carvedilol (By mouth), Pantoprazole (By mouth), Budesonide/Formoterol (By breathing), Urinary Tract Infection in Women (DC), Implantable Cardioverter Defibrillator (DC) Additional Instructions: HOME HEALTH CARE HAS BEEN ARRANGED WITH [facility], CONTACT# Post Discharge Care Plan Care Plan Goals: Your Health Problems: Goals to Promote Your Health: * To prevent worsening of your condition * To maintain your health at the optimal level Directions to Meet Your Goals: * Take your medications as prescribed * Follow your dietary instruction * Follow activity as directed * Keep your appointments as scheduled * Take your immunizations and boosters as scheduled * If your symptoms worsen call your PCP * If no PCP go to Urgent Care or Emergency Room Smoking is dangerous to your health. Avoid second hand smoke. You may reach the 24-hour crisis hotline for domestic abuse at . Status ED Status: Left Department Discharge Information Discharge Date/Time: 09/14/18 16:12
--- NOTE | 2018-09-15 00:49 | ECG ---
Date Performed: 09/13/2018 Time Performed: 13:42:23 PTAGE: 63 years EKG: Sinus rhythm WITH OCCASIONAL ECTOPIC PREMATURE COMPLEXES POSSIBLE LEFT ATRIAL ENLARGEMENT MARKED RIGHT AXIS DEVIA TION LOW QRS VOLTAGE IN PRECORDIAL LEADS ABNORMAL ECG INTERPRETATION BASED ON A DEFAULT AGE OF 38 YEA RS Compared to PREVIOUS TRACING , now with right axis deviatino as well as criteria for left atrial enl argement DOCTOR: Ruben Dhillon Interpretating Date/Time 09/15/2018 00:48:23
--- NOTE | 2018-09-15 01:21 | ECG ---
Date Performed: 09/14/2018 Time Performed: 05:24:56 PTAGE: 63 years EKG: Sinus rhythm Baseline artifact Poor R wave progression - probable normal variant Septal T wave changes are nonspe cific Low QRS voltages in precordial leads Borderline ECG PREVIOUS TRACING : 09/13/2018 13.42 Compared to previous tracing, ST/T wave changes anteriorly are more prominent DOCTOR: Ruben Dhillon Interpretating Date/Time 09/15/2018 01:19:39
== END 2018-09-14 16:12 | disposition home health service (06) | DRG 265 ==
LOC: PHED 21:22 → PHEDA 09-01 00:22 → HCPC 09-01 03:30 → HCIS 09-06 12:03
PROVIDERS: ADMIT Internal Medicine; ATTEND Internal Medicine
PROC: LEADREV (ICD-10-PCS; 2018-09-13 16:00)
DX: T38.0X5A Adverse effect of glucocorticoids and synthetic analogues, initial encounter; N17.9 Acute kidney failure, unspecified; J18.0 Bronchopneumonia, unspecified organism; T82.110A Breakdown (mechanical) of cardiac electrode, initial encounter; I48.91 Unspecified atrial fibrillation; Z53.09 Procedure and treatment not carried out because of other contraindication; Z79.51 Long term (current) use of inhaled steroids; E11.22 Type 2 diabetes mellitus with diabetic chronic kidney disease; G89.29 Other chronic pain; I50.9 Heart failure, unspecified; K63.5 Polyp of colon; Z86.74 Personal history of sudden cardiac arrest; F17.210 Nicotine dependence, cigarettes, uncomplicated; I13.0 Hypertensive heart and chronic kidney disease with heart failure and stage 1 through stage 4 chronic kidney disease, or unspecified chronic kidney disease; E86.0 Dehydration; I42.9 Cardiomyopathy, unspecified; R00.1 Bradycardia, unspecified; Y71.2 Prosthetic and other implants, materials and accessory cardiovascular devices associated with adverse incidents; Z79.84 Long term (current) use of oral hypoglycemic drugs; N18.3 Chronic kidney disease, stage 3 (moderate); J44.0 Chronic obstructive pulmonary disease with (acute) lower respiratory infection; B37.0 Candidal stomatitis; Z82.49 Family history of ischemic heart disease and other diseases of the circulatory system; J44.1 Chronic obstructive pulmonary disease with (acute) exacerbation; D50.0 Iron deficiency anemia secondary to blood loss (chronic)
CPT/HCPCS: 33216; 33244; 33262; 36430; 71010; 71045; 71250; 76937; 80048; 80053; 80076; 80307; 81001; 82272; 82550; 82570; 82728; 82948; 82962; 83520; 83540; 83550; 83735; 83880; 84300; 84484; 85025; 85027; 85610; 85730; 86850; 86900; 86901; 86923; 87070; 87205; 93005; 94060; 94150; 94640; 94665; 97163; 99211; 99285; C1777; G0168; G0297; G0463; J0456; J1815; J1940; J1956; J2001; J2250; J2270; J2920; J2930; J3010; J3370; J7030; J7040; J7050; J7506; J7512; P9016